=== PATIENT | female | born 1955 ===

== ENCOUNTER → 2020-04-13 14:16 | Outpatient (BNVA) | payer MEDICARE, SELFPAY | PROVIDERS: PCP Emergency Medicine; Visit Provider Student in an Organized Health Care Education/Training Program | DX: Z13.89 Encounter for screening for other disorder (principal) | CPT/HCPCS: Q3014 ==

== ENCOUNTER 2020-06-28 15:51 | Outpatient (REF) | payer MEDICARE, SELFPAY ==
--- NOTE | ~2020-06-28 | US_ITS ---
EXAMINATION: US RETROPERITONEAL LIMITED (RENAL ONLY) CLINICAL INFORMATION: Flank pain. Renal failure. COMPARISON: Ultrasound renals only 06/22/2019 and 12/11/2018. CT abdomen pelvis 09/06/2016. TECHNIQUE: Real-time imaging of the kidneys. FINDINGS: RIGHT KIDNEY: 9.0 x 3.9 x 4.7 cm (SAG x AP x TRV). The kidney is normal in size, contour, and echogenicity. Renal cortical thickness is normal. No renal calculi or hydronephrosis. There is an echogenic lesion in midpole measuring 1.2 x 1.3 x 1.0 cm. Previously it measured 1.2 x 0.9 x 1.2 cm. LEFT KIDNEY: 10.9 x 4.6 x 5.1 cm (SAG x AP x TRV). The kidney is normal in size, contour, and echogenicity. Renal cortical thickness is normal. No renal calculi or hydronephrosis. There is an irregular shaped anechoic cyst with septation in the lower pole measuring 4.0 x 3.8 x 3.8 cm. Previously it measured 3.9 x 3.8 x 3.0 cm. US/US renal BI IMPRESSION: Complex cyst left kidney and echogenic lesion midpole right kidney are stable. 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 It is stable to previous study from 06/22/2019 and ultrasound abdomen 09/06/2016.
[2020-06-28 16:39] LABS: MANUAL DIFF FLAG NO
[2020-06-28 16:42] LABS: Basophils Percent Auto 0.4 % (0-2); Eosinophils Absolute Auto 0.1 X10*3/uL (0.0-0.4); Eosinophils Percent Auto 2.7 % (0-4); Hematocrit 39.2 % (37-47); Imm Gran Abs Auto 0.02 X10*3/uL (0.00-0.03); Imm Gran Pct Auto 0.4 % (0.0-0.4); Lymphocytes Absolute Auto 1.9 X10*3/uL (1.2-4.9); Lymphocytes Percent Auto 36.5 % (20-40); Mean Corpuscular HGB Conc 33.2 g/dl (31.0-35.0); Mean Corpuscular Hemoglobin 33.3 pg (27.0-33.0); Mean Corpuscular Volume 100.5 fL (80-98); Mean Platelet Volume 11.8 fL (9.4-12.3); Monocytes Absolute Auto 0.5 X10*3/uL (0.1-1.2); Monocytes Percent Auto 9.3 % (2-11); Neutrophils Absolute Auto 2.6 X10*3/uL (2.0-8.3); Neutrophils Percent Auto 50.7 % (45-73); Platelet Count 208 X10*3/uL (160-400); Red Cell Distribution Width 12.9 % (11.0-16.0); White Blood Count 5.2 X10*3/uL (4.8-10.8)
[2020-06-28 17:09] LABS: Alanine Aminotransferase 12 U/L (0-31); Albumin Level 4.5 g/dL (3.5-5.0); Alkaline Phosphatase 81 U/L (39-117); Anion Gap 12 (12-20); Aspartate Amino Transferase 24 U/L (5-31); Bilirubin Total 0.9 mg/dL (0.0-1.0); Blood Urea Nitrogen 16 mg/dL (9-16); C Reactive Protein 0.57 mg/dL (< or = 0.50); Calcium 9.7 mg/dL (8.4-10.2); Carbon Dioxide 28 mmol/L (22-29); Chloride 105 mmol/L (96-108); Estimated Glomerular Filt Rate > 60; Glucose Random 83 mg/dL (60-115); Potassium 3.6 mmol/L (3.3-5.1); Sodium 141 mmol/L (135-145); Total Protein 8.1 g/dL (6.5-8.0)
[2020-06-28 19:39] LABS: Erythrocyte Sedimentation Rate 30 MM/HR (0-20)
== END 2020-06-28 15:52 | disposition home or self-care (01) ==
LOC: HO.US 15:51
PROVIDERS: Student in an Organized Health Care Education/Training Program; PCP Internal Medicine; Visit Provider Internal Medicine Nephrology
DX: R10.9 Unspecified abdominal pain (principal); N18.30 Chronic kidney disease, stage 3 unspecified; R76.8 Other specified abnormal immunological findings in serum
CPT/HCPCS: 36415; 76775; 80053; 85025; 85652; 86140

== ENCOUNTER → 2020-09-08 13:16 | Outpatient (BNVA) | payer MEDICARE, SELFPAY | PROVIDERS: PCP Internal Medicine; Visit Provider Urology | DX: N28.1 Cyst of kidney, acquired (principal) | CPT/HCPCS: 99202 ==

== ENCOUNTER 2021-06-03 01:34 | Emergency (ER) | payer MEDICARE, SELFPAY ==
[2021-06-03 01:48] VITALS: BP 147/81; PULSE 83; RESP 16; TEMP 36.8; O2SAT 97; BMI 44.8
--- NOTE | 2021-06-03 03:54 | ED_ITS ---
HPI - General Adult General Chief complaint: Headache Stated complaint: Crisis Time Seen by Provider: 06/03/21 03:50 Source: patient and dental patient coordinator Mode of arrival: ambulatory History of Present Illness HPI narrative: 66-year-old female who presents with onset left-sided neck pain that is sharp and constant in nature and radiates up in to the posterior aspect of her ear and down into her left shoulder. Patient did attempt to take Tylenol at home but states that the pain persisted. She states that she has increasing pain on attempting to look over her left shoulder but denies any ear discomfort, changes in vision, numbness/tingling / weakness to left upper extremity and denies any fever, chills, shortness of breath or chest pain / palpitations. Related Data Home Medications Medication Instructions Recorded Confirmed albuterol sulfate 90 mcg/actuation 2 puff INHALATION Q6H PRN 04/13/20 aerosol inhaler allopurinol 300 mg tablet 300 mg PO DAILY 04/13/20 aspirin 81 mg tablet,delayed 81 mg PO DAILY 04/13/20 release bupropion HCl 150 mg 24 hr tablet, 150 mg PO QAM 04/13/20 04/13/20 extended release cholecalciferol (vitamin D3) 125 mcg PO 04/13/20 mcg (5,000 unit) disintegrating tablet cyanocobalamin (vitamin B-12) 1,000 mcg PO DAILY 04/13/20 1,000 mcg capsule fluticasone propionate 44 2 puff INHALATION BID 04/13/20 mcg/actuation HFA aerosol inhaler (Flovent HFA) hydrochlorothiazide 25 mg tablet 25 mg PO DAILY 04/13/20 hydroxyzine HCl 10 mg tablet 10 mg PO BEDTIME 04/13/20 04/13/20 levothyroxine 137 mcg capsule 137 mcg PO DAILY 04/13/20 lisinopril 40 mg tablet 40 mg PO DAILY 04/13/20 metoprolol succinate 50 mg 50 mg PO DAILY 04/13/20 tablet,extended release 24 hr mirtazapine 30 mg tablet 30 mg PO DAILY 04/13/20 04/13/20 pantoprazole 40 mg tablet,delayed 40 mg PO DAILY 04/13/20 release Previous Rx's Medication Instructions Recorded tramadol 50 mg tablet 50 mg PO DAILY #30 tab 01/22/20 cyclobenzaprine 10 mg tablet 5 mg PO BEDTIME PRN #3 tab 06/03/21 Allergies Allergy/AdvReac Type Severity Reaction Status Date / Time No Known Allergies Allergy Verified 09/08/20 13:39 [No Known Allergies*] Review of Systems Review of Systems: Pertinent positives and negatives as stated in HPI 10 point review of systems is otherwise negative. [facility] Past Medical History Source: nursing notes reviewed Medical History Rheumatoid factor positive Social History Social History Alcohol intake: never Advance Directives: No Physical Exam ED Vital Signs: Vital Signs - 24 hr 06/03/21 01:48 Temperature 98.2 F Pulse Rate 83 Respiratory Rate 16 Blood Pressure 147/81 H Pulse Oximetry 97 BMI result Body Mass Index 44.8 VITAL SIGNS: Reviewed. GENERAL: Well developed, well nourished, in no acute distress. HEAD: Normocephalic/atraumatic EYES: PERRLA, EOMI EARS: Ext canals without abnormality, TMs non-bulging and non-erythematous NOSE: Nares patent bilateral OROPHARYNX: no oral lesions noted, posterior pharynx clear NECK: Supple, no adenopathy , noted spasm to left trapezius extending into left shoulder, no midline cervical spine tenderness noted LUNGS: Normal breath sounds. No adventitious sounds or accessory muscle use. SpO2<97> CARDIOVASCULAR: Regular rate and rhythm without noted murmurs ABDOMEN: Soft, non-tender, non-distended with bowel sounds. MUSCULOSKELETAL: No tenderness, deformities, or effusions noted on gross inspection. EXTREMITIES: No cyanosis, clubbing or edema. SKIN: Inspection of the skin reveals no rashes NEUROLOGIC: Alert and oriented x 4. Strength and sensation to light touch were grossly intact x 4, no facial asymmetry, no pronator drift, otherwise nonfocal.. Course Course Course Narrative: 66-year-old female with history and clinical presentation consistent with muscle spasm and will be provided with combination analgesics as well as Flexeril and lidocaine patch. on re-evaluation patient states that she is feeling much better and has demonstrated increased range of motion. She is otherwise discharged home in stable condition. Discharge Plan Discharge Clinical Impression: Muscle spasm Patient Disposition: Home, Self-Care Instructions: Muscle Spasm (ED) Additional Instructions: 1. Reanudar todos los medicamentos caseros seg?n lo prescrito. 2. Tylenol 1000 mg, por v?a oral, cada 6 horas seg?n sea necesario para controlar el dolor. No exceda los 4000 mg dentro de las 24 horas. 3. Ibuprofeno 400 mg, por v?a oral con leche o comida, cada 6 horas seg?n sea necesario para controlar el dolor. Puede tomarlo con Tylenol para aumentar el alivio de los s?ntomas. 4. Recomiende el parche de lidoca?na de venta sruthi, apl?quelo en el ?marleen de m?xima sensibilidad susu se indica en el empaque exterior. 5. Kaylen un seguimiento con jensen proveedor de atenci?n primaria el lunes por la ma?lizbeth para nancy reevaluaci?n adicional del manejo ambulatorio. Regrese a la gigi de emergencias por empeoramiento cooper de los s?ntomas. Prescriptions: New cyclobenzaprine 10 mg tablet 5 mg PO BEDTIME PRN (Reason: muscle spasm) Qty: 3 0RF No Action tramadol 50 mg tablet 50 mg PO DAILY Qty: 30 3RF Rx Instructions: 1 tab PO daily as needed mirtazapine 30 mg tablet 30 mg PO DAILY 0RF hydroxyzine HCl 10 mg tablet 10 mg PO BEDTIME 0RF bupropion HCl 150 mg tablet extended release 24 hr 150 mg PO QAM 0RF albuterol sulfate 90 mcg/actuation HFA aerosol inhaler 2 puff inhalation Q6H PRN0RF pantoprazole 40 mg tablet,delayed release (DR/EC) 40 mg PO DAILY 0RF Flovent HFA 44 mcg/actuation HFA aerosol inhaler 2 puff inhalation BID 0RF Rx Instructions: administer with spacer allopurinol 300 mg tablet 300 mg PO DAILY 0RF cyanocobalamin (vitamin B-12) 1,000 mcg capsule 1,000 mcg PO DAILY 0RF hydrochlorothiazide 25 mg tablet 25 mg PO DAILY 0RF aspirin 81 mg tablet,delayed release (DR/EC) 81 mg PO DAILY 0RF metoprolol succinate 50 mg tablet extended release 24 hr 50 mg PO DAILY 0RF lisinopril 40 mg tablet 40 mg PO DAILY 0RF cholecalciferol (vitamin D3) 125 mcg (5,000 unit) tablet,disintegrating PO 0RF levothyroxine 137 mcg capsule 137 mcg PO DAILY 0RF Referrals: Jen Ochoa MD [Primary Care Provider] - 2 days Print Language: Indian
[2021-06-03] MEDS: Acetaminophen 325 MG TABLET 975 MG PO (04:22)
[2021-06-03] MEDS: Cyclobenzaprine HCl 5 MG TABLET PO (04:22)
[2021-06-03] MEDS: Ketorolac Tromethamine 15 MG/ML VIAL IM (04:23)
[2021-06-03] MEDS: Lidocaine 4 % Patch ADH..PATCH 1 PATCH TRANSDERMA (04:23)
--- NOTE | 2021-06-03 05:27 | PC.NURSE ---
Hoda presented to ED for evaluation of L sided headache and depression and anxiety related to the recent sudden of her brother. She is alert and oriented x 3, makes eye contact with RN and is calm and cooperative. She speaks in full sentences, respirations non-labored. She denies chest pain. She denies SI/HI. NO nausaea. No vomiting. Hoda was medicated per MD orders and, at this time, she denies significant change in her SCHMIDT. She is aware that she is discharged and is currently attempting to arrange for transportation home from her daughter. She verbalized an understanding of all DC orders.
== END 2021-06-03 06:26 | disposition home or self-care (01) ==
PROVIDERS: Emergency Provider Student in an Organized Health Care Education/Training Program; PCP Internal Medicine
DX: M62.838 Other muscle spasm (principal); M54.2 Cervicalgia
CPT/HCPCS: 96372; 99283; 99284; J1885

== ENCOUNTER 2021-09-18 14:55 | Outpatient (REF) | payer MEDICARE, SELFPAY ==
[2021-09-18 15:28] LABS: MANUAL DIFF FLAG NO
[2021-09-18 16:11] LABS: Basophils Percent Auto 0.4 % (0-2); Eosinophils Absolute Auto 0.1 X10*3/uL (0.0-0.4); Eosinophils Percent Auto 2.1 % (0-4); Hematocrit 38.5 % (37.0-47.0); Hemoglobin 12.7 g/dl (12.0-16.0); Imm Gran Abs Auto 0.01 X10*3/uL (0.00-0.03); Imm Gran Pct Auto 0.2 % (0.0-0.4); Lymphocytes Absolute Auto 1.4 X10*3/uL (1.2-4.9); Lymphocytes Percent Auto 30.3 % (20-40); Mean Corpuscular Hemoglobin 32.6 pg (27.0-33.0); Mean Platelet Volume 11.8 fL (9.4-12.3); Monocytes Absolute Auto 0.5 X10*3/uL (0.1-1.2); Monocytes Percent Auto 10.7 % (2-11); Neutrophils Absolute Auto 2.7 x10*3/uL (2.0-8.3); Neutrophils Percent Auto 56.3 % (45-73); Platelet Count 207 X10*3/uL (160-400); Red Blood Count 3.89 X10*6/uL (4.20-5.50); Red Cell Distribution Width 13.3 % (11.0-16.0); White Blood Count 4.8 X10*3/uL (4.8-10.8)
== END 2021-09-18 14:56 | disposition home or self-care (01) ==
LOC: HO.LAB 14:55
PROVIDERS: PCP Internal Medicine; Visit Provider Internal Medicine Pulmonary Disease
DX: J45.909 Unspecified asthma, uncomplicated (principal); G47.33 Obstructive sleep apnea (adult) (pediatric); Z91.09 Other allergy status, other than to drugs and biological substances
CPT/HCPCS: 36415; 82785; 85025; 86003; 99202

== ENCOUNTER 2021-10-27 13:41 | Outpatient (REF) | payer MEDICARE, SELFPAY ==
--- NOTE | 2021-10-27 15:03 | PFT_ITS ---
Forced vital capacity 69%, FEV1 78%. FEV1/FVC ratio is 85. PRA36-35 96% and MVV is 77%. Post bronchodilator therapy, there is no change. Total lung capacity 70%, residual volume 68%. Diffusion capacity 78%. CONCLUSION: No obstructive airway disorder. Moderately severe restrictive pulmonary disorder. Clinical correlation recommended. MD AMY Ayala/DONNIE / [id number]
== END 2021-10-27 13:42 | disposition home or self-care (01) ==
LOC: HO.RESP 13:41
PROVIDERS: PCP Internal Medicine; Visit Provider Internal Medicine Pulmonary Disease
DX: J45.909 Unspecified asthma, uncomplicated (principal)
CPT/HCPCS: 94060; 94727; 94729; 99212

== ENCOUNTER → 2021-11-06 10:10 | Outpatient (REF) | payer MEDICARE, SELFPAY | LOC: HO.SL 10:10 | PROVIDERS: PCP Internal Medicine; Visit Provider Internal Medicine Pulmonary Disease | DX: G47.33 Obstructive sleep apnea (adult) (pediatric) (principal) | CPT/HCPCS: 95806 ==

== ENCOUNTER 2021-11-27 15:47 | Outpatient (REF) | payer MEDICARE, SELFPAY ==
--- NOTE | ~2021-11-27 | US_ITS ---
EXAMINATION: US RETROPERITONEAL LIMITED (RENAL ONLY) CLINICAL INFORMATION: Cyst of kidney, acquired. COMPARISON: Renal ultrasound 06/28/2020 and 06/22/2019. CT abdomen and pelvis 09/07/2016. TECHNIQUE: Real-time imaging of the kidneys. FINDINGS: RIGHT KIDNEY: 10.8 x 3.7 x 5.3 cm (SAG x AP x TRV). The kidney is normal in size, contour, and echogenicity. Renal cortical thickness is normal. There is a 1.5 x 1.2 x 1.1 cm echogenic lesion in the midpole. This is similar to previous exam and likely represents a benign hemangioma. No renal calculi or hydronephrosis. LEFT KIDNEY: 10.6 x 4.5 x 4.6 cm (SAG x AP x TRV). The kidney is normal in size, contour, and echogenicity. Renal cortical thickness is normal. There is a 4.2 x 4.4 x 3.8 cm complex cyst in the lower pole of the left kidney with several thin septations. This measured 4 x 3.8 x 3.8 cm on June 2020 exam and is minimally increased in size. No renal calculi or hydronephrosis. US/US renal BI IMPRESSION: Stable 1.5 x 1.2 x 1 cm echogenic lesion in the midpole likely representing a benign angiomyolipoma. Complex 4.2 x 4.4 x 3.8 cm cyst in the lower pole with several thin septations minimally increased from previous exam.
[2021-11-27 17:14] LABS: Eosinophils Absolute Auto 0.1 X10*3/uL (0.0-0.4); Imm Gran Abs Auto 0.03 X10*3/uL (0.00-0.03); Imm Gran Pct Auto 0.5 % (0.0-0.4); MANUAL DIFF FLAG SCAN; Mean Corpuscular Hemoglobin 32.2 pg (27.0-33.0); Red Cell Distribution Width 13.4 % (11.0-16.0); SCAN SMEAR FLAG 1
[2021-11-27 17:16] LABS: Basophils Percent Auto 0.4 % (0-2); Eosinophils Percent Auto 1.4 % (0-4); Hematocrit 38.2 % (37.0-47.0); Hemoglobin 12.6 g/dl (12.0-16.0); Lymphocytes Absolute Auto 1.6 X10*3/uL (1.2-4.9); Lymphocytes Percent Auto 28.2 % (20-40); Mean Corpuscular Volume 97.7 fL (80.0-98.0); Mean Platelet Volume 12.8 fL (9.4-12.3); Monocytes Absolute Auto 0.6 X10*3/uL (0.1-1.2); Monocytes Percent Auto 10.2 % (2-11); Neutrophils Absolute Auto 3.3 x10*3/uL (2.0-8.3); Neutrophils Percent Auto 59.3 % (45-73); PLT CLUMP 1; Red Blood Count 3.91 X10*6/uL (4.20-5.50)
[2021-11-27 17:17] LABS: Prothrombin Time 11.2 SEC (10.0-13.1)
[2021-11-27 17:27] LABS: PLT ABN DIST 1
[2021-11-27 17:29] LABS: White Blood Count 5.6 X10*3/uL (4.8-10.8)
[2021-11-27 17:55] LABS: Alanine Aminotransferase 11 U/L (0-31); Albumin Level 4.2 g/dL (3.5-5.0); Alkaline Phosphatase 77 U/L (39-117); Aspartate Amino Transferase 24 U/L (5-31); Bilirubin Direct 0.2 mg/dL (0.0-0.5); Bilirubin Total 0.5 mg/dL (0.0-1.0)
[2021-11-27 18:16] LABS: Platelet Count 151 X10*3/uL (160-400)
[2021-11-27 18:17] LABS: SLIDE REVIEW VERIFIED
[2021-11-29 07:41] LABS: Immunoglobulin E 49 kU/L (<OR=114)
[2021-11-29 13:51] LABS: Alpha Fetoprotein 6.3 ng/mL
[2021-11-30 08:42] LABS: HCV Log PCR <1.18 NOT DETECTED Log IU/mL (NOT DETECTED); HepC Viral Load <15 NOT DETECTED IU/mL (NOT DETECTED)
== END 2021-11-27 15:48 | disposition home or self-care (01) ==
LOC: HO.US 15:47
PROVIDERS: Internal Medicine Pulmonary Disease; Absent Provider Internal Medicine; PCP Internal Medicine; Visit Provider Urology
DX: N28.1 Cyst of kidney, acquired (principal); K74.69 Other cirrhosis of liver; Z91.09 Other allergy status, other than to drugs and biological substances; Z86.19 Personal history of other infectious and parasitic diseases
CPT/HCPCS: 36415; 76775; 80076; 82105; 82785; 85025; 85610; 87522

== ENCOUNTER → 2021-12-06 13:37 | Outpatient (BNVA) | payer MEDICARE, SELFPAY | PROVIDERS: PCP Internal Medicine; Visit Provider Urology | DX: N28.1 Cyst of kidney, acquired (principal) | CPT/HCPCS: Q3014 ==

== ENCOUNTER 2022-05-20 01:13 | Emergency (ER) | payer OTHER, SELFPAY ==
[2022-05-20 01:23] VITALS: BP 122/103; BP 78/50; PULSE 73; PULSE 77; RESP 18; TEMP 36.6; O2SAT 100; O2SAT 96; BMI 47.6
[2022-05-20 01:59] LABS: IDNOW Serial# 6674DD1D; Strep A Nucleic Acid Negative (Negative)
[2022-05-20 02:00] LABS: COVID-19 Test Negative (Negative); IDNOW Serial# 16C4AD1C; IDNOW Serial# BCCEAD1C; Influenza A Negative (Negative); Influenza B2 Negative (Negative)
[2022-05-20 02:12] VITALS: BP 140/69; PULSE 68; O2SAT 98
--- NOTE | 2022-05-20 02:12 | PC.NURSE ---
Pt aox4, resting at the bedside. Pt reports dry cough x 1 day and sore throat, 10/10, and SOB. Bilateral clear lung sounds on auscultation. Pt aware of plan of care.
--- NOTE | 2022-05-20 02:14 | ED_ITS ---
HPI - General Adult General Chief complaint: General Medical Stated complaint: Sorethroat Time Seen by Provider: 05/20/22 01:37 Source: patient Mode of arrival: EMS History of Present Illness HPI narrative: 67-year-old female who arrives via EMS with 1 week of sore throat and subjective fevers. Otherwise she denies any shortness of breath, chest pain, GI or symptoms. Related Data Home Medications Medication Instructions Recorded Confirmed albuterol sulfate 90 mcg/actuation 2 puff inhalation Q6H PRN 04/13/20 12/06/21 aerosol inhaler allopurinol 300 mg tablet 300 mg PO DAILY 04/13/20 12/06/21 bupropion HCl 150 mg 24 hr tablet, 150 mg PO QAM 04/13/20 12/06/21 extended release cholecalciferol (vitamin D3) 125 mcg PO 04/13/20 12/06/21 mcg (5,000 unit) disintegrating tablet cyanocobalamin (vitamin B-12) 1,000 mcg PO DAILY 04/13/20 12/06/21 1,000 mcg capsule hydrochlorothiazide 25 mg tablet 25 mg PO DAILY 04/13/20 12/06/21 lisinopril 40 mg tablet 40 mg PO DAILY 04/13/20 12/06/21 metoprolol succinate 50 mg 50 mg PO DAILY 04/13/20 12/06/21 tablet,extended release 24 hr pantoprazole 40 mg tablet,delayed 40 mg PO DAILY 04/13/20 12/06/21 release betamethasone dipropionate 0.05 % 1 appl topical DAILY PRN 09/18/21 12/06/21 topical cream cephalexin 500 mg capsule 500 mg PO BID 09/18/21 12/06/21 clotrimazole 1 % topical cream 1 appl topical BID 09/18/21 12/06/21 cromolyn 4 % eye drops 1 drp ophthalmic (eye) QID 09/18/21 12/06/21 doxycycline hyclate 100 mg capsule 100 mg PO DAILY 09/18/21 12/06/21 famotidine 20 mg tablet 20 mg PO DAILY 09/18/21 12/06/21 hydrocortisone 2.5 % topical cream 1 appl topical BID PRN 09/18/21 12/06/21 ibuprofen 800 mg tablet 800 mg PO TID 09/18/21 12/06/21 levothyroxine 137 mcg capsule 137 mcg PO DAILY 09/18/21 12/06/21 (Tirosint) lidocaine 5 % topical patch 1 patch topical DAILY 09/18/21 12/06/21 loratadine 10 mg tablet 10 mg PO DAILY 09/18/21 12/06/21 nystatin 100,000 unit/gram topical 1 appl topical DAILY 09/18/21 12/06/21 cream prednisone 20 mg tablet 20 mg PO DAILY 09/18/21 12/06/21 tizanidine 2 mg tablet 2 mg PO Q6-8H PRN 09/18/21 12/06/21 hydroxyzine HCl 10 mg tablet 10 mg PO BID 12/06/21 12/06/21 mirtazapine 30 mg tablet 30 mg PO BEDTIME 12/06/21 12/06/21 Previous Rx's Medication Instructions Recorded cyclobenzaprine 10 mg tablet 5 mg PO BEDTIME PRN muscle spasm 06/03/21 #3 tabs fluticasone furoate 200 1 inh inhalation DAILY 30 days #1 09/18/21 mcg-vilanterol 25 mcg/dose ea inhalation powder (Breo Ellipta) Allergies Allergy/AdvReac Type Severity Reaction Status Date / Time No Known Allergies Allergy Verified 12/06/21 08:54 [No Known Allergies*] Review of Systems Review of Systems: Pertinent positives and negatives as stated in [facility] Past Medical History Source: nursing notes reviewed Medical History Cholelithiasis Chronic kidney disease, stage 3 Gallstone Hepatitis C HTN (hypertension) Hyperuricemia Hypothyroidism Morbid (severe) obesity due to excess calories OA (osteoarthritis) of knee Rheumatoid factor positive Sleep apnea Vitamin D deficiency Surgical History History of surgery Social History Social History Alcohol intake: never Advance Directives: No Physical Exam ED Vital Signs: Vital Signs - 24 hr 05/20/22 01:23 05/20/22 02:12 Temperature 97.9 F Pulse Rate 77 68 Respiratory Rate 18 Blood Pressure 122/103 H 140/69 H Pulse Oximetry 96 98 Oxygen Delivery Method Room Air Room Air BMI result Body Mass Index 47.6 VITAL SIGNS: Reviewed. GENERAL: Well developed, well nourished, in no acute distress. HEAD: Normocephalic/atraumatic EYES: PERRLA, EOMI EARS: Ext canals without abnormality, TMs non-bulging and non-erythematous NOSE: Nares patent bilateral OROPHARYNX: no oral lesions noted, posterior pharynx clear and non-erythematous without noted tonsillar enlargement/erythema/exudates NECK: Supple, no adenopathy LUNGS: Normal breath sounds. No adventitious sounds or accessory muscle use. SpO2<98> CARDIOVASCULAR: Regular rate and rhythm without noted murmurs ABDOMEN: Soft, non-tender, non-distended with bowel sounds. NEUROLOGIC: Alert and oriented x 4. Medical Decision Making Medical Decision Making [facility] Narrative: 67-year-old female with history and clinical presentation after review of all investigations most consistent with viral pharyngitis, patient was given instructions for saline gargles as well as [id number] Cepacol for additional symptom relief. She was also strongly encouraged to follow-up with her primary care provider. Differential Diagnosis Differential Diagnoses: The differential diagnosis associated with the presentation includes Please see discussion above Lab Data [facility] Lab Attestation statement: I reviewed the patient's lab results. Please see the discussion above Labs: Lab Results 05/20/22 05/20/22 05/20/22 Range/Units 01:35 01:35 01:35 COVID-19 (TA) Negative (Negative) COVID-19 Clin Com See Note Influenza Type A ([facility]) Negative (Negative) Influenza Type B ([facility]) Negative (Negative) Influenza A & B Note See Note S. pyogenes GrpA [facility] Negative (Negative) External Record Review External record reviewed: Outpatient record and Prior outpatient labs Discharge Plan Discharge Clinical Impression: Pharyngitis Patient Disposition: Home, Self-Care Instructions: Pharyngitis (ED) Additional Instructions: 1. Reanudar todos los medicamentos caseros seg?n lo prescrito. 2. Recomiendo Cepacol de venta sruthi para el alivio de los s?ntomas del dolor de garganta. 3. Adem?s, recomiendo combinar la harriet de dodge con agua tibia y hacer g?rgaras de 5 a 10 minutos, de 3 a 4 veces al d?a. Puede continuar esto pushpa 4 d?as. 4. Kaylen un seguimiento con jensen proveedor de atenci?n primaria el lunes por la ma?lizbeth. Regrese a la gigi de emergencias si los s?ntomas empeoran. 1. Resume all home medications as prescribed. 2. I recommend [id number] Cepacol for symptom relief of your sore throat. 3. In addition, I recommend combining table salt with warm water and gargling for 5-10 minutes, 3 to 4 times a day. You can continue this for 4 days. 4. Please follow-up with your primary care provider on Saturday morning. Return to the ER for any worsening symptoms. Prescriptions: No Action cyclobenzaprine 10 mg tablet 5 mg PO BEDTIME PRN (Reason: muscle spasm) Qty: 3 0RF bupropion HCl 150 mg tablet extended release 24 hr 150 mg PO QAM albuterol sulfate 90 mcg/actuation HFA aerosol inhaler 2 puff inhalation Q6H PRN pantoprazole 40 mg tablet,delayed release (DR/EC) 40 mg PO DAILY allopurinol 300 mg tablet 300 mg PO DAILY cyanocobalamin (vitamin B-12) 1,000 mcg capsule 1,000 mcg PO DAILY hydrochlorothiazide 25 mg tablet 25 mg PO DAILY metoprolol succinate 50 mg tablet extended release 24 hr 50 mg PO DAILY lisinopril 40 mg tablet 40 mg PO DAILY cholecalciferol (vitamin D3) 125 mcg (5,000 unit) tablet,disintegrating PO lidocaine 5 % adhesive patch,medicated 1 patch topical DAILY Rx Instructions: leave on most painful area for up to 12 hrs nystatin 100,000 unit/gram cream 1 appl topical DAILY cromolyn 4 % drops 1 drp ophthalmic (eye) QID fluticasone furoate-vilanterol [Breo Ellipta] 200-25 mcg/dose blister with device 1 inh inhalation DAILY 30 Days Qty: 1 6RF prednisone 20 mg tablet 20 mg PO DAILY tizanidine 2 mg tablet 2 mg PO Q6-8H PRN doxycycline hyclate 100 mg capsule 100 mg PO DAILY cephalexin 500 mg capsule 500 mg PO BID famotidine 20 mg tablet 20 mg PO DAILY loratadine 10 mg tablet 10 mg PO DAILY hydrocortisone 2.5 % cream 1 appl topical BID PRN clotrimazole 1 % cream 1 appl topical BID betamethasone dipropionate 0.05 % cream 1 appl topical DAILY PRN ibuprofen 800 mg tablet 800 mg PO TID levothyroxine [Tirosint] 137 mcg capsule 137 mcg PO DAILY hydroxyzine HCl 10 mg tablet 10 mg PO BID mirtazapine 30 mg tablet 30 mg PO BEDTIME Referrals: Jen Ochoa MD [Primary Care Provider] - Print Language: Faroese
[2022-05-20] MEDS: Throat Lozenge, Medicated LOZENGE 1 LOZENGE MUCOUS MEM (02:29)
[2022-05-20] MEDS: Ibuprofen 400 MG TABLET PO (02:29)
[2022-05-20] MEDS: Acetaminophen 325 MG TABLET 975 MG PO (02:29)
--- NOTE | 2022-05-20 02:31 | PC.NURSE ---
Pt aox3 in no apparent distress. Discharge instructions provided to pt. Pt verbalizes understanding. Able to ambulate independently with a steady gait.
== END 2022-05-20 02:33 | disposition home or self-care (01) ==
PROVIDERS: Emergency Provider Student in an Organized Health Care Education/Training Program; PCP Internal Medicine
DX: J02.9 Acute pharyngitis, unspecified (principal); R50.9 Fever, unspecified; Z20.822 Contact with and (suspected) exposure to COVID-19; Z20.828 Contact with and (suspected) exposure to other viral communicable diseases
CPT/HCPCS: 87502; 87635; 87651; 99284

== ENCOUNTER 2022-10-08 09:45 | Outpatient (REF) | payer OTHER, SELFPAY ==
--- NOTE | ~2022-10-08 | US_ITS ---
EXAMINATION: US COMPLETE ABDOMEN WITH LIVER ELASTOGRAPHY CLINICAL INFORMATION: Cirrhosis. COMPARISON: None available. TECHNIQUE: Real-time imaging of the abdominal viscera. Noninvasive ultrasound liver fibrosis assessment is performed using Aimee ElastPQ point quantification shear wave elastography (2D-SWE) with a C5-2 MHz transducer. Multiple elastography samples are obtained. FINDINGS: PANCREAS: The pancreas appears unremarkable, without masses or ductal dilatation, with the exception of the tail which is obscured by bowel gas. ABDOMINAL AORTA: The proximal, middle, and distal aortic segments are normal in caliber. INFERIOR VENA CAVA: Visualized portions are normal. LIVER: The liver is heterogeneous with a lobular contour suggesting cirrhosis. Echogenicity is borderline increased. No focal lesion or intrahepatic biliary duct dilatation. The right lobe measures 15.3 cm in length. The left lobe measures 13.5 cm in length. Portal flow is hepatopetal. Shear wave liver elastography median stiffness is 2.0 m/s (reference: normal median stiffness is 1.3 m/s or less). IQR/median stiffness to assess sampling precision is 0.10 (reference: good quality data set is IQR/median stiffness of 0.15 or less). GALLBLADDER: Normal. The gallbladder is physiologically distended without evidence of stones, sludge, polyps, wall thickening or pericholecystic fluid. COMMON BILE DUCT: Normal in caliber measuring 0.6 cm in diameter. RIGHT KIDNEY: No hydronephrosis. No renal calculi or focal parenchymal lesions. The kidney measures 9.6 cm in maximum dimension. LEFT KIDNEY: No hydronephrosis. A benign lower pole 3.7 cm Bosniak class II renal cyst is noted with a septation. This requires no additional imaging or follow-up. No solid renal masses are seen. No renal calculi or focal parenchymal lesions. The kidney measures 10.2 cm in maximum dimension. SPLEEN: Normal. The spleen measures 9.0 cm in maximum dimension. FREE FLUID: None. US/US abdomen comp w elastography IMPRESSION: 1. Cirrhotic appearing liver. 2. Liver elastography: Measurements are suggestive of compensated advanced chronic liver disease but need further test for confirmation. REFERENCE: Society of Radiologists in Ultrasound Liver Stiffness Thresholds (2020): LIVER STIFFNESS THRESHOLDS: *Liver Stiffness equal or less than 1.3 m/s: High probability of being normal. *Liver Stiffness less than 1.7 m/s: In the absence of other known clinical signs, rules out compensated advanced chronic liver disease. *Liver Stiffness 1.7-2.1 m/s: Suggestive of compensated advanced chronic liver disease but need further test for confirmation. *Liver Stiffness over 2.1 m/s: Rules in compensated advanced chronic liver disease. *Liver Stiffness over 2.4 m/s: Suggestive of clinically significant portal hypertension. QUALITY OF DATA SET: *IQR/Median value equal or less than 0.15 implies a quality data set. *IQR/Median value over 0.15 implies a poor quality data set. SIGNIFICANT CHANGE FROM PRIOR EXAM: Significant change if liver stiffness measurement is 10% or greater from prior exam. OTHER CONSIDERATIONS: The stage of liver fibrosis may be overestimated in the setting of acute hepatitis, liver inflammation, elevated liver function tests, hepatic vascular congestion, obstructive cholestasis, non-fasting state, and infiltrative diseases such as amyloidosis and lymphoma. In some patients with NAFLD, the liver stiffness thresholds for compensated advanced chronic liver disease may be lower. In causes other than viral hepatitis and NAFLD, liver stiffness thresholds are not well established.
== END 2022-10-08 09:46 | disposition home or self-care (01) ==
LOC: HO.US 09:45
PROVIDERS: Visit Provider Internal Medicine
DX: K74.69 Other cirrhosis of liver (principal)
CPT/HCPCS: 76705; 76981

== ENCOUNTER 2022-12-06 09:36 | Outpatient (REF) | payer OTHER, SELFPAY ==
--- NOTE | ~2022-12-06 | US_ITS ---
EXAMINATION: US RETROPERITONEAL LIMITED (RENAL ONLY) CLINICAL INFORMATION: Cyst of kidney, acquired. COMPARISON: Ultrasound abdomen complete with elastography 10/08/2022. Renal ultrasound 11/27/2021. TECHNIQUE: Real-time imaging of the kidneys. FINDINGS: RIGHT KIDNEY: 10.2 x 3.7 x 5.3 cm (SAG x AP x TRV). The kidney is normal in size, contour, and echogenicity. Renal cortical thickness is normal. No renal calculi or hydronephrosis. At the interpolar aspect laterally, a 0.9 x 1.0 x 0.9 cm hyperechoic, circumscribed mass is seen. This could represent a benign angiomyolipoma or alternatively a prominent peripelvic fat collection. LEFT KIDNEY: 10.3 x 5.6 x 6.0 cm (SAG x AP x TRV). The kidney is normal in size, contour, and echogenicity. Renal cortical thickness is normal. No renal calculi or hydronephrosis. At the lower pole, a 3.8 x 3.7 x 3.7 cm mildly complex cyst is seen with fine septation. On the ultrasound examination dated 10/08/2022, this measured 3.7 x 3.0 x 3.2 cm. US/US renal BI IMPRESSION: 1. There is a stable 3.8 cm maximal diameter mildly complex cyst with fine septation. 2. Centrally within the right kidney, a fat density benign angiomyolipoma versus renal sinus focal fat collection is newly noted.
== END 2022-12-06 09:37 | disposition home or self-care (01) ==
LOC: HO.US 09:36
PROVIDERS: PCP Internal Medicine; Visit Provider Urology
DX: N28.1 Cyst of kidney, acquired (principal)
CPT/HCPCS: 76775

== ENCOUNTER 2023-03-22 14:44 | Outpatient (AMB) | payer OTHER, SELFPAY ==
--- NOTE | 2023-03-22 14:41 | A.OFFVIS_ITS ---
Intake Intake Visit Reasons: REASON FOR VISIT 1 yr /US(set) Intake Note: Patient is present for ultrasound follow up renal cyst/ultrasound (imaging 12/06/22) Urology Medications: none Blood Thinner: none Mowing Machine Operator Required: Yes Mowing Machine Operator Name: CURT LIRADANILO Accompanied by: Self / Same As Patient Allergies No Known Allergies [No Known Allergies*] Allergy (Verified 03/22/23 15:27) Medication List - Last Reconciled 03/22/23 by HIRA Reaves- albuterol sulfate 90 mcg/actuation 2 puffs inhalation Q6H PRN allopurinol 300 mg PO DAILY betamethasone dipropionate 0.05% 1 appl topical DAILY PRN bupropion HCl 150 mg PO QAM cholecalciferol (vitamin D3) mcg PO cholecalciferol (vitamin D3) 50 mcg PO DAILY clotrimazole 1% 1 appl topical BID cromolyn 4% 1 drp ophthalmic (eye) QID cyanocobalamin (vitamin B-12) 1,000 mcg PO DAILY cyclobenzaprine 5 mg (1/2 x 10 mg) PO BEDTIME PRN famotidine 20 mg PO DAILY fluticasone furoate-vilanterol 200-25 mcg/dose (Breo Ellipta) 1 ea PO DAILY hydrochlorothiazide 25 mg PO DAILY hydrocortisone 2.5% 1 appl topical BID PRN hydroxyzine HCl 10 mg PO BID ibuprofen 800 mg PO TID levothyroxine (Tirosint) 137 mcg PO DAILY lidocaine 5% 1 patch topical DAILY lisinopril 40 mg PO DAILY loratadine 10 mg PO DAILY metoprolol succinate ER 50 mg PO DAILY mirtazapine 30 mg PO BEDTIME nystatin 1 appl topical DAILY pantoprazole 40 mg PO DAILY prednisone 20 mg PO DAILY tizanidine 2 mg PO Q6-8H PRN zolpidem 5 mg PO BEDTIME PRN HPI HPI Comments History of Present Illness Details Hoda is a very pleasant 67-year-old Danish-speaking female patient of Dr. Kidd. She has a past medical history of chronic kidney disease stage 3, vitamin-D deficiency, sleep apnea, hyperthyroidism, hypertension, hyperuricemia, hep C, obesity, osteoarthritis of the knee, and rheumatoid factor positive. She presents to the office today for follow-up of her complex renal cyst. In discussion with the patient today she reports having followed up with Nephrology earlier last week and has been doing and feeling well. Recent renal imaging results reviewed with the patient today. Right kidney with no calculi and or hydronephrosis. At the interpolar aspect laterally, a 0.9 x 1.0 x 0.9 cm hyperechoic, circumscribed mass is seen. This could represent benign angiomyolipoma or alternatively a prominent peripelvic fat collection. Left kidney with no calculi and or hydronephrosis. At the lower pole, a 3.8 x 3.7 x 3.7 cm mildly complex cyst is seen with fine septation. On the ultrasound examination dated 10/08/2022, this measured 3.7 x 3.0 x 3.2 cm. She denies any bothersome urinary issues or concerns at this time. In office urinalysis results reviewed with the patient today. Discussed at length renal cysts and further imaging with CT urogram. Patient is agreeable. When asked she denies urinary urgency, urinary frequency, incontinence, nocturia, hematuria, dysuria, foul smelling urine, changes to urinary stream, flank pain, fever, and or chills. She is happy with her current voiding parameters. She otherwise denies any other issues or concerns at this time. [facility] Medical History Chronic kidney disease, stage 3 Vitamin D deficiency Sleep apnea Hypothyroidism HTN (hypertension) Hyperuricemia Hepatitis C Gallstone Morbid (severe) obesity due to excess calories Cholelithiasis OA (osteoarthritis) of knee Rheumatoid factor positive Surgical History History of surgery Social History Alcohol intake: never Review of Systems Const Reports as per HPI Eyes Reports no additional complaints ENT Reports no additional complaints Card Reports as per HPI Resp Reports as per HPI GI Reports as per HPI Reports as per HPI Musc Reports as per HPI Neuro Reports no additional complaints Psych Reports no additional complaints Endo Reports as per HPI Physical Exam Const General: cooperative, comfortable, no acute distress, well developed, alert and awake Nutritional Appearance: overweight Orientation/consciousness: patient oriented x3 Limitations: no limitations HEENT Head: Yes normal to inspection, Yes normocephalic and Yes atraumatic Ears: hearing grossly normal bilaterally Eyes General: appearance normal, both eyes and all related structures Neck Neck: Yes normal visual inspection and Yes trachea midline Chest Chest palpation & inspection: normal inspection of the chest Resp Effort & Inspection: normal respiratory effort and able to speak in complete sentences Cardio Rate: regular rate GI Inspection: Yes normal to inspection General: Yes no CVA tenderness Back/Spine/Pelvis Back: no CVA tenderness Skin General skin exam: no rashes or lesions noted Neuro General: patient oriented x3 Extrem General: Yes normal to inspection Psych Appearance: grossly normal and well kempt Mental Status: mental status grossly normal Speech and movement: Normal speech and movement present and Clear speech present Affect: normal affect Attitude: cooperative Thought process: Normal thought process present Thought content: Normal thought content present Insight: Fair insight present (Psych) Judgement: Fair judgement present (Psych) Results AMB Urinalysis, Automated UA Leukoctes 0 Mel/uL Last Edit by [employer] on 03/22/23 15:03 UA Nitrite Negative Last Edit by [employer] on 03/22/23 15:03 UA Urobilinogen 0.2 mg/dL Last Edit by [employer] on 03/22/23 15:03 UA Protein 0 mg/dL Last Edit by [employer] on 03/22/23 15:03 UA pH 5.5 Last Edit by [employer] on 03/22/23 15:03 UA Blood 0 Nathaniel/uL Last Edit by [employer] on 03/22/23 15:03 UA Specific [place] 1.015 Last Edit by [employer] on 03/22/23 15:03 UA Ketone Negative Last Edit by [employer] on 03/22/23 15:03 UA Bilirubin 0 mg/dL Last Edit by [employer] on 03/22/23 15:03 UA Glucose 0 mg/dL Last Edit by [employer] on 03/22/23 15:03 Results Reviewed Results Reviewed: Laboratory Last Values Urine pH (Auto) 5.5 03/22/23 14:47 Specific [place] (Auto) 1.015 03/22/23 14:47 Urine Protein (Auto) 0 mg/dL 03/22/23 14:47 Glucose (UA)(Auto) 0 mg/dL 03/22/23 14:47 Urine Ketones (Auto) Negative 03/22/23 14:47 Urine Blood (Auto) 0 Nathaniel/uL 03/22/23 14:47 Urine Nitrite (Auto) Negative 03/22/23 14:47 Urine Bilirubin (Auto) 0 mg/dL 03/22/23 14:47 Urine Urobilinogen (Auto) 0.2 mg/dL 03/22/23 14:47 Leukocyte Esterase (Auto) 0 Mel/uL 03/22/23 14:47 Date of Service: 12/06/22 EXAMINATION: US RETROPERITONEAL LIMITED (RENAL ONLY) CLINICAL INFORMATION: Cyst of kidney, acquired. COMPARISON: Ultrasound abdomen complete with elastography 10/08/2022. Renal ultrasound 11/27/2021. TECHNIQUE: Real-time imaging of the kidneys. FINDINGS: RIGHT KIDNEY: 10.2 x 3.7 x 5.3 cm (SAG x AP x TRV). The kidney is normal in size, contour, and echogenicity. Renal cortical thickness is normal. No renal calculi or hydronephrosis. At the interpolar aspect laterally, a 0.9 x 1.0 x 0.9 cm hyperechoic, circumscribed mass is seen. This could represent a benign angiomyolipoma or alternatively a prominent peripelvic fat collection. LEFT KIDNEY: 10.3 x 5.6 x 6.0 cm (SAG x AP x TRV). The kidney is normal in size, contour, and echogenicity. Renal cortical thickness is normal. No renal calculi or hydronephrosis. At the lower pole, a 3.8 x 3.7 x 3.7 cm mildly complex cyst is seen with fine septation. On the ultrasound examination dated 10/08/2022, this measured 3.7 x 3.0 x 3.2 cm. IMPRESSION: 1. There is a stable 3.8 cm maximal diameter mildly complex cyst with fine septation. 2. Centrally within the right kidney, a fat density benign angiomyolipoma versus renal sinus focal fat collection is newly noted. Assessment & Plan Assessment & Plan (1) Complex renal cyst: Code(s): N28.1 - Cyst of kidney, acquired Plan In office urinalysis results reviewed with the patient today; as noted above. Recent renal imaging results reviewed with the patient today; as noted above. Discussed further assessment evaluation with CT urogram. BUN and creatinine ordered for imaging. Patient denies any bothersome urinary issues or concerns at this time. She reports be happy with current voiding parameters. Discussed, educated, encouraged on the importance of drinking plenty of water daily. Follow-up in 1-2 months with imaging to be completed prior; or sooner with any issues, concerns, and or questions. Orders: Orders AMB Urinalysis Automated Today Z13.9 - Encounter for screening, unspecified Blood Urea Nitrogen Today R39.15 - Urgency of urination CT urogram Today N28.1 - Cyst of kidney, acquired Creatinine Today R39.15 - Urgency of urination Patient Instructions: The patient had an opportunity to ask questions regarding the treatment plan. All questions were answered. Physical exam, labs, and imaging were discussed and reviewed in detail. As well as risks, benefits, and discussion of treatment choices. No major barriers to understanding were identified. The patient expressed understanding and agreement with the above treatment plan. The patient was made aware they should contact our office by phone for worsening of their current condition, the appearance of new symptoms, or with any questions or concerns. Compliance is encouraged with any medications and follow up testing that is ordered. It is a privilege to be allowed the opportunity to participate in? your urological care.? Again, if you have any questions or concerns If you have any questions or concerns please do not hesitate to contact me. The office is [phone]. This note is constructed using voice recognition software. While every effort has been made to ensure accuracy consumer relations complaint clerk errors may have been included. Yours sincerely, BARBIE Reaves Coding Level of Care Code Est Pt Level 3 (58586) Diagnoses Complex renal cyst N28.1
== END 2023-03-22 15:21 | disposition home or self-care (01) ==
PROVIDERS: PCP Internal Medicine; Visit Provider Nurse Practitioner Family
DX: N28.1 Cyst of kidney, acquired (principal)
CPT/HCPCS: 99213

== ENCOUNTER → 2023-03-22 14:44 | Outpatient (BNVA) | payer OTHER, SELFPAY | PROVIDERS: PCP Internal Medicine; Visit Provider Nurse Practitioner Family | DX: N28.1 Cyst of kidney, acquired (principal) | CPT/HCPCS: 81003; 99212 ==

== ENCOUNTER 2023-09-12 16:41 | Emergency (ER) | payer OTHER, SELFPAY ==
--- NOTE | ~2023-09-12 | CT_ITS ---
EXAMINATION: CT ANGIOGRAM CHEST, ABDOMEN AND PELVIS WITH CONTRAST CLINICAL INFORMATION: Chest pain, elevated blood pressure COMPARISON: CT abdomen/pelvis 09/07/2016 TECHNIQUE: Multidetector volumetric imaging was performed through the chest, abdomen and pelvis following the administration of 70 mL of Omnipaque 350 intravenous contrast per CTA protocol. Sagittal and coronal reformatted images were obtained on the technologist's workstation. Multiplanar MIP volume rendering provided. This CT examination was performed using dose optimization techniques as appropriate, variously including the following: *Automated exposure control *Adjustment of mA and/or kV according to patient size (this includes techniques or standardized protocols for targeted exams where dose is matched to indication/reason for exam; i.e. extremities or head) *Use of iterative reconstruction technique DLP: 858 mGy-cm FINDINGS: CHEST: Vasculature: Ascending aorta measures approximately 3.6 cm in diameter. There is suboptimal assessment of the ascending aorta due to motion artifact, though without findings suspicious for dissection. There is common origin of the brachiocephalic and left common carotid arteries off the aortic arch. No central pulmonary embolus is seen. Lungs: No regions of consolidation bilaterally. There is a posterior right upper lobe nodule measuring approximately 6 x 3 mm on image 190/[id number]. Mediastinum: The visualized thyroid gland is unremarkable. There are subcentimeter mediastinal lymph nodes within the range of normal variation. Cardiac size is within normal limits; no pericardial effusion. Pleura: No pneumothorax or pleural effusion. Chest Wall/Axilla: Unremarkable. ABDOMEN/PELVIS: Liver, Gallbladder, Biliary Tree: The liver is normal in size, shape, and attenuation. No focal hepatic lesion or biliary ductal dilatation is present. Status post cholecystectomy. There is also a coarse calcification in the gallbladder fossa. Pancreas: Unremarkable. Spleen: Unremarkable. Adrenal Glands: Unremarkable. Kidneys and Ureters: Bilateral nephrograms are symmetric. No hydronephrosis or obstructing calculus identified. Left lower pole renal cyst measures up to approximately 4.6 cm; no follow-up recommended. Bladder: Unremarkable. Gastrointestinal Tract: No evidence of bowel obstruction. Assessment for wall thickening in some segments of the colon is limited due to luminal collapse, though no significant pericolonic stranding is seen to strongly suggest a colitis. No free fluid or free air is seen. Abdominal Wall: No hernia is demonstrated. Lymphovascular Structures: Lymph nodes: Normal. Vascular: No evidence of aortic aneurysm or dissection. The celiac artery is patent. Superior mesenteric artery is patent, with a replaced hepatic artery noted. Bilateral renal arteries are patent. Inferior mesenteric artery is patent. The bilateral iliac and visualized femoral arteries are patent. Pelvic Viscera: Status post hysterectomy. OSSEOUS STRUCTURES: Degenerative changes are noted in the spine. CT/CT angio abdomen pelvis IMPRESSION: 1. No evidence of aortic dissection. 2. No acute findings identified in the chest, abdomen, or pelvis. 3. Posterior right upper lobe lung nodule, nonspecific. According to the UPDATED 2017 Fleischner Society recommendations, the advised follow-up imaging for solid nodules < 6 mm is: LOW RISK PATIENT: No routine follow-up. HIGH RISK PATIENT: Optional CT at 12 months.
--- NOTE | 2023-09-12 16:43 | ECG_ITS ---
Test Reason : cp Blood Pressure : / mmHG Vent. Rate : 067 BPM Atrial Rate : 067 BPM P-R Int : 188 ms QRS Dur : 106 ms QT Int : 344 ms P-R-T Axes : 035 -41 017 degrees QTc Int : 363 ms Normal sinus rhythm Left axis deviation Moderate voltage criteria for LVH, may be normal variant ( R in aVL , [place] product ) Nonspecific T wave abnormality Abnormal ECG When compared with ECG of 01-JAN-2019 20:31, QT has shortened Referred By: Radha Gutierrez Electronically Signed By:ROMAINE LOUISE
[2023-09-12 17:02] LABS: MANUAL DIFF FLAG NO
[2023-09-12 17:04] VITALS: BP 190/87; PULSE 67; RESP 16; TEMP 36.4; O2SAT 97; BMI 50.3
[2023-09-12 17:04] LABS: Basophils Percent Auto 0.4 % (0-2); Eosinophils Absolute Auto 0.1 X10*3/uL (0.0-0.4); Eosinophils Percent Auto 2.3 % (0-4); Hemoglobin 12.7 g/dl (12.0-16.0); Imm Gran Abs Auto 0.01 X10*3/uL (0.00-0.03); Imm Gran Pct Auto 0.2 % (0.0-0.4); Lymphocytes Absolute Auto 1.8 X10*3/uL (1.2-4.9); Lymphocytes Percent Auto 33.9 % (20-40); Mean Corpuscular HGB Conc 34.3 g/dl (31.0-35.0); Mean Corpuscular Hemoglobin 33.2 pg (27.0-33.0); Mean Corpuscular Volume 96.9 fL (80.0-98.0); Mean Platelet Volume 11.2 fL (9.4-12.3); Monocytes Absolute Auto 0.5 X10*3/uL (0.1-1.2); Monocytes Percent Auto 9.3 % (2-11); Neutrophils Absolute Auto 2.8 x10*3/uL (2.0-8.3); Neutrophils Percent Auto 53.9 % (45-73); Platelet Count 205 X10*3/uL (160-400); Red Blood Count 3.82 X10*6/uL (4.20-5.50); Red Cell Distribution Width 13.1 % (11.0-16.0); White Blood Count 5.2 X10*3/uL (4.8-10.8)
--- NOTE | 2023-09-12 17:07 | ED.GENADULT ---
HPI - General Adult General Chief complaint: Chest Pain Stated complaint: chest pain, abnormal ekg Time Seen by Provider: 09/13/23 00:12 Related Data Home Medications ?Medication ?Instructions ?Recorded ?Confirmed albuterol sulfate 90 mcg/actuation 2 puff inhalation Q6H PRN 04/13/20 12/06/21 aerosol inhaler allopurinol 300 mg tablet 300 mg PO DAILY 04/13/20 12/06/21 bupropion HCl 150 mg 24 hr tablet, 150 mg PO QAM 04/13/20 12/06/21 extended release cholecalciferol (vitamin D3) 125 mcg PO 04/13/20 12/06/21 mcg (5,000 unit) disintegrating tablet cyanocobalamin (vitamin B-12) 1,000 mcg PO DAILY 04/13/20 12/06/21 1,000 mcg capsule hydrochlorothiazide 25 mg tablet 25 mg PO DAILY 04/13/20 12/06/21 lisinopril 40 mg tablet 40 mg PO DAILY 04/13/20 12/06/21 metoprolol succinate 50 mg 50 mg PO DAILY 04/13/20 12/06/21 tablet,extended release 24 hr pantoprazole 40 mg tablet,delayed 40 mg PO DAILY 04/13/20 12/06/21 release betamethasone dipropionate 0.05 % 1 appl topical DAILY PRN 09/18/21 12/06/21 topical cream clotrimazole 1 % topical cream 1 appl topical BID 09/18/21 12/06/21 cromolyn 4 % eye drops 1 drp ophthalmic (eye) QID 09/18/21 12/06/21 famotidine 20 mg tablet 20 mg PO DAILY 09/18/21 12/06/21 hydrocortisone 2.5 % topical cream 1 appl topical BID PRN 09/18/21 12/06/21 ibuprofen 800 mg tablet 800 mg PO TID 09/18/21 12/06/21 levothyroxine 137 mcg capsule 137 mcg PO DAILY 09/18/21 12/06/21 (Tirosint) lidocaine 5 % topical patch 1 patch topical DAILY 09/18/21 12/06/21 loratadine 10 mg tablet 10 mg PO DAILY 09/18/21 12/06/21 nystatin 100,000 unit/gram topical 1 appl topical DAILY 09/18/21 12/06/21 cream prednisone 20 mg tablet 20 mg PO DAILY 09/18/21 12/06/21 tizanidine 2 mg tablet 2 mg PO Q6-8H PRN 09/18/21 12/06/21 hydroxyzine HCl 10 mg tablet 10 mg PO BID 12/06/21 12/06/21 mirtazapine 30 mg tablet 30 mg PO BEDTIME 12/06/21 12/06/21 cholecalciferol (vitamin D3) 50 50 mcg PO DAILY 03/22/23 mcg (2,000 unit) tablet zolpidem 5 mg tablet 5 mg PO BEDTIME PRN 03/22/23 Previous Rx's ?Medication ?Instructions ?Recorded cyclobenzaprine 10 mg tablet 5 mg (1/2 x 10 mg) PO BEDTIME PRN 06/03/21 muscle spasm #3 tabs fluticasone furoate 200 1 ea PO DAILY #60 ea 10/10/22 mcg-vilanterol 25 mcg/dose inhalation powder (Breo Ellipta) Allergies Allergy/AdvReac Type Severity Reaction Status Date / Time No Known Allergies Allergy Verified 09/12/23 17:07 [No Known Allergies*] [facility] Past Medical History Medical History Chronic kidney disease, stage 3 Vitamin D deficiency Sleep apnea Hypothyroidism HTN (hypertension) Hyperuricemia Hepatitis C Gallstone Morbid (severe) obesity due to excess calories Cholelithiasis OA (osteoarthritis) of knee Rheumatoid factor positive Surgical History History of surgery Social History Social History Alcohol intake: never Smoked in Last 30 Days: No Advance Directives: No Advance Directives Information Provided: Yes Do you have a plan to hurt others: No Plan Physical Exam ED Vital Signs: Vital Signs - 24 hr 09/12/23 17:04 09/13/23 00:45 09/13/23 04:18 Temperature 97.6 F 97.5 F 97.9 F Pulse Rate 67 58 57 Respiratory Rate 16 16 13 Blood Pressure 190/87 H 183/79 H 133/66 Pulse Oximetry 97 96 96 Oxygen Delivery Method Room Air Room Air Room Air BMI result Body Mass Index 50.3 Course Course Course Narrative: This is an RME done by VERONIKA Gutierrez: Additional HPI, ROS, PE not included below will be deferred to primary provider. 68 year old female presents with chest pain which began last night while she was relaxing as well as shortness of breath which worsens when she is walking around. The chest pain radiates to her left shoulder and jaw. Appearance: Alert.? Oriented X3.? No acute cardiopulmonary distress distress.? Head: Normocephalic, atraumatic, no step-offs or deformities CVS: Pulses normal.? Respiratory: No respiratory distress.? Abdomen: Soft and nontender.? Skin: ? Normal skin color. Extremities: 5/5 strength to bilateral upper and lower extremities Neuro: Oriented X 3.? No motor deficit.? No sensory deficit. Medications Administered Discontinued Medications Generic Name Dose Route Start Last Admin Trade Name Freq PRN Reason Stop Dose Admin Iohexol 70 ml 09/13/23 02:03 09/13/23 02:04 Iohexol 350 Mg/Ml 100 Ml Infus..Btl IV 09/13/23 02:04 70 ml ONCE ONE Administration Medical Decision Making Lab Data 09/12/23 16:52 09/12/23 16:52 Labs: Lab Results 09/12/23 09/13/23 Range/Units 16:52 01:29 WBC 5.2 (4.8-10.8) X10*3/uL RBC 3.82 L (4.20-5.50) X10*6/uL Hgb 12.7 (12.0-16.0) g/dl Hct 37.0 (37.0-47.0) % MCV 96.9 (80.0-98.0) fL MCH 33.2 H (27.0-33.0) pg MCHC 34.3 (31.0-35.0) g/dl RDW 13.1 (11.0-16.0) % Plt Count 205 D (160-400) X10*3/uL MPV 11.2 (9.4-12.3) fL Immature Gran % (Auto) 0.2 (0.0-0.4) % Neut % (Auto) 53.9 (45-73) % Lymph % (Auto) 33.9 (20-40) % [place] % (Auto) 9.3 (2-11) % Eos % (Auto) 2.3 (0-4) % Baso % (Auto) 0.4 (0-2) % Lymph # (Auto) 1.8 (1.2-4.9) X10*3/uL [place] # (Auto) 0.5 (0.1-1.2) X10*3/uL Eos # (Auto) 0.1 (0.0-0.4) X10*3/uL Baso # (Auto) 0.0 (0.0-0.2) X10*3/uL Abs Immat Gran (auto) 0.01 (0.00-0.03) X10*3/uL Absolute Neuts (auto) 2.8 (2.0-8.3) x10*3/uL Absolute Nucleated RBC 0.000 (0.0-0.012) X10*3/uL Nucleated RBC % (auto) 0.0 (0.0-0.2) /100WBC Sodium 140 (135-145) mmol/L Potassium 3.6 (3.3-5.1) mmol/L Chloride 103 (96-108) mmol/L Carbon Dioxide 25 (22-29) mmol/L Anion Gap 16 (12-20) BUN 11 (9-16) mg/dL Creatinine 1.03 (0.5-1.4) mg/dL Estim Creat Clear Calc 53.1 Estimated GFR 53 Random Glucose 97 (60-115) mg/dL Calcium 10.6 H D (8.4-10.2) mg/dL Magnesium 1.5 L (1.6-2.6) mg/dL Total Bilirubin 0.6 (0.0-1.0) mg/dL AST 26 (5-31) U/L ALT 15 (0-31) U/L Alkaline Phosphatase 65 (39-117) U/L Troponin I High Sens < 2.7 < 2.7 (<3.5-17.0) ng/L Total Protein 8.3 H (6.5-8.0) g/dL Albumin 4.2 (3.5-5.0) g/dL Discharge Plan Discharge Clinical Impression: Chest pain Patient Disposition: Still a Patient Instructions: Chest Pain (DC) Additional Instructions: A lung nodule was found on your CT scan. Please closely follow-up. CT follow-up in 6 months to 1 year recommended. Prescriptions: No Action fluticasone furoate-vilanterol [Breo Ellipta] 200-25 mcg/dose blister with device 1 ea PO DAILY Qty: 60 6RF cyclobenzaprine 10 mg tablet 5 mg PO BEDTIME PRN (Reason: muscle spasm) Qty: 3 0RF bupropion HCl 150 mg tablet extended release 24 hr 150 mg PO QAM albuterol sulfate 90 mcg/actuation HFA aerosol inhaler 2 puff inhalation Q6H PRN pantoprazole 40 mg tablet,delayed release (DR/EC) 40 mg PO DAILY allopurinol 300 mg tablet 300 mg PO DAILY cyanocobalamin (vitamin B-12) 1,000 mcg capsule 1,000 mcg PO DAILY hydrochlorothiazide 25 mg tablet 25 mg PO DAILY metoprolol succinate 50 mg tablet extended release 24 hr 50 mg PO DAILY lisinopril 40 mg tablet 40 mg PO DAILY cholecalciferol (vitamin D3) 125 mcg (5,000 unit) tablet,disintegrating PO lidocaine 5 % adhesive patch,medicated 1 patch topical DAILY Rx Instructions: leave on most painful area for up to 12 hrs nystatin 100,000 unit/gram cream 1 appl topical DAILY cromolyn 4 % drops 1 drp ophthalmic (eye) QID prednisone 20 mg tablet 20 mg PO DAILY tizanidine 2 mg tablet 2 mg PO Q6-8H PRN famotidine 20 mg tablet 20 mg PO DAILY loratadine 10 mg tablet 10 mg PO DAILY hydrocortisone 2.5 % cream 1 appl topical BID PRN clotrimazole 1 % cream 1 appl topical BID betamethasone dipropionate 0.05 % cream 1 appl topical DAILY PRN ibuprofen 800 mg tablet 800 mg PO TID levothyroxine [Tirosint] 137 mcg capsule 137 mcg PO DAILY hydroxyzine HCl 10 mg tablet 10 mg PO BID mirtazapine 30 mg tablet 30 mg PO BEDTIME zolpidem 5 mg tablet 5 mg PO BEDTIME PRN cholecalciferol (vitamin D3) 50 mcg (2,000 unit) tablet 50 mcg PO DAILY Referrals: Ba Castaneda MD [Physician] - 09/16/23 Print Language: Croatian
[2023-09-12 17:25] LABS: Alanine Aminotransferase 15 U/L (0-31); Albumin Level 4.2 g/dL (3.5-5.0); Alkaline Phosphatase 65 U/L (39-117); Anion Gap 16 (12-20); Aspartate Amino Transferase 26 U/L (5-31); Bilirubin Total 0.6 mg/dL (0.0-1.0); Blood Urea Nitrogen 11 mg/dL (9-16); Calcium 10.6 mg/dL (8.4-10.2); Carbon Dioxide 25 mmol/L (22-29); Chloride 103 mmol/L (96-108); Creatinine Clr Calc Pharmacy 53.1; Estimated Glomerular Filt Rate 53; Glucose Random 97 mg/dL (60-115); Magnesium 1.5 mg/dL (1.6-2.6); Potassium 3.6 mmol/L (3.3-5.1); Sodium 140 mmol/L (135-145); Total Protein 8.3 g/dL (6.5-8.0)
[2023-09-12 17:39] LABS: Troponin-I High Sensitivity < 2.7 ng/L (<3.5-17.0)
--- OUTSIDE RECORDS SUMMARY | 2023-09-13 00:43 | XMS_ITS | Patient Health Record ---
Author Organization [facility] Address [address] [place] [address] Care Team Providers Care Splitting Machine Tender Name Role Phone Jen Acosta M.D. Primary Care Provider Aric Morrison Unavailable [phone] ALLERGIES No Known Allergies RESULTS Component Value Reference Range Notes US abdomen comp w elastograp hy (Not yet reviewed by provider) Interpretation: Performing Lab: Notes/Report: [facility] [address] [place] [address] Ultrasound Report Signed Patient: Hoda Lorenzo MR#: [id number] : 1955 Acct:[id number] Age/Sex: 67 / F ADM Date: 10/08/22 Loc: HO.US Attending Dr: Aric Florian Ordering Physician: Aric Florian Date of Service: 10/08/22 Procedure(s): US abdomen comp w elastography Accession Number(s): [id number] cc: Aric Florian EXAMINATION: US COMPLETE ABDOMEN WITH LIVER ELASTOGRAPHY CLINICAL INFORMATION: Cirrhosis. COMPARISON: None available. TECHNIQUE: Real-time imaging of the abdominal viscera. Noninvasive ultrasound liver fibrosis assessment is performed using Aimee ElastPQ point quantification shear wave elastography (2D-SWE) with a C5-2 MHz transducer. Multiple elastography samples are obtained. FINDINGS: PANCREAS: The pancreas appears unremarkable, without masses or ductal dilatation, with the exception of the tail which is obscured by bowel gas. ABDOMINAL AORTA: The proximal, middle, and distal aortic segments are normal in caliber. INFERIOR VENA CAVA: Visualized portions are normal. LIVER: The liver is heterogeneous with a lobular contour suggesting cirrhosis. Echogenicity is borderline increased. No focal lesion or intrahepatic biliary duct dilatation. The right lobe measures 15.3 cm in length. The left lobe measures 13.5 cm in length. Portal flow is hepatopetal. Shear wave liver elastography median stiffness is 2.0 m/s (reference: normal median stiffness is 1.3 m/s or less). IQR/median stiffness to assess sampling precision is 0.10 (reference: good quality data set is IQR/median stiffness of 0.15 or less). GALLBLADDER: Normal. The gallbladder is physiologically distended without evidence of stones, sludge, polyps, wall thickening or pericholecystic fluid. COMMON BILE DUCT: Normal in caliber measuring 0.6 cm in diameter. RIGHT KIDNEY: No hydronephrosis. No renal calculi or focal parenchymal lesions. The kidney measures 9.6 cm in maximum dimension. LEFT KIDNEY: No hydronephrosis. A benign lower pole 3.7 cm Bosniak class II renal cyst is noted with a septation. This requires no additional imaging or follow-up. No solid renal masses are seen. No renal calculi or focal parenchymal lesions. The kidney measures 10.2 cm in maximum dimension. SPLEEN: Normal. The spleen measures 9.0 cm in maximum dimension. FREE FLUID: None. US/US abdomen comp w elastography IMPRESSION: 1. Cirrhotic appearing liver. 2. Liver elastography: Measurements are suggestive of compensated advanced chronic liver disease but need further test for confirmation. REFERENCE: Society of Radiologists in Ultrasound Liver Stiffness Thresholds (2019): LIVER STIFFNESS THRESHOLDS: *Liver Stiffness equal or less than 1.3 m/s: High probability of being normal. *Liver Stiffness less than 1.7 m/s: In the absence of other known clinical signs, rules out compensated advanced chronic liver disease. *Liver Stiffness 1.7-2.1 m/s: Suggestive of compensated advanced chronic liver disease but need further test for confirmation. *Liver Stiffness over 2.1 m/s: Rules in compensated advanced chronic liver disease. *Liver Stiffness over 2.4 m/s: Suggestive of clinically significant portal hypertension. QUALITY OF DATA SET: *IQR/Median value equal or less than 0.15 implies a quality data set. *IQR/Median value over 0.15 implies a poor quality data set. SIGNIFICANT CHANGE FROM PRIOR EXAM: Significant change if liver stiffness measurement is 10% or greater from prior exam. OTHER CONSIDERATIONS: The stage of liver fibrosis may be overestimated in the setting of acute hepatitis, liver inflammation, elevated liver function tests, hepatic vascular congestion, obstructive cholestasis, non-fasting state, and infiltrative diseases such as amyloidosis and lymphoma. In some patients with NAFLD, the liver stiffness thresholds for compensated advanced chronic liver disease may be lower. In causes other than viral hepatitis and NAFLD, liver stiffness thresholds are not well established. Dictated By: Lucio Rahman MD Signed By: <Electronically signed by Lucio Rahman MD in OV> 10/10/22 194 DD/ 1008 TD/TT: Shirt Finisher: SS REASON FOR REFERRAL No Information MEDICATIONS Medication SIG (Take, Route, Frequency, Duration) Notes Start Date End Date Status Albuterol Sulfate (2.5 MG/3M L) 0.083% Inhalation for 7 Active Pantoprazole Sodium 40 MG TAKE 1 TABLET BY MOUTH EVERY DAY Oral for 30 Active Mirtazapine 30 MG Oral for 30 Active Breo Ellipta 200-25 MCG/INH Inhalation for 30 Active Levothyroxine Sodium 137 MCG Oral for 30 Active Vitamin D3 50 MCG (2000 UT) TAKE 1 TABLE T BY MOUTH ONCE DAILY Oral for 30 Active Flovent HFA 110 MCG/ACT 1 puff Inhalatio n Twice a day Active Allopurinol 300 MG 1 tablet Orally Once a day Active buPROPion HCl ER (XL) 150 MG Oral for 30 Active hydrOXYzine HCl 10 MG Oral for 30 Active Cyclobenzaprine HCl 5 MG Oral for 6 Active tiZANidine HCl 2 MG Oral for 5 Active Aspirin Low Dose 81 MG TAKE 1 TABLET BY MOUTH EVERY DAY Oral for 30 Active Acetaminophen ER 650 MG Oral for 10 Active Triamcinolone Acetonide 0.1 % External for 30 Active Arthritis Pain Relief 650 MG TAKE 2 TABL ETS BY MOUTH EVERY 8 HOURS NEEDED. SWALLOW WHOLE WITH WATER. DO NOT BREAK, CRUSH, DISSOLVE OR CHEW Oral for 10 Active Aspir-81 81 MG 1 tablet Orally Once a day Active Ambien 10 MG 1 tablet at bedtime Orally Once a day Active Metoprolol Succinate ER 50 MG 1 tablet O rally Once a day Active Ventolin HFA 108 (90 Base) MCG/ACT INHALE 2 PUFFS BY MOUTH EVERY 4 TO 6 HOURS NEEDED Inhalation for 17 Active Vitamin B-12 1000 MCG TAKE 1 TABLET BY MOUTH EVERY DAY Oral for 30 Active Famotidine 20 MG 1 tablet at bedtime as needed Orally Twice a day Active Lisinopril 40 MG 1 tablet Orally Once a day Active hydroCHLOROthiazide 25mg 1 tablet Orally Once a day Active Loratadine 10 MG 1 tablet Orally Once a day for 30 day(s) Active IMMUNIZATIONS Vaccine Route Administration Date Status Comme nts Influenza Unknown 03/07/2021 Administered SOCIAL HISTORY Sex Assigned At : Social History Observation Description Sex Assigned At Unknown PROBLEMS Problem Type ICD Code Onset Dates Problem Status W/U Status Risk SNOMED Code Notes Problem Colon cancer screening (Z12.11) Active confirmed Colon cancer screening (015428532) Problem History of adenomatous polyp of colon (Z86.010) Active confirmed History of adenomatous polyp of colon (407108056) Problem Other cirrhosis of liver (K74.69) Active confirmed 72081927 Problem History of hepatitis C (Z86.19) Active confirmed [id number] Encounters Encounter Location Date Provider Diagnosis [facility] [address] [place] [phone] 03/05/2023 Aric Florian [facility] [address] [place] [phone] 07/11/2023 Aric Florian [facility] [address] [place] [phone] 07/09/2023 Aric Florian PLAN OF TREATMENT Pending Test Test Name Order Date LIVER PROFILE 11/15/2021 LIVER PROFILE 02/01/2012 LIVER PROFILE 05/24/2017 LIVER PROFILE 02/02/2016 LIVER PROFILE 08/28/2022 CBC w DIFF 08/28/2022 CBC w DIFF 11/15/2021 CBC w DIFF 02/02/2016 PROTHROMBIN TIME (PT, INR) 03/25/2014 PROTHROMBIN TIME (PT, INR) 08/28/2022 PROTHROMBIN TIME (PT, INR) 11/15/2021 PROTHROMBIN TIME (PT, INR) 05/24/2017 PROTHROMBIN TIME (PT, INR) 02/02/2016 ALPHA-FETOPROTEIN,TUMOR MARKER 6 ALPHA-FETOPROTEIN,TUMOR MARKER 4 ALPHA-FETOPROTEIN,TUMOR MARKER 2 ALPHA-FETOPROTEIN,TUMOR MARKER 3 ALPHA-FETOPROTEIN,TUMOR MARKER 3 ALPHA-FETOPROTEIN,TUMOR MARKER 2 ALPHA-FETOPROTEIN,TUMOR MARKER 8 HEPATITIS C VIRAL LOAD 02/02/2016 HEPATITIS C VIRAL LOAD 11/15/2021 US abdomen comp w elastography 3 US abdomen comp w elastography 3 Future Test Test Name Order Date UPPER GI ENDOSCOPY 03/31/2013 COLONOSCOPY 03/31/2013 Next Appt Details Provider Name:Aric Florian , 11/07/2023 10:00:00 AM, [address], [address], [place], [address], Insurance Providers Payer Name Payer Address Payer Phone Subscriber Number Group Number Insured Name Patient Relationship to Insured Coverage Start Date Coverage End Date [facility] [address] Attn Claims VERONIKA Perez [id number] HODA SAMUEL Self - patient is the insured MEDICAL (GENERAL) HISTORY Medical History History ICD Code Colonoscopy 05-25-2013--remov al of 1 tubular adenoma--BE was done in June 2013 due to inability to get past the ascending colon with the colonoscopy -the BE was normal Cirrhosis-liver biopsy 2002- -ultrasound in April of 2013 was negative for any mass and alpha-fetoprotein level was normal--her liver profile was completely normal as well Previous hepatits C-Rx'd suc cessfully in [id number] Hep C RNA in 2007 Hypertension Denies ND,DM,CVA,renal disease Asthma Hypothyroid Depression In ER 02/2013 with rectal bleeding and H elana + stool---Labs OK Gallstones--she has seen Dr. Hardy due to occasional pain--holding off on surgery due to the liver disease negative MRI of the liver in 2010, and negative liver ultrasound in 2011--her alpha-fetoprotein level in 2011 was 6.2 and her liver profile was normal EGD in 05/2013 was neg. for varices, mild portal gastropathy, small HH Colonoscopy in 2006 with only a hyperpla stic polyp Surgical History Surgery Date(Month/Year) with transfusions Cholecystectomy-2016 Dr. Kramer
[2023-09-13 00:45] VITALS: BP 183/79; PULSE 58; RESP 16; TEMP 36.4; O2SAT 96
--- NOTE | 2023-09-13 01:02 | PC.NURSE ---
pt states she has no chest pain at this time. Pain is when pt is coughing or taking a deep breath. pt is on the monitor, skin pink warm and dry, and no coughing at this time.
--- NOTE | 2023-09-13 01:16 | ED.CHESTPAIN ---
HPI - Chest Pain General Chief Complaint: Chest Pain Stated Complaint: chest pain, abnormal ekg Time Seen by Provider: 09/13/23 00:12 History of Present Illness HPI narrative: Patient is a 68-year-old female presents today with having chest pain that is mid chest. It goes to the shoulder. There is no specific trigger. It is constant. There is no new shortness of breath. There has no diaphoresis. There has no fever there has no chills. There is no leg swelling. No history of blood clots. Patient from home. Positive history of hypertension. No history of diabetes, hypercholesterolemia, smoking, mi. no family history of PR. patient is from home. Related Data Home Medications ?Medication ?Instructions ?Recorded ?Confirmed albuterol sulfate 90 mcg/actuation 2 puff inhalation Q6H PRN 04/13/20 12/06/21 aerosol inhaler allopurinol 300 mg tablet 300 mg PO DAILY 04/13/20 12/06/21 bupropion HCl 150 mg 24 hr tablet, 150 mg PO QAM 04/13/20 12/06/21 extended release cholecalciferol (vitamin D3) 125 mcg PO 04/13/20 12/06/21 mcg (5,000 unit) disintegrating tablet cyanocobalamin (vitamin B-12) 1,000 mcg PO DAILY 04/13/20 12/06/21 1,000 mcg capsule hydrochlorothiazide 25 mg tablet 25 mg PO DAILY 04/13/20 12/06/21 lisinopril 40 mg tablet 40 mg PO DAILY 04/13/20 12/06/21 metoprolol succinate 50 mg 50 mg PO DAILY 04/13/20 12/06/21 tablet,extended release 24 hr pantoprazole 40 mg tablet,delayed 40 mg PO DAILY 04/13/20 12/06/21 release betamethasone dipropionate 0.05 % 1 appl topical DAILY PRN 09/18/21 12/06/21 topical cream clotrimazole 1 % topical cream 1 appl topical BID 09/18/21 12/06/21 cromolyn 4 % eye drops 1 drp ophthalmic (eye) QID 09/18/21 12/06/21 famotidine 20 mg tablet 20 mg PO DAILY 09/18/21 12/06/21 hydrocortisone 2.5 % topical cream 1 appl topical BID PRN 09/18/21 12/06/21 ibuprofen 800 mg tablet 800 mg PO TID 09/18/21 12/06/21 levothyroxine 137 mcg capsule 137 mcg PO DAILY 09/18/21 12/06/21 (Tirosint) lidocaine 5 % topical patch 1 patch topical DAILY 09/18/21 12/06/21 loratadine 10 mg tablet 10 mg PO DAILY 09/18/21 12/06/21 nystatin 100,000 unit/gram topical 1 appl topical DAILY 09/18/21 12/06/21 cream prednisone 20 mg tablet 20 mg PO DAILY 09/18/21 12/06/21 tizanidine 2 mg tablet 2 mg PO Q6-8H PRN 09/18/21 12/06/21 hydroxyzine HCl 10 mg tablet 10 mg PO BID 12/06/21 12/06/21 mirtazapine 30 mg tablet 30 mg PO BEDTIME 12/06/21 12/06/21 cholecalciferol (vitamin D3) 50 50 mcg PO DAILY 03/22/23 mcg (2,000 unit) tablet zolpidem 5 mg tablet 5 mg PO BEDTIME PRN 03/22/23 Previous Rx's ?Medication ?Instructions ?Recorded cyclobenzaprine 10 mg tablet 5 mg (1/2 x 10 mg) PO BEDTIME PRN 06/03/21 muscle spasm #3 tabs fluticasone furoate 200 1 ea PO DAILY #60 ea 10/10/22 mcg-vilanterol 25 mcg/dose inhalation powder (Breo Ellipta) Allergies Allergy/AdvReac Type Severity Reaction Status Date / Time No Known Allergies Allergy Verified 09/12/23 17:07 [No Known Allergies*] Review of Systems Review of Systems: Positive history of hypertension Positive chest pain No new shortness of breath no diaphoresis Chest pain radiate to the shoulder Yes all other systems are reviewed and are negative PMFSH Past Medical History Attestation statement: The following information was validated with the patient. Medical History Chronic kidney disease, stage 3 Vitamin D deficiency Sleep apnea Hypothyroidism HTN (hypertension) Hyperuricemia Hepatitis C Gallstone Morbid (severe) obesity due to excess calories Cholelithiasis OA (osteoarthritis) of knee Rheumatoid factor positive Surgical History History of surgery Social History Social History Alcohol intake: never Smoked in Last 30 Days: No Advance Directives: No Advance Directives Information Provided: Yes Do you have a plan to hurt others: No Plan Physical Exam Vital Signs: Vital Signs: Last Vital Signs Temp 97.9 F 09/13/23 04:18 Pulse 57 09/13/23 04:18 Resp 13 09/13/23 04:18 BP 133/66 09/13/23 04:18 Pulse Ox 96 09/13/23 04:18 O2 Del Method Room Air 09/13/23 04:18 BMI result Body Mass Index 50.3 Appearance: Alert. Oriented X3. No acute distress. Eyes: Pupils equal, round and reactive to light. ENT: Pharynx normal. Neck: Normal inspection. Neck supple. No lymph nodes noted. No crepitus CVS: Normal heart rate and rhythm. Pulses normal. Normal S1 and S2 Respiratory: No respiratory distress. Breath sounds normal. No Wheezing. No rales Abdomen: Soft and nontender. No rigidity. No distention. good BS x4 Skin: Skin warm and dry. Normal skin color. Normal skin turgor. Extremities: No lower extremity edema. Neurovascular intact to all extremities. No Lacerations. No Rash Neuro: Oriented X 3. No motor deficit. No sensory deficit. Moving all extermities. No slurred speech Medications Administered Discontinued Medications Generic Name Dose Route Start Last Admin Trade Name Freq PRN Reason Stop Dose Admin Iohexol 70 ml 09/13/23 02:03 09/13/23 02:04 Iohexol 350 Mg/Ml 100 Ml Infus..Btl IV 09/13/23 02:04 70 ml ONCE ONE Administration Medical Decision Making Medical Decision Making [facility] Narrative: My interpretation of patient's EKG showed a sinus rhythm heart rate is 60 OR QRS QTC within normal limits there is nonspecific T-wave flattening diffusely noted. T-wave flattening more pronounced on this EKG than previous EKG from 2019. First set of troponin is negative. Patient's chest pain is atypical for ACS. She does have elevated blood pressure. A CT was ordered. Additional 2nd set of troponin is ordered. Her pain is atypical. She is 68. Her heart score is a 3 if her 2nd set of enzymes negative. Two sets of cardiac enzymes are negative. CT angio of the chest abdomen pelvis was done. There has no evidence of dissection there is no description of any large PE. Patient has a small lung nodule. Which will require follow-up on an outpatient basis. Radiology recommend high-risk patient gets CT follow-up in 1 year. Low risk patient no CT require. Patient is to follow-up with cardiology on an outpatient basis. Currently in stable condition. Blood pressure is down well-appearing. Differential Diagnosis Differential Diagnoses: The differential diagnosis associated with the presentation includes ACS, dissection, pneumonia Admission/Observation Consideration of admission/observation: Escalation of care including admission/observation considered Lab Data MDM Lab Attestation statement: I reviewed the patient's lab results. 09/12/23 16:52 09/12/23 16:52 Labs: Lab Results 09/12/23 09/13/23 Range/Units 16:52 01:29 WBC 5.2 (4.8-10.8) X10*3/uL RBC 3.82 L (4.20-5.50) X10*6/uL Hgb 12.7 (12.0-16.0) g/dl Hct 37.0 (37.0-47.0) % MCV 96.9 (80.0-98.0) fL MCH 33.2 H (27.0-33.0) pg MCHC 34.3 (31.0-35.0) g/dl RDW 13.1 (11.0-16.0) % Plt Count 205 D (160-400) X10*3/uL MPV 11.2 (9.4-12.3) fL Immature Gran % (Auto) 0.2 (0.0-0.4) % Neut % (Auto) 53.9 (45-73) % Lymph % (Auto) 33.9 (20-40) % [place] % (Auto) 9.3 (2-11) % Eos % (Auto) 2.3 (0-4) % Baso % (Auto) 0.4 (0-2) % Lymph # (Auto) 1.8 (1.2-4.9) X10*3/uL [place] # (Auto) 0.5 (0.1-1.2) X10*3/uL Eos # (Auto) 0.1 (0.0-0.4) X10*3/uL Baso # (Auto) 0.0 (0.0-0.2) X10*3/uL Abs Immat Gran (auto) 0.01 (0.00-0.03) X10*3/uL Absolute Neuts (auto) 2.8 (2.0-8.3) x10*3/uL Absolute Nucleated RBC 0.000 (0.0-0.012) X10*3/uL Nucleated RBC % (auto) 0.0 (0.0-0.2) /100WBC Sodium 140 (135-145) mmol/L Potassium 3.6 (3.3-5.1) mmol/L Chloride 103 (96-108) mmol/L Carbon Dioxide 25 (22-29) mmol/L Anion Gap 16 (12-20) BUN 11 (9-16) mg/dL Creatinine 1.03 (0.5-1.4) mg/dL Estim Creat Clear Calc 53.1 Estimated GFR 53 Random Glucose 97 (60-115) mg/dL Calcium 10.6 H D (8.4-10.2) mg/dL Magnesium 1.5 L (1.6-2.6) mg/dL Total Bilirubin 0.6 (0.0-1.0) mg/dL AST 26 (5-31) U/L ALT 15 (0-31) U/L Alkaline Phosphatase 65 (39-117) U/L Troponin I High Sens < 2.7 < 2.7 (<3.5-17.0) ng/L Total Protein 8.3 H (6.5-8.0) g/dL Albumin 4.2 (3.5-5.0) g/dL Independent Interpretation I performed an independent interpretation of an: EKG (Sinus heart rate is 70 OR QRS QTC within normal limits is no acute ST segment elevation noted. There is diffuse T-wave flattening noted.) Radiology Impression Discussion of test interpretation with radiology: I have reviewed the radiologist's reading. External Record Review External record reviewed: Inpatient record Chronic Conditions Patient?s care impacted by: Hypertension Discharge Plan Discharge Clinical Impression: Chest pain Patient Disposition: Still a Patient Instructions: Chest Pain (DC) Additional Instructions: A lung nodule was found on your CT scan. Please closely follow-up. CT follow-up in 6 months to 1 year recommended. Prescriptions: No Action fluticasone furoate-vilanterol [Breo Ellipta] 200-25 mcg/dose blister with device 1 ea PO DAILY Qty: 60 6RF cyclobenzaprine 10 mg tablet 5 mg PO BEDTIME PRN (Reason: muscle spasm) Qty: 3 0RF bupropion HCl 150 mg tablet extended release 24 hr 150 mg PO QAM albuterol sulfate 90 mcg/actuation HFA aerosol inhaler 2 puff inhalation Q6H PRN pantoprazole 40 mg tablet,delayed release (DR/EC) 40 mg PO DAILY allopurinol 300 mg tablet 300 mg PO DAILY cyanocobalamin (vitamin B-12) 1,000 mcg capsule 1,000 mcg PO DAILY hydrochlorothiazide 25 mg tablet 25 mg PO DAILY metoprolol succinate 50 mg tablet extended release 24 hr 50 mg PO DAILY lisinopril 40 mg tablet 40 mg PO DAILY cholecalciferol (vitamin D3) 125 mcg (5,000 unit) tablet,disintegrating PO lidocaine 5 % adhesive patch,medicated 1 patch topical DAILY Rx Instructions: leave on most painful area for up to 12 hrs nystatin 100,000 unit/gram cream 1 appl topical DAILY cromolyn 4 % drops 1 drp ophthalmic (eye) QID prednisone 20 mg tablet 20 mg PO DAILY tizanidine 2 mg tablet 2 mg PO Q6-8H PRN famotidine 20 mg tablet 20 mg PO DAILY loratadine 10 mg tablet 10 mg PO DAILY hydrocortisone 2.5 % cream 1 appl topical BID PRN clotrimazole 1 % cream 1 appl topical BID betamethasone dipropionate 0.05 % cream 1 appl topical DAILY PRN ibuprofen 800 mg tablet 800 mg PO TID levothyroxine [Tirosint] 137 mcg capsule 137 mcg PO DAILY hydroxyzine HCl 10 mg tablet 10 mg PO BID mirtazapine 30 mg tablet 30 mg PO BEDTIME zolpidem 5 mg tablet 5 mg PO BEDTIME PRN cholecalciferol (vitamin D3) 50 mcg (2,000 unit) tablet 50 mcg PO DAILY Referrals: Ba Castaneda MD [Physician] - 09/16/23 Print Language: Cypriot
[2023-09-13 01:58] LABS: Troponin-I High Sensitivity < 2.7 ng/L (<3.5-17.0)
[2023-09-13] MEDS: iohexoL 350 MG/ML 100 ML INFUS..BTL 70 ML IV (02:04)
[2023-09-13 04:18] VITALS: BP 133/66; PULSE 57; RESP 13; TEMP 36.6; O2SAT 96
[2023-09-13 05:33] VITALS: BP 133/66; PULSE 57; RESP 13; TEMP 36.6; O2SAT 96
== END 2023-09-13 05:34 | disposition home or self-care (01) ==
PROVIDERS: Physician Assistant; Emergency Provider Emergency Medicine Emergency Medical Services; PCP Internal Medicine
DX: R07.9 Chest pain, unspecified (principal); I12.9 Hypertensive chronic kidney disease with stage 1 through stage 4 chronic kidney disease, or unspecified chronic kidney disease; N18.30 Chronic kidney disease, stage 3 unspecified
CPT/HCPCS: 36415; 71275; 74174; 80053; 83735; 84484; 85025; 93005; 99284; 99285; Q9967

== ENCOUNTER → 2023-09-12 16:43 | Outpatient (BNV) | payer OTHER, SELFPAY | PROVIDERS: Emergency Provider Emergency Medicine Emergency Medical Services; PCP Internal Medicine; Visit Provider Internal Medicine | DX: R07.9 Chest pain, unspecified (principal); R94.31 Abnormal electrocardiogram [ECG] [EKG] | CPT/HCPCS: 93010 ==

== ENCOUNTER 2023-10-21 15:45 | Outpatient (REF) | payer OTHER, SELFPAY ==
--- NOTE | ~2023-10-21 | MM_ITS ---
EXAMINATION: MM SCREENING DIGITAL BREAST TOMOSYNTHESIS, BILATERAL CLINICAL INFORMATION: Screening. Asymptomatic. COMPARISON: Mammography: This study is compared with prior exams dating back to 2015. TECHNIQUE: Digital breast tomosynthesis is performed in both the craniocaudal and mediolateral oblique views along with computer-aided detection (CAD). Synthesized 2D images are generated from the tomosynthesis. FINDINGS: There are scattered areas of fibroglandular density (ACR BI-RADS breast composition Category b). There are no significant masses, abnormal calcifications, or other abnormalities. MM/MM tomosynthesis screening BI IMPRESSION: No mammographic evidence of malignancy. ASSESSMENT: BI-RADS BI-RADS 1 - Negative RECOMMENDATION: Routine annual mammography screening. 1 year F/U This examination should not preclude the clinical evaluation of a suspicious palpable abnormality. This patient's information was entered into a reminder system with a target due date for their next mammogram.
== END 2023-10-21 15:46 | disposition home or self-care (01) ==
LOC: HO.MAMMO 15:45
PROVIDERS: PCP Internal Medicine; Visit Provider Internal Medicine
DX: Z12.31 Encounter for screening mammogram for malignant neoplasm of breast (principal)
CPT/HCPCS: 77063; 77067

== ENCOUNTER → 2023-10-21 15:45 | Outpatient (BNV) | payer OTHER, SELFPAY | PROVIDERS: PCP Internal Medicine; Visit Provider Radiology Diagnostic Radiology | DX: Z12.31 Encounter for screening mammogram for malignant neoplasm of breast (principal) | CPT/HCPCS: 77063; 77067 ==

== ENCOUNTER 2023-11-06 10:53 | Outpatient (AMB) | payer OTHER, SELFPAY ==
[2023-11-06 10:57] VITALS: BP 128/78; PULSE 66; O2SAT 97; BMI 49.1
--- NOTE | 2023-11-06 10:57 | MHC.OFFVIS ---
Vital Signs 11/06/23 10:57 Height 4 ft 9 in Weight 227 lb BMI 49.1 BP 128/78 Blood Pressure Location Rt brachial Position Sitting Pulse 66 Pulse Source Doppler Pulse Oximetry (%) 97 Oxygen Delivery Method Room Air Intake Visit Reasons: Asthma Microbiological Laboratory Technician Required: Yes Microbiological Laboratory Technician Name: Erin Castellon Sasha Allergies No Known Allergies [No Known Allergies*] Allergy (Verified 11/06/23 11:02) HPI HPI Asthma: Details: 68-year-old lady, nonsmoker, followed for underlying moderate persistent asthma and environmental allergies. Patient's symptoms for previously controlled on Breo and albuterol MDI, but now she has ran out of albuterol MDI she feels more symptomatic. She also had a recent CT angio chest in emergency room that demonstrated 6 mm right-sided nodule. [facility] Medical History Chronic kidney disease, stage 3 Vitamin D deficiency Sleep apnea Hypothyroidism HTN (hypertension) Hyperuricemia Hepatitis C Gallstone Morbid (severe) obesity due to excess calories Cholelithiasis OA (osteoarthritis) of knee Rheumatoid factor positive Surgical History History of surgery Social History Alcohol intake: never Review of Systems Const Denies daytime sleepiness, Denies excessive sweating, Denies fatigue, Denies fever(s), Denies lethargy, Denies malaise, Denies night sweats, Denies snoring and Denies weight loss Eyes Denies blurry vision and Denies itchy eyes ENT Denies nasal congestion, Denies post nasal drip, Denies sinus pain, Denies sinus pressure and Denies other ( Thrush) Card Denies chest pain, Denies pedal edema, Denies dyspnea, Reports dyspnea on exertion, Denies orthopnea and Denies paroxysmal nocturnal dyspnea Resp Denies cough, Denies hemoptysis, Denies excessive phlegm production, Denies dyspnea, Reports dyspnea on exertion, Denies snoring and Denies wheezing GI Denies abdominal pain and Denies heartburn Musc Denies myalgias, Denies arthralgias and Denies joint swelling Skin/Breast Denies rash Neuro Denies memory loss and Denies seizure-like activity Psych Denies abnormal sleep pattern, Denies anxiety and Denies memory loss Endo Denies excessive sweating, Denies fatigue and Denies heat intolerance Bora/Lymph Denies easy bruising Aller/Immun Denies itchy eyes, Denies seasonal rhinorrhea and Denies wheezing Physical Exam Vital Signs: Last Vital Signs Pulse 66 11/06/23 10:57 BP 128/78 11/06/23 10:57 Pulse Ox 97 11/06/23 10:57 Oxygen Delivery Method Room Air 11/06/23 10:57 BMI result Body Mass Index 49.1 Const General: no acute distress and alert Nutritional Appearance: obese Orientation/consciousness: Other orientation findings ( oriented) HEENT Head: Yes atraumatic Eyes General: appearance normal, both eyes and all related structures Sclerae: sclerae normal EOM: EOMs intact bilaterally Neck Neck: Yes supple Lymphatic: no lymphadenopathy noted Resp Effort & Inspection: normal respiratory effort and no use of accessory muscles Auscultation: clear to auscultation bilaterally Cardio Rate: regular rate Rhythm: regular rhythm Heart sounds: no gallops, no murmurs and no rubs Skin General skin exam: other ( warm) Extrem General: No clubbing, No cyanosis and No edema Assessment & Plan Assessment & Plan (1) Environmental allergies: Code(s): Z91.09 - Other allergy status, other than to drugs and biological substances Category: Medical Plan: Patient is not interested in immunologic therapy at this time. (2) Asthma: Code(s): J45.909 - Unspecified asthma, uncomplicated Category: Medical Plan: Suboptimal control as patient has ran out of her inhalers. Restart Breo and albuterol MDI. (3) Pulmonary nodule: Code(s): R91.1 - Solitary pulmonary nodule Category: Medical Plan: Newly noted 6 mm right-sided nodule, will repeat CT chest in 3 months from prior. Orders: Orders CT chest wo IV con 12/15/23 R91.1 - Solitary pulmonary nodule Medications: New albuterol sulfate 90 mcg/actuation 2 puffs inhalation Q6H PRN 1 ea 6RF shortness of breath or wheezing Coding Level of Care Code Est Pt Level 4 (96457) Diagnoses Environmental allergies Z91.09 Asthma J45.909 Pulmonary nodule R91.1
== END 2023-11-06 11:13 | disposition home or self-care (01) ==
PROVIDERS: PCP Internal Medicine; Visit Provider Internal Medicine Pulmonary Disease
DX: Z91.09 Other allergy status, other than to drugs and biological substances (principal); J45.909 Unspecified asthma, uncomplicated; R91.1 Solitary pulmonary nodule
CPT/HCPCS: 99214

== ENCOUNTER → 2023-11-06 10:53 | Outpatient (BNVA) | payer OTHER, SELFPAY | PROVIDERS: PCP Internal Medicine; Visit Provider Internal Medicine Pulmonary Disease | DX: J45.909 Unspecified asthma, uncomplicated (principal); R91.1 Solitary pulmonary nodule; Z91.09 Other allergy status, other than to drugs and biological substances | CPT/HCPCS: 99212 ==

== ENCOUNTER 2023-11-13 14:11 | Outpatient (REF) | payer OTHER, SELFPAY ==
[2023-11-13 14:53] LABS: INTERNATIONAL NORM RATIO 0.9 (0.9-1.1); Prothrombin Time 11.5 SEC (11.1-13.3)
[2023-11-13 15:32] LABS: Alanine Aminotransferase 12 U/L (0-31); Albumin Level 4.2 g/dL (3.5-5.0); Alkaline Phosphatase 62 U/L (39-117); Aspartate Amino Transferase 22 U/L (5-31); Bilirubin Direct 0.1 mg/dL (0.0-0.5); Bilirubin Total 0.6 mg/dL (0.0-1.0); Total Protein 8.1 g/dL (6.5-8.0)
[2023-11-14 11:53] LABS: Alpha Fetoprotein 5.8 ng/mL
[2023-11-15 09:09] LABS: HCV Log PCR <1.18 NOT DETECTED Log IU/mL (NOT DETECTED); HepC Viral Load <15 NOT DETECTED IU/mL (NOT DETECTED)
[2023-11-21 16:34] LABS: FIB-ALT 9 U/L (6-29); FIB-Alpha-2-Macroglobulin 342 mg/dL (106-279); FIB-Apolipoprotein A1 180 mg/dL (101-198); FIB-GGT 36 U/L (3-65); FIB-Haptoglobin 187 mg/dL (43-212); FIB-Total Bilirubin 0.5 mg/dL (0.2-1.2); Liver Fibrosis Score 0.38; Liver Fibrosis Stage F1-F2; Nec Inflam Act Grade A0; Nec Inflam Act Score 0.02
== END 2023-11-13 14:12 | disposition home or self-care (01) ==
LOC: HO.LAB 14:11
PROVIDERS: PCP Internal Medicine; Visit Provider Internal Medicine
DX: K74.69 Other cirrhosis of liver (principal); Z86.19 Personal history of other infectious and parasitic diseases
CPT/HCPCS: 36415; 80076; 81596; 82105; 85610; 87522

== ENCOUNTER 2023-11-15 10:09 | Outpatient (REF) | payer OTHER, SELFPAY ==
[2023-11-15 11:49] LABS: C Reactive Protein 1.14 mg/dL (< or = 0.50); Magnesium 1.7 mg/dL (1.6-2.6)
[2023-11-15 12:11] LABS: TSH reflex Free T4 10.28 uIU/mL (0.32-4.0)
[2023-11-15 12:16] LABS: Erythrocyte Sedimentation Rate 58 MM/HR (0-20)
[2023-11-15 13:10] LABS: Free T4 (Free Thyroxine) 0.79 ng/dL (0.71-1.85)
== END 2023-11-15 10:10 | disposition home or self-care (01) ==
LOC: HO.HHCL 10:09
PROVIDERS: Internal Medicine; Visit Provider Nurse Practitioner Primary Care
DX: E03.9 Hypothyroidism, unspecified (principal); M25.50 Pain in unspecified joint; E83.42 Hypomagnesemia
CPT/HCPCS: 36415; 83735; 84439; 84443; 85652; 86140

== ENCOUNTER 2024-02-04 10:30 | Outpatient (REF) | payer OTHER, SELFPAY ==
--- NOTE | ~2024-02-04 | CT_ITS ---
EXAMINATION: CT CHEST WITHOUT CONTRAST CLINICAL INFORMATION: Solitary pulmonary nodule COMPARISON: CT 09/13/2023 TECHNIQUE: Multidetector volumetric CT imaging of the chest was done. Axial MIP volume rendering provided. Sagittal and coronal reformatted images were obtained. This CT examination was performed using dose optimization techniques as appropriate, variously including the following: *Automated exposure control *Adjustment of mA and/or kV according to patient size (this includes techniques or standardized protocols for targeted exams where dose is matched to indication/reason for exam; i.e. extremities or head) *Use of iterative reconstruction technique DLP: 357 mGy-cm FINDINGS: REGISTRY NP: Unremarkable LUNGS: The previously seen 6 mm x 3 mm nodule within the posterior right upper lobe has completely resolved. Within the lateral left lower lobe there is a punctate calcified nodule, most likely an old calcified granuloma (image 316, series 5) which is unchanged from the prior study. There is a linear opacity within the inferior margin of the lingula which may represent a focus of chronic atelectasis or scarring. There is a small amount reticulation within the subpleural aspect of the lateral segment of the right middle lobe which may relate to prior inflammation. There is no discrete suspicious pulmonary nodule identified. There is no pulmonary parenchymal mass or consolidation. The central and peripheral airways are clear. MEDIASTINUM: The mediastinum is normal. CORONARY ARTERY CALCIFICATION: None visualized on this study. PLEURA: There is no pleural effusion. No pleural mass or thickening. AXILLA: No lymphadenopathy. UPPER ABDOMEN: The patient has undergone a cholecystectomy and there is a coarsely calcified structure in the region of the gallbladder fossa subjacent to the surgical clips that measures on the order of 2 x 1.1 cm and is unchanged from the prior study. This could represent a stone within a cystic duct remnant. The incompletely visualized upper abdomen is otherwise unremarkable. OSSEOUS STRUCTURES: Unremarkable. CT/CT chest wo IV con IMPRESSION: Interval resolution of the previously seen right upper lobe pulmonary nodule. No new lung nodules are identified. Fleischner guidelines were followed. Electronically signed by: Chandler Foster MD 02/27/2024 10:34 AM [facility]
== END 2024-02-04 10:31 | disposition home or self-care (01) ==
LOC: HO.CT 10:30
PROVIDERS: PCP Internal Medicine; Visit Provider Internal Medicine Pulmonary Disease
DX: R91.1 Solitary pulmonary nodule (principal)
CPT/HCPCS: 71250

== ENCOUNTER 2024-03-05 11:49 | Outpatient (AMB) | payer OTHER, SELFPAY ==
[2024-03-05 11:51] VITALS: BP 138/67; PULSE 79; O2SAT 96; BMI 48.3
--- NOTE | 2024-03-05 11:51 | MHC.OFFVIS ---
Vital Signs 03/05/24 11:51 Height 4 ft 9 in Weight 223 lb BMI 48.3 BP 138/67 Blood Pressure Location Rt radial Position Sitting Pulse 79 Pulse Source Doppler Pulse Oximetry (%) 96 Oxygen Delivery Method Room Air Intake Visit Reasons: Asthma/Pulm Nodule Contact Printer Dry Film Required: Yes Contact Printer Dry Film Name: Erin Castellon Sasha Allergies No Known Allergies [No Known Allergies*] Allergy (Verified 03/05/24 11:57) HPI HPI Asthma/Pulm Nodule: Details: 68-year-old lady, nonsmoker, followed for underlying moderate persistent asthma and environmental allergies. She had follow-up CT chest that showed resolution of previously noted pulmonary nodules. Patient has not been using Breo and instead has been relying on nebulizer twice a day. She did have recent exacerbation treated by her primary care with an ongoing prednisone course. [facility] Medical History Chronic kidney disease, stage 3 Vitamin D deficiency Sleep apnea Hypothyroidism HTN (hypertension) Hyperuricemia Hepatitis C Gallstone Morbid (severe) obesity due to excess calories Cholelithiasis OA (osteoarthritis) of knee Rheumatoid factor positive Surgical History History of surgery Social History Alcohol intake: never Review of Systems Const Denies daytime sleepiness, Denies excessive sweating, Denies fatigue, Denies fever(s), Denies lethargy, Denies malaise, Denies night sweats, Denies snoring and Denies weight loss Eyes Denies blurry vision and Denies itchy eyes ENT Denies nasal congestion, Denies post nasal drip, Denies sinus pain, Denies sinus pressure and Denies other ( Thrush) Card Denies chest pain, Denies pedal edema, Denies dyspnea, Denies orthopnea and Denies paroxysmal nocturnal dyspnea Resp Reports cough, Denies hemoptysis, Denies excessive phlegm production, Denies dyspnea, Denies snoring and Denies wheezing GI Denies abdominal pain and Denies heartburn Musc Denies myalgias, Denies arthralgias and Denies joint swelling Skin/Breast Denies rash Neuro Denies memory loss and Denies seizure-like activity Psych Denies abnormal sleep pattern, Denies anxiety and Denies memory loss Endo Denies excessive sweating, Denies fatigue and Denies heat intolerance Bora/Lymph Denies easy bruising Aller/Immun Denies itchy eyes, Denies seasonal rhinorrhea and Denies wheezing Physical Exam Vital Signs: Last Vital Signs Pulse 79 03/05/24 11:51 BP 138/67 03/05/24 11:51 Pulse Ox 96 03/05/24 11:51 Oxygen Delivery Method Room Air 03/05/24 11:51 BMI result Body Mass Index 48.3 Const General: no acute distress and alert Nutritional Appearance: obese Orientation/consciousness: Other orientation findings ( oriented) HEENT Head: Yes atraumatic Eyes General: appearance normal, both eyes and all related structures Sclerae: sclerae normal EOM: EOMs intact bilaterally Neck Neck: Yes supple Lymphatic: no lymphadenopathy noted Resp Effort & Inspection: normal respiratory effort and no use of accessory muscles Auscultation: clear to auscultation bilaterally Cardio Rate: regular rate Rhythm: regular rhythm Heart sounds: no gallops, no murmurs and no rubs Skin General skin exam: other ( warm) Extrem General: No clubbing, No cyanosis and No edema Assessment & Plan Assessment & Plan (1) Asthma: Code(s): J45.909 - Unspecified asthma, uncomplicated Category: Medical Plan: Suboptimally controlled as patient does not want to utilize inhaled steroids or bronchodilators except albuterol MDI. She continues to rely on nebulizer treatments twice a day. Now with ongoing exacerbation currently on prednisone course. (2) Pulmonary nodule: Code(s): R91.1 - Solitary pulmonary nodule Category: Medical Plan: Results of CT chest reviewed, previously noted pulmonary nodules resolved. Medications: New ipratropium-albuterol 0.5 mg-3 mg(2.5 mg base)/3 mL 3 mL inhalation Q4-6H PRN 180 mL 6RF wheezing Discontinued fluticasone furoate-vilanterol 200-25 mcg/dose (Breo Ellipta) Discontinued Reason: Doctor's Order 1 ea PO DAILY 60 ea 6RF J45.909 - Unspecified asthma, uncomplicated Coding Level of Care Code Est Pt Level 4 (92275) Diagnoses Asthma J45.909 Pulmonary nodule R91.1
== END 2024-03-05 12:04 | disposition home or self-care (01) ==
PROVIDERS: PCP Internal Medicine; Visit Provider Internal Medicine Pulmonary Disease
DX: J45.909 Unspecified asthma, uncomplicated (principal); R91.1 Solitary pulmonary nodule
CPT/HCPCS: 99214

== ENCOUNTER → 2024-03-05 11:49 | Outpatient (BNVA) | payer OTHER, SELFPAY | PROVIDERS: PCP Internal Medicine; Visit Provider Internal Medicine Pulmonary Disease | DX: R91.1 Solitary pulmonary nodule (principal); J45.909 Unspecified asthma, uncomplicated | CPT/HCPCS: 99212 ==

== ENCOUNTER 2024-03-11 15:12 | Outpatient (REF) | payer OTHER, SELFPAY ==
[2024-03-11] MEDS: iohexoL 350 MG/ML 100 ML INFUS..BTL 85 ML IV (16:09)
[2024-03-12 11:08] LABS: Creatinine POC 0.8 mg/dL (0.5-1.4); GFR POC > 60
== END 2024-03-11 15:13 | disposition home or self-care (01) ==
LOC: HO.CT 15:12
PROVIDERS: PCP Internal Medicine; Visit Provider Nurse Practitioner Family
DX: N28.1 Cyst of kidney, acquired (principal)
CPT/HCPCS: 74178; 82565; Q9967

== ENCOUNTER → 2024-03-11 15:14 | Outpatient (BNV) | payer OTHER, SELFPAY | PROVIDERS: PCP Internal Medicine; Visit Provider Radiology Diagnostic Radiology | DX: N28.1 Cyst of kidney, acquired (principal) | CPT/HCPCS: 74178 ==

== ENCOUNTER 2024-07-22 13:55 | Outpatient (AMB) | payer OTHER, SELFPAY ==
--- NOTE | 2024-07-22 14:07 | A.OFFVIS_ITS ---
Intake Visit Reasons: follow up/CT/labs(set) Intake Note: Patient is present for follow up CT/Labs Imaging 03-11-24 Urology Medications: none Blood Thinner: none Employment Supervisor Required: Yes Employment Supervisor Name: Aubrey [id number] Accompanied by: Self / Same As Patient Allergies No Known Allergies [No Known Allergies*] Allergy (Verified 07/22/24 14:36) Medication List - Last Reconciled 07/22/24 by HIRA Reaves- albuterol sulfate 90 mcg/actuation 2 puffs inhalation Q6H PRN allopurinol 300 mg PO DAILY betamethasone dipropionate 0.05% 1 appl topical DAILY PRN bupropion HCl XL 150 mg PO QAM cholecalciferol (vitamin D3) mcg PO cholecalciferol (vitamin D3) 50 mcg PO DAILY clotrimazole 1% 1 appl topical BID cromolyn 4% 1 drp ophthalmic (eye) QID cyanocobalamin (vitamin B-12) 1,000 mcg PO DAILY cyclobenzaprine 5 mg (1/2 x 10 mg) PO BEDTIME PRN famotidine 20 mg PO DAILY hydrochlorothiazide 25 mg PO DAILY hydrocortisone 2.5% 1 appl topical BID PRN hydroxyzine HCl 10 mg PO BID ibuprofen 800 mg PO TID ipratropium-albuterol 0.5 mg-3 mg(2.5 mg base)/3 mL 3 mL inhalation Q4-6H PRN levothyroxine (Tirosint) 137 mcg PO DAILY lidocaine 5% 1 patch topical DAILY lisinopril 40 mg PO DAILY loratadine 10 mg PO DAILY metoprolol succinate ER 50 mg PO DAILY mirtazapine 30 mg PO BEDTIME nystatin 1 appl topical DAILY pantoprazole 40 mg PO DAILY prednisone 20 mg PO DAILY tizanidine 2 mg PO Q6-8H PRN zolpidem 5 mg PO BEDTIME PRN HPI Comments Details: Hoda is a very pleasant 69-year-old Polish-speaking female patient of Dr. Kidd who was accompanied by her granddaughter at today's office visit. She has a past medical history of chronic kidney disease stage 3, vitamin-D deficiency, sleep apnea, hyperthyroidism, hypertension, hyperuricemia, hep C, obesity, osteoarthritis of the knee, and rheumatoid factor positive. She presents to the office today for follow-up of her complex renal cyst. In discussion with the patient today she reports urologically she has had no bothersome urinary issues or concerns. However she does discuss her ongoing issues with her left foot and gout she continues to experience. Recent CT results reviewed with the patient today 03/08 the kidneys are normal in size, shape, and attenuation. No hydronephrosis, hydroureter, or calculi seen bilaterally. No perinephric stranding. There is a 6 mm hypodensity lower pole right kidney probable cyst. She denies any bothersome urinary issues or concerns at this time. Unable to obtain urine for urinalysis as patient unable to void. We discussed renal cysts and further surveillance imaging. Patient is agreeable. When asked she denies urinary urgency, urinary frequency, incontinence, nocturia, hematuria, dysuria, foul smelling urine, changes to urinary stream, flank pain, fever, and or chills. She is happy with her current voiding parameters. She otherwise denies any other issues or concerns at this time. Plan The plan includes educating the patient on renal cysts. The stable renal cyst will be monitored with an ultrasound in six months to ensure no changes. Any new symptoms should prompt an office call for further assessment. The history of gout was noted but not further discussed in terms of management. Patient was informed and verbally consented to the use of an ambient scribe for clinic note documentation during this visit. Discussion Notes During the discussion, I thoroughly explained the plan which includes following up in six months with an ultrasound as part of ongoing monitoring. For any new urinary symptoms, the patient is advised to contact the office promptly. The c ondition of gout was acknowledged but not elaborated upon during this visit. [facility] Medical History Chronic kidney disease, stage 3 Vitamin D deficiency Sleep apnea Hypothyroidism HTN (hypertension) Hyperuricemia Hepatitis C Gallstone Morbid (severe) obesity due to excess calories Cholelithiasis OA (osteoarthritis) of knee Rheumatoid factor positive Surgical History History of surgery Social History Alcohol intake: never Review of Systems Const Reports as per HPI Eyes Reports no additional complaints ENT Reports no additional complaints Card Reports as per HPI Resp Reports as per HPI GI Reports as per HPI Reports as per [facility] Musc Reports as per [facility] Neuro Reports no additional complaints Psych Reports no additional complaints Endo Reports as per [facility] Physical Exam Const General: cooperative, comfortable, no acute distress, well developed, alert and awake Nutritional Appearance: overweight Orientation/consciousness: patient oriented x3 Limitations: language barrier HEENT Head: Yes normal to inspection, Yes normocephalic and Yes atraumatic Ears: hearing grossly normal bilaterally Eyes General: appearance normal, both eyes and all related structures Neck Neck: Yes normal visual inspection and Yes trachea midline Chest Chest palpation & inspection: normal inspection of the chest Resp Effort & Inspection: normal respiratory effort and able to speak in complete sentences Cardio Rate: regular rate GI Inspection: Yes normal to inspection General: Yes no CVA tenderness Back/Spine/Pelvis Back: no CVA tenderness Skin General skin exam: no rashes or lesions noted Neuro General: patient oriented x3 Extrem General: Yes normal to inspection Psych Appearance: grossly normal and well kempt Mental Status: mental status grossly normal Speech and movement: Normal speech and movement present and Clear speech present Affect: normal affect Attitude: cooperative Thought process: Normal thought process present Thought content: Normal thought content present Insight: Fair insight present (Psych) Judgement: Fair judgement present (Psych) Results Reviewed Results Reviewed: Date of Service: 03/11/24 Procedure(s): CT urogram FINDINGS: LUNG BASES: Lung bases are clear. The heart size is normal. LIVER, GALLBLADDER, AND BILIARY TREE: The liver is normal in size, shape, and attenuation. No focal hepatic lesion or biliary ductal dilatation is present. The gallbladder has been surgically removed. PANCREAS: Unremarkable. SPLEEN: Unremarkable. ADRENAL GLANDS: Unremarkable. KIDNEYS AND URETERS: The kidneys are normal in size, shape, and attenuation. No hydronephrosis, hydroureter, or calculi seen. No perinephric stranding. There is a 6 mm hypodensity lower pole right kidney probable cyst. There is left peripelvic lower pole renal cyst. There is good opacification of bilateral kidney pelvis and proximal ureters without dilation or intraluminal filling defect. The right ureter is visualized in segments but is nondilated. BLADDER: Unremarkable. GASTROINTESTINAL TRACT: Scattered stool and gas is seen in colon without distention. The small bowel loops are normal caliber. Appendix is not visualized. No free air or free fluid seen. ABDOMINAL WALL: Small umbilical hernia containing fat. LYMPH NODES: Normal. VASCULAR: Unremarkable. PELVIC VISCERA: No adnexal mass or free fluid. The uterus is atrophied or surgically removed. OSSEUS STRUCTURES: There is mild bilateral L4-5 and L5-S1 facet joint arthropathy IMPRESSION: No radiopaque urolith, enhancing renal mass or hydronephrosis. There is nonenhancing peripelvic cyst lower pole left kidney. Assessment & Plan Assessment & Plan (1) Complex renal cyst: Code(s): N28.1 - Cyst of kidney, acquired Category: Medical Plan Unable to obtain urine for urinalysis as patient unable to void. Recent CT urogram results reviewed with the patient and her granddaughter today; as noted above. Patient currently denies any bothersome urinary issues. She reports be happy with current voiding parameters. We discussed potential causes of renal cysts as well as surveillance monitoring. Will obtain renal ultrasound in 6 months. Follow-up in 6 months with imaging; or sooner with any issues, concerns, and or questions. Orders: Orders US renal BI Today N28.1 - Cyst of kidney, acquired Patient Instructions: The patient had an opportunity to ask questions regarding the treatment plan. All questions were answered. Physical exam, labs, and imaging were discussed and reviewed in detail. As well as risks, benefits, and discussion of treatment choices. No major barriers to understanding were identified. The patient expressed understanding and agreement with the above treatment plan. The patient was made aware they should contact our office by phone for worsening of their current condition, the appearance of new symptoms, or with any questions or concerns. Compliance is encouraged with any medications and follow up testing that is ordered. It is a privilege to be allowed the opportunity to participate in? your urological care.? Again, if you have any questions or concerns If you have any questions or concerns please do not hesitate to contact me. The office is [phone]. This note is constructed using voice recognition software. While every effort has been made to ensure accuracy tar kettle runner errors may have been included. Yours sincerely, BARBIE Reaves Coding Level of Care Code Est Pt Level 3 (42166) Complex EM visit Add On G2211 Diagnoses Complex renal cyst N28.1
--- OUTSIDE RECORDS SUMMARY | 2024-07-22 16:09 | XMS_ITS | Encounter Summary ---
Author Organization [employer] Address [address] [place] [address] Care Team Providers Care Index Clerk Name Role Phone Jen Ochoa MD Primary Care Provide r Reason for Referral * Medications - Closed Specialty Diagnoses / Procedures Referred By Contac t Referred To Contact Diagnoses Rheumatoid arthritis, involving unspecified site, unspecified whether rheumatoid factor present (CMS/HCC) Jen Ochoa MD [address] [place] [id number] Phone: tel: fax: Referral ID Status Reason Start Date Expiration Date Visits Re quested Visits Authorized Closed 1 1 Encounter Details Date Type Department Care Team ([facility] st Contact Info) Description 07/05/2022 Orders Only [facility] [address] [place] [id number] Jen Ochoa MD [address] [place] [address] [phone] Rheumatoid arthritis, involving unspecified site, unspecified whether rheumatoid factor present (CMS/HCC) (Primary Dx) Social History Tobacco Use Types Packs/Day Years Used Date Smoking Tobacco: Never Smokeless Tobacco: Never Comments Unknown Sex and Gender Information Value Date Recorded Sex Assigned at Female 02/12/2022 10:14 AM EDT Legal Sex Female 10:14 AM EDT Gender Identity Female 02/12/2022 10:14 AM EDT Sexual Orientation Straight 02/12/2022 10 :14 AM EDT documented as of this encounter Plan of Treatment Upcoming Encounters Date Type Department Care Team (Late st Contact Info) Description 08/06/2024 2:30 PM EDT Office Visit [facility] [address] [place] [address] Jen Ochoa MD [address] [place] [address] documented as of this encounter Visit Diagnoses Diagnosis Rheumatoid arthritis, involving unspecified site, unspecified whether rheumatoid factor present ([facility])- Primary documented in this encounter Care Teams Index Clerk Relationship Specialty Start Date End Date Jen Ochoa MD [address] [place] [phone] PCP - General Family Medicine 12/25/17 documented as of this encounter
--- OUTSIDE RECORDS SUMMARY | 2024-07-22 16:09 | XMS_ITS | Encounter Summary ---
Demographics Address [address] [place] [address] Home Phone Preferred Language es Marital Status Unknown Buddhist Affiliation Unknown Race White Ethnic Group Unknown Author Organization [facility] Address [address] [place] [address] Phone Care Team Providers Care Flight Crew Ordnanceman Name Role Phone Jen Ochoa MD Primary Care Provide r Encounter Details Date Type Department Care Team (Late st Contact Info) Description 01/01/2023 Office Communication [facility] [address] [place] [address] Kiko Robertson MD [address] [place] [address] [place] [address] Social History Tobacco Use Types Packs/Day Years Used Date Smoking Tobacco: Never Alcohol Use Standard Drinks/Week Comments No 0 (1 standard drink = 0.6 oz pur e alcohol) Comments Unknown Sex and Gender Information Value Date Recorded Sex Assigned at Not on file Legal Sex Female 4:30 PM EST Gender Identity Not on file Sexual Orientation Not on file documented as of this encounter Plan of Treatment Upcoming Encounters Date Type Department Care Team (Late st Contact Info) Description 10/27/2024 2:00 PM EDT Office Visit [facility] [address] [place] [address] Kiko Robertson MD [address] [place] [address] [place] [address] documented as of this encounter Visit Diagnoses Not on filedocumented in this encounter Care Teams Flight Crew Ordnanceman Relationship Specialty Start Date End Date Jen Ochoa MD [address] [place] [address] [address] [place] [place] [id number] PCP - General 02/17/19 documented as of this encounter
--- OUTSIDE RECORDS SUMMARY | 2024-07-22 16:09 | XMS_ITS | Clinical Summary ---
Author Organization [facility], Address [address] [place] [address] [place] [address] Phone Care Team Providers Care Script Manager Name Role Phone Jen Ochoa MD Primary Care Provide r Allergies No known active allergies Medications lisinopril (PRINIVIL,ZESTR IL) 40 MG tablet Take 1 tablet by mouth 1 (one) time each day Active metoprolol tartrate (LOPRESSOR) 50 MG tablet Take 1 tablet by mouth 1 (one) time each day Active zolpidem (AMBIEN) 5 MG tablet Take 1 tablet by mouth 1 (one) time each day Active allopurinol (ZYLOPRIM) 300 MG tablet Take 300 mg by mouth 1 (one) time each day 04/13/2020 Active Aspirin Low Dose 81 MG EC tablet Take 81 mg by mouth 1 (one) time each day 04/13/2020 Active buPROPion XL (WELLBUTRIN XL) 150 MG 24 hr tablet 05/12/2020 Active Cholecalciferol (Vitamin D3) 50 MCG (1999 UT) tablet Take 1 tablet by mouth 1 (one) time each day 04/13/2020 Active Cyanocobalamin (B-12) 1000 MCG tablet Take 1 tablet by mouth 1 (one) time each day 04/13/2020 Active benzonatate (TESSALON) 100 MG capsule Take 100 mg by mouth 3 (three) times a day if needed for cough Do not crush or chew. Active montelukast (SINGULAIR) 10 MG tablet Take 10 mg by mouth every night Active levothyroxine sodium (TIROSINT) 137 MCG capsule Take 137 mcg by mouth 1 (one) time each day Active tiZANidine (ZANAFLEX) 2 MG capsule Take 2 mg by mouth in the morning and 2 mg in the evening and 2 mg before bedtime. Active Active Problems Problem Noted Date Diagnosed Date Complex renal cyst 01/01/2023 Renal mass 01/01/2023 Stage 3a chronic kidney disease 12/19/2021 Gout 05/29/2021 Chronic kidney disease, stage 2 (mild) Essential (primary) hypertension 06/05/2019 Resolved Problems Problem Noted Date Diagnosed Date Resolved Date Flank pain 06/11/2019 05/29/2021 Prerenal azotemia 06/05/2019 05/29/2021 Hypothyroidism 06/05/2019 05/29/2021 Hypertensive disorder 06/05/20192021 Deep venous thrombosis 06/05/201905/29 Family History Medical History Relation Comments Cancer Father prostate Heart disease Father Hypertension Father Cancer Mother pancreatic Diabetes Mother Cancer Sibling brother- Bone Ca ncer Relation Status Comments Father Mother Sibling Social History Tobacco Use Types Packs/Day Years Used Date Smoking Tobacco: Never Alcohol Use Standard Drinks/Week Comments No 0 (1 standard drink = 0.6 oz pur e alcohol) Comments Unknown Sex and Gender Information Value Date Recorded Sex Assigned at Not on file Legal Sex Female 4:30 PM EST Gender Identity Not on file Sexual Orientation Not on file Last Filed Vital Signs Vital Sign Reading Time Taken Comments Blood Pressure 126/78 06/11/2019 2:31 PM EST Pulse 74 06/11/2019 2:31 PM EST Temperature - - Respiratory Rate 16 06/11/2019 2:31 PM EST Oxygen Saturation - - Inhaled Oxygen Concentration - - Weight 99.3 kg (219 lb) 06/11/2019 2:31 PM EST Height 144.8 cm (4' 9 ) 06/11/2019 2:31 PM EST Body Mass Index 47.39 06/11/2019 2:31 PM EST Plan of Treatment Upcoming Encounters Date Type Department Care Team (Late st Contact Info) Description 10/27/2024 2:00 PM EDT Office Visit [facility], [address] [address] Kiko Robertson MD [address] [address] Health Maintenance Due Date Last Done Comments Breast Cancer Screening 1955 Hepatitis B Vaccine (1 of 3 - Risk 3-dose series) 2014 Influenza Vaccine (Season Ended) 2024 01/22/2018, 01/26/2015, 01/02/2013, Additional history exists Pneumococcal Vaccine: 65+ Years Discontinued 4, 05/20/2007 Colorectal Cancer Screening: Annual FOBT Discontinued Colorectal Cancer Screening: Colonoscopy Discontinued Colorectal Cancer Screening: Sigmoidoscopy Discontinued Insurance [facility] DUAL SNP ([id number]) VERONIKA BERMEO [id number] [place] [address] [address] [place] [id number] Care Teams Script Manager Relationship Specialty Start Date End Date Jen Ochoa MD [address] [place] [address] [place] [phone] PCP - General 02/17/19
--- OUTSIDE RECORDS SUMMARY | 2024-07-22 16:09 | XMS_ITS | Encounter Summary ---
Author Organization [facility] Address [address] [place] [address] Care Team Providers Care Pedicab Driver Name Role Phone Jen Ochoa MD Primary Care Provide r Encounter Details Date Type Department Care Team (Late st Contact Info) Description 03/12/2023 Abstract [facility] [address] [place] [address] Meagan Gardner Social History Tobacco Use Types Packs/Day Years [...] Description 08/06/2024 2:30 PM EDT Office Visit [facility] [address] [place] [address] Jen Ochoa MD [address] [place] [address] documented as of this encounter Visit Diagnoses Not on filedocumented in this encounter Care Teams Pedicab Driver Relationship Specialty Start Date End Date Jen Ochoa MD [address] [place] [address] PCP - General Family Medicine 12/25/17 documented as of this encounter
--- OUTSIDE RECORDS SUMMARY | 2024-07-22 16:09 | XMS_ITS | Encounter Summary ---
Demographics Address [address] [place] [address] Home Phone Preferred Language es Marital Status Unknown Yarsani Affiliation Unknown Race White Ethnic Group Unknown Author Organization [facility] Address [address] [place] [address] Phone Care Team Providers Care Cooking Chef Name Role Phone Jen Ochoa MD Primary Care Provide r Encounter Details Date Type Department Care Team (Late Contact Info) Description 12/13/2021 Documentation Only [facility] [address] [place] [address] Kiko Robertson MD [address] [place] [address] [place] [address] Social History Tobacco Use Types [...] Visit [facility] [address] [place] [address] Kiko Robertson MD [address] [place] [address] [place] [address] documented as of this encounter Visit Diagnoses Not on filedocumented in this encounter Care Teams Cooking Chef Relationship Specialty Start Date End Date Jen cOhoa MD [address] [place] [address] [address] [place] [phone] PCP - General 02/17/19 documented as of this encounter
--- OUTSIDE RECORDS SUMMARY | 2024-07-22 16:09 | XMS_ITS | Encounter Summary ---
Demographics Address [address] [place] [address] Home Phone Preferred Language es Marital Status Unknown Restorationism Affiliation Unknown Race White Ethnic Group Unknown Author Organization [facility] Address [address] [place] [address] Phone Care Team Providers Care Target Protection Specialist Name Role Phone Jen Ochoa MD Primary Care Provide r Encounter Details Date Type Department Care Team (Late st Contact Info) Description 12/19/2021 Office Communication [facility] [address] [place] [address] Kiko Robertson MD [address] [place] [address] [place] [address] Social History Tobacco Use Types [...] Visit [facility] [address] [place] [address] Kiko Robertson MD [address] [place] [address] [place] [address] documented as of this encounter Visit Diagnoses Not on filedocumented in this encounter Care Teams Target Protection Specialist Relationship Specialty Start Date End Date Jen Ochoa MD [address] [place] [address] [address] [place] [phone] PCP - General 02/17/19 documented as of this encounter
--- OUTSIDE RECORDS SUMMARY | 2024-07-22 16:09 | XMS_ITS | Encounter Summary ---
Author Organization [facility] Address [address] [facility] 7[address] [place] [address] Care Team Providers Care Editing Internship Name Role Phone Jen Ochoa MD Primary Care Provide r Reason for Visit * Reason Comments Med Refill Encounter Details Date Type Department Care Team (Late Contact Info) Description 04/25/2023 Refill [facility] [address] [place] [address] [phone] Faustino Carson MD [address] [place] [address] [phone] Seborrheic dermatitis Social History Tobacco Use Types Packs/Day Years [...] Description 08/06/2024 2:30 PM EDT Office Visit [facility] [address] [place] [phone] Jen Ochoa MD [address] [place], [place] [phone] documented as of this encounter Visit Diagnoses Diagnosis Seborrheic dermatitis Unspecified seborrheic dermatitis documented in this encounter Care Teams Editing Internship Relationship Specialty Start Date End Date Jen Ochoa MD [address] [place] [address] PCP - General Family Medicine 12/25/17 documented as of this encounter
--- OUTSIDE RECORDS SUMMARY | 2024-07-22 16:10 | XMS_ITS | Data Portability ---
Author Organization [facility], [address] in - [employer] Address [address] [place] [address] Care Team Providers Care Jig Borer Name Role Phone CHELROXANA GENA HOOPER Primary Care Provider [phone] [facility] OTHER [facility] OTHER Assessment Encounter Date Assessment Date Assessment LastModified by Organization Details LastModified Time 07/29/2023 07/29/2023 Ms. Hoda Huff is a 68yoF who is seen today for further evaluation of a cough and chills. Ms. Huff reports that approximately 10 days ago she developed fatigue, a dry cough, and sneezing. This lasted about two days and then resolved spontaneously and she has been feeling well over the past week. Two days ago, she developed fatigue, sinus congestion, and a cough. She states that she has new sinus tenderness, chills, and painful congestion associated with a cough. She denies n/v. VSS. Profile Saw Operator on site reports b/l sinus tenderness present. Lungs CTAB. POC COVID/flu negative. Symptoms likely post-viral sinusitis vs. secondary viral syndrome. PmHx of COPD and higher risk for post-viral bacterial process. Will treat with 7 days of augmentin. Red flags discussed with crm administrator. Primary team, Ms. Huff would benefit from follow up in the next week or so to make sure she's starting to feel better. [email or web address] Not available 07/29/2023 13:11:26 03/10/2024 03/10/2024 service called for cough found 68 sharon with hx asthma bronchitis cirrohosis hep C CKD RA c/o 7d non productive cough wakes from sleep denies fever, chills able continue regular Po intake and regular activities reports recent course PO pred and azithro with partial improvement VSS neg covid, flu #Asthma exacerbation c/b bronchitis resume course PO pred, azithro notify service if worsening otherwise return to primary team [email or web address] Not available 03/10/2024 22:29:30 04/22/2024 04/22/2024 69 yo F with CKD, HTN, Cirrhosis, gout, asthma, RA and other co-morbidities. Here with 2 days of sinus congestion. +COVID. flu -. clear lungs. Has nebulizer. Has been improving sx. Vitals stable. Counsled about paxlovid use and potential side effects. Patient considering not taking. CKD 3a per 12/19/21 renal notes. May not be a candidate if she desires, but contingent on updated renal function. As noted, we were called to see this patient regarding concerns of +COVID. Evaluation in the field was performed by my crm administrator colleague, as noted above, I provided real-time direction and supervision for this visit. The evaluation revealed +covid, but stable vitals. Impression: COVID + Plan: Remain at home, defer paxlovid by patient volition. Risk benefits of paxlovid discussed w patient. Patient declined. No further meds needed per patient. Disposition: We discussed the diagnostic uncertainty of home visits and the risk associated with this. In this case, the patient and I felt this to be an acceptable and reasonable amount of risk given the benefit of avoiding an ED visit. We discussed the need to seek care urgently/emergen tly in the setting of any new or worsening serious symptoms, particularly worsening fevers, shortness of breath, or increased WOB. [email or web address] Not available 04/22/2024 12:48:05 Plan of Treatment Reminders Order Date Submit Date Provider Last Modified By Organization Details Last Modified Time Details Appointments None recorded. Lab rapid SARS CoV 2 Ag, QL IA, respiratory specimen [facility] [address], [id number] 5 12:49:01 rapid flu (A+B) 2024 025 [facility] [address], [phone] 5 12:49:01 rapid SARS CoV 2 Ag, QL IA, respiratory specimen 2023 [facility], [address] [place] [address], [id number] 4 07:48:38 rapid flu (A+B) 2023 024 [facility], [address] [place] [address], [id number] 4 07:49:11 rapid SARS CoV 2 Ag, QL IA, respiratory specimen 2023 024 [facility], [address] [place] [address], [id number] 4 20:10:06 rapid flu (A+B) 2023 024 [facility], [address] [place] [address], [id number] 4 20:10:07 urinalysis, dipstick 2022 023 [facility], [address] [place] [address], [id number] 3 17:27:22 Referral None recorded. Procedures None recorded. Surgeries None recorded. Imaging None recorded. Medication Orders loratadine 10 mg tablet 2023 [facility]acy #[id number], [address] [facility] [place], [id number], 4 20:31:22 prednisone 20 mg tablet 2023 [facility], [address] [place] [address], [id number], 4 16:45:16 azithromyci n 250 mg tablet 2023 [facility], [address] [place] [address], [id number], 4 16:45:17 azithromyci n 500 mg tablet 2023 [facility], [address] [place] [address], [id number], 4 16:59:07 prednisone 20 mg tablet 2023 [facility], [address] [place] [address], [id number], 4 16:59:08 amoxicillin 875 mg-mera m clavulanate 125 mg tablet 2023 024 [facility], [address] [place] [address], [id number], 4 10:41:35 Patient TargetsNo targets recorded. Patient InstructionsNo instructions recorded. Reason for Referral None Reported. Results Created Date Observation Date Name Description Value Unit Range Abnormal Flag Note LastModifiedBy Organization Detail LastModifiedTime 09/16/1909/15/2022 urina lysis , dipst ick Leukocytes negati ve Not Available Main - [facility] ed [address] [place] [address], [id number] 09/15/2022 17:26:52 09/16/1909/15/2022 urina lysis , dipst ick Nitrite negati ve Not Available Main - Inst [facility] [address] [place] [address], [id number] 09/15/2022 17:26:52 09/16/1909/15/2022 urina lysis , dipst ick Ketone trace Not Available Main - [facility] lizeth [address] [place] [address], [id number] 09/15/2022 17:26:52 09/16/19 23 09/15/2022 urina lysis , dipst ick Bilirubin negati ve Not Available Main - Inst [facility] [address] [place] [address], [id number] 09/15/2022 17:26:52 09/16/19 23 09/15/2022 urina lysis , dipst ick Glucose negati ve Not Available Main - [facility] ed [address] [place] [address], [id number] 09/15/2022 17:26:52 04/22/19 25 04/22/2024 rapid flu (A+B) Flu negati ve Not Available Main - Inst [facility] [address] [place] [address], [id number] 04/22/2024 12:48:49 04/22/19 25 04/22/2024 rapid SARS CoV 2 Ag, QL IA, respi rator y speci men rapid SARS CoV 2 Ag, QL IA, respiratory specimen positi ve Not Available [facility] ed [address] [place] [address], [id number] 04/22/2024 12:48:22 Result Notes None recorded. Medical Equipment None Reported. Allergies No known drug allergies Medications Name Sig Start Date Stop Date Status Note LastModified by Organization Details LastModified Time betamethaso ne valerate 0.1 % topical ointment APPLY TOPICALLY TO AFFECTED AREA(S) OF RASH TWICE DAILY FOR 2 WEEKS active Not Available Not Available No t Available levothyroxi ne 137 mcg tablet TAKE 1 TABLET BY MOUTH EVERY DAY active Not Available Not Available No t Available ipratropium 0.5 mg-albutero l 3 mg (2.5 mg base)/3 mL nebulizatio n soln INHALE 1 AMPULE USING A NEBULIZER EVERY 4 TO 6 HOURS NEEDED FOR WHEEZING active Not Available Not Available No t Available albuterol sulfate 2.5 mg/3 mL (0.083 %) solution for nebulizatio n INHALE 1 AMPULE USING A NEBULIZER EVERY 6 HOURS NEEDED FOR WHEEZING active Not Available Not Available No t Available azithromyci n 250 mg tablet Take 1000 mg by oral route. 2023 active Not Available Not Available Not Avai lable metoprolol succinate ER 50 mg tablet,exte nded release 24 hr TAKE 1 TABLET BY MOUTH EVERY DAY IN THE MORNING active Not Available Not Available No t Available prednisone 20 mg tablet TAKE 1 TABLET BY MOUTH EVERY EVENING FOR 4 DAYS active Not Available Not Available No t Available cyanocobala min (vit B-12) 1,000 mcg tablet TAKE 1 TABLET BY MOUTH EVERY DAY IN THE MORNING active Not Available Not Available No t Available aspirin 81 mg tablet,keila yed release TAKE 1 TABLET BY MOUTH EVERY DAY IN THE MORNING active Not Available Not Available No t Available acetaminoph en 500 mg tablet TAKE 2 TABLETS BY MOUTH EVERY 8 HOURS NEEDED FOR MILD PAIN active Not Available Not Available No t Available acetaminoph en ER 650 mg tablet,exte nded release TAKE 2 TABLETS BY MOUTH EVERY 8 HOURS NEEDED, DO NOT BREAK, CRUSH, DISSOLVE OR CHEW active Not Available Not Available No t Available benzonatate 100 mg capsule TAKE 1 CAPSULE BY MOUTH THREE TIMES DAILY NEEDED FOR COUGH FOR UP TO 7 DAYS. DO NOT BREAK, CRUSH, DISSOLVE OR CHEW 03/10 completed Not Available Not Available Not Available pantoprazol e 40 mg tablet,keila yed release TAKE 1 TABLET BY MOUTH EVERY DAY IN THE MORNING active Not Available Not Available No t Available mirtazapine 30 mg tablet active Not Available Not Available Not Available ibuprofen 400 mg tablet TAKE 1 TABLET BY MOUTH EVERY 8 HOURS NEEDED FOR MODERATE PAIN active Not Available Not Available No t Available montelukast 10 mg tablet TAKE 1 TABLET BY MOUTH EVERY EVENING active Not Available Not Available No t Available allopurinol 300 mg tablet TAKE 1 TABLET BY MOUTH EVERY DAY IN THE MORNING active Not Available Not Available No t Available hydrochloro thiazide 25 mg tablet TAKE 1 TABLET BY MOUTH EVERY DAY IN THE MORNING active Not Available Not Available No t Available zolpidem 5 mg tablet active Not Available Not Available No t Available celecoxib 100 mg capsule TAKE 1 CAPSULE BY MOUTH TWICE DAILY WITH FOOD FOR 7 DAYS active Not Available Not Available No t Available hydroxyzine HCl 10 mg tablet active Not Available Not Available Not Available lisinopril 40 mg tablet TAKE 1 TABLET BY MOUTH EVERY DAY IN THE MORNING active Not Available Not Available No t Available loratadine 10 mg tablet TAKE 1 TABLET BY MOUTH EVERY DAY active Not Available Not Available No t Available amoxicillin 875 mg-potassiu m clavulanate 125 mg tablet TAKE 1 TABLET BY MOUTH EVERY TWELVE HOURS FOR 7 DAYS 03/10 completed Not Available Not Available Not Available Ventolin HFA 90 mcg/actuati on aerosol inhaler INHALE 2 PUFFS BY MOUTH EVERY 6 HOURS NEEDED FOR WHEEZING OR SHORTNESS OF BREATH active Not Available Not Available No t Available azithromyci n 500 mg tablet TAKE 1 TABLET BY MOUTH EVERY DAY FOR 4 DAYS active Not Available Not Available No t Available bupropion HCl XL 150 mg 24 hr tablet, extended release active Not Available Not Available Not Available fluocinolon e 0.01 % scalp oil and shower cap APPLY A THIN LAYER TO DAMP SCALP, MASSAGE and COVER FOR 4 HOURS TO OVERNIGHT and THEN RINSE OFF active Not Available Not Available No t Available cholecalcif chio (vitamin D3) 50 mcg (2,000 unit) tablet TAKE 1 TABLET BY MOUTH EVERY DAY IN THE MORNING active Not Available Not Available No t Available Mucus Relief ER 600 mg tablet, extended release TAKE 1 TABLET BY MOUTH EVERY TWELVE HOURS FOR 5 DAYS NEEDED FOR NASAL CONGESTIO N 03/10 completed Not Available Not Available Not Available Breo Ellipta 200 mcg-25 mcg/dose powder for inhalation INHALE 1 PUFF EVERY DAY AT THE SAME TIME active Not Available Not Available No t Available Paxlovid 300 mg (150 mg x 2)-100 mg tablets in a dose pack TAKE 1 TABLET (150 MG) OF NIRMATREL VIR & 1 TABLET (100 MG) OF RITONAVIR BY MOUTH TWICE DAILY FOR 5 DAYS 03/10 completed Not Available Not Available Not Available Vitals Date Recorded Oxygen saturation Oxygen saturation in Arterial blood by Pulse oximetry Body height Respiratory rate Heart rate Body weight Body temperature Systolic blood pressure Diastolic blood pressure Provider Name and Address Organization Details Last Updated DateTime 3 98 % 98 % 152.4 cm 14 /min 66 /min 29901.4 g 98 [degF] 127 mm[Hg] 72 mm[Hg] Not Available [facility] 3 17:23:55 Date Recorded Body temperature Body weight Oxygen saturation Oxygen saturation in Arterial blood by Pulse oximetry Body height Heart rate Respiratory rate Systolic blood pressure Diastolic blood pressure Provider Name and Address Organization Details Last Updated DateTime 4 98.1 [degF] 28334.2 4 g 97 % 97 % 144.78 cm 70 /min 18 /min 174 mm[Hg] 86 mm[Hg] Not Available [facility] 4 12:19:50 Date Recorded Body temperature Body weight Respiratory rate Oxygen saturation Oxygen saturation in Arterial blood by Pulse oximetry Body height Heart rate Systolic blood pressure Diastolic blood pressure Provider Name and Address Organization Details Last Updated DateTime 4 97.6 [degF] 20328.4 g 14 /min 96 % 96 % 167.64 cm 65 /min 168 mm[Hg] 90 mm[Hg] Not Available [facility] 4 17:17:52 Date Recorded Body weight Body temperature Heart rate Body height Respiratory rate Oxygen saturation Oxygen saturation in Arterial blood by Pulse oximetry Systolic blood pressure Diastolic blood pressure Provider Name and Address Organization Details Last Updated DateTime 4 01757.2 4 g 101.5 [degF] 75 /min 162.56 cm 19 /min 100 % 100 % 140 mm[Hg] 71 mm[Hg] Not Available [facility] 4 20:21:23 Date Recorded Body temperature Body weight Respiratory rate Oxygen saturation Oxygen saturation in Arterial blood by Pulse oximetry Body height Heart rate Systolic blood pressure Diastolic blood pressure Provider Name and Address Organization Details Last Updated DateTime 5 98 [degF] 48676.4 g 14 /min 96 % 96 % 152.4 cm 75 /min 153 mm[Hg] 92 mm[Hg] Not Available [facility] 5 12:07:08 Social History None recorded. Functional Status None recorded. Mental Status None recorded. Family History Nothing Reported. Medical History No medical history recorded. Gynecological HistoryNo gynecological history recorded. Obstetrics History GPAL:G 0 P 0 0 0 0 Past Encounters Encounter ID Performer Location Encounter Start Date Encounter Closed Date Diagnosis/Indication Diagnosis SNOMED-CT Code Diagnosis ICD10 Code Diagnosis Note [id number] Luis Daniel Shah MD [facility] - [facility] [address] [place] [phone] 09/15/2022 17:23:50 09/18/2022 15:13:21 Acute COVID-19 8727257162 U07.1 Patient reports feeling diagnosed with COVID-19, started Paxlovid yesterday. Feeling generally unwell. Some bilateral low back pain, no associated abdominal pain or dysuria. No other concerns. Urine obtained with trace ketones. Advised to continue oral hydration as she has been doing. [id number] Shannon Holguin MD Main - [facility] [address] [place] [id number] 07/29/2023 12:02:32 07/29/2023 19:07:22 Acute sinusitis [id number] J01.90 [id number] Eric Horta MD Main - [facility] [address] [place] [phone] 03/10/2024 16:36:41 03/10/2024 22:40:49 Exacerbation of intermittent asthma [id number] J45.21 [id number] Luis Daniel Shah MD Main - [facility] [address] [place] [id number] 03/27/2024 20:21:13 03/27/2024 22:04:10 Congestion of nasal sinus 31780934 R09.81 She has had persistent nasal congestion after being treated with a steroid burst for an upper respirator y infection. Per the crm administrator, there is no purulent nasal discharge and she appears well. This seems unlikely to represent a bacterial sinusitis. Her antigen testing is negative. She is requesting loratadine . [id number] MESERET BAKER MD Main - [address] [phone] 04/22/2024 12:07:06 04/22/2024 14:41:54 COVID-19 [id number] U07.1 Health Concerns Section Related Observation LastModified by Organization Detai ls LastModified Time None Recorded Concern Status LastModified by Organization Details LastModified Time None Recorded Advance Directives Directive None Recorded Payers Encounter Date Sequence Insurance Name Policy Number Policy Sheppard Covered Member ID Sheppard Member ID Guarantor Name 09/15/2022 1 [facility] [employer] - DOS ON OR AFTER 2022 - DUAL ELIGIBLE - RESIDENTIAL OPTIONS AND ONE CARE (MEDICARE REPLACEMENT/ADV ANTAGE - HMO) Hoda Becca [id number] Hoda Becca 07/29/2023 1 [facility] [employer] - DOS ON OR AFTER 2022 - DUAL ELIGIBLE - RESIDENTIAL OPTIONS AND ONE CARE (MEDICARE REPLACEMENT/ADV ANTAGE - HMO) Hdoa Becca [id number] Hoda Becca 03/10/2024 1 [facility] [facility] [employer] - DOS ON OR AFTER 2022 - DUAL ELIGIBLE - RESIDENTIAL OPTIONS AND ONE CARE (MEDICARE REPLACEMENT/ADV ANTAGE - HMO) Hoda Becca [id number] Hoda Becca 03/27/2024 1 [employer] - DOS ON OR AFTER 2022 - DUAL ELIGIBLE - RESIDENTIAL OPTIONS AND ONE CARE (MEDICARE REPLACEMENT/ADV ANTAGE - HMO) Hoda Becca [id number] Hoad Becca 04/22/2024 1 [facility] [employer] - DOS ON OR AFTER 2022 - DUAL ELIGIBLE - RESIDENTIAL OPTIONS AND ONE CARE (MEDICARE REPLACEMENT/ADV ANTAGE - HMO) Hoda Becca [id number] Hoda Becca Notes Date Note Type Note Provider Name and Address Organization Details Recorded Time 09/15/2022 text/html HPI: HX of CKD, GERD, chronic hepatitis, PRIMITIVO. Member tested COVID positive on Saturday. Calls in today with severe weakness, not eating or drinking much, sounds like member could be dehydrated. INSTED request to check members hydration status. .................... .................... .................... .................... .................... .................... .................... . CRC Nursing Assessment: Comments: Review request no further information needed to process visit .................... .................... .................... .................... .................... .................... .................... . Profile Saw Operator Note From Buzz Persaud: PT caox3 complains of general tiredness. Pt was dx covid x 5 days ago. Pt started taking paxlovid yesterday. Pt also complains of bilateral lower flank pain. Pt denies chest pain, nausea, dizziness, trouble urinating or any other pain or complaints. Pt pink warm and dry, secondary exam unremarkable. Flank pain reproducible by palpation. Good skin turgor. Negative cough noted. Lung sounds clear, no increased work of breathing. [facility] orders supportive care. Pt advised to continue to drink lots of water and rest. Red flags and pt education discussed. .................... .................... .................... .................... .................... .................... .................... . Disposition: Janie Shah MD [address] [facility],[address], [place], [phone], [facility] [email or web address] 09/15/2022 17:38:06 07/29/2023 text/html HPI: Member called into MS stating she woke up not feeling well with the chills and the line was transferred to the CRU. Principal Technologist obtained stroboscope operator ID# [id number] as Hoda speaks and understands little Chinese. Hoda states she had cold symptoms about a week ago and this morning she woke up with the chills, shaking, body aches, runny nose and sore nose and congestion. Hoda is uncertain of fever. She denies cough, H/A or GI symptoms. .................... .................... .................... .................... .................... .................... .................... . CRC Nurse Triage Notes (Rose Marie Keys): Comments: HPI reviewed. .................... .................... .................... .................... .................... .................... .................... . Profile Saw Operator Note From Lori Mcdowell: Sent to a call for a pt complaining of URI symptoms. SC8 arrives on scene, pt is alert and oriented, airway is patent. Pt's primary language is Gabonese. Field Property Loss Specialist line used during visit. Pt states she has history of Asthma, Hepatitis (from blood transfusion), CKD 3, and Hypertension. Pt complains of fatigue and sneezing x 2 days, resolving for approx 1 week, then starting again two days ago. Pt complains of bilateral sinus pain, sore throat, intermittent sob (controlled using inhaler), chills, and fatigue. Pt denies poole, cough, cp, n/v/d, abd pain, fever, or loc. BP:174/86, P:70, RR:18, SpO2:97% RA, T:98.1; Head: bilateral sinus tenderness, Throat: erythema present, no edema or exudate noted; Lung sounds: clear bilaterally; Abdomen: soft, non-tender, no distention; Back: unremarkable; Extremities: unremarkable; Skin: pink, warm, dry; Rapid covid test: neg; Rapid flu test: neg; Rapid strep test: neg; Pt states last sinus infection was approx 9 months-1 yr ago. [facility] [place] and pt states she has had blood tinged nasal discharge. [facility] [place] script to pt's pharmacy for antibiotics to treat possible post-viral infection. Red flags discussed. Pt has no further questions. .................... .................... .................... .................... .................... .................... .................... . Disposition: Janie Shannon Holguin MD [address] [facility],[address], [place], [phone], [employer] 07/29/2023 16:01:59 03/10/2024 text/html HPI: Triage nurse calling for Pt, with cough for about a week. She is using neb which helps but comes back. She feels warm but does not have a fever, but poole and body aches. She does not have exp wheeze or sob but hoarse voice. Cough is dry.She is not taking anything OTC PMH pulmonary Nodule .................... .................... .................... .................... .................... .................... .................... . CRC Nurse Triage Notes (Raquel Franks): Reason For Request: cough Chief Complaints: Cough, Headache, Common cold symptoms PMH: Asthma, Cirrhosis, Hepatitis C, Chronic Kidney Disease, Hypothyroidism, Rheumatoid Arthritis Profile Saw Operator Organization Information for Keanu Persaud [employer] Business Legal Name: [facility] Address: [address] [place] [address], [place] [address], Accounts Receivable Bookkeeper: Kory Dickinson MD CLIA No.: [id number] Profile Saw Operator POC Test Results from [facility] Rapid COVID antigen (16:28:32) COVID: - Rapid influenza antigen (16:28:34) Flu: - .................... .................... .................... .................... .................... .................... .................... . Profile Saw Operator Note From Keanu Persaud: Patient alert and oriented standing in apartment. Patient complains of frequent nonproductive, cough and wheezing. patient reports she use her nebulizer, duo, this morning with good relief and hasn? t had wheezing since. Patient complains of symptoms times seven days. Patient states she was put on prednisone times five days by her PCP last week. Patient reports she finished that course of medicine with slight improvement, but she still is coughing keeping her up at night. patient states between six and 12 months ago she had bronchitis and was treated with a Z-Jules. Patient denies nausea, vomiting, diarrhea, chills, sweats change in appetite or intake or elimination or any other pain or complaints.Patient, pink warm, dry, frequent nonproductive cough noted. Lung clear negative increase work of breathing positive full sentences. Abdomen soft, nontender extremities unremarkable.Patient negative for Covid and flu via rapid POC. [facility] [place] prednisone 40 mg, azithromycin 1 g. Administered as noted using five rights. Patient reports NKDA. Red flags and patient education discussed. Next steps, what to expect, discussed. Patient demonstrates understanding of care and plan. Patient reports she has the ability to pick up operator the prescribed medicine at the pharmacy tomorrow morning. .................... .................... .................... .................... .................... .................... .................... . [facility] Consulted: Eric Horta .................... .................... .................... .................... .................... .................... .................... . Disposition: Fulfilled Eric Horta MD [address] [facility],[address], [place], [address], [employer] 03/10/2024 22:29:47 03/27/2024 text/html HPI: 68 y.o. Gabonese-speaking F c/o asthma flare x 2 wks. She was on prednisone and an antibiotic x 5 days last wk, which improved her cough, but she is still very fatigued and c/o intermittent sob w/ activity and at rest. Her granddaughter, Kenyatta who was visiting and on the line interpreting states mbr's resps do not appear labored at this time. No audible wheezing or stridor. Mbr c/o new pressure in bilat ears that is uncomfortable and knees feeling more sore. She denies fevers. Mbr would like [facility] eval. She was encouraged to rest, elevate head on 2 pillows when laying, use MDI prn and to call back if s/sx worsen. PMHx includes chronic hepatitis (type not specified). .................... .................... .................... .................... .................... .................... .................... . CRC Nurse Triage Notes (Rose Marie Keys - RN): Chief Complaints: Earache, Fatigue, Asthma PMH: COPD/Asthma, Hypertension, Chronic Kidney Disease, Cirrhosis, Anxiety Disorder, Gout, Rheumatoid Arthritis Comments: HPI reviewed- NE Profile Saw Operator Organization Information for Natanael Pineda Business Legal Name: [facility] Address: [address] [place] [address], [place] [address], Accounts Receivable Bookkeeper: Kory Dickinson MD CLIA No.: [id number] Profile Saw Operator POC Test Results from Natanael Pineda Rapid COVID antigen (20:14:52) COVID: - Attachments uploaded as part of this test result can be found under Documents section. Rapid influenza antigen (20:14:53) Flu: - Attachments uploaded as part of this test result can be found under Documents section. .................... .................... .................... .................... .................... .................... .................... . Profile Saw Operator Note From Natanael Pineda: Pt chief complaint today of flu/ cold symptoms. Pt state that 1 week prior to today she was visited by an [facility] medic who gave her prednisone and an antibiotic regiment for 5 days. Pt states that with this she has been feeling significantly better in almost every way. However the pt state that today and for the past 3 days she has been having right inner ear pain and pressure in her face. Pt has taken 1 Claritin pill 24 hours prior to her visit today with minimal positive effect. Pt denies any cough, sob, co or NVD. Allergies noted and listed in PCR tab. Non neural focal exam, febrile , vitals WNL. Lungs are clear bilaterally on auscultation and to has a benign abdominal exam, no lower extremity edema noted. Positive csm, 15 GCS and CAOX4. Negative covid exam, ears do not appear enflamed, red or produce any moisture or puss.[facility] [place] Luis Daniel Shah consultedPt given a prescription for Claritin to her local pharmacy. Pt informed to make an appointment with her pcp as early as possible. Pt educated on red flag S&S and informed to call emergency services if any present. .................... .................... .................... .................... .................... .................... .................... . [facility] Consulted: Luis Daniel Shah .................... .................... .................... .................... .................... .................... .................... . Disposition: Fulfilled Luis Daniel Shah MD [address] [facility],[address], [place], [address], [employer] 03/27/2024 21:08:20 04/22/2024 text/html HPI: Patient reporting nasal congestion since early on the weekend. Clear nasal discharge. PRN use of inhaler with cough. Previously on Montelukast 10 mg but RX . Taking Claritin with no effect. Tested Neg. COVID previously. .................... .................... .................... .................... .................... .................... .................... . CRC Nurse Triage Notes (Raquel Franks - RN): Chief Complaints: Common cold symptoms, Cough PMH: COPD/Asthma, Hypertension, Chronic Kidney Disease, Cirrhosis, Anxiety Disorder, Gout, Rheumatoid Arthritis, Asthma PMH Reviewed at 04/21/2024 - :08 Allergies Reviewed at 04/21/2024:08 Comments: HPI reviewed Profile Saw Operator Organization Information for Keanu Persaud Legal Name: [facility] Address: [address] [place] [address], [place] [address], Accounts Receivable Bookkeeper: Kory Dickinson MD IA No.: [id number] Profile Saw Operator POC Test Results from Keanu Persaud Rapid COVID antigen (11:59:29) COVID: + Rapid influenza antigen (11:59:29) Flu: - .................... .................... .................... .................... .................... .................... .................... . Profile Saw Operator Note From Keanu Persaud: Patient alert and oriented complains of sore throat nasal congestion times three days. Patient states she? s been using albuterol nebulizer two times per day and MDI two times per day. Patient denies difficulty breathing, chest pain, nudge of vomiting, diarrhea, abdominal pain or any other pain. Patient reports normal intake and elimination. Patient denies cough. Patient states she? l l be starting singular again this afternoon when she receives it. Patient pink warm dry secondary exam unremarkable, lung sounds clear negative increase work of breathing positive full sentences abdomen soft, tender negative edema noted. Skin TURGOR good. Patient positive for Covid, negative for flu via rapid POC. Discussion of paxlovid, benefits, and side effects. Pt declines. [facility] advises supportive care. Red flags, patient education discussed. Patient demonstrates understanding of care and plan including nebulizer dosing. .................... .................... .................... .................... .................... .................... .................... . [facility] Consulted: Meseret Baker .................... .................... .................... .................... .................... .................... .................... . Disposition: Fulfilled MESERET BAKER MD [address] [facility],[address], [place], [address], [facility] CitizenLEEANNE SUMMERS 04/22/2024 12:49:23 OBGyn Episode No OBEpisode recorded.
--- OUTSIDE RECORDS SUMMARY | 2024-07-22 16:10 | XMS_ITS | Encounter Summary ---
Author Organization [employer] Address [address] [place] [address] Care Team Providers Care Marble Installer Name Role Phone Jen Ochoa MD Primary Care Provide r Encounter Details Date Type Department Care Team (Late st Contact Info) Description 04/21/2024 Orders Only [facility] [address] [place], [place] [phone] Jen Ochoa MD [address] [place], [place] [phone] Social History Tobacco Use Types Packs/Day Years Used Date Smoking Tobacco: Never Passive Smoke Exposure: Never Smokeless Tobacco: Never Alcohol Use Standard Drinks/Week Comments Never 0 (1 standard drink = 0.6 oz pur e alcohol) Depression Answer Date Recorded Patient Health Questionnaire-9 Score 0 02/12/2024 Patient Health Questionnaire-9 Score 0 02/12/2024 Last PHQ-9: Questionnaire Data Not on file 1 Housing Stability Answer Date Recorded What is your housing situation today? I have kyrie sethi 02/05/[address] you li ve. Do you have problems with any of the following? None of the above 02/05/2024 Food Insecurity Answer Date Recorded Within the past 12 months, y ou worried that your food would run out before you got money to buy more: Never True 02/05/2024 Within the past 12 months,th e food you bought just didn't last and you didn't have enough money to get more: Never True Transportation Answer Date Recorded In the past 12 months, has l ack of transportation kept you from medical appts, meetings, work or from getting things needed for daily living? No 02/05/2024 Utilities Answer Date Recorded In the past 12 months, has t he electric, gas, oil or water company threatened to shut off services in your home? No 02/05/2024 Depression Answer Date Recorded Patient Health Questionnaire-2 Score 0 02/12/2024 Internet Access Answer Date Recorded Internet Access Q1 Yes 02/05/2024 Internet Access Q2 Not on file 02/05/2024 Comments Unknown Sex and Gender Information Value [...] Description 08/06/2024 2:30 PM EDT Office Visit [facility] MED[facility]INE [address] [place] [phone] Jen Ochoa MD [address] [place] [address] documented as of this encounter Visit Diagnoses Not on filedocumented in this encounter Additional Health Concerns Assessment Noted Time PHQ-9 Depression Total Score: 0 02/12/20 24 3:06 PM EDT documented as of this encounter Care Teams Marble Installer Relationship Specialty Start Date End Date Jen Ochoa MD [address] [place] [phone] PCP - General Family Medicine 12/25/17 documented as of this encounter
--- OUTSIDE RECORDS SUMMARY | 2024-07-22 16:10 | XMS_ITS ---
Author Organization [facility] Address [address] [place] [address] Care Team Providers Care Leasing Property Manager Name Role Phone Jen Acosta M.D. Primary Care Provider Aric [facility] [phone] REASON FOR VISIT Patient presents today for cirrhosis Encounters Encounter Location Date Provider Diagnosis [facility] [address] [place] [address] 07/11/2023 Aric Florian Plan Of Treatment Next Appt Details Provider Name:Aric Florian , 11/04/2024 01:00:00 PM, [address], [address], [place], [address], Progress Notes * PRINCESS ABREUMELINAOB:1954 (69 yo F)Acc No.[id number]:07/11/2023 Progress Notes Patient:?JACINDA ABREU Provider:?Aric Florian MD :1955???Age:68 Y???Sex:Female D ate:07/11/2023 Address:[address] [place], [place] [phone] Pcp:Jen Acosta M.D. Subjective: * Chief Complaints: * ???1. Patient presents today for cirrhosis. * Medical History:? Objective: * Vitals:? Assessment: Plan: * Treatment: * * The named appointment provid er may or may not be the originator of this progress note, and it is not deemed complete until electronically signed by the appointment provider. Sign off status: Pending * Provider:?Aric Florian MD Date:? 024 Generated for Nato alvarado/Rachana/Julienitting on:?07/22/2024 04:10 PM EDT
--- OUTSIDE RECORDS SUMMARY | 2024-07-22 16:10 | XMS_ITS | Encounter Summary ---
Author Organization [employer] Address [address] [place] [address] Care Team Providers Care Business Liaison Officer Name Role Phone Jen Ochoa MD Primary Care Provide r Encounter Details Date Type Department Care Team (Late st Contact Info) Description 05/02/2022 Orders Only [facility] [address] [place], [place] [phone] Erin Grace LPN Social History Tobacco Use Types Packs/Day Years Used Date Smoking Tobacco: Never Assessed Comments Unknown Sex and Gender Information Value Date Recorded Sex Assigned at Female 02/12/2022 10:14 AM EDT Legal Sex Female 10:14 AM EDT Gender Identity Female 02/12/2022 10:14 AM EDT Sexual Orientation Straight 02/12/2022 10 :14 AM EDT documented as of this encounter Plan of Treatment Upcoming Encounters Date Type Department Care Team (Late Contact Info) Description 08/06/2024 2:30 PM EDT Office Visit [facility] MEDICINE [address] [place] [address] Jen Ochoa MD [address] [place] [address] documented as of this encounter Procedures Procedure Name Priority Date/Time Associated Diagnosis Comments INFLUENZA A B2 ID NOW ([facility]) Routine 05/20/2022 1:35 AM EST STREP A NUCLEIC ACID Routine 05/20/2022 1:35 AM EST COVID-19 ID NOW ([facility]) Routine 05/20/2022 1:35 AM EST documented in this encounter Results * COVID-19 ID NOW ([facility]) (05/20/2022 1:35 AM EST) IDNOW SERIAL# [id number] [facility] COVID-19 TEST Negative Negative [facility] COVID-19 NOTE See Note [facility] Comment: Results are for the identification of SARS-CoV2 RNA. TheSARS-CoV2 RNA is generally detectable in respiratory samplesduring the acute phase of infection. Positive results areindicative of the presence of SARS-CoV-2 RNA; clinicalcorrelation with patient history and other diagnosticinformation is necessary to determine patient infectionstatus. Positive results do not rule out bacterial infectionor co- infection with other viruses.Testing facilities within the [facility] and itsterritories are required to report all positive results tothe appropriate public health authorities.Negative results should be treated as presumptive and, ifinconsistent with clinical signs and symptoms or necessaryfor patient management, should be tested with differentauthorized or cleared molecular tests. Negative results donot preclude SARS-CoV2 RNA infection and should not be usedas the sole basis for patient management decisions. Negativeresults should be considered in the context of a patient'srecent exposures, history and the presence of clinical signsand symptoms consistent with COVID-19.This test has been authorized by the FDA under an EmergencyUse Authorization (EUA) for use by authorized laboratories.Testing performed on the Finch ID NOW utilizing NAAT. 05/20/2022 1:35 AM EST 05/20/2022 1:40 AM EST us [facility] Exter nal Provider LAB MOLECULAR DIAGNOSTICS ORDERABLES Final Result [facility] [address] [place] [phone] * Influenza A B2 ID NOW ([facility]) (05/20/2022 1:35 AM EST) IDNOW SERIAL# [id number] [facility] Influenza A Negative Negative [facility] Influenza B2 Negative Negative [facility] Influenza A B2 Note See Note [facility] Comment:The [facility]ch ID NOW In fluenza A B2 test is used for thequalitative detection of influenza A and B from patientswith signs and symptoms of respiratory infection.Negative results do not preclude influenza virus infectionand should not be used as the sole basis for diagnosis,treatment or other patient management decisions.There is a risk of false negative results due to thepresence of variants in the viral targets of the assay, lowlevels of virus in the specimen and co- infection withRespiratory Syncytial Virus. 05/20/2022 1:35 AM EST 05/20/2022 1:40 AM EST [facility] Exter nal Provider LAB MICROBIOLOGY - GENERAL ORDERABLES Final Result Performing Organization Address [facility] Co de Phone Number [facility] [address] [place] [phone] * Strep A Nucleic Acid (05/20/2022 1:35 AM EST) IDNOW SERIAL# [id number] [facility] Strep A Nucleic Acid Negative Negative [facility] Comment:All test results mus t be correlated with clinical findings.This test has not been evaluated for monitoring treatment ofinfection.Additional follow-up testing using the culture method isrequired if the result is negative and clinical symptomspersist, or in the event of an acute rheumatic feveroutbreak. 05/20/2022 1:35 AM EST 05/20/2022 1:40 AM EST [facility] Exter nal Provider LAB MICROBIOLOGY - GENERAL ORDERABLES Final Result Performing Organization Address [facility] Co de Phone Number [facility] [address] [place] [address] [phone] documented in this encounter Visit Diagnoses Not on filedocumented in this encounter Care Teams Business Liaison Officer Relationship Specialty Start Date End Date Jen Ochoa MD [address] [place] [address] PCP - General Family Medicine 12/25/17 documented as of this encounter
--- OUTSIDE RECORDS SUMMARY | 2024-07-22 16:10 | XMS_ITS | Encounter Summary ---
Author Organization [employer] Address [address] [place] [address] Care Team Providers Care Dog Breeder Name Role Phone Jen Ochoa MD Primary Care Provide r Reason for Visit * Reason Comments left foot pain Encounter Details Date Type Department Care Team ([facility] st Contact Info) Description 07/22/2024 3:20 PM EDT Office Visit [facility] [address] [place] [phone] Amrita Olvera MD [address] [place] [address] Acute gout of left ankle, unspecified cause (Primary Dx) Social History Tobacco Use Types [...] is your housing situation today? I have kyriestephanie sethi 02/05/[address] you [...] AM EDT documented as of this encounter Last Filed Vital Signs Vital Sign Reading Time Taken Comments Blood Pressure 158/84 07/22/2024 3:23 PM EDT Pulse 75 07/22/2024 3:23 PM EDT Temperature 37.2 ??C (98.9 ??F) 07/22/2024 3:23 PM ED T Respiratory Rate 20 07/22/2024 3:23 PM EDT Oxygen Saturation 98% 07/22/2024 3:23 PM EDT Inhaled Oxygen Concentration - - Weight 102 kg (224 lb 9.6 oz) 07/22/2024 3:23 PM EDT Height - - Body Mass Index 54.15 05/08/2024 2:29 PM EST documented in this encounter Progress Notes * Rebekah Shaver - 07/22/2024 3:20 PM EDT Subjective Patient ID: Hoda Lorenzo is a 69 y.o. female with past medical history of Gout, Hep C, CKD stage III, OA of her knees, RA, and lichen planus who presents to walk in clinic for left foot pain. Referred to Orthopedics 05/08/24. Pt reports she suspects she is having a gout flare on her left foot. She denies having gotten in tosee Marriage Counselor Minister. No redness, swelling or warmth, but reports pain. Pt reports she is taking Allopurinol. Had uric acid ordered at Nephrology visit in 04/2024, but unable to see results. Review of Systems Constitutional: Negative for fever and unexpected weight change. Respiratory: Negative for shortness of breath. Cardiovascular: Negative for chest pain. Gastrointestinal: Negative for abdominal pain. Genitourinary: Negative for difficulty urinating. Musculoskeletal: Ankle pain Objective Visit Vitals BP (!) 167/87 (BP Location: Left arm, Patient Position: Sitting, BP Cuff Size: Adult) Pulse 75 Temp 98.9 ??F (37.2 ??C) (Oral) Resp 20 Body mass index is 54.15 kg/m??. Physical Exam Constitutional: Appearance: Normal appearance. Cardiovascular: Rate and Rhythm: Normal rate and regular rhythm. Heart sounds: Normal heart sounds. Pulmonary: Effort: Pulmonary effort is normal. Breath sounds: Normal breath sounds. Feet: Left foot: Skin integrity: No erythema or warmth. Comments: Tenderness over dorsum pedis Neurological: General: No focal deficit present. Mental Status: She is alert. Psychiatric: Behavior: Behavior normal. Problem List Items Addressed This Visit Acute gout of left ankle - Primary Likely early gout attack. Exam benign, with only mild tenderness over dorsum of left foot. Has referral to Marriage Counselor Minister, encouraged to call. Taking allopurinol. -Prescribed short course of steroids. -ordered uric acid. Relevant Medications predniSONE (Deltasone) 20 MG tablet Other Relevant Orders Uric acid -No evidence of acute disease process. Suspect possible early acute gout. Symptoms mild. -Will treat with steroids. -ER precautions discussed. -Seek medical attention for worsening symptoms. I, Rebekah Shaver, am serving as a scribe to document services personally performed by Dr. Easton, based on the patient's response to questions by provider and providers statements to me. documented in this encounter Miscellaneous Notes * Assessment & Plan Note - Rebekah Shaver - 07/22/2024 3:43 PM EDTAssociated Problem(s): Acute gout of left ankle Likely early gout attack. Exam benign, with only mild tenderness over dorsum of left foot. Has referral to Marriage Counselor Minister, encouraged to call. Taking allopurinol. -Prescribed short course of steroids. -ordered uric acid. documented in this encounter Plan of Treatment Upcoming Encounters Date Type Department Care Team (Late st Contact Info) Description 08/06/2024 2:30 PM EDT Office Visit [facility] MEDICINE [address] [place] [phone] Jen Ochoa MD [address] [place] [phone] Scheduled Orders Name Type Priority Associated Diagnoses Orde r Schedule Uric acid Lab Routine Acute gout of left ankle, unspecified cause Expected: 07/22/2024 (Approximate), Expires: 07/22/2025 documented as of this encounter Visit Diagnoses Diagnosis Acute gout of left ankle, unspecified cause- Primary documented in this encounter Additional Health Concerns Assessment Noted Time PHQ-9 Depression Total Score: 0 02/12/20 24 3:06 PM EDT documented as of this encounter Care Teams Dog Breeder Relationship Specialty Start Date End Date Jen Ochoa MD [address] [place] [phone] PCP - General Family Medicine 12/25/17 documented as of this encounter
--- OUTSIDE RECORDS SUMMARY | 2024-07-22 16:10 | XMS_ITS | Encounter Summary ---
Author Organization [employer] Address [address] [place] [address] Care Team Providers Care Card Grinder Name Role Phone Jen Ochoa MD Primary Care Provide r Reason for Visit * Reason Onset Date Comments Derm appointment 07/15/2024 Encounter Details Date Type Department Care Team ([facility] st Contact Info) Description 07/15/2024 Telephone [facility] MEDICINE [address] [place], [place] [phone] Jen Ochoa MD [address] [place] [address] Derm appointment Social History Tobacco Use Types Packs/Day Years [...] AM EDT documented as of this encounter Miscellaneous Notes * Telephone Encounter - Nino Robertson [place] - 07/17/2024 3:03 PM EDT T/engraved roller inspector pt cancel fu derm appt pt is the r/c 09/2024 * Telephone Encounter - Asia Haro - 07/15/2024 1:13 PM EDT Tc from pt requesting to r/s derm appointment. Contact pt at [phone] (palestinian) documented in this encounter Plan of Treatment Upcoming Encounters Date Type Department Care Team (Late st Contact Info) Description 08/06/2024 2:30 PM EDT Office Visit [facility] MEDICINE [address] [place] [address] Jen Ochoa MD [address] [place] [address] documented as of this encounter Visit Diagnoses Not on filedocumented in this encounter Additional Health Concerns Assessment Noted Time PHQ-9 Depression Total Score: 0 02/12/20 3:06 PM EDT documented as of this encounter Care Teams Card Grinder Relationship Specialty Start Date End Date Jen Ochoa MD [address] [place] [address] PCP - General Family Medicine 12/25/17 documented as of this encounter
--- OUTSIDE RECORDS SUMMARY | 2024-07-22 16:10 | XMS_ITS | Encounter Summary ---
Author Organization [employer] Address [address] [place] [address] Care Team Providers Care Roll Icer Machine Name Role Phone Jen Ochoa MD Primary Care Provide r Reason for Visit * Reason Onset Date Comments status on script 05/15/2022 Encounter Details Date Type Department Care Team (Late Contact Info) Description 05/15/2022 Telephone [facility] [address] [place] [address] Jen Ochoa MD [address] [place] [address] status on script Social History Tobacco Use Types Packs/Day Years Used Date Smoking Tobacco: Never Assessed Comments Unknown Sex and Gender Information Value Date Recorded Sex Assigned at Female 02/12/2022 10:14 AM EDT Legal Sex Female 10:14 AM EDT Gender Identity Female 02/12/2022 10:14 AM EDT Sexual Orientation Straight 02/12/2022 10 :14 AM EDT documented as of this encounter Miscellaneous Notes * Telephone Encounter - Cyndee Morales - 05/15/2022 1:14 PM EST TC from pt calling stating yesterday she had a sick visit someone home and check her and told her we will be sending a spray for troath and pills pt didn't know with medication. PCP Dr. Acosta documented in this encounter Plan of Treatment Upcoming Encounters Date Type Department Care Team (Late Contact Info) Description 08/06/2024 2:30 PM EDT Office Visit [facility] [address] [place] [address] Jen Ochoa MD [address] [place] [address] documented as of this encounter Visit Diagnoses Not on filedocumented in this encounter Care Teams Roll Icer Machine Relationship Specialty Start Date End Date Jen Ochoa MD [address] [place] [phone] PCP - General Family Medicine 12/25/17 documented as of this encounter
--- OUTSIDE RECORDS SUMMARY | 2024-07-22 16:10 | XMS_ITS | Clinical Summary ---
Author Organization [employer] Address [address] [place] [address] Care Team Providers Care Business Process Associate Name Role Phone Jen Ochoa MD Primary Care Provide r Allergies No known active allergies Medications lidocaine (Lidoderm) 5 % patchIndications :Rheumatoid arthritis, involving unspecified site, unspecified whether rheumatoid factor present ([facility]) Apply 1 patch topically in the morning. Remove & discard patch within 12 hours or as directed by MD. 90 patch 1 3 Active Fluocinolone Acetonide Scalp 0.01 % oilIndications:S eborrheic dermatitis APPLY A THIN LAYER TOPICALLY TO SCALP DAMP, MASSAGE AND COVER POR 4 HOURS TO OVERNIGHT THEN WASH OFF 118.28 mL 1 4 Active betamethasone valerate (Valisone) 0.1 % ointmentIndicati ons:Psoriasis Apply topically 2 times daily. To affected areas of rash for 2 weeks 45 g 1 4 Active albuterol (2.5 MG/3ML) 0.083% nebulizer solutionIndicati ons:Moderate persistent asthma without complication Take 3 mL (2.5 mg) by nebulization every 6 (six) hours if needed for wheezing. 90 mL 3 4 Active allopurinol (Zyloprim) 300 MG tabletIndication s:Chronic gout without tophus, unspecified cause, unspecified site Take 1 tablet (300 mg) by mouth in the morning. 90 tablet 3 4 Active aspirin (Aspirin Low Dose) 81 MG EC tabletIndication s:Essential hypertension Take 1 tablet (81 mg) by mouth in the morning. 90 tablet 3 4 Active hydroCHLOROthiaz kofi (HYDRODiuril) 25 MG tabletIndication s:Essential hypertension Take 1 tablet (25 mg) by mouth in the morning. 90 tablet 3 4 Active cyanocobalamin (Vitamin B-12) 1000 MCG tabletIndication s:Vitamin B12 deficiency Take 1 tablet (1,000 mcg) by mouth in the morning. 90 tablet 3 4 Active cholecalciferol VITAMIN D (Vitamin D-3) 50 MCG (2000 UT) tabletIndication s:Vitamin D deficiency Take 1 tablet (50 mcg) by mouth in the morning. 90 tablet 3 4 Active lisinopril 40 MG tabletIndication s:Essential hypertension Take 1 tablet (40 mg) by mouth in the morning. 90 tablet 3 4 Active metoprolol succinate XL (Toprol-XL) 50 MG 24 hr tabletIndication s:Essential hypertension Take 1 tablet (50 mg) by mouth in the morning. 90 tablet 3 4 Active albuterol 108 (90 Base) MCG/ACT inhalerIndicatio ns:Moderate persistent asthma without complication Inhale 2 puffs every 6 (six) hours if needed for wheezing. 18 g 11 4 025 Active pantoprazole (ProtoNix) 40 MG EC tabletIndication s:Gastroesophage al reflux disease without esophagitis Take 1 tablet (40 mg) by mouth in the morning. 90 tablet 3 4 Active levothyroxine (Synthroid, Levoxyl) 137 MCG tablet TAKE 1 TABLET BY MOUTH EVERY DAY 90 tablet 4 Active montelukast (Singulair) 10 MG tabletIndication s:Moderate persistent asthma without complication Take 1 tablet (10 mg) by mouth Once per day. 30 tablet 11 5 026 Active predniSONE (Deltasone) 20 MG tabletIndication s:Acute gout of left ankle, unspecified cause 2 tabs po daily for 5 days 10 tablet 5 Active Active Problems Problem Noted Date Diagnosed Date Acute gout of left ankle 07/22/2024 Assessment & Plan (07/22/2024 3:43 PM EDT): Likely early gout attack. Exam benign, with only mild tenderness over dorsum of left foot. Has referral to Sanitation Supervisor, encouraged to call. Taking allopurinol. -Prescribed short course of steroids. -ordered uric acid. Bilateral chronic knee pain 05/08/2024 Chronic rhinitis 05/08/2024 Other chest pain 09/24/2023 Encounter for screening mamm ogram for malignant neoplasm of breast 09/24/2023 Colon cancer screening 09/24/2023 Hypothyroidism (acquired) 09/24/2023 Pulmonary nodule 09/24/2023 Low vision 09/24/2023 Candidiasis 04/19/2023 04/19/2023 Hip pain 04/19/2023 04/19/2023 Lichen planus 04/19/2023 04/19/2023 Moderate persistent asthma without complication 04/19/2023 04/19/2023 Assessment & Plan (02/12/2024 4:02 PM EDT): Control c/w same interventions Rheumatoid arthritis involvi ng multiple sites with positive rheumatoid factor 04/19/2023 04/19/2023 Seronegative rheumatoid arthritis 04/19/2023 04/19/2023 Suprapubic abscess 04/19/2023 04/19/2023 Complex renal cyst 01/01/2023 04/19/2023 Renal mass 01/01/2023 04/19/2023 Chronic kidney disease, stage 2 (mild) 04/19/2023 Headache 12/08/2014 04/19/2023 Vitamin D deficiency 12/08/2014 04/19/2023 Hyperuricemia 06/28/2014 04/19/2023 Stage 3b chronic kidney disease 12/30/2013 04/19/2023 Tubular adenoma of colon 05/25/2013 024 Acquired hypothyroidism 01/02/2013 04/19/19 Assessment & Plan (02/12/2024 4:02 PM EDT): TSH will be re-check with labs Cobalamin deficiency 01/02/2013 04/19/2023 Hypertension 01/02/2013 04/19/2023 Assessment & Plan (05/21/2024 8:37 PM EST): Patient forgot to take her blood pressure medication today, I advised to take her medication every day and low sodium diet, also I advise weight reduction I advised patient to log her blood pressure at home, she will return in 2 weeks for blood pressure check with nurse If blood pressure is not at goal plan is to add amlodipine 5 mg daily Cirrhosis of liver 01/09/2012 04/19/2023 Depressive disorder 01/09/2012 04/19/2023 Hepatitis C 01/09/2012 04/19/2023 Hyperlipidemia 01/09/2012 04/19/2023 Encounters Date Type Department Care Team Description 07/22/2024 3:20 PM EDT Office Visit [facility] [address] [place] [phone] Amrita Olvera MD Acute gout of left ankle, unspecified cause (Primary Dx) 07/22/2024 Refill [facility] [address] [address] Amrita Olvera MD Acute gout of left ankle, unspecified cause 07/15/2024 Telephone [facility] [address] [place] [phone] Jen Ochoa MD Derm appointment 05/19/[address] [address] Faustino Carson MD Appointment Request 05/08/2024 2:30 PM EST Office Visit [address] [address] Jen Ochoa MD Primary hypertension (Primary Dx); Bilateral chronic knee pain; Chronic rhinitis 05/08/2024 Travel 04/28/2024 Patient Outreach [facility] [address] [place] [phone] Jen Ochoa MD Pre-visit Planning ((Unable to reach for PVP screening, LVM)) from Last 3 Months Immunizations Name Administration Dates Next Due Influenza High-dose Quadrivalent Preservative Fr ee 03/14/2020 Influenza injectable quadriv alent IIV4 with preservative 01/22/2018,01/26/2015 Influenza, IIV3, injectable 12/23/2013 Influenza, Split (incl. purified surface antigen ) 01/02/2013,01/09/2012 Pneumococcal Conjugate PCV 20 02/12/2024 Pneumococcal Polysaccharide PPSV23 05/20/2007 Tdap 12/26/2010 Zoster, live 07/29/2014 Social History Tobacco Use Types Packs/Day Years Used Date Smoking Tobacco: Never Passive Smoke Exposure: Never Smokeless Tobacco: Never Tobacco Cessation:Counseling Given: Not Answered Alcohol Use Standard Drinks/Week Comments Never 0 [...] Orientation Straight 02/12/2022 10 :14 AM EDT Last Filed Vital Signs Vital Sign Reading [...] 9.6 oz) 07/22/2024 3:23 PM EDT Height 137.2 cm (4' 6 ) 05/08/2024 2:29 PM EST Body Mass Index 54.15 05/08/2024 2:29 PM EST Plan of Treatment Upcoming Encounters Date Type Department Care Team (Late st Contact Info) Description 08/06/2024 2:30 PM EDT Office Visit [facility] [address] [place], [place] [phone] Jen Ochoa MD [address] [place], [place] [phone] Health Maintenance Due Date Last Done Comments CT Colonography 1955 Colonoscopy 1955 FIT 1955 FOBT 1955 Sigmoidoscopy 1955 Hepatitis A Vaccines (1 of 2 - Risk 2-dose series) 1973 Hepatitis B Vaccines (1 of 3 - Risk 3-dose series) 2014 RSV Patients and Patients Aged 60 years or older (1 - Risk 60-74 years 1-dose series) 2014 Zoster Vaccines (2 of 3) 09/23/2014 07/29/2014 DTaP/Tdap/Td Vaccines (2 - Td or Tdap) 12/26/2020 12/26/2010 COVID-19 Vaccine ( season) 2023 02/14/2021, 01/24/2021 Influenza Vaccine (#1) 2023 , 01/22/2018, 01/26/2015, Additional history exists Mammogram 10/20/2024 10/21/2023, 01/15, 12/09/2017 SDOH Screening 02/04/2025 02/05/2024 Alcohol/Substance Use Screening 02/11/2025 02/12/2024 Depression Screening 02/11/2025 02/12/2024, 02/12/20 Tobacco Screening 05/08/2025 05/08/2024 Lipid Panel 01/24/2026 01/24/2021 Colorectal Cancer Screening 11/02/2026 FIT DNA/Cologuard 11/02/2026 11/03/2023 Pneumococcal Vaccine: 50+ Years Completed 02/12/2024, 05/20/2007 HIB Vaccines Aged Out No longer eligi ble based on patient's age to complete this topic HPV Vaccines Aged Out No longer eligi ble based on patient's age to complete this topic IPV Vaccines Aged Out No longer eligi ble based on patient's age to complete this topic Meningococcal Vaccine Aged Out No immanuel surya eligible based on patient's age to complete this topic RSV under 20 months Aged Out No longe r eligible based on patient's age to complete this topic Rotavirus Vaccines Aged Out No longer eligible based on patient's age to complete this topic Procedures Procedure Name Priority Date/Time Associated Diagnosis Comments LAB COLOGUARD?? COLON CANCER SCREEN Routine 11/03/2023 6:40 PM EDT Colon cancer screening BI MAMMOGRAM SCREENING TOMOSYNTHESIS BILATERAL Routine 10/21/2023 4:10 PM EDT LIPID PANEL, STANDARD Routine 01/24/2021 10:16 AM EDT from Last 3 Months or Most Recently Relevant to Health Maintenance Results * Cologuard?? colon cancer screening (11/03/2023 6:40 PM EDT) Cologuard Result Negative Negative 11/08/19 12:54 PM EDT [facility] (CLIA #:[id number]) Comment: NEGATIVE TEST RESULT. A negative Cologuard result indicates a low likelihood that a colorectal cancer (CRC) or advanced adenoma (adenomatous polyps with more advanced pre-malignant features) ??is present. The chance that a person with a negative Cologuard test has a colorectal cancer is less than 1 in 1500 (negative predictive value >99.9%) or has an ??advanced adenoma is less than ??5.3% (negative predictive value 94.7%). These data are based on a prospective cross-sectional study of 10,000 individuals at average risk for colorectal cancer who were screened with both Cologuard and colonoscopy. (Lucy Mcnally al, N Engl J Med 2014;370(14):1286- 1297) The normal value (reference range) for this assay is negative. COLOGUARD RE-SCREENING RECOMMENDATION: Periodic colorectal cancer screening is an important part of preventive healthcare for asymptomatic individuals at average risk for colorectal cancer. ??Following a negative Cologuard result, the [place] [employer] and U.S. Multi-Society Task Force screening guidelines recommend a Cologuard re-screening interval of 3 years. References: [place] [employer] Guideline for Colorectal Cancer Screening: https://www.cancer.org/cancer/assod-apylqk-ruojjs/relbwyrxv-apjeodneq-nwqubel/ac s-rec ommendations.html.; Yaron DK, Nayeli UPTON, Emir WuK, Colorectal Cancer Screening: Recommendations for Physicians and Patients from the U.S. Multi-Society Task Force on Colorectal Cancer Screening , Am J Gastroenterology 2017; 112:2127-3555. TEST DESCRIPTION: Composite algorithmic analysis of stool DNA-biomarkers with hemoglobin immunoassay. ?? Quantitative values of individual biomarkers are not reportable and are not associated with individual biomarker result reference ranges. Cologuard is intended for colorectal cancer screening of adults of either sex, 45 years or older, who are at average-risk for colorectal cancer (CRC). Cologuard has been approved for use by the U.S. FDA. The performance of Cologuard was established in a cross sectional study of average-risk adults aged 50-84. Cologuard performance in patients ages 45 to 49 years was estimated by sub-group analysis of near-age groups. Colonoscopies performed for a positive result may find as the most clinically significant lesion: colorectal cancer [4.0%], advanced adenoma (including sessile serrated polyps greater than or equal to 1cm diameter) [20%] or non- advanced adenoma [31%]; or no colorectal neoplasia [45%]. These estimates are derived from a prospective cross-sectional screening study of 10,000 individuals at average risk for colorectal cancer who were screened with both Cologuard and colonoscopy. (Lucy Mcnally al, N Engl J Med 2014;370(14):6386-9273.) Cologuard may produce a false negative or false positive result (no colorectal cancer or precancerous polyp present at colonoscopy follow up). A negative Cologuard test result does not guarantee the absence of CRC or advanced adenoma (pre-cancer). The current Cologuard screening interval is every 3 years. ([place] [employer] and U.S. Multi-Society Task Force). Cologuard performance data in a 10,000 patient pivotal study using colonoscopy as the reference method can be accessed at the following location: www.Legal Shine.com/results. Additional description of the Cologuard test process, warnings and precautions can be found at www.cologuard.com. Stool specimen (specimen) 11/03/2023 6:40 PM EDT 11/05/2023 11:00 AM EDT Jen Kidd MD LAB MOLECULAR DIAGNOS TICS ORDERABLES Final Result [facility] (CLIA #:[id number]) [place] [address], * BI Mammogram Screening Tomosynthesis Bilateral (10/21/2023 4:10 PM EDT) Anatomical Region Laterality Modality Breast Bilateral Mammography 10/21/2023 4:10 PM EDT Narrative 11/17/2023 3:43 PM EDT ? [facility] [place] ? [address] ?[place] [address] ? Mammography Report ? Signed ? Patient: Bj,Hoda ?MR#: [id number] ?? [id number] ? : 1955 ?Acct:[id number] ? Age/Sex: 68 / F ?ADM Date: 07/08/24 ? Loc: HO.MAMMO ? Attending Dr: Jen Kidd MD ? Ordering Physician: Jen Ochoa MD ?Results: ?? 1Negative ? Date of Service: 10/21/23 ?Follow Up: 1 Year From Orig ?? inal Mammogram ? Procedure(s): MM tomosynthesis screening BI ?? Accession Number(s): [id number] ? cc: Jen Ochoa MD ? EXAMINATION: ?? MM SCREENING DIGITAL BREAST TOMOSYNTHESIS, BILATERAL ? CLINICAL INFORMATION: ? Screening. Asymptomatic. ? COMPARISON: ?? Mammography: This study is compared with prior exams dating back to ?? 2014. ? TECHNIQUE: ?? Digital breast tomosynthesis is performed in both the craniocaudal and ?? mediolateral oblique views along with computer-aided detection (CAD). ?? Synthesized 2D images are generated from the tomosynthesis. ? FINDINGS: ?? There are scattered areas of fibroglandular density (ACR BI-RADS breast ?? composition Category b). ? There are no significant masses, abnormal calcifications, or other ?? abnormalities. ? MM/MM tomosynthesis screening BI ?? IMPRESSION: ?? No mammographic evidence of malignancy. ? ASSESSMENT: ? BI-RADS BI-RADS 1 - Negative ? RECOMMENDATION: ?? Routine annual mammography screening. ? 1 year F/U ? This examination should not preclude the clinical evaluation of a ?? suspicious palpable abnormality. ? This patient's information was entered into a reminder system with a ?? target due date for their next mammogram. ? Dictated By: ?Taylor Magaña MD ? Signed By: ?<Electronically signed by Taylor Magaña MD in OV> ? 11/17/23 1539 ? DD/ 1610 ? TD/TT: ? Upper Tier: ? Procedure Note Donnathenter, Image - 11/17/2023 Rk [facility] [address] [place] [address] Mammography Report Signed Patient: Rashmi Lorenzo#: [id number] : 4Acct:[id number] Age/Sex: 68 / FADM Date: 10/21/23 Loc: [facility] Attending Dr: Jen Kidd MD Ordering Physician: Jen Ochoa MDResults: 1Negative Date of Service: 10/21/23Follow Up: 1 Year From Orig inal Mammogram Procedure(s): MM tomosynthesis screening BI Accession Number(s): [id number] cc: Jen Ochoa MD EXAMINATION: MM SCREENING DIGITAL BREAST TOMOSYNTHESIS, BILATERAL CLINICAL INFORMATION: Screening. Asymptomatic. COMPARISON: Mammography: This study is compared with prior exams dating back to 2015. TECHNIQUE: Digital breast tomosynthesis is performed in both the craniocaudal and mediolateral oblique views along with computer-aided detection (CAD). Synthesized 2D images are generated from the tomosynthesis. FINDINGS: There are scattered areas of fibroglandular density (ACR BI-RADS breast composition Category b). There are no significant masses, abnormal calcifications, or other abnormalities. MM/MM tomosynthesis screening BI IMPRESSION: No mammographic evidence of malignancy. ASSESSMENT: BI-RADS BI-RADS 1 - Negative RECOMMENDATION: Routine annual mammography screening. 1 year F/U This examination should not preclude the clinical evaluation of a suspicious palpable abnormality. This patient's information was entered into a reminder system with a target due date for their next mammogram. Dictated By: Taylor Magaña MD Signed By: <Electronically signed by Taylor Magaña MD in OV> 11/17/23 1539 DD/ 1610 TD/TT: Upper Tier: us Jen Kidd MD [facility] Result * (ABNORMAL) LIPID PANEL, STANDARD (01/24/2021 10:16 AM EDT) Chol/HDLC Ratio 3.9 <5.0 (calc) [facility] Cholesterol, Total 235(H) <200 mg/dL [facility] HDL Cholesterol 60 > OR = 50 mg/dL [facility] LDL Cholesterol 148(H) mg/dL (calc) [facility] Comment: Reference range: <100 ?? Desirable range <100 mg/dL for primary prevention; ?? <70 mg/dL for patients with CHD or diabetic patients ?? with > or = 2 CHD risk factors. ?? LDL-C is now calculated using the Gianfranco ?? calculation, which is a validated novel method providing ?? better accuracy than the Friedewald equation in the ?? estimation of LDL-C. ?? Mor RIBEIRO et al. GURWINDER. 2013;310(19): 4330-8804 ?? (http://education.GrabCAD.Contorion/faq/ZPZ223) Non-HDL Cholesterol 175(H) <130 mg/dL (calc) [facility] Comment: For patients with diabetes plus 1 major ASCVD risk ?? factor, treating to a non-HDL-C goal of <100 mg/dL ?? (LDL-C of <70 mg/dL) is considered a therapeutic ?? option. Triglycerides 145 <150 mg/dL [facility] 01/24/2021 10:1 6 AM EDT us Jen Kidd MD LAB BLOOD ORDERABLES Final Result [facility] [address] from Last 3 Months or Most Recently Relevant to Health Maintenance Insurance [facility] Care Teams Business Process Associate Relationship Specialty Start Date End Date Jen Ochoa MD [address] [place] [phone] PCP - General Family Medicine 12/25/17
--- OUTSIDE RECORDS SUMMARY | 2024-07-22 16:10 | XMS_ITS ---
Demographics Address [address] [place] [address] Preferred Language Unknown Marital Status unmarried Restorationism Affiliation Unknown Race Ethnic Group or Author Organization [facility] Address [address] [place] [address] Care Team Providers Care Formstone Fitter Name Role Phone Jen Acosta M.D. Primary Care Provider Aric Morrison Unavailable [phone] Allergies No Known Allergies Results Component Value Reference Range Notes Prothrombin Time INR Reviewed date:11/13/2023 11:09:04 PM Interpretation: Performing Lab:[facility], [address] [place] [phone] Notes/Report: Prothrombin Time 11.5 11.1-13.3 SEC INTERNATIONAL NORM RATIO 0.9 0.9-1.1 INTERNATIONAL NORMALIZED RATIO (INR) REFERENCE RANGES Reference Range For patients not on anticoagulant therapy: 0.9 - 1.1 INR ranges for oral anticoagulant therapy: For prevention and treatment of venous thrombosis and pulmonary embolism: 2.0 - 3.0 For acute myocardial infarction with aspirin therapy: 2.0 - 3.0 For acute myocardial infarction without aspirin therapy: 3.0 - 4.0 For patients with mechanical prosthetic heart valves: 2.5 - 3.5 Liver Fibrosis Pnl Reviewed date:11/22/2023 06:42:50 PM Interpretation: Performing Lab:[facility], [address] [place] [phone] Notes/Report: Liver Fibrosis Score 0.38 Liver Fibrosis Stage F1-F2 Liver Fibrosis Interpretation SEE NOTE minimal fibrosis Fibro Test Score (f) Metavir Score f>=0 and f<=0.21 : F0 (no fibrosis) f>0.21 and f<=0.27 : F0-F1 (no fibrosis) f>0.27 and f<=0.31 : F1 (minimal fibrosis) f>0.31 and f<=0.48 : F1-F2 (minimal fibrosis) f>0.48 and f<=0.58 : F2 (moderate fibrosis) f>0.58 and f<=0.72 : F3 (advanced fibrosis) f>0.72 and f<=0.74 : F3-F4 (advanced fibrosis) f>0.74 and f<=1.00 : F4 (severe fibrosis) Nec Inflam Act Score 0.02 Nec Inflam Act Grade A0 Nec Inflam Act Interpretation SEE NOTE no activity ActiTest Score (a) Metavir Score a>=0 and a<=0.17 : A0 (no activity) a>0.17 and a<=0.29 : A0-A1 (no activity) a>0.29 and a<=0.36 : A1 (minimal activity) a>0.36 and a<=0.52 : A1-A2 (minimal activity) a>0.52 and a<=0.60 : A2 (significant activity) a>0.60 and a<=0.62 : A2-A3 (significant activity) a>0.62 and a<=1.00 : A3 (severe activity) OHK-Mfukk-5-Macroglobulin 342 106-279 mg/dL FIB-Haptoglobin 187 43-212 mg/dL FIB-Apolipoprotein A1 180 101-198 mg/dL FIB-Total Bilirubin 0.5 0.2-1.2 mg/dL FIB-GGT 36 3-65 U/L FIB-ALT 9 6-29 U/L Reference ID [id number] Footnote SEE NOTE The reliability of results is dependent on compliance with the preanalytical and analytical conditions recommended by [employer] - is now [employer]. The tests have to be deferred for: acute hemolysis, acute hepatitis, acute inflammation, extra hepatic cholestasis. The advice of a specialist should be sought for interpretation in chronic hemolysis and Gilbert's syndrome. The test interpretation is not validated in liver transplant patients. Isolated extreme values of one of the components should lead to caution in interpreting the results. In case of discordance between a biopsy result and a test, it is recommended to seek the advice of a specialist. The causes of these discordances could be due to a flaw of the test or to a flaw in the biopsy: i.e. a liver biopsy has a 33% variability rate for one fibrosis stage. FibroTest is interpretable for chronic hepatitis B and C, alcoholic and non alcoholic steatosis. ActiTest is interpretable for chronic hepatitis B and C. The performance characteristics have been determined by [employer] [facility]. It has not been cleared or approved by the U.S. Food and Drug Administration. Performance characteristics refer to the analytical performance of the test. [employer], the associated logo, [employer] and all associated [employer] do are the registered trademarks of [employer]. All third alliance party do - (R) and (TM) - are the property of their respective owners. (C) 0491-3223 [employer]. All rights reserved. THIS TEST WAS PERFORMED AT: [employer] [facility] [address] [place] [address] DEENA PLEITEZ MD,PHD,MITCHELL REASON FOR VISIT Patient presents today for cirrhosis Medications Medication SIG (Take, Route, Frequency, Duration) Notes Start Date End Date Status hydrOXYzine HCl 10 MG Oral for 30 Active buPROPion HCl ER (XL) 150 MG Oral for 30 Active Metoprolol Succinate ER 50 MG 1 tablet O rally Once a day Active Allopurinol 300 MG 1 tablet Orally Once a day Active Flovent HFA 110 MCG/ACT 1 puff Inhalatio n Twice a day Active Lisinopril 40 MG 1 tablet Orally Once a day Active Famotidine 20 MG 1 tablet at bedtime as needed Orally Twice a day Active Aspir-81 81 MG 1 tablet Orally Once a day Active hydroCHLOROthiazide 25mg 1 tablet Orally Once a day Active Ambien 10 MG 1 tablet at bedtime Orally Once a day Active tiZANidine HCl 2 MG Oral for 5 Active Cyclobenzaprine HCl 5 MG Oral for 6 Active Loratadine 10 MG 1 tablet Orally Once a day for 30 day(s) Active Arthritis Pain Relief 650 MG TAKE 2 TABL ETS BY MOUTH EVERY 8 HOURS NEEDED. SWALLOW WHOLE WITH WATER. DO NOT BREAK, CRUSH, DISSOLVE OR CHEW Oral for 10 Active Triamcinolone Acetonide 0.1 % External for 30 Active Acetaminophen ER 650 MG Oral for 10 Active Ventolin HFA 108 (90 Base) MCG/ACT INHALE 2 PUFFS BY MOUTH EVERY 4 TO 6 HOURS NEEDED Inhalation for 17 Active Pantoprazole Sodium 40 MG TAKE 1 TABLET BY MOUTH EVERY DAY Oral for 30 Active Aspirin Low Dose 81 MG TAKE 1 TABLET BY MOUTH EVERY DAY Oral for 30 Active Vitamin B-12 1000 MCG TAKE 1 TABLET BY MOUTH EVERY DAY Oral for 30 Active Levothyroxine Sodium 137 MCG Oral for 30 Active Breo Ellipta 200-25 MCG/INH Inhalation for 30 Active Albuterol Sulfate (2.5 MG/3M L) 0.083% Inhalation for 7 Active Vitamin D3 50 MCG (2000 UT) TAKE 1 TABLE T BY MOUTH ONCE DAILY Oral for 30 Active Mirtazapine 30 MG Oral for 30 Active Vital Signs Blood pressure systolic 00 mm Hg 11/07/19 24 Blood pressure diastolic 00 mm Hg 024 Height 57.5 in 11/07/2023 Weight 227 lbs 11/07/2023 BMI 48.27 kg/m2 11/07/2023 Encounters Encounter Location Date Provider Diagnosis [facility] [address] [place] [address] 11/07/2023 Aric Florian Other cirrhosis of liver K74.69 ; History of hepatitis C Z86.19 and Colon cancer screening Z12.11 Assessments Encounter Date Diagnosis (ICD Code) Assessment Notes Treatment Notes Treatment Clinical Notes Section Notes 11/07/2023 Other cirrhosis of liver (ICD-10 - K74.69) Need the result of her Cologuard test from her PCP---it was sent by patient on approx. 11/03/2023 Overall, Hoda does not show any signs of decompensating liver disease on her exam nor from her history. Her recent studies from 2 months ago in the ER are reassuring in this regard as well. We did review her underlying liver disease and discussed the importance of trying to eat healthy and lose some weight if possible so as to prevent any potential liver damage from fatty liver. I shall check laboratories today including an alpha-fetoprotein level, liver fibrosis score, and PT with INR. Given her CT scan from just 2 months ago I don't think she needs any imaging studies. I will try to obtain a copy of the results of her recent Cologuard test and if it is negative then we would not need to have her undergo a colonoscopy. Obviously, if it is positive I would then want to be in touch with her to set up a colonoscopy instead. If things remain well I will plan to see her in one year for a followup visit. I did advise her to contact me prior to that if she has any problems or questions I can be of assistance with. Hoda was comfortable with this plan. Thank you again for allowing me to participate in Hoda's care. I shall continue to keep advised of her progress. 11/07/2023 History of hepatitis C (ICD-10 - Z86.19) Overall, Hoda does not show any signs of decompensating liver disease on her exam nor from her history. Her recent studies from 2 months ago in the ER are reassuring in this regard as well. We did review her underlying liver disease and discussed the importance of trying to eat healthy and lose some weight if possible so as to prevent any potential liver damage from fatty liver. I shall check laboratories today including an alpha-fetoprotein level, liver fibrosis score, and PT with INR. Given her CT scan from just 2 months ago I don't think she needs any imaging studies. I will try to obtain a copy of the results of her recent Cologuard test and if it is negative then we would not need to have her undergo a colonoscopy. Obviously, if it is positive I would then want to be in touch with her to set up a colonoscopy instead. If things remain well I will plan to see her in one year for a followup visit. I did advise her to contact me prior to that if she has any problems or questions I can be of assistance with. Hoda was comfortable with this plan. Thank you again for allowing me to participate in Hoda's care. I shall continue to keep advised of her progress. 11/07/2023 Colon cancer screening (ICD-10 - Z12.11) Overall, Hoda does not show any signs of decompensating liver disease on her exam nor from her history. Her recent studies from 2 months ago in the ER are reassuring in this regard as well. We did review her underlying liver disease and discussed the importance of trying to eat healthy and lose some weight if possible so as to prevent any potential liver damage from fatty liver. I shall check laboratories today including an alpha-fetoprotein level, liver fibrosis score, and PT with INR. Given her CT scan from just 2 months ago I don't think she needs any imaging studies. I will try to obtain a copy of the results of her recent Cologuard test and if it is negative then we would not need to have her undergo a colonoscopy. Obviously, if it is positive I would then want to be in touch with her to set up a colonoscopy instead. If things remain well I will plan to see her in one year for a followup visit. I did advise her to contact me prior to that if she has any problems or questions I can be of assistance with. Hoda was comfortable with this plan. Thank you again for allowing me to participate in Hoda's care. I shall continue to keep advised of her progress. Plan Of Treatment Treatment Notes Assessment Notes Other cirrhosis of liver Need the result of her Cologuard test from her PCP---it was sent by patient on approx. 11/03/2023 Pending Test Test Name Order Date LIVER PROFILE 11/07/2023 ALPHA-FETOPROTEIN,TUMOR MARKER HEPATITIS C VIRAL LOAD 11/07/2023 Next Appt Details Follow Up: 1 Year, Reason: Provider Name:Aric Florian , 11/04/2024 01:00:00 PM, [address], [address] [facility], [place], [address], Progress Notes * PRINCESS ABREUEDOB:1954 (68 yo F)Acc No.[id number]:11/07/2023 Progress Notes Patient:?HODA ABREU Provider:?Aric Florian MD :1955???Age:68 Y???Sex:Female D ate:11/07/2023 Address:[address] [place] [address] Pcp:Jen Acosta M.D. Subjective: * Chief Complaints: * ???Patient presents today fo r cirrhosis * HPI: ???incontinence:? I saw Hoda in followup today in regard to her underlying history of chronic liver disease in relation to previous hepatitis C and discussion of colorectal cancer screening. ?I last saw Hoda in August of 2022. Subsequent to that she did have abdominal ultrasound in September of 2022 was negative for any sign of liver mass, splenomegaly, nor ascites. The liver appeared consistent with changes of cirrhosis. She did have recent studies this past August when she was in the ER for evaluation of some apparent chest pain. At that time she had normal chemistries, normal LFTs, a normal CBC with platelet count, and a CT scan that was negative for any sign of liver mass, splenomegaly, nor intra-abdominal fluid. ?She describes that she is not having any significant heartburn, dysphagia, nausea, nor vomiting. She is trying to eat healthy and small amounts but unfortunately has not been able to lose any weight. She describes her bowel movements have been regular and without any signs of bleeding. She denies any jaundice, abdominal pain, increasing abdominal girth, edema, pruritus, nor fatigue. ?She does describe that she sent out a stool specimen for a Cologuard test earlier this week. * ROS:?General/Constitutional:?Change in appetite?denies.?Chills?denies.?Fatigue?denies.?Ophthalmologic:?Comments?all negative.?ENT:?Comments?all negative.?Respiratory:?hemoptysis?denies.?Cough?denies.?Cardiovascular:?Chest pain?denies.?Orthopnea?denies.?Gastrointestinal:?Comments?See HPI for details.?Genitourinary:?Hematuria?denies.?Dysuria?denies.?Musculoskeletal:?Painful joints?denies.?Weakness?denies.?Skin:?Itching?denies.?Rash?denies.?Neurologic:?Headache?denies.?Seizures?denies.?Psychiatric:?Comments?all negative.? * Medical History:? * Surgical History:? with transfusions Cholecystectomy-2017 Dr. Kramer * Hospitalization/Major Diagno stic Procedure:?No Hospitalization History. * Family History:?Father: dece ased, of prostate cancer, diagnosed with Colon cancer.?Mother: , of pancreatic cancer.? No GI malignancy. * Social History:?Tobacco Use:?Tobacco Use/Smoking?Are you a: nonsmoker.?Drugs/Alcohol:?Alcohol Screen?Points: 0, Interpretation: Negative.?Miscellaneous:?Marital status: single. Occupation: unemployed. ???Nonsmoker; no alcohol. * Medications:?TakingLoratadin e 10 MG Tablet 1 tablet Orally Once a dayFamotidine 20 MG Tablet 1 tablet at bedtime as needed Orally Twice a dayLisinopril 40 MG Tablet 1 tablet Orally Once a dayhydroCHLOROthiazide 25mg Tablet 1 tablet Orally Once a dayAspir-81 81 MG Tablet Delayed Release 1 tablet Orally Once a dayAmbien 10 MG Tablet 1 tablet at bedtime Orally Once a dayMetoprolol Succinate ER 50 MG Tablet Extended Release 24 Hour 1 tablet Orally Once a dayFlovent HFA 110 MCG/ACT Aerosol 1 puff Inhalation Twice a dayAllopurinol 300 MG Tablet 1 tablet Orally Once a daybuPROPion HCl ER (XL) 150 MG Tablet Extended Release 24 Hour Oral hydrOXYzine HCl 10 MG Tablet Oral Mirtazapine 30 MG Tablet Oral Breo Ellipta 200-25 MCG/INH Aerosol Powder Breath Activated Inhalation Levothyroxine Sodium 137 MCG Tablet Oral Vitamin D3 50 MCG (2000 UT) Tablet TAKE 1 TABLET BY MOUTH ONCE DAILY Oral Albuterol Sulfate (2.5 MG/3ML) 0.083% Nebulization Solution Inhalation Pantoprazole Sodium 40 MG Tablet Delayed Release TAKE 1 TABLET BY MOUTH EVERY DAY Oral Ventolin HFA 108 (90 Base) MCG/ACT Aerosol Solution INHALE 2 PUFFS BY MOUTH EVERY 4 TO 6 HOURS NEEDED Inhalation Vitamin B-12 1000 MCG Tablet TAKE 1 TABLET BY MOUTH EVERY DAY Oral Aspirin Low Dose 81 MG Tablet Delayed Release TAKE 1 TABLET BY MOUTH EVERY DAY Oral Acetaminophen ER 650 MG Tablet Extended Release Oral Triamcinolone Acetonide 0.1 % Ointment External Arthritis Pain Relief 650 MG Tablet Extended Release TAKE 2 TABLETS BY MOUTH EVERY 8 HOURS NEEDED. SWALLOW WHOLE WITH WATER. DO NOT BREAK, CRUSH, DISSOLVE OR CHEW Oral Cyclobenzaprine HCl 5 MG Tablet Oral tiZANidine HCl 2 MG Tablet Oral Medication List reviewed and reconciled with the patientTaking Loratadine 10 MG Tablet 1 tablet Orally Once a dayTaking Famotidine 20 MG Tablet 1 tablet at bedtime as needed Orally Twice a dayTaking Lisinopril 40 MG Tablet 1 tablet Orally Once a dayTaking hydroCHLOROthiazide 25mg Tablet 1 tablet Orally Once a dayTaking Aspir-81 81 MG Tablet Delayed Release 1 tablet Orally Once a dayTaking Ambien 10 MG Tablet 1 tablet at bedtime Orally Once a dayTaking Metoprolol Succinate ER 50 MG Tablet Extended Release 24 Hour 1 tablet Orally Once a dayTaking Flovent HFA 110 MCG/ACT Aerosol 1 puff Inhalation Twice a dayTaking Allopurinol 300 MG Tablet 1 tablet Orally Once a dayTaking buPROPion HCl ER (XL) 150 MG Tablet Extended Release 24 Hour Oral Taking hydrOXYzine HCl 10 MG Tablet Oral Taking Mirtazapine 30 MG Tablet Oral Taking Breo Ellipta 200-25 MCG/INH Aerosol Powder Breath Activated Inhalation Taking Levothyroxine Sodium 137 MCG Tablet Oral Taking Vitamin D3 50 MCG (2000 UT) Tablet TAKE 1 TABLET BY MOUTH ONCE DAILY Oral Taking Albuterol Sulfate (2.5 MG/3ML) 0.083% Nebulization Solution Inhalation Taking Pantoprazole Sodium 40 MG Tablet Delayed Release TAKE 1 TABLET BY MOUTH EVERY DAY Oral Taking Ventolin HFA 108 (90 Base) MCG/ACT Aerosol Solution INHALE 2 PUFFS BY MOUTH EVERY 4 TO 6 HOURS NEEDED Inhalation Taking Vitamin B-12 1000 MCG Tablet TAKE 1 TABLET BY MOUTH EVERY DAY Oral Taking Aspirin Low Dose 81 MG Tablet Delayed Release TAKE 1 TABLET BY MOUTH EVERY DAY Oral Taking Acetaminophen ER 650 MG Tablet Extended Release Oral Taking Triamcinolone Acetonide 0.1 % Ointment External Taking Arthritis Pain Relief 650 MG Tablet Extended Release TAKE 2 TABLETS BY MOUTH EVERY 8 HOURS NEEDED. SWALLOW WHOLE WITH WATER. DO NOT BREAK, CRUSH, DISSOLVE OR CHEW Oral Taking Cyclobenzaprine HCl 5 MG Tablet Oral Taking tiZANidine HCl 2 MG Tablet Oral Medication List reviewed and reconciled with the patient * Allergies:?N.K.D.A.yes[Aller gies Verified] Objective: * Vitals:?Wt: 227 lbs, Ht: 57. 5 in, BMI:48.27 Index, BP: 00/00 mm Hg. * Examination: ???General Examination: ?GENERAL APPEARANCE:?pleasant, well nourished, well developed, in no acute distress.?EYES:?sclera non-icteric.?ORAL CAVITY:?mucosa moist.?NECK/THYROID:?no cervical lymphadenopathy, neck supple.?SKIN:?nonjaundiced, no spider angiomata.?HEART:?S1, S2 normal.?LUNGS:?clear to auscultation bilaterally.?ABDOMEN:?normal bowel sounds, no guarding or rigidity, no guarding or rigidity, no masses palpable, soft, nontender, nondistended.?EXTREMITIES:?no edema.?NEUROLOGIC:?alert and oriented.? Assessment: * Assessment: 1.?Other cirrhosis of liver - K74.69 (Primary)?2.?History of hepatitis C - Z86.19?3.?Colon cancer screening - Z12.11? Overall, Hoda does not gloria w any signs of decompensating liver disease on her exam nor from her history. Her recent studies from 2 months ago in the ER are reassuring in this regard as well. We did review her underlying liver disease and discussed the importance of trying to eat healthy and lose some weight if possible so as to prevent any potential liver damage from fatty liver. I shall check laboratories today including an alpha-fetoprotein level, liver fibrosis score, and PT with INR. Given her CT scan from just 2 months ago I don't think she needs any imaging studies. I will try to obtain a copy of the results of her recent Cologuard test and if it is negative then we would not need to have her undergo a colonoscopy. Obviously, if it is positive I would then want to be in touch with her to set up a colonoscopy instead. If things remain well I will plan to see her in one year for a followup visit. I did advise her to contact me prior to that if she has any problems or questions I can be of assistance with. Hoda was comfortable with this plan. Thank you again for allowing me to participate in Hoda's care. I shall continue to keep advised of her progress. Plan: * Treatment: ? Value Reference Range ?Prothrombin Time 11.5 11.1-1 3.3 - SEC * ?INTERNATIONAL NORM RATIO 0.9 0.9-1.1 - Notes: Need the result of her Cologuard test from her PCP---it was sent by patient on approx. 11/03/2023??2.?History of hepatitis C?LAB: LIVER PROFILE ?LAB: ALPHA-FETOPROTEIN,TUMOR MARKER ?LAB: HEPATITIS C VIRAL LOAD ?LAB: Liver Fibrosis Pnl ?LAB: Prothrombin Time INR* ? Value Reference Range ?Prothrombin Time 11.5 11.1-1 3.3 - SEC * ?INTERNATIONAL NORM RATIO 0.9 0.9-1.1 - * Procedure Codes:?3017F COLOR ECTAL CA SCREEN DOC [id number] TOBACCO [id number] BP SCR NOT PRFRM REC REASON NOS * Preventive Medicine:? ??Counseling:?Care goal follow-up plan:?Above Normal BMI Follow-up?Giving encouragement to exercise,?BMI management provided?Yes.? ??Urinary Incontinence:?Urinary Incontinence?Assessment:?Absent,?Plan of care documented:?No, reason not specified.? ??Screenings:?Fall Risk Screening?Fall Risk Assessment:?No falls in the past year.? * Follow Up:?1 Year * * Sign off status: Completed true * Provider:?Aric Florian MD Date:? 024 Generated for Nato alvarado/Rachana/Julienitting on:?07/22/2024 04:10 PM EDT History and Physical Notes * HPI (History of Present Illness) Category Sub-Category Detail Notes Category Not es incontinence I saw Hoda in followup today in regard to her underlying history of chronic liver disease in relation to previous hepatitis C and discussion of colorectal cancer screening. I last saw Hoda in August of 2022. Subsequent to that she did have abdominal ultrasound in September of 2022 was negative for any sign of liver mass, splenomegaly, nor ascites. The liver appeared consistent with changes of cirrhosis. She did have recent studies this past August when she was in the ER for evaluation of some apparent chest pain. At that time she had normal chemistries, normal LFTs, a normal CBC with platelet count, and a CT scan that was negative for any sign of liver mass, splenomegaly, nor intra-abdominal fluid. She describes that she is not having any significant heartburn, dysphagia, nausea, nor vomiting. She is trying to eat healthy and small amounts but unfortunately has not been able to lose any weight. She describes her bowel movements have been regular and without any signs of bleeding. She denies any jaundice, abdominal pain, increasing abdominal girth, edema, pruritus, nor fatigue. She does describe that she sent out a stool specimen for a Cologuard test earlier this week. Examination Category Sub-Category Detail Notes Category Not es General Examination GENERAL APPEARANCE: pleasant , well nourished, well developed, in no acute distress HEAD: EYES: sclera non-icteric EARS: NOSE: THROAT: NECK/THYROID: no cervical lymphade nopathy, neck supple HEART: S1, S2 normal CHEST: LUNGS: clear to auscultatio n bilaterally ABDOMEN: normal bowel sounds, no guarding or rigidity, no guarding or rigidity, no masses palpable, soft, nontender, nondistended NEUROLOGIC: alert and oriented SKIN: nonjaundiced, no spi danilo angiomata EXTREMITIES: no edema PERIPHERAL PULSES: BACK: BREASTS: MUSCULOSKELETAL: MALE GENITOURINARY: LYMPH NODES: RECTAL EXAM: FEMALE GENITOURINARY: ORAL CAVITY: mucosa moist
--- OUTSIDE RECORDS SUMMARY | 2024-07-22 16:10 | XMS_ITS | Encounter Summary ---
Author Organization [employer] Address [address] [place] [address] Care Team Providers Care Guest Relations Manager Name Role Phone Jen Ochoa MD Primary Care Provide r Reason for Visit * Reason Comments Med Refill Encounter Details Date Type Department Care Team ([facility] st Contact Info) Description 07/22/2024 Refill [facility] [address] [place], [place] [phone] Amrita Olvera MD [address] [place] [address] Acute gout of left ankle, unspecified cause Social History Tobacco Use Types Packs/Day Years [...] Description 08/06/2024 2:30 PM EDT Office Visit [facility] MEDICINE [address] [place] [address] Jen Ochoa MD [address] [place] [address] documented as of this encounter Visit Diagnoses Diagnosis Acute gout of left ankle, unspecified cause documented in this encounter Additional Health Concerns Assessment Noted Time PHQ-9 Depression Total Score: 0 02/12/20 24 3:06 PM EDT documented as of this encounter Care Teams Guest Relations Manager Relationship Specialty Start Date End Date Jen Ochoa MD [address] [place] [id number] PCP - General Family Medicine 12/25/17 documented as of this encounter
--- OUTSIDE RECORDS SUMMARY | 2024-07-22 16:11 | XMS_ITS | Data Portability ---
Author Organization [facility] Address [address] [place] [address] Care Team Providers Care Road Driver Name Role Phone HIM [facility] OTHER [facility] OTHER Assessment Encounter Date Assessment Date Assessment LastModified by Organization Details LastModified Time 08/02/2021 08/02/2021 Professional medical case worker was used over the phone for the entirety of this encounter. I have reviewed and agree with the assessment and plan as documented by the supervisor pit and auxiliaries. I provided real-time medical direction for this encounter and was immediately available to provide additional phone-based assistance as needed. Patient with hx of asthma p/w e/o acute asthma exacerbation w/ wheezing, nonproductive cough. Negative covid rapid Ag test. AVSS and well appearing with nonproductive cough and no resp distress able to speak full sentences on exam per medic. Has had previous relief from prednisone with similar sxs in the past. Currently taking albuterol nebulizers without lastin relief. No hx of diabetes. Will rx 5 day burst of prednisone 40mg qd. Medic administered first dose at home. Red flags for callback or hospital presentation discussed utilizing diplomatic interpreter/translator including worsening SOB, fevers, chill or myalgias. pallfather Not available 08/02/2021 13:54:21 05/14/2022 05/14/2022 I have reviewed and agree with the Assessment and Plan as documented by the [employer]. I provided real-time medical direction via phone for this encounter, and was available for additional phone based assistance as needed. Patient seen for bothersome sore throat and non productive cough. AVSS and well appearing per report. No signficant tonsilar swelling / erythema per medic. Speaking in full sentences. R/x'd cepacol lozenges and chloraseptic spray. Covid/Flu/strep swabs negative. pallfather Not available 05/15/2022 10:32:44 09/12/2022 09/12/2022 Ms. Hoda Lorenzo is a 67yoF w/ a PmHx of CKD (GFR stable 50-60) and HTN who is seen today for a cough in the setting of COVID-19. Ms. Lorenzo reports that beginning yesterday she developed a dry cough and malaise. She took a home COVID-19 test which was positive and endorses subjective fevers this morning. She is hoping for paxlovid today and a discussion on safe nasal decongestants. Vital signs with a temp of 100.4F. [employer] on site reports no acute distress. She does meet criteria for paxlovid. Medication list reviewed and with no significant contraindications. Advised that neuropsychiatric meds (zolpidem, hydroxyz, mirtazapine) may be more sedating than usual and to be cautious when using these meds with paxlovid. Creatinine stable at 1.1 which previously corresponded to a GFR of 52. Renally dosed paxlovid sent to pharmacy and she is going to trial mucinex for her nasal congestion (declines nasal sprays). [email or web address] Not available 09/12/2022 15:15:06 09/12/2023 09/12/2023 I provided real -time medical direction via phone for this encounter, and was available for additional phone based assistance as needed. I have reviewed and agree with the Assessment and Plan as documented by the [employer]. We discussed the diagnostic uncertainty of home visits and the risk associated with this. The patient given the opportunity to ask questions. [email or web address] Not available 09/13/2023 23:39:26 Plan of Treatment Reminders Order Date Submit Date Provider Last Modified By Organization Details Last Modified Time Details Appointments None recorded. Lab rapid SARS CoV 2 Ag, QL [place], respirato ry specimen [email or web address], [phone] 13:50:12 Referral None recorded. Procedures None recorded. Surgeries None recorded. Imaging electroca rdiogram 2023 [email or web address], [phone] 05/31/202 4 23:42:27 Medication Orders aspirin 81 mg chewable tablet 2023 024 [email or web address] [facility], [address] [place] [address], [id number], 4 23:42:27 Paxlovid 150 mg-100 mg tablets in a dose pack (Renal Dose) 2022 023 [facility], [address] [place] [address], [id number], 3 14:21:28 [email or web address] in ER 600 mg tablet, extended release 12 hr 2022 023 [facility], [address] [place] [address], [id number], 3 15:21:14 Cepacol Sore Throat (benzocai ne-mentho l) 15 mg-3.6 mg lozenges 2022 023 [id number], [address], [id number], 3 13:50:15 Chlorasep tic Throat [place] 1.4 % aerosol 2022 023 [facility] #[id number], [address], [id number], 3 13:50:14 prednison e 20 mg tablet 2021 022 [facility], [address] [place] [address], [id number], 2 14:01:13 Patient TargetsNo targets recorded. Patient InstructionsNo instructions recorded. Reason for Referral None Reported. Results Created Date Observation Date Name Description Value Unit Range Abnormal Flag Note LastModifiedBy Organization Detail LastModifiedTime 08/03/19 22 08/02/2021 rapid SARS CoV 2 Ag, QL IA, respi rator y speci men rapid SARS CoV 2 Ag, QL IA, respiratory specimen negati ve Not Available Main - [facility] ed [address] [place] [address], [phone] 08/02/2021 13:49:43 09/12/19 24 09/13/2023 deanne rodneygr am No observ ation record ed. [email or web address] [address], [phone] 09/13/2023 23:42:26 Result Notes None recorded. Procedures Surgical History None recorded. Imaging Results Imaging Date Name Status LastModified by Organization Details LastModified Time 09/13/2023 electrocardiogram completed [email or web address] [address], [phone] 09/13/2023 23:42:26 Procedure Notes None recorded. Medical Equipment None Reported. Allergies No known drug allergies Medications Name Sig Start Date Stop Date Status Note LastModified by Organization Details LastModified Time mm-neb/kit [id number] active Not Available Not Available Not Available levothyroxi ne 137 mcg tablet TAKE 1 TABLET BY MOUTH EVERY DAY active Not Available Not Available No t Available tizanidine 2 mg tablet TAKE 1 TABLET BY MOUTH EVERY 6 TO 8 HOURS NEEDED. NO MORE THAN 3 DOSES PER 24 HOURS active Not Available Not Available No t Available albuterol sulfate 2.5 mg/3 mL (0.083 %) solution for nebulizatio n INHALE 1 AMPULE USING A NEBULIZER EVERY 6 HOURS NEEDED FOR WHEEZING active Not Available Not Available No t Available metoprolol succinate ER 50 mg tablet,exte nded release 24 hr TAKE 1 TABLET BY MOUTH EVERY MORNING active Not Available Not Available No t Available prednisone 20 mg tablet TAKE 2 TABLETS BY MOUTH ONCE DAILY FOR FOUR DAYS active Not Available Not Available No t Available cyanocobala min (vit B-12) 1,000 mcg tablet TAKE 1 TABLET BY MOUTH EVERY MORNING active Not Available Not Available No t Available aspirin 81 mg tablet,keila yed release TAKE 1 TABLET BY MOUTH EVERY MORNING active Not Available Not Available No t Available acetaminoph en ER 650 mg tablet,exte nded release TAKE 2 TABLETS BY MOUTH EVERY 8 HOURS NEEDED DO NOT BREAK, CRUSH, DISSOLVE OR CHEW active Not Available Not Available No t Available benzonatate 100 mg capsule TAKE 1 CAPSULE BY MOUTH THREE TIMES DAILY NEEDED FOR COUGH FOR UP TO 7 DAYS. DO NOT BREAK, CRUSH, DISSOLVE OR CHEW active Not Available Not Available No t Available pantoprazol e 40 mg tablet,keila yed release TAKE 1 TABLET BY MOUTH EVERY MORNING active Not Available Not Available No t Available mirtazapine 30 mg tablet active Not Available Not Available Not Available triamcinolo ne acetonide 0.1 % topical ointment APPLY A THIN LAYER TO AFFECTED AREA(S) TWICE DAILY active Not Available Not Available No t Available ibuprofen 400 mg tablet TAKE 1 TABLET BY MOUTH EVERY 8 HOURS NEEDED FOR MODERATE PAIN active Not Available Not Available No t Available aspirin 81 mg chewable tablet Chew 3 tablets by oral route. 2023 active had already had 81 mg today Not Available Not Available Not Available montelukast 10 mg tablet TAKE 1 TABLET BY MOUTH EVERY EVENING active Not Available Not Available No t Available allopurinol 300 mg tablet TAKE 1 TABLET BY MOUTH EVERY MORNING active Not Available Not Available No t Available hydrochloro thiazide 25 mg tablet TAKE 1 TABLET BY MOUTH EVERY MORNING active Not Available Not Available No t Available zolpidem 5 mg tablet active Not Available Not Available No t Available hydroxyzine HCl 10 mg tablet active Not Available Not Available Not Available lisinopril 40 mg tablet TAKE 1 TABLET BY MOUTH EVERY MORNING active Not Available Not Available No t Available amoxicillin 875 mg-potassiu m clavulanate 125 mg tablet TAKE 1 TABLET BY MOUTH TWICE DAILY FOR 7 DAYS active Not Available Not Available No t Available Ventolin HFA 90 mcg/actuati on aerosol inhaler INHALE 2 PUFFS BY MOUTH EVERY 4 TO 6 HOURS NEEDED active Not Available Not Available No t Available cyclobenzap rine 5 mg tablet TAKE 1 TABLET BY MOUTH AT BEDTIME NEEDED FOR MUSCLE SPASMS active Not Available Not Available No t Available bupropion HCl XL 150 mg 24 hr tablet, extended release active Not Available Not Available Not Available Flovent HFA 44 mcg/actuati on aerosol inhaler INHALE 2 PUFFS BY MOUTH TWICE DAILY RINSE MOUTH AFTER USING. active Not Available Not Available No t Available Flovent HFA 110 mcg/actuati on aerosol inhaler INHALE 2 PUFFS BY MOUTH TWICE DAILY. RINSE MOUTH AFTER USING. active Not Available Not Available No t Available fluocinolon e 0.01 % scalp oil and shower cap APPLY BY TOPICAL ROUTE A THIN LAYER TO DAMP SCALP, MASSAGE WELL AND COVER. LEAVE ON FOR 4 HOURS OR OVERNIGHT , THEN WASH OFF. active Not Available Not Available No t Available Dry Eye Relief 1 %-0.2 %-0.2 % drops PLACE 1 DROP INTO THE AFFECTED EYE(S) THREE TIMES DAILY POR 7-10 DAYS active Not Available Not Available No t Available Chlorasepti c Throat [place] 1.4 % aerosol Take 2 sprays every 3-4 hours by mucous route. 2022 active Not Available Not Available Not Avai lable Cepacol Sore Throat (benzocaine -menthol) 15 mg-3.6 mg lozenges Take 1 lozenge every 3-4 hours by mucous route. 2022 active Not Available Not Available Not Avai lable cholecalcif chio (vitamin D3) 50 mcg (2,000 unit) tablet TAKE 1 TABLET BY MOUTH EVERY MORNING active Not Available Not Available No t Available Mucus Relief ER 600 mg tablet, extended release TAKE 1 TABLET BY MOUTH EVERY TWELVE HOURS FOR 5 DAYS NEEDED FOR NASAL CONGESTIO N active Not Available Not Available No t Available Breo Ellipta 200 mcg-25 mcg/dose powder for inhalation INHALE 1 PUFF BY MOUTH EVERY DAY active Not Available Not Available No t Available Paxlovid 300 mg (150 mg x 2)-100 mg tablets in a dose pack TAKE 1 TABLET (150 MG) OF NIRMATREL VIR & 1 TABLET (100 MG) OF RITONAVIR BY MOUTH TWICE DAILY FOR 5 DAYS active Not Available Not Available No t Available Paxlovid 150 mg-100 mg tablets in a dose pack (Renal Dose) Take 1 dose pk by oral route. 2022 active Not Available Not Available Not Avai lable Vitals Date Recorded Oxygen saturation Oxygen saturation in Arterial blood by Pulse oximetry Respiratory rate Body temperature Heart rate Body weight Oxygen saturation Oxygen saturation in Arterial blood by Pulse oximetry Heart rate Systolic blood pressure Diastolic blood pressure Systolic blood pressure Diastolic blood pressure Provider Name and Address Organization Details Last Updated DateTime 4 95 % 95 % 18 /min 97.2 [degF] 60 /min 95843.2 4 g 94 % 94 % 62 /min 174 mm[Hg] 90 mm[Hg] 166 mm[Hg] 96 mm[Hg] Not Available [employer] 4 16:04:48 Date Recorded Heart rate Respiratory rate Oxygen saturation Oxygen saturation in Arterial blood by Pulse oximetry Body temperature Systolic blood pressure Diastolic blood pressure Provider Name and Address Organization Details Last Updated DateTime 2 68 /min 18 /min 97 % 97 % 98.6 [degF] 145 mm[Hg] 90 mm[Hg] Malcolm Capellan MD [address] [place] [address],[address], [place], [phone] [place] [address] [employer] [facility] 2 15:10:05 Date Recorded Respiratory rate Oxygen saturation Oxygen saturation in Arterial blood by Pulse oximetry Body temperature Heart rate Heart rate Respiratory rate Oxygen saturation Oxygen saturation in Arterial blood by Pulse oximetry Body temperature Systolic blood pressure Diastolic blood pressure Systolic blood pressure Diastolic blood pressure Provider Name and Address Organization Details Last Updated DateTime 3 18 /min 96 % 96 % 98.5 [degF] 83 /min 83 /min 18 /min 96 % 96 % 98.5 [degF] 151 mm[Hg] 83 mm[Hg] 151 mm[Hg] 83 mm[Hg] Not Available [employer] 3 14:23:36 Date Recorded Body weight Oxygen saturation Oxygen saturation in Arterial blood by Pulse oximetry Body temperature Heart rate Respiratory rate Respiratory rate Body weight Heart rate Body temperature Oxygen saturation Oxygen saturation in Arterial blood by Pulse oximetry Systolic blood pressure Diastolic blood pressure Systolic blood pressure Diastolic blood pressure Provider Name and Address Organization Details Last Updated DateTime 3 22457.2 4 g 98 % 98 % 100.4 [degF] 72 /min 18 /min 18 /min 95331.2 4 g 72 /min 100.4 [degF] 98 % 98 % 152 mm[Hg] 74 mm[Hg] 152 mm[Hg] 74 mm[Hg] Not Available [employer] 3 14:29:17 Social History None recorded. Functional Status None recorded. Mental Status None recorded. Family History Nothing Reported. Medical History No medical history recorded. Gynecological HistoryNo gynecological history recorded. Obstetrics History GPAL:G 0 P 0 0 0 0 Past Encounters Encounter ID Performer Location Encounter Start Date Encounter Closed Date Diagnosis/Indication Diagnosis SNOMED-CT Code Diagnosis ICD10 Code Diagnosis Note [id number] [facility] [address] [place] [phone] 08/02/2021 13:42:38 12/15/2021 14:57:45 Exacerbation of intermittent asthma 654981994 J45.21 [id number] Malcolm Capellan MD Main - [facility] [address] [place] [phone] 05/14/2022 13:44:05 05/16/2022 09:50:08 Pain in throat 207863419 R07.0 [id number] Shannon Holguin MD Main - [facility] [address] [place] [id number] 09/12/2022 14:01:16 09/13/2022 12:16:54 SARS-CoV-2 812881520 U07.1 [id number] Suyapa Pichardo MD Main - [facility] [address] [place] [phone] 09/12/2023 16:04:19 09/14/2023 10:29:44 Chest pain 58965209 R07.9 Patient had 1 baby aspirin today given 3 more. Advised cannot do a cardiac workup at home and do not want to just assume this is muscular especially given an abnormal EKG and I have no old for comparison . Patient verbalized understand ing but insisted on going with family via car. Advised of risks and she verbalized understand ing to the Health Concerns Section Related Observation LastModified by Organization Detai ls LastModified Time None Recorded Concern Status LastModified by Organization Details LastModified Time None Recorded Advance Directives Directive None Recorded Payers Encounter Date Sequence Insurance Name Policy Number Policy Sheppard Covered Member ID Sheppard Member ID Guarantor Name 08/02/2021 1 [facility] - DOS PRIOR TO 2022 - DUAL ELIGIBLE (MEDICARE REPLACEMENT/ADV ANTAGE - HMO) Hoda Lorenzo [id number] Hoda Pereauente 05/14/2022 1 [facility] - DOS PRIOR TO 2022 - DUAL ELIGIBLE (MEDICARE REPLACEMENT/ADV ANTAGE - HMO) Hoda Lorenzo [id number] Hoda Pereauente 09/12/2022 1 [facility] - DOS ON OR AFTER 2022 - DUAL ELIGIBLE - LONG TERM OPTIONS AND ONE CARE (MEDICARE REPLACEMENT/ADV ANTAGE - HMO) Hoda Lorenzo [id number] Hoda Mcdanielafuente 09/12/2023 1 [facility] - DOS ON OR AFTER 2022 - DUAL ELIGIBLE - LONG TERM OPTIONS AND ONE CARE (MEDICARE REPLACEMENT/ADV ANTAGE - HMO) Hoda Lorenzo [id number] Hoda Lorenzo Notes Date Note Type Note Provider Name and Address Organization Details Recorded Time 08/02/2021 text/html Per expect:Eddi nt reporting 2 days of dry constant cough , intermittent wheezing and increased use of nebulizer. Denies any fever, ST, body aches chills, N/V/D. No home COVID-19 test done. Unable to get to our walk in center. Per medic Sera Avelar:Sent to evaluate pt with hx of asthma c/o cough. Found pt ambulating without difficulty to door. Pt is awake and alert, airway open and patent, breathing regular. Pt states that x2 days she has had non productive cough, sinus congestion, and watery eyes. Pt states that her MDI and albuterol nebs have not been very effective and she has been wheezing. Pt also reports SCHMIDT this AM but it was resolved with APAP earlier. Pt denies cp, sob, n/v/d, fever/chills, or other symptoms at this time. Skin is pink, warm, and dry. Breath sounds show expiratory wheezes on left, clear on right. Pt speaking in full sentences at this time and is in no acute distress. Pt states last time she had cough like this, she went to ER and was diagnosed with covid and asthma exacerbation and sent home on prednisone which was effective. Rapid covid test negative at this time. Consulted [facility] who ordered 40mg of PO prednisone to be administered now and will sent script of prednisone to pt's pharmacy. Went over red flags and no further questions or concerns at this time. Malcolm Capellan MD [address] [facility],[address], [place], [address], [employer] 08/02/2021 15:10:58 05/14/2022 text/html CRC Nursing Assessment: Reason For Request: Persistent severe cough, body aches, sore throat. Tested negative for covid this past Saturday04/11/23 when symptoms began. Headache. Chief Complaints: URI PMH: Hypertension, COPD/Asthma Allergies: Unknown Comments: CRC RN did not require any additional information to process this visit. ................... ................... ................... ................... ................... ................... ................... ........ [employer] Note: Community [employer] Roderick Chávez [email or web address] dispatched to a [facility] for a 67 yof C/O sore throat and cough. Upon arrival, the pt was ambulatory, NINA X4, awake and alert, in no apparent distress. She stated that she had a sore throat for over a week, and that for the past 2 days she also had fever/chills and a nonproductive cough. She stated that she could drink cold liquids but had difficulty swallowing food. She stated a hx of asthma but denied increased use of her inhaler/nebulizer, and stated her phlegm/secretions were clear. She denied headache, dizziness, CP, SOB, abd pain, vomiting, diarrhea, or urinary S/S. Lung sounds clear throughout, no pedal edema. She stated she took ibuprofen once daily (prescribed) for osteo/arthritis pain, but was advised by her Nursing Assistants Teacher/Hepato logist to avoid NSAIDs. Flu, covid, and strep negative. Pt's throat was not unusually red or swollen-no white spots, bleeding, or other abnormalities. [facility] consulted; pt was instructed to contact her specialists and inquire about increased NSAID use, and to seek an appt w/ her PCP. She was also instructed to continue w/ cough supressant/expector ant use, as well as cough drops, tea w/ honey, and warm salt water gargles. She was prescribed medicated throat spray and cough drops. Red flags were discussed. ................... ................... ................... ................... ................... ................... ................... ........ Disposition: Fulfilled Malcolm Capellan MD [address] [facility],[address], [place], [phone], [employer] 05/15/2022 10:32:56 09/12/2022 text/html HPI: Patient with history of CKD. Patient with home positive Covid test yesterday. Feels unwell. Using albuterol inhaler. Cough and congestion Sinus pain and pressure. No acute shortness of breath. Taking fluids fair. Is concerned about HTN and what to take for coughs syrup. ................... ................... ................... ................... ................... ................... ................... ........ CRC Nursing Assessment: Comments: CRC RN did not require any additional information to process this visit. ................... ................... ................... ................... ................... ................... ................... ........ [employer] Note From Kahlil Sebastian: Pt reports sinus congestion and fever since yesterday morning. Pt sts her family recently traveled out of state and tested positive for covid over the weekend and pt tests positive yesterday 09/12. Pt denies CP SOB GUO and f/n/v/d. Pt currently taking APAP only. Pt is alert, no distress. VSS. Febrile at 100. 4 . Neuro exam and gait normal. Lungs CTA. ABD is soft, non tender. POC BMP unremarkable. Pt prescribed paxlovid and musinex. Pt provided with [place] paxlovid fact sheet Pt instructed to seek emergent medical care for new or worsening sx, which are reviewed with her. ................... ................... ................... ................... ................... ................... ................... ........ Disposition: Fulfilled Shannon Holguin MD [address] [place] [address],[address], [place], [address], [employer] 09/12/2022 15:15:20 09/12/2023 text/html HPI: Call returned to Hoda Lorenzo to triage below. Reports having chest pain that is intermittent x 1 day. Per pt right sided chest pain. No redness, rash or swelling. No SOB. Per pt having left shoulder pain as well. Mild SCHMIDT yesterday. Per pt chest pain last about 1 min. Has not checked BP. Per pt no cough, congestion, or fever. Pt not currently having pain. Per pt no injury or fall. Pt alert , oriented x 3. Speaking in clear full sentences. Pt declined [facility] now. Agrees to [facility] today for exam. Reviewed home care advise, ER precautions and reasons to call back. ................... ................... ................... ................... ................... ................... ................... ........ CRC Nurse Triage Notes (Kathy Zavala): Comments: CRC RN did not require any additional information to process this visit. ................... ................... ................... ................... ................... ................... ................... ........ [employer] Note From Gunnar Stokes: Pt co cp around 3rd intercostal space that does not radiate and left shoulder pain that does not radiate. Pt sts feel pain when she cough or moves her right arm. Pt denies headache or dizziness, NVD , abdominal pain , sob, blurry vision and denies falls or trauma. Baseline vitals assessed, orthos assessed, lungs clear, EKG no specific abnormalities. [facility] contacted and advised pt to go to ER for further work up. Pt declined to go by ambulance. Pt sts granddaughter will take her to [facility]. Pt given 81mg asprin x3 . ................... ................... ................... ................... ................... ................... ................... ........ Disposition: FulfilledSEGMD: onset of pain at rest yesterday -saw cardiology aches ago for a different chest pain and was told she is okay. She also denies sweats, or palpitation PMH includes HTN, COPD, CKD 3 AA and a renal mass as noted on her nephrology note of 01/01/2023 Suyapa Pichardo MD [address] [facility],[address], [place], [address], LEEANNE SANTOYO 09/13/2023 23:42:58 OBGyn Episode No OBEpisode recorded.
--- OUTSIDE RECORDS SUMMARY | 2024-07-22 16:11 | XMS_ITS | Encounter Summary ---
Demographics Address [address] [facility] [address] [place] [address] Home Phone Preferred Language es Marital Status Unknown Christianity Affiliation Unknown Race White Ethnic Group Unknown Author Organization [facility] Address [address] [place] [address] Phone Care Team Providers Care Air Value Tester Name Role Phone Jen Ochoa MD Primary Care Provide r Encounter Details Date Type Department Care Team (Late st Contact Info) Description 04/20/2021 Documentation Only [facility] [address] [place] [address] Kiko Robertson MD [address] [place] [address] [place] [address] Social History Tobacco Use Types [...] Visit [facility] [address] [place] [address] Kiko Robertson MD [address] [place] [address] [place] [address] documented as of this encounter Visit Diagnoses Not on filedocumented in this encounter Care Teams Air Value Tester Relationship Specialty Start Date End Date Jen Ochoa MD [address] [place] [address] 1 [place] [phone] PCP - General 02/17/19 documented as of this encounter
== END 2024-07-22 14:32 | disposition home or self-care (01) ==
PROVIDERS: PCP Internal Medicine; Visit Provider Nurse Practitioner Family
DX: N28.1 Cyst of kidney, acquired (principal)
CPT/HCPCS: 99213; G2211

== ENCOUNTER 2024-07-22 16:03 | Outpatient (REF) | payer OTHER, SELFPAY ==
--- OUTSIDE RECORDS SUMMARY | 2024-07-22 17:43 | XMS_ITS | Clinical Summary ---
Author Organization [facility] [place], Address [address] [place] [address] [place] [address] Phone Care Team Providers Care Parts Salvager Name Role Phone Jen Ochoa MD Primary [...] Visit [facility] [place], [address] [place] [address] Kiko Robertson MD [address] [facility] [place] [address] Health Maintenance Due Date Last Done Comments Breast Cancer Screening 1955 Hepatitis B Vaccine (1 of 3 - Risk 3-dose series) 2014 Influenza Vaccine (Season Ended) 2024 01/22/2018, 01/26/2015, 01/02/2013, Additional history exists Pneumococcal Vaccine: 65+ Years Discontinued 4, 05/20/2007 Colorectal Cancer Screening: Annual FOBT Discontinued Colorectal Cancer Screening: Colonoscopy Discontinued Colorectal Cancer Screening: Sigmoidoscopy Discontinued Insurance [facility] DUAL SNP ([id number]) VERONIKA [place]O [id number] [place] [address] [address] [place] [id number] Care Teams Parts Salvager Relationship Specialty Start Date End Date Jen Ochoa MD [address] [place] [address] [place] [phone] PCP - General 02/17/19
--- OUTSIDE RECORDS SUMMARY | 2024-07-22 17:43 | XMS_ITS | Encounter Summary ---
Demographics Address [address] [facility] [address] [place] [address] Home Phone Preferred Language es Marital Status Unknown Spiritism Affiliation Unknown Race White Ethnic Group Unknown Author Organization [facility] Address [address] [place] [address] Phone Care Team Providers Care Rippler Name Role Phone Jen Ochoa MD Primary Care Provide r Encounter Details Date Type Department Care Team (Late Contact Info) Description 12/13/2021 Documentation Only [facility] [address] [place] [address] Kiko Robertson MD [address] [place] [address] [place] [address] Social History Tobacco Use Types [...] Visit [facility] [address] [place] [address] Kiko Robertson MD [address] [place] [address] [place] [address] documented as of this encounter Visit Diagnoses Not on filedocumented in this encounter Care Teams Rippler Relationship Specialty Start Date End Date Jen Ochoa MD [address] [place] [address] 1 [place] [phone] PCP - General 02/17/19 documented as of this encounter
--- OUTSIDE RECORDS SUMMARY | 2024-07-22 17:43 | XMS_ITS | Encounter Summary ---
Demographics Address [address] [facility] [address] [place] [address] Home Phone Preferred Language es Marital Status Unknown Bahai Affiliation Unknown Race White Ethnic Group Unknown Author Organization [facility] Address [address] [place] [address] Phone Care Team Providers Care Wind Turbine Installer Name Role Phone Jen Ochoa MD Primary Care Provide r Encounter Details Date Type Department Care Team (Late st Contact Info) Description 04/20/2021 Documentation Only [facility] [address] [place] [address] Kiko Robertson MD [address] [place] [address] [place] [address] Social History Tobacco Use Types [...] Visit [facility] [address] [place] [address] Kiko Robertson MD [address] [place] [address] [place] [address] documented as of this encounter Visit Diagnoses Not on filedocumented in this encounter Care Teams Wind Turbine Installer Relationship Specialty Start Date End Date Jen Ochoa MD [address] [place] [address] 1 [place] [phone] PCP - General 02/17/19 documented as of this encounter
--- OUTSIDE RECORDS SUMMARY | 2024-07-22 17:43 | XMS_ITS | Encounter Summary ---
Demographics Address [address] [facility] [address] [place] [address] Home Phone Preferred Language es Marital Status Unknown Denominational Affiliation Unknown Race White Ethnic Group Unknown Author Organization [facility] Address [address] [place] [address] Phone Care Team Providers Care Franchise Business Consultant Name Role Phone Jen Ochoa MD Primary Care Provide r Encounter Details Date Type Department Care Team (Late st Contact Info) Description 12/19/2021 Office Communication [facility] [address] [place] [address] Kiko Robertson MD [address] [place] [address] [place] [address] Social History Tobacco Use Types [...] Visit [facility] [address] [place] [address] Kiko Robertson MD [address] [place] [address] [place] [address] documented as of this encounter Visit Diagnoses Not on filedocumented in this encounter Care Teams Franchise Business Consultant Relationship Specialty Start Date End Date Jen Ochoa MD [address] [place] [address] 1 [place] [phone] PCP - General 02/17/19 documented as of this encounter
--- OUTSIDE RECORDS SUMMARY | 2024-07-22 17:43 | XMS_ITS | Encounter Summary ---
Demographics Address [address] [facility] [address] [place] [address] Home Phone Preferred Language es Marital Status Unknown Congregation Affiliation Unknown Race White Ethnic Group Unknown Author Organization [facility] Address [address] [place] [address] Phone Care Team Providers Care Spray Operator Name Role Phone Jen Ochoa MD Primary Care Provide r Encounter Details Date Type Department Care Team (Late st Contact Info) Description 01/01/2023 Office Communication [facility] [address] [place] [address] Kiko Robertson MD [address] [place] [address] [place] [address] Social History Tobacco Use Types [...] Visit [facility] [address] [place] [address] Kiko Robertson MD [address] [place] [address] [place] [address] documented as of this encounter Visit Diagnoses Not on filedocumented in this encounter Care Teams Spray Operator Relationship Specialty Start Date End Date Jen Ochoa MD [address] [place] [address] 1 [place] [phone] PCP - General 02/17/19 documented as of this encounter
[2024-07-22 18:21] LABS: MANUAL DIFF FLAG NO
[2024-07-22 18:28] LABS: Basophils Percent Auto 0.3 % (0-2); Eosinophils Absolute Auto 0.1 X10*3/uL (0.0-0.4); Eosinophils Percent Auto 1.9 % (0-4); Hematocrit 37.1 % (37.0-47.0); Hemoglobin 12.4 g/dl (12.0-16.0); Imm Gran Abs Auto 0.02 X10*3/uL (0.00-0.03); Imm Gran Pct Auto 0.3 % (0.0-0.4); Lymphocytes Percent Auto 29.9 % (20-40); Mean Corpuscular HGB Conc 33.4 g/dl (31.0-35.0); Mean Corpuscular Volume 98.7 fL (80.0-98.0); Mean Platelet Volume 11.7 fL (9.4-12.3); Monocytes Absolute Auto 0.5 X10*3/uL (0.1-1.2); Monocytes Percent Auto 7.7 % (2-11); Neutrophils Absolute Auto 4.1 x10*3/uL (2.0-8.3); Neutrophils Percent Auto 59.9 % (45-73); Platelet Count 222 X10*3/uL (160-400); Red Blood Count 3.76 X10*6/uL (4.20-5.50); Red Cell Distribution Width 13.3 % (11.0-16.0); White Blood Count 6.8 X10*3/uL (4.8-10.8)
[2024-07-22 18:47] LABS: Alanine Aminotransferase 11 U/L (0-31); Albumin Level 4.3 g/dL (3.5-5.0); Alkaline Phosphatase 76 U/L (39-117); Aspartate Amino Transferase 31 U/L (5-31); Bilirubin Direct 0.2 mg/dL (0.0-0.5); Bilirubin Total 0.7 mg/dL (0.0-1.0); Iron 75 mcg/dL (30-160); Percent Iron Saturation 28 % (15-50); Total Iron Binding Capacity 272 mcg/dL (228-428); Total Protein 8.3 g/dL (6.5-8.0); Unsaturated Iron Binding 197 ug/dL; Uric Acid 7.2 mg/dL (2.4-5.7)
[2024-07-22 18:54] LABS: Anion Gap 13 (12-20); Creatinine Urine 76.75 mg/dL; Total Protein Urine Random < 7 mg/dL (<12)
[2024-07-22 18:55] LABS: Alanine Aminotransferase 14 U/L (0-31); Albumin Level 4.3 g/dL (3.5-5.0); Alkaline Phosphatase 75 U/L (39-117); Aspartate Amino Transferase 32 U/L (5-31); Bilirubin Total 0.7 mg/dL (0.0-1.0); Blood Urea Nitrogen 18 mg/dL (9-16); Calcium 10.1 mg/dL (8.4-10.2); Carbon Dioxide 26 mmol/L (22-29); Chloride 102 mmol/L (96-108); Cholesterol 216 mg/dL (<200); Estimated Glomerular Filt Rate 60; Glucose Random 98 mg/dL (60-115); HDL Cholesterol 56 mg/dL (>40); LDL Cholesterol Calculated 126 mg/dL (<100); Potassium 3.7 mmol/L (3.3-5.1); Sodium 137 mmol/L (135-145); Total Protein 8.3 g/dL (6.5-8.0); Triglycerides 171 mg/dL (<150)
[2024-07-22 19:05] LABS: TSH reflex Free T4 3.56 uIU/mL (0.32-4.0)
[2024-07-22 19:21] LABS: Folate 12.1 ng/mL (> or = 4.0); Vitamin B12 1426 pg/mL (200-900)
[2024-07-22 19:42] LABS: Parathyroid Hormone Intact 122.7 pg/mL (8.7-77.1)
[2024-07-27 15:49] LABS: VITAMIN D (1,25 OH) D3 30 pg/mL; Vit D (1,25-Dihydroxy) Total 30 pg/mL (18-72); Vitamin D (1,25 OH) D2 <8 pg/mL
== END 2024-07-22 16:04 | disposition home or self-care (01) ==
LOC: HO.HHCL 16:03
PROVIDERS: Family Medicine; Internal Medicine; Visit Provider Internal Medicine Nephrology
DX: N18.31 Chronic kidney disease, stage 3a (principal); I10 Essential (primary) hypertension; E03.9 Hypothyroidism, unspecified; E53.8 Deficiency of other specified B group vitamins; E55.9 Vitamin D deficiency, unspecified; M25.572 Pain in left ankle and joints of left foot
CPT/HCPCS: 36415; 80053; 80061; 80076; 82248; 82306; 82570; 82607; 82652; 82746; 83540; 83970; 84156; 84443; 84550; 85025; 99212

== ENCOUNTER 2024-11-20 12:42 | Outpatient (AMB) | payer OTHER, SELFPAY ==
--- OUTSIDE RECORDS SUMMARY | 2023-07-11 06:20 | XMS_ITS ---
Demographics Address [address] [place] [address] [address] [address] Preferred Language Unknown Marital Status unmarried Holiness Affiliation Unknown Race Ethnic Group or Author Organization [facility] Address [address] [place] [address] Care Team Providers Care Interior Decorator Painting Name Role Phone Jen Acosta M.D. Primary Care Provider Aric Morrison Unavailable [phone] REASON FOR VISIT Patient presents today for cirrhosis Encounters Encounter Location Date Provider Diagnosis [facility] [address] [place] [address] 07/11/2023 Aric Florian Plan Of Treatment Next Appt Details Provider Name:Aric Florian , 11/05/2025 01:00:00 PM, [address], [address], [place], [address], Progress Notes * PRINCESS CRUMPEDOB:[birth year] (69 yo F)Acc No.[id number]:07/11/2023 Progress Notes Patient: JACINDA WRIGHT Provider: Haresh Florian MD :[id number] A ge:68 Y S ex:Female Date:07/11/2023 Address:[address] [place] [address], [place], [place] Pcp:Jen Acosta M.D. Subjective: * Chief Complaints: * 1 . Patient presents today for cirrhosis. * Medical History: Objective: * Vitals: Assessment: Plan: * Treatment: * * The named appointment provid er may or may not be the originator of this progress note, and it is not deemed complete until electronically signed by the appointment provider. Sign off status: Pending * Provider: Haresh Florian MD Date: 0 07/11/2023 Generated for Nato alvarado/Rachana/Julienitting on: 0 11/20/2024 12:44 PM EDT
--- OUTSIDE RECORDS SUMMARY | 2024-11-20 12:44 | XMS_ITS | Clinical Summary ---
Author Organization [facility] [place], Address [address] [place] [address] [place] [address] Phone Care Team Providers Care Fleet Salesperson Name Role Phone Jen Ochoa MD Primary [...] Hypertensive disorder 06/05/20192021 Deep venous thrombosis 06/05/201905/29 Immunizations Immunization Administration Dates Next Due Influenza Split 01/02/2013,01/09/2012 Influenza, Quadrivalent, With Preservative 01/22,01/26/2015 Pneumococcal Conjugate Pcv 20 02/12/2024 Pneumococcal Polysaccharide 05/20/2007 Shingrix 10/20/2024 Tdap 12/26/2010 Zoster 07/29/2014 Family History Medical History Relation Comments Cancer [...] Care Team (Late st Contact Info) Description 03/02/2025 3:15 PM EST Office Visit [facility] [place], [address] [facility] [place] [address] Kiko Robertson MD [address] [facility] [place] [address] Health Maintenance Due Date Last Done Comments Breast Cancer Screening 1955 Hepatitis B Vaccine (1 of 3 - Risk 3-dose series) 2014 Influenza Vaccine (#1) 2024 8, 01/26/2015, 01/02/2013, Additional history exists Pneumococcal Vaccine: 50+ Years Discontinued 4, 05/20/2007 Pneumococcal Vaccine: Peds ( 0 to 5 Years) and At-Risk Patients (6 to 49 Years) Discontinued 02/12/2024, 05/20/2007 Colorectal Cancer Screening: Annual FOBT Discontinued Colorectal Cancer Screening: Colonoscopy Discontinued Colorectal Cancer Screening: Sigmoidoscopy Discontinued Insurance [facility] Care Dual SNP ([id number]) VERONIKA BERMEO [id number] [address] [place] [id number] Care Teams Fleet Salesperson Relationship Specialty Start Date End Date Jen Ochoa MD [address] [facility] 1 [place] [phone] PCP - General 02/17/19
--- OUTSIDE RECORDS SUMMARY | 2024-11-20 12:44 | XMS_ITS | Encounter Summary ---
Author Organization [employer] Address [address] [facility] 7t [place] [address] Care Team Providers Care Vine Fruit Farming Supervisor Name Role Phone Jen Ochoa MD Primary Care Provide r Reason for Referral * Medications - Closed Specialty Diagnoses / Procedures Referred By Contac t Referred To Contact Diagnoses Rheumatoid arthritis, involving unspecified site, unspecified whether rheumatoid factor present (CMS/HCC) Jen Ochoa MD [address] [place] [address] Phone: tel: fax: Referral ID Status Reason Start Date Expiration Date Visits Re quested Visits Authorized Closed 1 1 Encounter Details Date Type Department Care Team ([facility] Contact Info) Description 07/05/2022 Orders Only [facility] [address] [place] [address] [phone] Jen Ochoa MD [address] [place] [address] [phone] Rheumatoid arthritis, involving unspecified site, unspecified whether [...] Care Team (Late st Contact Info) Description 12/18/2024 11:15 AM EDT Office Visit [facility] [address] [place] [phone] Faustino Carson MD [address] [place] [address] 12/22/2024 1:00 PM EDT Nurse Only [facility] [address] [place] [phone] documented as of this encounter Visit Diagnoses Diagnosis Rheumatoid arthritis, involving unspecified site, unspecified whether rheumatoid factor present ([facility])- Primary documented in this encounter Care Teams Vine Fruit Farming Supervisor Relationship Specialty Start Date End Date Jen Ochoa MD [address] [place] [phone] PCP - General Family Medicine 12/25/17 documented as of this encounter
--- NOTE | 2024-11-20 12:48 | A.OFFVIS_ITS ---
Vital Signs 11/20/24 12:49 Height 4 ft 9 in Weight 227 lb BMI 49.1 BP 142/87 H Blood Pressure Location Rt brachial Position Sitting Pulse 72 Pulse Source Pulse Oximeter Pulse Oximetry (%) 97 Oxygen Delivery Method Room Air Intake Visit Reasons: asthma Filling Station Laborer Required: Yes Filling Station Laborer Name: Erin Castellon Sasha Allergies No Known Allergies (No Known Allergies*) Allergy (Verified 07/22/24 14:36) HPI HPI asthma: Details: 69-year-old lady, nonsmoker, followed for underlying moderate persistent asthma and environmental allergies. Previously patient did not want to using inhaled corticosteroid and has been relying on albuterol MDI and duo nebs with suboptimal control of his symptoms. Now she is amenable to trying inhaled corticosteroids. [facility] Medical History Chronic kidney disease, stage 3 Vitamin D deficiency Sleep apnea Hypothyroidism HTN (hypertension) Hyperuricemia Hepatitis C Gallstone Morbid (severe) obesity due to excess calories Cholelithiasis OA (osteoarthritis) of knee Rheumatoid factor positive Surgical History History of surgery Social History Alcohol intake: never Review of Systems Const Denies daytime sleepiness, Denies excessive sweating, Denies fatigue, Denies fever(s), Denies lethargy, Denies malaise, Denies night sweats, Denies snoring and Denies weight loss Eyes Denies blurry vision and Denies itchy eyes ENT Denies nasal congestion, Denies post nasal drip, Denies sinus pain, Denies sinus pressure and Denies other ( Thrush) Card Denies chest pain, Denies pedal edema, Denies dyspnea, Denies orthopnea and Denies paroxysmal nocturnal dyspnea Resp Reports cough, Denies hemoptysis, Denies excessive phlegm production, Denies dyspnea, Denies snoring and Denies wheezing GI Denies abdominal pain and Denies heartburn Musc Denies myalgias, Denies arthralgias and Denies joint swelling Skin/Breast Denies rash Neuro Denies memory loss and Denies seizure-like activity Psych Denies abnormal sleep pattern, Denies anxiety and Denies memory loss Endo Denies excessive sweating, Denies fatigue and Denies heat intolerance Bora/Lymph Denies easy bruising Aller/Immun Denies itchy eyes, Denies seasonal rhinorrhea and Denies wheezing Physical Exam Vital Signs: Last Vital Signs Pulse 72 11/20/24 12:49 BP 142/87 H 11/20/24 12:49 Pulse Ox 97 11/20/24 12:49 Oxygen Delivery Method Room Air 11/20/24 12:49 BMI result Body Mass Index 49.1 Const General: no acute distress and alert Nutritional Appearance: obese Orientation/consciousness: Other orientation findings ( oriented) HEENT Head: Yes atraumatic Eyes General: appearance normal, both eyes and all related structures Sclerae: sclerae normal EOM: EOMs intact bilaterally Neck Neck: Yes supple Lymphatic: no lymphadenopathy noted Resp Effort & Inspection: normal respiratory effort and no use of accessory muscles Auscultation: clear to auscultation bilaterally Cardio Rate: regular rate Rhythm: regular rhythm Heart sounds: no gallops, no murmurs and no rubs Skin General skin exam: other ( warm) Extrem General: No clubbing, No cyanosis and No edema Assessment & Plan Assessment & Plan (1) Asthma: Code(s): J45.909 - Unspecified asthma, uncomplicated Category: Medical Plan: Suboptimal control on albuterol MDI and duo nebs. Patient is willing to try Breo. Breo ordered. (2) Environmental allergies: Code(s): Z91.09 - Other allergy status, other than to drugs and biological substances Category: Medical Plan: Reasonable control on as needed loratadine and cromolyn. Continue current regimen. Medications: New fluticasone furoate-vilanterol 200-25 mcg/dose (Breo Ellipta) 1 inh inhalation DAILY 1 ea 6RF Coding Level of Care Code Est Pt Level 4 (20854) Diagnoses Asthma J45.909 Environmental allergies Z91.09
[2024-11-20 12:49] VITALS: BP 142/87; PULSE 72; O2SAT 97; BMI 49.1
== END 2024-11-20 13:02 | disposition home or self-care (01) ==
LOC: HO.HPS 12:43
PROVIDERS: PCP Internal Medicine; Visit Provider Internal Medicine Pulmonary Disease
DX: J45.909 Unspecified asthma, uncomplicated (principal); Z91.09 Other allergy status, other than to drugs and biological substances
CPT/HCPCS: 99214

== ENCOUNTER → 2024-11-20 12:42 | Outpatient (BNVA) | payer OTHER, SELFPAY | PROVIDERS: PCP Internal Medicine; Visit Provider Internal Medicine Pulmonary Disease | DX: J45.40 Moderate persistent asthma, uncomplicated (principal); Z91.09 Other allergy status, other than to drugs and biological substances | CPT/HCPCS: 99212 ==

== ENCOUNTER 2025-01-15 15:08 | Emergency (ER) | payer OTHER, SELFPAY ==
--- NOTE | 2025-01-15 | ECG_ITS ---
Test Reason : CP Blood Pressure : */* mmHG Vent. Rate : 68 BPM Atrial Rate : 68 BPM P-R Int : 156 ms QRS Dur : 104 ms QT Int : 440 ms P-R-T Axes : 18 -39 49 degrees QTcB Int : 467 ms Normal sinus rhythm Left axis deviation Incomplete right bundle branch block Moderate voltage criteria for LVH, may be normal variant ( R in aVL , Kareem product ) Abnormal ECG When compared with ECG of 12-Sep-2023 16:45, QT has lengthened Referred By: Generic ED Physician Electronically Signed By: ROMAINE LOUISE
--- NOTE | ~2025-01-15 | XR_ITS ---
EXAMINATION: XR CHEST CLINICAL INFORMATION: shoulder pain/chest pain COMPARISON: 02/04/2024. TECHNIQUE: AP view of the chest was obtained. FINDINGS: The cardiac, hilar, and mediastinal contours are normal. The lungs are clear bilaterally. No pneumothorax or effusion. No focal osseous or soft tissue abnormality. There are cholecystectomy clips noted. XR/XR chest 1V IMPRESSION: No active pulmonary disease. Electronically signed by: Nilson Almazan MD 01/15/2025 04:40 PM EDT
--- NOTE | ~2025-01-15 | CT_ITS ---
CLINICAL HISTORY: sob CTA chest with 3-D postprocessing Comparison: CT/SR - CT CHEST WITHOUT IV CONTRAST - 02/04/24 10:[address]/SR - CT CHEST ANGIOGRAPHY WITH IV CONTRAST - 09/13/23 01:55 EDT Findings: Study quality is adequate for the diagnosis of pulmonary embolism. No pulmonary embolism. Heart size within normal limits. RV/LV ratio is normal. No calcified coronary artery disease. No aortic dissection or aneurysm. Mild calcified atherosclerotic disease. No lymphadenopathy. No acute pulmonary pathology. Trace subsegmental atelectasis versus linear scarring. No pneumothorax or pleural effusion. No acute osseous or soft tissue abnormality. No acute pathology in the imaged portion of the upper abdomen. Status post cholecystectomy. There is increased attenuation in the cystic duct with a filling defect measuring 1.3 cm, Unchanged ( series 7 images 17 through 19). No increased attenuation in the common bile duct. Impression: No pulmonary embolism or other acute findings. This document has been electronically signed by: Carmen Lyles MD on 01/15/2025 18:54:04
--- NOTE | ~2025-01-15 | XR_ITS ---
EXAMINATION: XR SHOULDER, LEFT CLINICAL INFORMATION: pain COMPARISON: None available. TECHNIQUE: AP external rotation, Grashey, scapular Y, and axillary views of the left shoulder. FINDINGS: Mild acromioclavicular arthritis. No visible acute fracture or dislocation. Glenohumeral joint space is maintained. No abnormal soft tissue calcification. No suspicious findings in the visualized lung. XR/XR shoulder LT min 2V IMPRESSION: Mild acromioclavicular arthritis. No radiographic evidence of acute fracture or dislocation. Electronically signed by: Benito Fowler MD 01/15/2025 04:43 PM EDT
--- NOTE | ~2025-01-15 | US_ITS ---
EXAMINATION: US TRIPLEX LOWER EXTREMITY, LEFT CLINICAL INFORMATION: Left lower extremity pain COMPARISON: None available. TECHNIQUE: Color-flow triplex imaging with spectral analysis and compression Doppler were performed on the left lower extremity. FINDINGS: Respiratory variation, normal compression and augmented flow are noted throughout the left lower extremity. The visualized common femoral vein, superficial femoral vein, profunda femoral vein, popliteal vein and midcalf peroneal and posterior tibial venous segments show no evidence of deep venous thrombosis. US/US venous duplex LE LT IMPRESSION: No evidence of deep venous thrombosis involving the left lower extremity. Electronically signed by: Malvin Wetzel MD 01/15/2025 04:57 PM EDT
[2025-01-15 15:18] VITALS: BP 148/63; PULSE 72; PULSE 80; RESP 16; TEMP 36.9; O2SAT 97; BMI 44.8
--- OUTSIDE RECORDS SUMMARY | 2025-01-15 15:49 | XMS_ITS | Encounter Summary ---
Demographics Address [address] [facility] [address] [place] [address] Home Phone Preferred Language es Marital Status Unknown Adventism Affiliation Unknown Race White Ethnic Group Unknown Author Organization [facility] Address [address] [place] [address] Phone Care Team Providers Care Parlor Chaperone Name Role Phone Jen Ochoa MD Primary Care Provide r Encounter Details Date Type Department Care Team (Late st Contact Info) Description 12/13/2021 Documentation Only [facility] [address] [place] [address] Kiko Robertson MD [address] [place] [address] [place] [address] Social History Tobacco Use Types [...] Visit [facility] [address] [place] [address] Kiko Robertson MD [address] [place] [address] [place] [address] documented as of this encounter Visit Diagnoses Not on filedocumented in this encounter Care Teams Parlor Chaperone Relationship Specialty Start Date End Date Jen Ochoa MD [address] [place] [address] 1 [place] [phone] PCP - General 02/17/19 documented as of this encounter
--- OUTSIDE RECORDS SUMMARY | 2025-01-15 15:49 | XMS_ITS | Encounter Summary ---
Author Organization [facility] Address [address] [place] [address] Phone Care Team Providers Care Administrative Program Specialist Name Role Phone Jen Ochoa MD Primary Care Provide r Encounter Details Date Type Department Care Team (Late st Contact Info) Description 07/28/2024 Documentation Only [facility] [address] [place] [address] Cyndee Stone [address] [place] [address] Social History Tobacco Use Types Packs/Day Years [...] Visit [facility] [address] [place] [address] Kiko Robertson MD [address] [place] [address] [place] [address] documented as of this encounter Visit Diagnoses Not on filedocumented in this encounter Care Teams Administrative Program Specialist Relationship Specialty Start Date End Date Jen Ochoa MD [address] [place] [phone] PCP - General 02/17/19 documented as of this encounter
--- OUTSIDE RECORDS SUMMARY | 2025-01-15 15:49 | XMS_ITS | Encounter Summary ---
Author Organization [employer] Address [address] [facility] 7t [place] [address] Care Team Providers Care Wind Project Manager Name Role Phone Jen Ochoa MD Primary Care Provide r Reason for Visit * Reason Onset Date Comments status on script 05/15/2022 Encounter Details Date Type Department Care Team ([facility] st Contact Info) Description 05/15/2022 Telephone [facility] [address] [place] [address] Jen Ochoa MD [address] [place] [address] status on script Social History Tobacco Use [...] documented in this encounter Plan of Treatment Not on file documented as of this encounter Visit Diagnoses Not on filedocumented in this encounter Care Teams Wind Project Manager Relationship Specialty Start Date End Date Jen Ochoa MD [address] [place] [address] PCP - General Family Medicine 12/25/17 documented as of this encounter
--- OUTSIDE RECORDS SUMMARY | 2025-01-15 15:49 | XMS_ITS | Patient Health Record ---
Demographics Address [address] [facility] [address] [place] [address] Preferred Language Unknown Marital Status unmarried Restoration Affiliation Unknown Race Ethnic Group or Author Organization [facility] Address [address] [place] [address] Care Team Providers Care Baseball Glove Shaper Name Role Phone Jen Acosta M.D. Primary Care Provider Aric Morrison Unavailable [phone] Allergies No Known Allergies Reason For Referral No Information Medications Medication SIG (Take, Route, Frequency, Duration) Notes Start Date End Date Status Levothyroxine Sodium 137 MCG Oral for 30 Active Vitamin D3 50 MCG (1999 UT) TAKE 1 TABLE T BY MOUTH ONCE DAILY Oral for 30 Active Albuterol Sulfate (2.5 MG/3M L) 0.083% Inhalation for 7 Active Pantoprazole Sodium 40 MG TAKE 1 TABLET BY MOUTH EVERY DAY Oral for 30 Active Ventolin HFA 108 (90 Base) MCG/ACT [...] Acetonide 0.1 % External for 30 Active Loratadine 10 MG 1 tablet Orally Once a day for 30 day(s) Active Arthritis Pain Relief 650 MG TAKE 2 TABL ETS BY MOUTH EVERY 8 HOURS NEEDED. SWALLOW WHOLE WITH WATER. DO NOT BREAK, CRUSH, DISSOLVE OR CHEW Oral for 10 Active Famotidine 20 MG 1 tablet at bedtime as needed Orally Twice a day Active Lisinopril 40 MG 1 tablet Orally Once a day Active Cyclobenzaprine HCl 5 MG Oral for 6 Active tiZANidine HCl 2 MG Oral for 5 Active hydroCHLOROthiazide 25mg 1 tablet Orally Once a day Active Aspir-81 81 MG 1 tablet Orally Once a day Active Ambien 10 MG 1 tablet at bedtime Orally Once a day Active Metoprolol Succinate ER 50 MG 1 tablet O rally Once a day Active Flovent HFA 110 MCG/ACT 1 puff Inhalatio n Twice a day Active Allopurinol 300 MG 1 tablet Orally Once a day Active buPROPion HCl ER (XL) 150 MG Oral for 30 Active hydrOXYzine HCl 10 MG Oral for 30 Active Mirtazapine 30 MG Oral for 30 Active Breo Ellipta 200-25 MCG/INH Inhalation for 30 Active Immunizations Vaccine Route Administration Date Status Comme nts Influenza Unknown 03/07/2021 Administered Influenza Unknown 11/04/2024 Refused Problems Problem Type SNOMED Code ICD Code Onset Dates Problem Status W/U Status Risk Notes Problem Colon cancer screening (921348821) Colon cancer screening (Z12.11) Active confirmed Problem History of adenomatous polyp of colon (885806376) History of adenomatous polyp of colon (Z86.010) Active confirmed Problem 69229135 Other cirrhosis of liver (K74.69) Active confirmed Problem [id number] History of hepatitis C (Z86.19) Active confirmed Vital Signs Temperature 97.6 degrees Fahrenheit 11/04/2024 Blood pressure diastolic 01 mm Hg 11/04/2024 Height 57.5 in 11/04/2024 Blood pressure systolic 001 mm Hg 11/04/2024 Weight 225.2 lbs 11/04/2024 BMI 47.88 kg/m2 11/04/2024 Encounters Encounter Location Date Provider Diagnosis [facility] [address] [place] [phone] 11/04/2024 Aric Florian Other cirrhosis of liver K74.69 ; History of hepatitis C Z86.19 ; Colon cancer screening Z12.11 and History of adenomatous polyp of colon Z86.010 Assessments Encounter Date Diagnosis (ICD Code) Assessment Notes Treatment Notes Treatment Clinical Notes Section Notes 11/04/2024 Other cirrhosis of liver (ICD-10 - K74.69) Overall, Hoda appears well and does not show any signs nor have any symptoms of decompensated liver disease. She is not having any worrisome or new GI complaints. Her lab work from several months ago all looks very good as well. I do not think she needs any particular intervention in regard to her underlying liver disease. I am going to check some follow-up laboratories including an alpha-fetoprotein level, PT with INR, liver fibrosis score, liver profile, and CBC with platelet count, as well as an ultrasound of the abdomen with liver elastography. We did discuss colorectal cancer screening again as her last colonoscopy was in 2013. I did recommend she consider having that done as a good way to prevent colorectal cancer. Nonetheless she continues not to want to have that done due to what she says is in relationship to her psoriasis. Her negative Cologuard test and clinical history are reassuring. I did advise her to do another Cologuard test next year. I will plan to see her in 1 year for follow-up in regard to the liver disease but did advise her to certainly contact me prior to that if she has any problems or questions I can be of assistance with. I will talk to her again about a colonoscopy when I see her next year as well as an upper endoscopy to assess for any sign of varices. She and her granddaughter were comfortable with this plan. Thank you again for allowing me to participate in Hoda's care. I shall continue to keep you advised of her progress as needed. 11/04/2024 History of hepatitis C (ICD-10 - Z86.19) Overall, Hoda appears well and does not show any signs nor have any symptoms of decompensated liver disease. She is not having any worrisome or new GI complaints. Her lab work from several months ago all looks very good as well. I do not think she needs any particular intervention in regard to her underlying liver disease. I am going to check some follow-up laboratories including an alpha-fetoprotein level, PT with INR, liver fibrosis score, liver profile, and CBC with platelet count, as well as an ultrasound of the abdomen with liver elastography. We did discuss colorectal cancer screening again as her last colonoscopy was in 2013. I did recommend she consider having that done as a good way to prevent colorectal cancer. Nonetheless she continues not to want to have that done due to what she says is in relationship to her psoriasis. Her negative Cologuard test and clinical history are reassuring. I did advise her to do another Cologuard test next year. I will plan to see her in 1 year for follow-up in regard to the liver disease but did advise her to certainly contact me prior to that if she has any problems or questions I can be of assistance with. I will talk to her again about a colonoscopy when I see her next year as well as an upper endoscopy to assess for any sign of varices. She and her granddaughter were comfortable with this plan. Thank you again for allowing me to participate in Hoda's care. I shall continue to keep you advised of her progress as needed. 11/04/2024 Colon cancer screening (ICD-10 - Z12.11) Overall, Hoda appears well and does not show any signs nor have any symptoms of decompensated liver disease. She is not having any worrisome or new GI complaints. Her lab work from several months ago all looks very good as well. I do not think she needs any particular intervention in regard to her underlying liver disease. I am going to check some follow-up laboratories including an alpha-fetoprotein level, PT with INR, liver fibrosis score, liver profile, and CBC with platelet count, as well as an ultrasound of the abdomen with liver elastography. We did discuss colorectal cancer screening again as her last colonoscopy was in 2013. I did recommend she consider having that done as a good way to prevent colorectal cancer. Nonetheless she continues not to want to have that done due to what she says is in relationship to her psoriasis. Her negative Cologuard test and clinical history are reassuring. I did advise her to do another Cologuard test next year. I will plan to see her in 1 year for follow-up in regard to the liver disease but did advise her to certainly contact me prior to that if she has any problems or questions I can be of assistance with. I will talk to her again about a colonoscopy when I see her next year as well as an upper endoscopy to assess for any sign of varices. She and her granddaughter were comfortable with this plan. Thank you again for allowing me to participate in Hoda's care. I shall continue to keep you advised of her progress as needed. 11/04/2024 History of adenomatous polyp of colon (ICD-10 - Z86.010) Overall, Hoda appears well and does not show any signs nor have any symptoms of decompensated liver disease. She is not having any worrisome or new GI complaints. Her lab work from several months ago all looks very good as well. I do not think she needs any particular intervention in regard to her underlying liver disease. I am going to check some follow-up laboratories including an alpha-fetoprotein level, PT with INR, liver fibrosis score, liver profile, and CBC with platelet count, as well as an ultrasound of the abdomen with liver elastography. We did discuss colorectal cancer screening again as her last colonoscopy was in 2013. I did recommend she consider having that done as a good way to prevent colorectal cancer. Nonetheless she continues not to want to have that done due to what she says is in relationship to her psoriasis. Her negative Cologuard test and clinical history are reassuring. I did advise her to do another Cologuard test next year. I will plan to see her in 1 year for follow-up in regard to the liver disease but did advise her to certainly contact me prior to that if she has any problems or questions I can be of assistance with. I will talk to her again about a colonoscopy when I see her next year as well as an upper endoscopy to assess for any sign of varices. She and her granddaughter were comfortable with this plan. Thank you again for allowing me to participate in Hoda's care. I shall continue to keep you advised of her progress as needed. Plan Of Treatment Pending Test Test Name Order Date LIVER PROFILE 11/15/2021 LIVER PROFILE 08/28/2022 LIVER PROFILE 02/01/2012 LIVER PROFILE 11/07/2023 LIVER PROFILE 02/02/2016 LIVER PROFILE 05/24/2017 LIVER PROFILE 11/04/2024 CBC w DIFF 11/04/2024 CBC w DIFF 11/15/2021 CBC w DIFF 08/28/2022 CBC w DIFF 02/02/2016 PROTHROMBIN TIME (PT, INR) 11/15/2021 PROTHROMBIN TIME (PT, INR) 08/28/2022 PROTHROMBIN TIME (PT, INR) 05/24/2017 PROTHROMBIN TIME (PT, INR) 02/02/2016 PROTHROMBIN TIME (PT, INR) 03/25/2014 ALPHA-FETOPROTEIN,TUMOR MARKER 6 ALPHA-FETOPROTEIN,TUMOR MARKER 4 ALPHA-FETOPROTEIN,TUMOR MARKER 5 ALPHA-FETOPROTEIN,TUMOR MARKER 2 ALPHA-FETOPROTEIN,TUMOR MARKER 4 ALPHA-FETOPROTEIN,TUMOR MARKER 3 ALPHA-FETOPROTEIN,TUMOR MARKER 2 ALPHA-FETOPROTEIN,TUMOR MARKER 3 ALPHA-FETOPROTEIN,TUMOR MARKER 8 HEPATITIS C VIRAL LOAD 02/02/2016 HEPATITIS C VIRAL LOAD 11/07/2023 HEPATITIS C VIRAL LOAD 11/15/2021 Prothrombin Time INR 11/04/2024 Liver Fibrosis Pnl 11/04/2024 US abdomen comp w elastography 5 US abdomen comp w elastography 3 Future Test Test Name Order Date UPPER GI ENDOSCOPY 03/31/2013 COLONOSCOPY 03/31/2013 Next Appt Details Provider Name:Aric Florian , 11/05/2025 01:00:00 PM, [address], [address], [place], [address], Insurance Providers Payer Name Payer Address Payer Phone Subscriber Number Group Number Insured Name Patient Relationship to Insured Coverage Start Date Coverage End Date [facility] [address] Attn Claims VERONIKA Perez [id number] ALISIAHODA CAN Self - patient is the insured Medical (General) History Medical History History ICD Code Colonoscopy 05-25-2013--remov [...] well Previous hepatits C-Rx'd suc cessfully in [id number] Hep C RNA in 2007 Hypertension Denies VT,DM,CVA,renal disease Asthma Hypothyroid Depression In ER 02/2013 [...] hyperpla stic polyp Surgical History Surgery Date(Month/Year) Cholecystectomy-2017 Dr. Kramer with transfusions
--- OUTSIDE RECORDS SUMMARY | 2025-01-15 15:49 | XMS_ITS | Encounter Summary ---
Demographics Address [address] [facility] [address] [place] [address] Home Phone Preferred Language es Marital Status Unknown Roman Catholic Affiliation Unknown Race White Ethnic Group Unknown Author Organization [facility] Address [address] [place] [address] Phone Care Team Providers Care Tombstone Carver Name Role Phone Jen Ochoa MD Primary Care Provide r Encounter Details Date Type Department Care Team (Late st Contact Info) Description 12/19/2021 Office Communication [facility] [address] [place] [address] Kiko Robertson MD [address] [place] [address] [place] [address] Social History Tobacco Use Types [...] Visit [facility] [address] [place] [address] Kiko Robertson MD [address] [place] [address] [place] [address] documented as of this encounter Visit Diagnoses Not on filedocumented in this encounter Care Teams Tombstone Carver Relationship Specialty Start Date End Date Jen Ochoa MD [address] [place] [address] 1 [place] [address] PCP - General 02/17/19 documented as of this encounter
--- OUTSIDE RECORDS SUMMARY | 2025-01-15 15:49 | XMS_ITS | Encounter Summary ---
Demographics Address [address] [facility] [address] [place] [address] Home Phone Preferred Language es Marital Status Unknown Muslim Affiliation Unknown Race White Ethnic Group Unknown Author Organization [facility] Address [address] [place] [address] Phone Care Team Providers Care Can Solderer Name Role Phone Jen Ochoa MD Primary Care Provide r Encounter Details Date Type Department Care Team (Late st Contact Info) Description 01/01/2023 Office Communication [facility] [address] [place] [address] Kiko Robertson MD [address] [place] [address] [place] [address] Social History Tobacco Use Types [...] Visit [facility] [address] [place] [address] Kiko Robertson MD [address] [place] [address] [place] [address] documented as of this encounter Visit Diagnoses Not on filedocumented in this encounter Care Teams Can Solderer Relationship Specialty Start Date End Date Jen Ochoa MD [address] [place] [address] 1 [place] [address] PCP - General 02/17/19 documented as of this encounter
--- OUTSIDE RECORDS SUMMARY | 2025-01-15 15:49 | XMS_ITS | Clinical Summary ---
Author Organization [facility] [place], Address [address] [place] [address] [place] [address] Phone Care Team Providers Care It Consultant Name Role Phone Jen Ochoa MD [...] Visit [facility] [place], [address] [facility] [place] [address] Kiko Robertson MD [address] [facility] [place] [address] Health Maintenance Due Date Last Done [...] Discontinued Colorectal Cancer Screening: Sigmoidoscopy Discontinued Insurance 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
--- OUTSIDE RECORDS SUMMARY | 2025-01-15 15:49 | XMS_ITS | Encounter Summary ---
Author Organization [facility] Address [address] [place] [address] Phone Care Team Providers Care Financial Consultant Name Role Phone Jen Ochoa MD Primary Care Provide r Encounter Details Date Type Department Care Team (Late st Contact Info) Description 07/27/2024 Documentation Only [facility] [address] [place] [address] Cyndee Stone [address] [place] [address] Social History Tobacco Use Types [...] Visit [facility] [address] [place] [address] Kiko Robertson MD [address] [place] [address] [place] [address] documented as of this encounter Visit Diagnoses Not on filedocumented in this encounter Care Teams Financial Consultant Relationship Specialty Start Date End Date Jen Ochoa MD [address] [place] [phone] PCP - General 02/17/19 documented as of this encounter
--- OUTSIDE RECORDS SUMMARY | 2025-01-15 15:49 | XMS_ITS | Encounter Summary ---
Author Organization [employer] Address [address] [facility] 7t [place] [address] Care Team Providers Care Correctional Captain Name Role Phone Jen Ochoa MD Primary Care Provide r Reason for Referral * Medications - Closed Specialty Diagnoses / Procedures Referred By Contac t Referred To Contact Diagnoses Rheumatoid arthritis, involving unspecified site, unspecified whether rheumatoid factor present (CMS/HCC) (HCC) Jen Ochoa MD [address] [place] [phone] Phone: tel: fax: Referral ID Status Reason Start Date Expiration Date Visits Re quested Visits Authorized Closed 1 1 Encounter Details Date Type Department Care Team ([facility] st Contact Info) Description 07/05/[address] [facility] [address] [place] [phone] Jen Ochoa MD [address] [place] [phone] Rheumatoid arthritis, involving unspecified site, unspecified whether [...] as of this encounter Plan of Treatment Not on file documented as of this encounter Visit Diagnoses Diagnosis Rheumatoid arthritis, involving unspecified site, unspecified whether rheumatoid factor present (CMS/HCC) ([facility])- Primary documented in this encounter Care Teams Correctional Captain Relationship Specialty Start Date End Date Jen Ochoa MD [address] [place] [phone] PCP - General Family Medicine 12/25/17 documented as of this encounter
--- OUTSIDE RECORDS SUMMARY | 2025-01-15 15:49 | XMS_ITS | Encounter Summary ---
Author Organization [employer] Address [address] [facility] 7t [place] [address] Care Team Providers Care Irrigation System Operator Name Role Phone Jen Ochoa MD Primary Care Provide r Reason for Visit * Reason Comments Med Refill Encounter Details Date Type Department Care Team ([facility] st Contact Info) Description 04/25/2023 Refill [facility] [address] [place], [place] [phone] Faustino Carson MD [address] [place] [address] Seborrheic dermatitis Social History Tobacco Use Types [...] dermatitis documented in this encounter Care Teams Irrigation System Operator Relationship Specialty Start Date End Date Jen Ochoa MD [address] [place] [address] PCP - General Family Medicine 12/25/17 documented as of this encounter
--- OUTSIDE RECORDS SUMMARY | 2025-01-15 15:49 | XMS_ITS | Encounter Summary ---
Author Organization [employer] Address [address] [facility] 7t [place] [address] Care Team Providers Care Farrowing Manager Name Role Phone Jen Ochoa MD Primary Care Provide r Encounter Details Date Type Department Care Team (Late st Contact Info) Description 05/02/2022 Orders Only [facility] [address] [place], [place] [phone] Erin Grace LPN Social History Tobacco Use [...] on file documented as of this encounter Procedures Procedure Name Priority Date/Time Associated Diagnosis Comments INFLUENZA A B2 ID NOW ([facility]) Routine 05/20/2022 1:35 AM EST STREP A NUCLEIC ACID Routine 05/20/2022 1:35 AM EST COVID-19 ID NOW ([facility]) Routine 05/20/2022 1:35 AM EST documented in this encounter Results * COVID-19 ID NOW ([facility]) (05/20/2022 1:35 AM EST) IDNOW SERIAL# [id number] [facility] COVID-19 TEST Negative Negative [facility] COVID-19 NOTE See Note [facility] Comment: Results are for the identification of SARS-CoV2 RNA. TheSARS-CoV2 RNA is generally detectable in respiratory samplesduring the acute phase of infection. Positive results areindicative of the presence of SARS-CoV-2 RNA; clinicalcorrelation with patient history and other diagnosticinformation is necessary to determine patient infectionstatus. Positive results do not rule out bacterial infectionor co- infection with other viruses.Testing facilities within the [facility] and [facility] are required to report all positive results [...] 1:35 AM EST 05/20/2022 1:40 AM EST [facility] Exter nal Provider LAB MOLECULAR DIAGNOSTICS ORDERABLES Final Result [facility] [address] [place] [phone] * Influenza A B2 ID NOW ([facility]) (05/20/2022 1:35 AM EST) IDNOW SERIAL# [id number] [facility] Influenza A Negative Negative [facility] Influenza B2 Negative Negative [facility] Influenza A B2 Note See Note [facility] Comment:The [facility] ID NOW In [...] 1:35 AM EST 05/20/2022 1:40 AM EST [facility] Exter nal Provider LAB MICROBIOLOGY - GENERAL ORDERABLES Final Result Performing Organization Address [facility] Co de Phone Number [facility] [address] [place] [address] [phone] * Strep A Nucleic Acid (05/20/2022 1:35 AM EST) IDNOW SERIAL# [id number] [facility] Strep A Nucleic Acid Negative Negative [facility] Comment:All test results mus t be correlated with clinical findings.This test has not been evaluated for monitoring treatment ofinfection.Additional follow-up testing using the culture method isrequired if the result is negative and clinical symptomspersist, or in the event of an acute rheumatic feveroutbreak. 05/20/2022 1:35 AM EST 05/20/2022 1:40 AM EST [facility] Exter nal Provider LAB MICROBIOLOGY - GENERAL ORDERABLES Final Result Performing Organization Address [facility] de Phone Number [facility] [address] [place] [address] [phone] documented in this encounter Visit Diagnoses Not on filedocumented in this encounter Care Teams Farrowing Manager Relationship Specialty Start Date End Date Jen Ochoa MD [address] [place] [phone] PCP - General Family Medicine 12/25/17 documented as of this encounter
--- OUTSIDE RECORDS SUMMARY | 2025-01-15 15:49 | XMS_ITS | Encounter Summary ---
Author Organization [employer] Address [address] [facility] 7t [place] [address] Care Team Providers Care Disease Management Nurse Name Role Phone Jen Ochoa MD Primary Care Provide r Encounter Details Date Type Department Care Team (Late st Contact Info) Description 03/12/2023 Abstract [facility] [address] [place] [address] Meagan Gardner Social History Tobacco Use Types [...] on filedocumented in this encounter Care Teams Disease Management Nurse Relationship Specialty Start Date End Date Jen Ochoa MD [address] [place] [address] PCP - General Family Medicine 12/25/17 documented as of this encounter
--- OUTSIDE RECORDS SUMMARY | 2025-01-15 15:50 | XMS_ITS | Clinical Summary ---
Author Organization [employer] Address [address] [place] [address] Care Team Providers Care Plastic Roller Name Role Phone Jen Ochoa MD Primary Care Provide r Allergies No known active allergies Medications lidocaine (Lidoderm) 5 % patchIndications :Rheumatoid arthritis, involving unspecified site, unspecified whether rheumatoid factor present ([facility]/HCC) ([facility]) Apply 1 patch topically in the morning. [...] the morning. 90 tablet 3 4 Active montelukast (Singulair) 10 MG tabletIndication s:Moderate persistent asthma without complication Take 1 tablet (10 mg) by mouth Once per day. 30 tablet 11 5 026 Active predniSONE (Deltasone) 20 MG tabletIndication s:Acute gout of left ankle, unspecified cause 2 tabs po daily for 5 days 10 tablet 5 Active atorvastatin (Lipitor) 40 MG tabletIndication s:Dyslipidemia Take 1 tablet (40 mg) by mouth Once per day. 30 tablet 11 5 026 Active levothyroxine (Synthroid, Levoxyl) 137 MCG tablet TAKE 1 TABLET BY MOUTH EVERY DAY 90 tablet 5 Active Active Problems Problem Noted Date Diagnosed Date Acute gout of left ankle 07/22/2024 Assessment & Plan (07/22/2024 3:43 PM EDT): Likely early gout attack. Exam benign, with only mild tenderness over dorsum of left foot. Has referral to [facility], encouraged to call. Taking allopurinol. -Prescribed short [...] without complication 04/19/2023 04/19/2023 Assessment & Plan (08/06/2024 4:27 PM EDT): Stable c/w same interventions, continue to follow up with pulmonology Assessment & Plan (02/12/2024 4:02 PM EDT): Control c/w same interventions Rheumatoid arthritis involvi ng multiple sites with positive rheumatoid factor ([facility]) 04/19/2023 04/19/2023 Assessment & Plan (08/06/2024 4:26 PM EDT): Continue to follow up with rheumatology Seronegative rheumatoid arthritis ([facility]) 08/202304/19/2023 Suprapubic abscess 04/19/2023 04/19/2023 Complex renal cyst 01/01/2023 04/19/2023 Renal mass 01/01/2023 04/19/2023 Chronic kidney disease, stage 2 (mild) 04/19/2023 Headache 12/08/2014 04/19/2023 Vitamin D deficiency 12/08/2014 04/19/2023 Hyperuricemia 06/28/2014 04/19/2023 Stage 3b chronic kidney disease ([facility]) 201304/19/2023 Tubular adenoma of colon 05/25/2013 024 Acquired hypothyroidism 01/02/2013 04/19/19 Assessment & Plan (02/12/2024 4:02 PM EDT): TSH will be re-check with labs Cobalamin deficiency 01/02/2013 04/19/2023 Hypertension 01/02/2013 04/19/2023 Assessment & Plan (08/06/2024 4:24 PM EDT): I advised: - Aerobic exercise to reduce BP. Initial goal of 30 min walk 3-5x/week. Increase as tolerated. - low-sodium diet (goal: <2g/day) and heart healthy diet such as DASH to reduce BP and prevent ASCVD. - Home BP monitoring 1-2 x day with goal of <140/90. - Seek immediate medical attention for chest pain, palpitations, SOB, syncope, or sudden changes in mental status. - Do not change or discontinue current prescriptions without first consulting health care provider Assessment & Plan (05/21/2024 8:37 PM EST): [...] amlodipine 5 mg daily Cirrhosis of liver (CMS/HCC) 01/09/201208/2023 Assessment & Plan (08/06/2024 4:25 PM EDT): Continue to follow with specialist, she will call for her f/u appointment information was provided Depressive disorder 01/09/2012 04/19/2023 Hepatitis C 01/09/2012 04/19/2023 Hyperlipidemia 01/09/2012 04/19/2023 Encounters Date Type Department Care Team Description 12/22/2024 Travel 11/05/[address] [facility] [address] [place] [address] Jen Ochoa MD No Show 11/04/[address] [facility] [address] [place] [address] Jen Ochoa MD Chart Prep 10/28/[address] [facility] [address] [place] [address] Jen Ochoa MD Pre-visit Planning (SDOH screening negative and tobacco screening negative) 10/19/[address] [facility] [address] [place] [address] Jen Ochoa MD from Last 3 Months Immunizations Immunization Administration Dates Next Due Influenza High-dose Quadrivalent Preservative Fr ee 03/14/2020 Influenza injectable quadriv alent IIV4 with preservative 01/22/2018,01/26/2015 Influenza, IIV3, injectable 12/23/2013 Influenza, Split (incl. purified surface antigen ) 01/02/2013,01/09/2012 Pneumococcal Conjugate PCV 20 02/12/2024 Pneumococcal Polysaccharide PPSV23 05/20/2007 Tdap 12/26/2010 Zoster, Recombinant 10/20/2024 Zoster, live 07/29/2014 Social History Tobacco Use [...] Sign Reading Time Taken Comments Blood Pressure 130/67 08/06/2024 2:44 PM EDT Pulse 73 08/06/2024 2:44 PM EDT Temperature 36 C (96.8 F) 08/06/2024 2:44 PM EDT Respiratory Rate 20 08/06/2024 2:44 PM EDT Oxygen Saturation 98% 07/22/2024 3:23 PM EDT Inhaled Oxygen Concentration - - Weight 102 kg (224 lb) 08/06/2024 2:44 PM EDT Height 137.2 cm (4' 6 ) 08/06/2024 2:44 PM EDT Body Mass Index 54.01 08/06/2024 2:44 PM EDT Plan of Treatment Health Maintenance Due Date Last Done Comments CT Colonography 1955 Colonoscopy 1955 FIT 1955 Sigmoidoscopy 1955 Hepatitis A Vaccines (1 of 2 - Risk 2-dose series) 1973 Hepatitis B Vaccines (1 of 3 - Risk 3-dose series) 2014 RSV Patients and Patients Aged 60 years or older (1 - Risk 60-74 years 1-dose series) 2014 DTaP/Tdap/Td Vaccines (2 - Td or Tdap) 12/26/2020 12/26/2010 Mammogram 10/20/2024 10/21/2023, 01/15, 12/09/2017 FOBT 11/02/2024 11/03/2023 COVID-19 Vaccine ( season) 2024 02/14/2021, 01/24/2021 Influenza Vaccine (#1) 2024 , 01/22/2018, 01/26/2015, Additional history exists Zoster Vaccines (3 of 3) 12/15/2024 10/20/2024, 07/14 Alcohol/Substance Use Screening 02/11/2025 02/12/2024 Depression Screening 02/11/2025 02/12/2024, 02/12/20 Tobacco Screening 08/06/2025 08/06/2024 SDOH Screening 10/28/2025 10/28/2024 Colorectal Cancer Screening 11/02/2026 FIT DNA/Cologuard 11/02/2026 11/03/2023 Lipid Panel 07/22/2029 07/22/2024, 01/24/2021 Pneumococcal Vaccine: 50+ Years Completed 02/12/2024, 05/20/2007 HIB Vaccines Aged Out No longer eligi ble based on patient's age to complete this topic HPV Vaccines Aged Out No longer eligi ble based on patient's age to complete this topic IPV Vaccines Aged Out No longer eligi ble based on patient's age to complete this topic Meningococcal B Vaccine Aged Out No l onger eligible based on patient's age to complete [...] Procedure Name Priority Date/Time Associated Diagnosis Comments LIPID PANEL, STANDARD Routine 07/22/2024 4:21 PM EDT Acquired hypothyroidism LAB COLOGUARD COLON CANCER SCREEN Routine 11/03/2023 6:40 PM EDT Colon cancer screening BI MAMMOGRAM SCREENING TOMOSYNTHESIS BILATERAL Routine 10/21/2023 4:10 PM EDT from Last 3 Months or Most Recently Relevant to Health Maintenance Results * (ABNORMAL) Lipid Panel, Standard (07/22/2024 4:21 PM EDT) Triglycerides 171(H) <150 mg/dL [facility] Comment:Desirable Triglyceri de: less than 150 mg/dLBorderline High Triglyceride 150-199 mg/dLHigh Triglyceride: 200-499 mg/dLVery High Triglyceride: greater than or equal to 5OO mg/dL Cholesterol 216(H) <200 mg/dL [facility] Comment:Desirable Cholestero l: less than 200 mg/dLBorderline High Cholesterol: 200-239 mg/dLHigh Cholesterol: greater than 239 mg/dL LDL Cholesterol Calculated 126(H) <100 mg/dL [facility] Comment:Desirable LDL: less than 100 mg/dLNear Optimal/Above Optimal LDL: 110- 129 mg/dLBorderline High LDL: 130-159 mg/dLHigh LDL: 160-189 mg/dLVery High LDL: greater than or equal to 190 mg/dL HDL Cholesterol 56 >40 mg/dL [facility] Comment:Desirable HDL: great er than 40 mg/dL Note: This HDL assay may give artificially low results in patients with liver disease. Blood Venous blood specimen / Unknown 07/22/2024 4:21 PM EDT 07/22/2024 6:19 PM EDT Jen Kidd MD LAB BLOOD ORDERABLES Final Result [facility] [address] [place] [phone] * Cologuard?? colon cancer screening (11/03/2023 6:40 PM EDT) Cologuard Result Negative Negative 11/08/19 24 12:54 PM EDT [facility] (CLIA #:[id number]) Comment: NEGATIVE TEST RESULT. A negative Cologuard result indicates a low likelihood that a colorectal cancer (CRC) or advanced adenoma (adenomatous polyps with more advanced pre-malignant features) is present. The chance that a person with a negative Cologuard test has a colorectal cancer is less than 1 in 1500 (negative predictive value >99.9%) or has an advanced adenoma is less than 5.3% (negative predictive value 94.7%). These data are based on a prospective cross-sectional study of 10,000 individuals at average risk for colorectal cancer who were screened with both Cologuard and colonoscopy. (Lucy Hernandez, N Engl J Med 2014;370(14):7478-3165) The normal value (reference range) for this assay is negative. COLOGUARD RE-SCREENING RECOMMENDATION: Periodic colorectal cancer screening is an important part of preventive healthcare for asymptomatic individuals at average risk for colorectal cancer. Following a negative Cologuard result, the [place] [employer] Society and U.S. Multi-Society Task Force screening guidelines recommend a Cologuard re-screening interval of 3 years. References: [place] [employer] Guideline for Colorectal Cancer Screening: https://www.cancer.org/cancer/imxht-vjkioj-vsymfc/szkcgnvut-nykkqzbyf-idygrqs/ac s-rec ommendations.html.; Yaron DK, Nayeli UPTON, Emir WuK, Colorectal Cancer Screening: Recommendations for Physicians and Patients from the U.S. Multi-Society Task Force on Colorectal Cancer Screening , Am J Gastroenterology 2017; 112:7013-9308. TEST DESCRIPTION: Composite algorithmic analysis of stool DNA-biomarkers with hemoglobin immunoassay. Quantitative values of individual biomarkers are not [...] screened with both Cologuard and colonoscopy. (Lucy Hernandez, N Engl J Med 2014;370(14):5635-1866.) Cologuard may produce a false negative or false positive result (no colorectal cancer or precancerous polyp present at colonoscopy follow up). A negative Cologuard test result does not guarantee the absence of CRC or advanced adenoma (pre-cancer). The current Cologuard screening interval is every 3 years. ([place] [employer] Society and U.S. Multi-Society Task Force). Cologuard performance data in a 10,000 patient pivotal study using colonoscopy as the reference method can be accessed at the following location: www.[employer].HealthEdge/results. Additional description of the Cologuard test process, warnings and precautions can be found at www.cologSunnyloftrd.com. Stool specimen (specimen) 11/03/2023 6:40 PM EDT 11/05/2023 11:00 AM EDT Jen Kidd MD LAB MOLECULAR DIAGNOS TICS ORDERABLES Final Result [facility] (CLIA #:[id number]) [place] [address], * BI Mammogram Screening Tomosynthesis Bilateral (10/21/2023 4:10 PM EDT) Anatomical Region Laterality Modality Breast Bilateral Mammography 10/21/2023 4:10 PM EDT Narrative 11/17/2023 3:43 PM EDT [facility] [address] [place] [address] Mammography Report Signed Patient: Hoda Lorenzo MR#: [id number] : 1955 Acct:[id number] Age/Sex: 68 / F ADM Date: 10/21/23 Loc: [facility] Attending Dr: Jen Kidd MD Ordering Physician: Jen Ochoa MD Results: 1Negative Date of Service: 10/21/23 Follow Up: 1 Year From Orig inal Mammogram Procedure(s): MM tomosynthesis screening BI Accession Number(s): [id number] cc: Jen Ochoa MD EXAMINATION: MM SCREENING DIGITAL BREAST TOMOSYNTHESIS, BILATERAL CLINICAL INFORMATION: Screening. Asymptomatic. COMPARISON: Mammography: This study is compared with prior exams dating back to 2014. TECHNIQUE: Digital breast tomosynthesis is performed in [...] date for their next mammogram. Dictated By: aTylor Magaña MD Signed By: <Electronically signed by Taylor Magaña MD in OV> 11/17/23 1539 DD/ 1610 TD/TT: Dental Financial Coordinator: Procedure Note Donotuseinterpreter, Image - 11/17/2023 [facility] [address] [place] [address] Mammography Report Signed Patient: Rashmi Lorenzo#: [id number] : 4Acct:[id number] Age/Sex: 68 / FADM Date: 10/21/23 Loc: [facility] Attending Dr: Jen Kidd MD Ordering Physician: Jen Ochoa MDResults: 1Negative Date of Service: 10/21/23Follow Up: 1 Year From Orig inal Mammogram Procedure(s): MM tomosynthesis screening BI Accession Number(s): [id number] cc: Jen Ochoa MD EXAMINATION: MM SCREENING DIGITAL BREAST TOMOSYNTHESIS, BILATERAL CLINICAL INFORMATION: Screening. Asymptomatic. COMPARISON: Mammography: This study is compared with prior exams dating back to 2014. TECHNIQUE: Digital breast tomosynthesis is performed in [...] in OV> 11/17/23 1539 DD/ 1610 TD/TT: Dental Financial Coordinator: Jen Kidd MD IMG BI PROCEDURES Fin al Result from Last 3 Months or Most Recently Relevant to Health Maintenance Insurance [facility] [employer] (O D-SNP) VEROINKA BERMEO [id number] Care Teams Plastic Roller Relationship Specialty Start Date End Date Jen Ochoa MD [address] [place] [phone] PCP - General Family Medicine 12/25/17
--- OUTSIDE RECORDS SUMMARY | 2025-01-15 15:50 | XMS_ITS | Encounter Summary ---
Author Organization [employer] Address [address] [place] [address] Care Team Providers Care Plant Propagator Name Role Phone Jen Ochoa MD Primary Care Provide r Encounter Details Date Type Department Care Team (Late st Contact Info) Description 04/21/2024 Orders Only [facility] [address] [place], [place] [phone] Jen Ochoa MD [address] [place], [place] [phone] Social History Tobacco Use Types Packs/Day Years [...] documented as of this encounter Care Teams Plant Propagator Relationship Specialty Start Date End Date Jen Ochoa MD [address] [place] [address] PCP - General Family Medicine 12/25/17 documented as of this encounter
--- OUTSIDE RECORDS SUMMARY | 2025-01-15 15:50 | XMS_ITS | Encounter Summary ---
Demographics Address [address] [place] [address] Home Phone Preferred Language es Marital Status Unknown Samaritan Affiliation Unknown Race White Ethnic Group Unknown Author Organization [facility] Address [address] [place] [address] Phone Care Team Providers Care Fashion Buyer Name Role Phone Jen Ochoa MD Primary Care Provide r Encounter Details Date Type Department Care Team (Late st Contact Info) Description 04/20/2021 Documentation Only [facility] [address] [place] [address] Kiko Robertson MD [address] [place] [address] [place] [address] Social History Tobacco Use Types [...] Visit [facility] [address] [place] [address] Kiko Robertson MD [address] [place] [address] [place] [address] documented as of this encounter Visit Diagnoses Not on filedocumented in this encounter Care Teams Fashion Buyer Relationship Specialty Start Date End Date Jen Ochoa MD [address] [place] [address] [address] [place] [phone] PCP - General 02/17/19 documented as of this encounter
--- OUTSIDE RECORDS SUMMARY | 2025-01-15 15:50 | XMS_ITS | Encounter Summary ---
Author Organization [employer] Address [address] [place] [address] Care Team Providers Care Nurse Obgyn Name Role Phone Jen Ochoa MD Primary Care Provide r Reason for Visit * Reason Comments Med Refill Encounter Details Date Type Department Care Team ([facility] st Contact Info) Description 07/22/2024 Refill [facility] [address] [place], [place] [phone] Amrita Olvera MD [address] [place] [address] Acute gout of left ankle, unspecified cause [...] documented as of this encounter Care Teams Nurse Obgyn Relationship Specialty Start Date End Date Jen Ochoa MD [address] [place] [phone] PCP - General Family Medicine 12/25/17 documented as of this encounter
[2025-01-15 16:03] LABS: MANUAL DIFF FLAG NO
[2025-01-15 16:18] LABS: Alanine Aminotransferase 15 U/L (0-31); Albumin Level 4.3 g/dL (3.5-5.0); Alkaline Phosphatase 72 U/L (39-117); Anion Gap 12 (12-20); Aspartate Amino Transferase 32 U/L (5-31); Blood Urea Nitrogen 18 mg/dL (9-16); Calcium 10.0 mg/dL (8.4-10.2); Carbon Dioxide 26 mmol/L (22-29); Chloride 105 mmol/L (96-108); Creatinine Clr Calc Pharmacy 56.4; Estimated Glomerular Filt Rate 54; Hematocrit 34.4 % (37.0-47.0); Hemoglobin 11.9 g/dl (12.0-16.0); Imm Gran Abs Auto 0.01 X10*3/uL (0.00-0.03); Imm Gran Pct Auto 0.2 % (0.0-0.4); Lymphocytes Absolute Auto 1.3 X10*3/uL (1.2-4.9); Magnesium 1.7 mg/dL (1.6-2.6); Mean Corpuscular HGB Conc 34.6 g/dl (31.0-35.0); Mean Corpuscular Hemoglobin 33.8 pg (27.0-33.0); Mean Corpuscular Volume 97.7 fL (80.0-98.0); NRBC Abs Auto 0.000 X10*3/uL (0.0-0.012); NRBC Pct Auto 0.0 /100WBC (0.0-0.2); Platelet Count 198 X10*3/uL (160-400); Potassium 4.3 mmol/L (3.3-5.1); Red Blood Count 3.52 X10*6/uL (4.20-5.50); Sodium 139 mmol/L (135-145); Total Protein 8.1 g/dL (6.5-8.0); White Blood Count 5.0 X10*3/uL (4.8-10.8)
--- NOTE | 2025-01-15 16:28 | ED.CHESTPAIN ---
HPI - Chest Pain General Chief Complaint: Chest Pain Stated Complaint: L shoulder/arm pain that radiates to jaw Time Seen by Provider: 01/15/25 15:59 History of Present Illness HPI narrative: Patient is a 69-year-old female with a history of rheumatoid arthritis. Presented today with having left shoulder pain radiating to the jaw radiating to the chest since yesterday fairly constant worse with movement of the shoulder. There is no new shortness of breath. There is no diaphoresis has a history of asthma patient is larger in size with a BMI of 44.8. Patient has history of hypertension hypercholesterolemia. Never had an UT in the past. Never had a blood clot. Also complaining of pain in her foot that is been constant it has been ongoing for months. Has a history of rheumatoid and thinks the pain is a sternotomy us with her rheumatoid pain. Denies any calf pain. Patient denies any fever chills. Denies any diaphoresis. Positive coughing Related Data Home Medications ?Medication ?Instructions ?Recorded ?Confirmed allopurinol 300 mg tablet 300 mg PO DAILY 04/13/20 12/06/21 bupropion HCl 150 mg 24 hr tablet, 150 mg PO QAM 04/13/20 12/06/21 extended release cholecalciferol (vitamin D3) 125 mcg PO 04/13/20 12/06/21 mcg (5,000 unit) disintegrating tablet cyanocobalamin (vitamin B-12) 1,000 mcg PO DAILY 04/13/20 12/06/21 1,000 mcg capsule hydrochlorothiazide 25 mg tablet 25 mg PO DAILY 04/13/20 12/06/21 lisinopril 40 mg tablet 40 mg PO DAILY 04/13/20 12/06/21 metoprolol succinate 50 mg 50 mg PO DAILY 04/13/20 12/06/21 tablet,extended release 24 hr pantoprazole 40 mg tablet,delayed 40 mg PO DAILY 04/13/20 12/06/21 release betamethasone dipropionate 0.05 % 1 appl topical DAILY PRN 09/18/21 12/06/21 topical cream clotrimazole 1 % topical cream 1 appl topical BID 09/18/21 12/06/21 cromolyn 4 % eye drops 1 drp ophthalmic (eye) QID 09/18/21 12/06/21 famotidine 20 mg tablet 20 mg PO DAILY 09/18/21 12/06/21 hydrocortisone 2.5 % topical cream 1 appl topical BID PRN 09/18/21 12/06/21 ibuprofen 800 mg tablet 800 mg PO TID 09/18/21 12/06/21 levothyroxine 137 mcg capsule 137 mcg PO DAILY 09/18/21 12/06/21 (Tirosint) lidocaine 5 % topical patch 1 patch topical DAILY 09/18/21 12/06/21 loratadine 10 mg tablet 10 mg PO DAILY 09/18/21 12/06/21 nystatin 100,000 unit/gram topical 1 appl topical DAILY 09/18/21 12/06/21 cream tizanidine 2 mg tablet 2 mg PO Q6-8H PRN 09/18/21 12/06/21 hydroxyzine HCl 10 mg tablet 10 mg PO BID 12/06/21 12/06/21 mirtazapine 30 mg tablet 30 mg PO BEDTIME 12/06/21 12/06/21 cholecalciferol (vitamin D3) 50 50 mcg PO DAILY 03/22/23 mcg (2,000 unit) tablet zolpidem 5 mg tablet 5 mg PO BEDTIME PRN 03/22/23 aspirin 81 mg tablet,delayed 81 mg PO DAILY 08/21/24 release (Adult Aspirin Regimen) Previous Rx's ?Medication ?Instructions ?Recorded cyclobenzaprine 10 mg tablet 5 mg (1/2 x 10 mg) PO BEDTIME PRN 06/03/21 muscle spasm #3 tabs albuterol sulfate 90 mcg/actuation 2 puff inhalation Q6H PRN 11/06/23 aerosol inhaler shortness of breath or wheezing #1 ea ipratropium 0.5 mg-albuterol 3 mg 3 ml inhalation Q4-6H PRN wheezing 03/05/24 (2.5 mg base)/3 mL nebulization #180 mL soln fluticasone furoate 200 1 inh inhalation DAILY #1 ea 11/20/24 mcg-vilanterol 25 mcg/dose inhalation powder (Breo Ellipta) Allergies Allergy/AdvReac Type Severity Reaction Status Date / Time No Known Allergies (No Known Allergy Verified 01/15/25 15:21 Allergies*) Review of Systems Review of Systems: Positive pain to the shoulder Yes all other systems are reviewed and are negative PMFSH Past Medical History Attestation statement: The following information was validated with the patient. Medical History Chronic kidney disease, stage 3 Vitamin D deficiency Sleep apnea Hypothyroidism HTN (hypertension) Hyperuricemia Hepatitis C Gallstone Morbid (severe) obesity due to excess calories Cholelithiasis OA (osteoarthritis) of knee Rheumatoid factor positive Surgical History History of surgery Social History Social History Alcohol intake: never Smoked in Last 30 Days: No Use of substances other than those prescribed or required for medical reasons: No Advance Directives: No Advance Directives Information Provided: Yes Do you have a plan to hurt others: No Plan Physical Exam Exam: Exam: Appearance: Alert. Oriented X3. No acute distress. Eyes: Pupils equal, round and reactive to light. ENT: Pharynx normal. Neck: Normal inspection. Neck supple. No lymph nodes noted. No crepitus CVS: Normal heart rate and rhythm. Pulses normal. Normal S1 and S2 Respiratory: No respiratory distress. Breath sounds normal. No Wheezing. No rales Abdomen: Soft and nontender. No rigidity. No distention. good BS x4 Skin: Skin warm and dry. Normal skin color. Normal skin turgor. Extremities: No lower extremity edema. Neurovascular intact to all extremities. No Lacerations. No Rash Neuro: Oriented X 3. No motor deficit. No sensory deficit. Moving all extermities. No slurred speech Vital Signs: Vital Signs: Last Vital Signs Temp 98.4 F 01/15/25 15:18 Pulse 76 01/15/25 16:42 Resp 16 01/15/25 16:42 BP 155/74 H 01/15/25 16:42 Pulse Ox 100 01/15/25 16:42 O2 Del Method Room Air 01/15/25 16:42 BMI result Body Mass Index 44.8 Medications Administered Discontinued Medications Generic Name Dose Route Start Last Admin Trade Name Freq PRN Reason Stop Dose Admin Iohexol 100 ml 01/15/25 18:04 01/15/25 18:05 Iohexol 350 Mg/Ml 100 Ml Infus..Btl IV 01/15/25 18:05 65 ml ONCE ONE Administration Medical Decision Making Medical Decision Making MDM Narrative: Patient is complaining of pain to the left shoulder. Left jaw. Already had aspirin. Has a history of hypertension hypercholesterolemia is overweight. Presented with having some pain in the shoulder that is worse with movement of the left shoulder. The range of motion is intact. Will get x-rays and labs. Patient also complaining of pain to the heel on the left side which has been chronic ongoing for months. Associated with her rheumatoid arthritis. Patient is currently not on blood thinners. Did not travel. Did not notice swelling of the left lower extremity anymore than baseline. Patient is larger in size both calves are rhabdo large but I did not appreciate any changes in the size. Nevertheless a Doppler ultrasound of the left lower extremity was ordered. Electrolytes ordered. Cardiac enzymes ordered. X-rays ordered. Patient's kidney function Doppler of the lower extremity was negative for DVT. Patient's D-dimer was elevated. Has pain in the shoulder area. A CT angio of the chest was done. No PE was found. Patient's troponin x2 sets was negative pain is musculoskeletal worse on the left side worse with movement of the shoulder atypical for ACS. Will discharge patient home close follow-up advised. In stable condition. Differential Diagnosis Differential Diagnoses: The differential diagnosis associated with the presentation includes Shoulder pain, ACS, pneumonia, PE/DVT Admission/Observation Consideration of admission/observation: Escalation of care including admission/observation considered Considered admission but given negative workup will discharge home Lab Data [facility] Lab Attestation statement: I reviewed the patient's lab results. 01/15/25 15:57 01/15/25 15:57 Labs: Lab Results 01/15/25 01/15/25 01/15/25 Range/Units 15:57 16:44 16:53 WBC 5.0 (4.8-10.8) X10*3/uL RBC 3.52 L (4.20-5.50) X10*6/uL Hgb 11.9 L (12.0-16.0) g/dl Hct 34.4 L (37.0-47.0) % MCV 97.7 (80.0-98.0) fL MCH 33.8 H (27.0-33.0) pg MCHC 34.6 (31.0-35.0) g/dl RDW 14.7 (11.0-16.0) % Plt Count 198 (160-400) X10*3/uL MPV 11.6 (9.4-12.3) fL Immature Gran % (Auto) 0.2 (0.0-0.4) % Neut % (Auto) 62.3 (45-73) % Lymph % (Auto) 26.1 (20-40) % Lea % (Auto) 8.4 (2-11) % Eos % (Auto) 2.6 (0-4) % Baso % (Auto) 0.4 (0-2) % Lymph # (Auto) 1.3 (1.2-4.9) X10*3/uL Lea # (Auto) 0.4 (0.1-1.2) X10*3/uL Eos # (Auto) 0.1 (0.0-0.4) X10*3/uL Baso # (Auto) 0.0 (0.0-0.2) X10*3/uL Abs Immat Gran (auto) 0.01 (0.00-0.03) X10*3/uL Absolute Neuts (auto) 3.1 (2.0-8.3) x10*3/uL Absolute Nucleated RBC 0.000 (0.0-0.012) X10*3/uL Nucleated RBC % (auto) 0.0 (0.0-0.2) /100WBC D-Dimer High Sensitivty 970 NG/ML Sodium 139 (135-145) mmol/L Potassium 4.3 (3.3-5.1) mmol/L Chloride 105 (96-108) mmol/L Carbon Dioxide 26 (22-29) mmol/L Anion Gap 12 (12-20) BUN 18 H (9-16) mg/dL Creatinine 1.01 (0.5-1.4) mg/dL Estim Creat Clear Calc 56.4 Estimated GFR 54 Random Glucose 98 (60-115) mg/dL Calcium 10.0 (8.4-10.2) mg/dL Magnesium 1.7 (1.6-2.6) mg/dL Total Bilirubin 0.4 (0.0-1.0) mg/dL AST 32 H (5-31) U/L ALT 15 (0-31) U/L Alkaline Phosphatase 72 (39-117) U/L Troponin I High Sens < 2.7 (<3.5-17.0) ng/L Total Protein 8.1 H (6.5-8.0) g/dL Albumin 4.3 (3.5-5.0) g/dL Influenza Type A (PCR) NEGATIVE (Negative) Influenza Type B (PCR) NEGATIVE (Negative) RSV RNA Qual (PCR) NEGATIVE (Negative) SARS-CoV-2 RNA (RT-PCR) NEGATIVE (Negative) 01/15/25 Range/Units 18:53 WBC (4.8-10.8) X10*3/uL RBC (4.20-5.50) X10*6/uL Hgb (12.0-16.0) g/dl Hct (37.0-47.0) % MCV (80.0-98.0) fL MCH (27.0-33.0) pg MCHC (31.0-35.0) g/dl RDW (11.0-16.0) % Plt Count (160-400) X10*3/uL MPV (9.4-12.3) fL Immature Gran % (Auto) (0.0-0.4) % Neut % (Auto) (45-73) % Lymph % (Auto) (20-40) % Lea % (Auto) (2-11) % Eos % (Auto) (0-4) % Baso % (Auto) (0-2) % Lymph # (Auto) (1.2-4.9) X10*3/uL Lea # (Auto) (0.1-1.2) X10*3/uL Eos # (Auto) (0.0-0.4) X10*3/uL Baso # (Auto) (0.0-0.2) X10*3/uL Abs Immat Gran (auto) (0.00-0.03) X10*3/uL Absolute Neuts (auto) (2.0-8.3) x10*3/uL Absolute Nucleated RBC (0.0-0.012) X10*3/uL Nucleated RBC % (auto) (0.0-0.2) /100WBC D-Dimer High Sensitivty NG/ML Sodium (135-145) mmol/L Potassium (3.3-5.1) mmol/L Chloride (96-108) mmol/L Carbon Dioxide (22-29) mmol/L Anion Gap (12-20) BUN (9-16) mg/dL Creatinine (0.5-1.4) mg/dL Estim Creat Clear Calc Estimated GFR Random Glucose (60-115) mg/dL Calcium (8.4-10.2) mg/dL Magnesium (1.6-2.6) mg/dL Total Bilirubin (0.0-1.0) mg/dL AST (5-31) U/L ALT (0-31) U/L Alkaline Phosphatase (39-117) U/L Troponin I High Sens < 2.7 (<3.5-17.0) ng/L Total Protein (6.5-8.0) g/dL Albumin (3.5-5.0) g/dL Influenza Type A (PCR) (Negative) Influenza Type B (PCR) (Negative) RSV RNA Qual (PCR) (Negative) SARS-CoV-2 RNA (RT-PCR) (Negative) Independent Interpretation I performed an independent interpretation of an: EKG (My interpretation patient's EKG showed a sinus rhythm heart rate is 70 OR QRS QTC normal there is diffuse T-wave flattening noted.) and CT Scan (CT angio of the chest was grossly negative) Radiology Impression Discussion of test interpretation with radiology: I have reviewed the radiologist's reading. External Record Review External record reviewed: Inpatient record Chronic Conditions Rheumatoid arthritis Social Determinants Patient?s care significantly limited by Social Determinants of Health including: Problems related to primary support group Discharge Plan Discharge Clinical Impression: Chest pain Patient Disposition: Home, Self-Care Instructions: Chest Pain (DC) Prescriptions: No Action cyclobenzaprine 10 mg tablet 5 mg PO BEDTIME PRN (Reason: muscle spasm) Qty: 3 0RF bupropion HCl 150 mg tablet extended release 24 hr 150 mg PO QAM pantoprazole 40 mg tablet,delayed release (DR/EC) 40 mg PO DAILY allopurinol 300 mg tablet 300 mg PO DAILY cyanocobalamin (vitamin B-12) 1,000 mcg capsule 1,000 mcg PO DAILY hydrochlorothiazide 25 mg tablet 25 mg PO DAILY metoprolol succinate 50 mg tablet extended release 24 hr 50 mg PO DAILY lisinopril 40 mg tablet 40 mg PO DAILY cholecalciferol (vitamin D3) 125 mcg (5,000 unit) tablet,disintegrating PO lidocaine 5 % adhesive patch,medicated 1 patch topical DAILY Rx Instructions: leave on most painful area for up to 12 hrs nystatin 100,000 unit/gram cream 1 appl topical DAILY cromolyn 4 % drops 1 drp ophthalmic (eye) QID tizanidine 2 mg tablet 2 mg PO Q6-8H PRN famotidine 20 mg tablet 20 mg PO DAILY loratadine 10 mg tablet 10 mg PO DAILY hydrocortisone 2.5 % cream 1 appl topical BID PRN clotrimazole 1 % cream 1 appl topical BID betamethasone dipropionate 0.05 % cream 1 appl topical DAILY PRN ibuprofen 800 mg tablet 800 mg PO TID levothyroxine [Tirosint] 137 mcg capsule 137 mcg PO DAILY hydroxyzine HCl 10 mg tablet 10 mg PO BID mirtazapine 30 mg tablet 30 mg PO BEDTIME zolpidem 5 mg tablet 5 mg PO BEDTIME PRN cholecalciferol (vitamin D3) 50 mcg (2,000 unit) tablet 50 mcg PO DAILY albuterol sulfate 90 mcg/actuation HFA aerosol inhaler 2 puff inhalation Q6H PRN (Reason: shortness of breath or wheezing) Qty: 1 6RF ipratropium-albuterol 0.5 mg-3 mg(2.5 mg base)/3 mL solution for nebulization 3 ml inhalation Q4-6H PRN (Reason: wheezing) Qty: 180 6RF fluticasone furoate-vilanterol [Breo Ellipta] 200-25 mcg/dose blister with device 1 inh inhalation DAILY Qty: 1 6RF aspirin [Adult Aspirin Regimen] 81 mg tablet,delayed release (DR/EC) 81 mg PO DAILY Referrals: Jen Ochoa MD [Primary Care Provider, Internal Medicine] - 2 days Ba Castaneda MD [Physician, Cardiology] - 01/18/25 Print Language: Chadian
[2025-01-15 16:42] VITALS: BP 155/74; PULSE 76; RESP 16; O2SAT 100
[2025-01-15 16:58] LABS: D Dimer High Sensitivity 970 NG/ML
[2025-01-15 17:14] LABS: Troponin-I High Sensitivity < 2.7 ng/L (<3.5-17.0)
[2025-01-15 17:38] LABS: Resp Syncy Virus RNA Qual PCR NEGATIVE (Negative); SARS COV2 PCR INHOUSE NEGATIVE (Negative)
[2025-01-15] MEDS: iohexoL 350 MG/ML 100 ML INFUS..BTL IV (18:05)
[2025-01-15 19:23] LABS: Troponin-I High Sensitivity < 2.7 ng/L (<3.5-17.0)
[2025-01-15 20:51] VITALS: BP 155/74; PULSE 76; RESP 16; TEMP -17.7; TEMP 0; O2SAT 100
== END 2025-01-15 20:53 | disposition home or self-care (01) ==
PROVIDERS: Emergency Provider Emergency Medicine Emergency Medical Services; PCP Internal Medicine
DX: R07.9 Chest pain, unspecified (principal); M79.602 Pain in left arm; R68.84 Jaw pain; J45.909 Unspecified asthma, uncomplicated; Z68.41 Body mass index [BMI] 40.0-44.9, adult; I10 Essential (primary) hypertension; E78.00 Pure hypercholesterolemia, unspecified; R05.9 Cough, unspecified; Z79.82 Long term (current) use of aspirin; N18.30 Chronic kidney disease, stage 3 unspecified; E55.9 Vitamin D deficiency, unspecified; G47.30 Sleep apnea, unspecified; E03.9 Hypothyroidism, unspecified; I12.9 Hypertensive chronic kidney disease with stage 1 through stage 4 chronic kidney disease, or unspecified chronic kidney disease; E79.0 Hyperuricemia without signs of inflammatory arthritis and tophaceous disease; B19.20 Unspecified viral hepatitis C without hepatic coma; E66.01 Morbid (severe) obesity due to excess calories; M05.9 Rheumatoid arthritis with rheumatoid factor, unspecified
CPT/HCPCS: 36415; 71045; 71275; 73030; 80053; 83735; 84484; 85025; 85379; 87637; 93005; 93971; 99285; Q9967

== ENCOUNTER → 2025-01-15 15:35 | Outpatient (BNV) | payer OTHER, SELFPAY | PROVIDERS: Emergency Provider Emergency Medicine Emergency Medical Services; PCP Internal Medicine; Visit Provider Internal Medicine | DX: I45.10 Unspecified right bundle-branch block (principal) | CPT/HCPCS: 93010 ==

== ENCOUNTER → 2025-01-15 16:25 | Outpatient (BNV) | payer OTHER, SELFPAY | PROVIDERS: Emergency Provider Emergency Medicine Emergency Medical Services; PCP Internal Medicine; Visit Provider Radiology Diagnostic Ultrasound | DX: R06.02 Shortness of breath (principal); M79.662 Pain in left lower leg; M25.512 Pain in left shoulder; R07.9 Chest pain, unspecified | CPT/HCPCS: 71045; 71275; 73030; 93971 ==

== ENCOUNTER 2025-02-02 12:18 | Outpatient (REF) | payer OTHER, SELFPAY ==
--- NOTE | ~2025-02-02 | US_ITS ---
CLINICAL HISTORY: N28.1 - Cyst of kidney, acquired US kidneys Comparison: 12/06/2022 Findings: Right kidney normal size and echotexture, 10.2 cm length. No hydronephrosis. Normal color flow. A nonshadowing interpolar echogenic lesion or focus measuring 9 x 8 x 7 mm appear stable, likely stable angiomyolipoma. Left kidney normal size and echotexture, 10.6 cm length. No hydronephrosis. Normal color flow. A lower pole cyst measuring 4.1 x 4.3 x 3.6 cm appears similar (previously 3.8 cm maximal dimension). A thin internal septation (Bosniak category 2) is noted. Impression: 1. 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 This document has been electronically signed by: Israel Kohler MD on 02/03/2025 19:29:06
--- OUTSIDE RECORDS SUMMARY | 2025-02-02 15:50 | XMS_ITS | Encounter Summary ---
Author Organization [employer] Address [address] [facility] 7t [place] [address] Care Team Providers Care Concrete Tile Machine Operator Name Role Phone Jen Ochoa MD Primary Care Provide r Reason for Visit * Reason Comments Med Refill Encounter Details Date Type Department Care Team ([facility] st Contact Info) Description 04/25/2023 Refill [facility] [address] [place], [place] [phone] Faustino Carson MD [address] [place] [address] Seborrheic dermatitis Social History Tobacco Use Types [...] dermatitis documented in this encounter Care Teams Concrete Tile Machine Operator Relationship Specialty Start Date End Date Jen Ochoa MD [address] [place] [address] PCP - General Family Medicine 12/25/17 documented as of this encounter
--- OUTSIDE RECORDS SUMMARY | 2025-02-02 15:50 | XMS_ITS | Encounter Summary ---
Author Organization [employer] Address [address] [facility] [address]t [place] [address] Care Team Providers Care Property Claim Rep Name Role Phone Jen Ochoa MD Primary Care Provide r Encounter Details Date Type Department Care Team (Late st Contact Info) Description 03/12/2023 Abstract [facility] [address] [place] [address] Meagan Gardner Social History Tobacco Use Types [...] on filedocumented in this encounter Care Teams Property Claim Rep Relationship Specialty Start Date End Date Jen Ochoa MD [address] [place] [address] PCP - General Family Medicine 12/25/17 documented as of this encounter
--- OUTSIDE RECORDS SUMMARY | 2025-02-02 15:50 | XMS_ITS | Clinical Summary ---
Author Organization [facility], Address [address] [place] [address] [place] [address] Phone Care Team Providers Care Electronic System Engineer Name Role Phone Jen Ochoa MD Primary [...] Visit [facility], [address] [address] Kiko Robertson MD [address] [place] [address] Health Maintenance Due Date Last Done [...] Discontinued Colorectal Cancer Screening: Sigmoidoscopy Discontinued Insurance [facility] Care Dual SNP ([id number]) VERONIKA [place]ERMEO [id number] [address] [place] [id number] Care Teams Electronic System Engineer Relationship Specialty Start Date End Date Jen Ochoa MD [address] [facility] [address] [place] [phone] PCP - General 02/17/19
--- OUTSIDE RECORDS SUMMARY | 2025-02-02 15:50 | XMS_ITS | Encounter Summary ---
Author Organization [employer] Address [address] [facility] 7t [place] [address] Care Team Providers Care Merchandiser Retail Representative Name Role Phone Jen Ochoa MD Primary Care Provide r Reason for Referral * Medications - Closed Specialty Diagnoses / Procedures Referred By Contac t Referred To Contact Diagnoses Rheumatoid arthritis, involving unspecified site, unspecified whether rheumatoid factor present (CMS/HCC) (HCC) Jen Ochoa MD [address] [place] [phone] Phone: tel: fax: Referral ID Status Reason Start Date Expiration Date Visits Re quested Visits Authorized Closed 1 1 Encounter Details Date Type Department Care Team ([facility] st Contact Info) Description 07/05/2022 Orders Only [facility] [address] [place] [address] [phone] Jen Ochoa MD [address] [place] [address] [phone] Rheumatoid arthritis, involving unspecified site, unspecified whether [...] site, unspecified whether rheumatoid factor present (CMS/HCC) ([facility])- Primary documented in this encounter Care Teams Merchandiser Retail Representative Relationship Specialty Start Date End Date Jen Ochoa MD [address] [place] [id number] PCP - General Family Medicine 12/25/17 documented as of this encounter
--- OUTSIDE RECORDS SUMMARY | 2025-02-02 15:50 | XMS_ITS | Encounter Summary ---
Demographics Address [address] [place] [address] Home Phone Preferred Language es Marital Status Unknown Adventism Affiliation Unknown Race White Ethnic Group Unknown Author Organization [facility] Address [address] [place] [address] Phone Care Team Providers Care Social Media Executive Name Role Phone Jen Ochoa MD Primary Care Provide r Encounter Details Date Type Department Care Team (Late st Contact Info) Description 01/01/2023 Office Communication [facility] [address] [place] [address] Kiko Robertson MD [address] [place] [address] [place] [address] Social History Tobacco Use Types [...] Visit [facility] [address] [place] [address] Kiko Robertson MD [address] [place] [address] [place] [address] documented as of this encounter Visit Diagnoses Not on filedocumented in this encounter Care Teams Social Media Executive Relationship Specialty Start Date End Date Jen Ochoa MD [address] [place] [address] [address] [place] [address] PCP - General 02/17/19 documented as of this encounter
--- OUTSIDE RECORDS SUMMARY | 2025-02-02 15:51 | XMS_ITS | Encounter Summary ---
Demographics Address [address] [facility] [address] [place] [address] Home Phone Preferred Language es Marital Status Unknown Yazidism Affiliation Unknown Race White Ethnic Group Unknown Author Organization [facility] Address [address] [place] [address] Phone Care Team Providers Care Lining Ironer Name Role Phone Jen Ochoa MD Primary Care Provide r Encounter Details Date Type Department Care Team (Late st Contact Info) Description 12/19/2021 Office Communication [facility] [address] [place] [address] Kiko Robertson MD [address] [place] [address] [place] [address] Social History Tobacco Use Types [...] Visit [facility] [address] [place] [address] Kiko Robertson MD [address] [place] [address] [place] [address] documented as of this encounter Visit Diagnoses Not on filedocumented in this encounter Care Teams Lining Ironer Relationship Specialty Start Date End Date Jen Ochoa MD [address] [place] [address] 1 [place] [phone] PCP - General 02/17/19 documented as of this encounter
--- OUTSIDE RECORDS SUMMARY | 2025-02-02 15:51 | XMS_ITS | Encounter Summary ---
Author Organization [employer] Address [address] [place] [address] Care Team Providers Care Extension Edger Name Role Phone Jen Ochoa MD Primary Care Provide r Reason for Visit * Reason Comments Med Refill Encounter Details Date Type Department Care Team ([facility] st Contact Info) Description 07/22/2024 Refill [facility] [address] [place], [place] [phone] Amrita Olvera MD [address] [place] [address] Acute gout of left ankle, unspecified cause [...] documented as of this encounter Care Teams Extension Edger Relationship Specialty Start Date End Date Jen Ochoa MD [address] [place] [id number] PCP - General Family Medicine 12/25/17 documented as of this encounter
--- OUTSIDE RECORDS SUMMARY | 2025-02-02 15:51 | XMS_ITS | Encounter Summary ---
Author Organization [facility] Address [address] [place] [address] Phone Care Team Providers Care Director Of Alumni Relations Name Role Phone Jen Ochoa MD Primary Care Provide r Encounter Details Date Type Department Care Team (Late st Contact Info) Description 07/28/2024 Documentation Only [facility] [address] [place] [address] Cyndee Stone [address] [place] [address] Social History Tobacco Use Types [...] Visit [facility] [address] [place] [address] Kiko Robertson MD [address] [place] [address] [place] [address] documented as of this encounter Visit Diagnoses Not on filedocumented in this encounter Care Teams Director Of Alumni Relations Relationship Specialty Start Date End Date Jen Ochoa MD [address] [place] [phone] PCP - General 02/17/19 documented as of this encounter
--- OUTSIDE RECORDS SUMMARY | 2025-02-02 15:51 | XMS_ITS | Encounter Summary ---
Author Organization [employer] Address [address] [facility] [address] [place] [address] Care Team Providers Care Customer Engineer Name Role Phone Jen Ochoa MD Primary Care Provide r Reason for Visit * Reason Onset Date Comments status on script 05/15/2022 Encounter Details Date Type Department Care Team ([facility] st Contact Info) Description 05/15/2022 Telephone [facility] [address] [place] [address] Jen Ochoa MD [address] [place] [address] status on script Social History Tobacco Use [...] on filedocumented in this encounter Care Teams Customer Engineer Relationship Specialty Start Date End Date Jen Ochoa MD [address] [place] [address] PCP - General Family Medicine 12/25/17 documented as of this encounter
--- OUTSIDE RECORDS SUMMARY | 2025-02-02 15:51 | XMS_ITS | Clinical Summary ---
Author Organization [employer] Address [address] [facility] [address] [place] [address] Care Team Providers Care Toy Assembler Name Role Phone Jen Ochoa MD Primary Care Provide r Allergies No known active allergies Medications lidocaine (Lidoderm) 5 % patchIndications :Rheumatoid arthritis, involving unspecified site, unspecified whether rheumatoid factor present ([facility]/HCC) ([facility]) Apply 1 patch topically in the morning. [...] dorsum of left foot. Has referral to [facility], encouraged to call. Taking allopurinol. -Prescribed short [...] ng multiple sites with positive rheumatoid factor ([facility]) 04/19/2023 04/19/2023 Assessment & Plan (08/06/2024 4:26 PM EDT): Continue to follow up with rheumatology Seronegative rheumatoid arthritis ([facility]) 08/202304/19/2023 Suprapubic abscess 04/19/2023 04/19/2023 Complex renal cyst 01/01/2023 04/19/2023 Renal mass 01/01/2023 04/19/2023 Chronic kidney disease, stage 2 (mild) 04/19/2023 Headache 12/08/2014 04/19/2023 Vitamin D deficiency 12/08/2014 04/19/2023 Hyperuricemia 06/28/2014 04/19/2023 Stage 3b chronic kidney disease ([facility]) 201304/19/2023 Tubular adenoma of colon 05/25/2013 024 [...] Encounters Date Type Department Care Team Description 01/15/2025 Orders Only [facility] External Provider, [facility] 12/22/2024 Travel 11/05/2024 Telephone [facility] [address] [place] [phone] Jen Ochoa MD No Show 11/04/2024 Telephone [facility] [address] [place] [address] Jen Ochoa MD Chart Prep from Last 3 Months Immunizations Immunization Administration [...] 01/24/2021 Influenza Vaccine (#1) 2024 , 01/22/2018, 01/14/2018, Additional history exists Zoster Vaccines (3 of [...] Procedure Name Priority Date/Time Associated Diagnosis Comments CTA CHEST PE PROTOCAL Routine 01/15/2025 6:54 PM EDT HIGH SENSITIVITY TROPONIN I Routine 01/15/2025 6:53 PM EDT SARS COV2/INFLUENZA A/B AND RSV RNA QL NAAT Routine 01/15/2025 4:53 PM EDT HIGH SENSITIVITY TROPONIN I Routine 01/15/2025 4:44 PM EDT D DIMER HIGH SENSITIVITY Routine 01/15/2025 4:44 PM EDT LOWER EXTREMITY VENOUS DUPLEX LEFT Routine 01/15/2025 4:39 PM EDT XR SHOULDER 2+ VIEWS LEFT Routine 01/15/2025 4:30 PM EDT XR CHEST 1 VIEW Routine 01/15/2025 4:30 PM EDT LIPID PANEL, STANDARD Routine 07/22/2024 4:21 PM EDT Acquired hypothyroidism LAB COLOGUARD COLON CANCER SCREEN Routine 11/03/2023 6:40 PM EDT Colon cancer screening BI MAMMOGRAM SCREENING TOMOSYNTHESIS BILATERAL Routine 10/21/2023 4:10 PM EDT from Last 3 Months or Most Recently Relevant to Health Maintenance Results * CTA Chest PE Protocal (01/15/2025 6:54 PM EDT) Anatomical Region Laterality Modality Body, Chest Computed Tomogra phy 01/15/2025 6:54 PM EDT Narrative 01/15/2025 6:55 PM EDT [place] [address] [address] Scan Report Signed Patient: Hoda Lorenzo MR#: [id number] : 1955 Acct:[id number] Age/Sex: 69 / F ADM Date: 01/15/25 Loc: .ED Attending Dr: Ordering Physician: Urvashi Rodgers MD Date of Service: 01/15/25 Procedure(s): CT angio chest PE protocol Accession Number(s): [id number] cc: Jen Ochoa MD; Urvashi Rodgers MD Report Number: [id number]: Total DLP = 438.00 mGy-cm Reason for Exam: sob CLINICAL HISTORY: sob CTA chest with 3-D postprocessing Comparison: CT/SR - CT CHEST WITHOUT IV CONTRAST - 02/04/24 10:[address]/SR - CT CHEST ANGIOGRAPHY WITH IV CONTRAST - 09/13/23 01:55 EDT Findings: Study quality is adequate for the diagnosis of pulmonary embolism. No pulmonary embolism. Heart size within normal limits. RV/LV ratio is normal. No calcified coronary artery disease. No aortic dissection or aneurysm. Mild calcified atherosclerotic disease. No lymphadenopathy. No acute pulmonary pathology. Trace subsegmental atelectasis versus linear scarring. No pneumothorax or pleural effusion. No acute osseous or soft tissue abnormality. No acute pathology in the imaged portion of the upper abdomen. Status post cholecystectomy. There is increased attenuation in the cystic duct with a filling defect measuring 1.3 cm, Unchanged ( series 7 images 17 through 19). No increased attenuation in the common bile duct. Impression: No pulmonary embolism or other acute findings. This document has been electronically signed by: Carmen Lyles MD on 01/15/2025 18:54:04 Dictated By: Carmen Robles MD Signed By: <Electronically signed by Carmen Robles MD in OV> 01/15/251854 DD/ 53 TD/TT: 01/15/251853 Manager Cosmetics: Procedure Note Donotuseinterpreter, Image - 01/15/[address] [place] [address] [address] Scan Report Signed Patient: Rashmi Lorenzo#: [id number] : 4Acct:[id number] Age/Sex: 69 / FADM Date: 01/15/25 Loc: HO.ED Attending Dr: Ordering Physician: Urvashi Rodgers MD Date of Service: 01/15/25 Procedure(s): CT angio chest PE protocol Accession Number(s): [id number] cc: Jen Ochoa MD; Urvashi Rodgers MD Report Number: [id number]: Total DLP = 438.00 mGy-cm Reason for Exam: sob CLINICAL HISTORY: sob CTA chest with 3-D postprocessing Comparison: CT/SR - CT CHEST WITHOUT IV CONTRAST - 02/04/24 10:[address]/SR - CT CHEST ANGIOGRAPHY WITH IV CONTRAST - 09/13/23 01:55 EDT Findings: Study quality is adequate for the diagnosis of pulmonary embolism. No pulmonary embolism. Heart size within normal limits. RV/LV ratio is normal. No calcified coronary artery disease. No aortic dissection or aneurysm. Mild calcified atherosclerotic disease. No lymphadenopathy. No acute pulmonary pathology. Trace subsegmental atelectasis versus linear scarring. No pneumothorax or pleural effusion. No acute osseous or soft tissue abnormality. No acute pathology in the imaged portion of the upper abdomen. Status post cholecystectomy. There is increased attenuation in the cystic duct with a filling defect measuring 1.3 cm, Unchanged ( series 7 images 17 through 19). No increased attenuation in the common bile duct. Impression: No pulmonary embolism or other acute findings. This document has been electronically signed by: Carmen Lyles MD on 01/15/2025 18:54:04 Dictated By: Carmen Robles MD Signed By: <Electronically signed by Carmen Robles MD in OV> 01/15/251854 DD/ 53 TD/TT: 01/15/251853 Manager Cosmetics: [facility] External Provider IMG CT PROCEDURES Final Result * High Sensitivity Troponin I (01/15/2025 6:53 PM EDT) Only the most recent of2 resultswithin the time period is included. [facility] TROPONIN I HIGH SENSITIVITY <2.7 <3.5 - 17.0 ng/L [facility] Comment:The Smith high sens itivity Troponin-I results should beused in conjunction with other diagnostic information suchas ECG, clinical observations and information, and patientsymptoms to aid in the diagnosis of CO. 01/15/2025 6:53 PM EDT 01/15/2025 6:55 PM EDT Generic External Data Provider LAB BLOOD ORDERAB LES Final Result [facility] [address] [place] [phone] * SARS-CoV-2 RNA, Influenza A/B, and RSV RNA, Ql NAAT (01/15/2025 4:53 PM EDT) [facility] Influenza A PCR NEGATIVE Negative [facility] Influenza B PCR NEGATIVE Negative [facility] Resp Syncy Virus RNA Qual PCR NEGATIVE Negative [facility] SARS COV2 PCR NEGATIVE Negative [facility] Comment:All test results mus t be correlated with clinical findings.Negative results do not preclude SARS-CoV2, influenza Avirus, influenza B virus and/or RSV infectionand should not be used as the sole basis for treatment orother patient management decisions. Negative results must becombined with clinical observations, patient history, andepidemiological information.This test has not been evaluated for monitoring treatment ofinfection.This test has been authorized by the FDA under an EmergencyUse Authorization (EUA) for use by authorized laboratories.Testing performed on the [employer] GeneXpert utilizingreal-time RT-PCR.All SARS CoV2 and positive influenza A/B results arereported to [facility]. 01/15/2025 4:53 PM EDT 01/15/2025 4:56 PM EDT Generic External Data Provider LAB MICROBIOLOGY - GENERAL ORDERABLES Final Result Performing Organization Address [facility] de Phone Number [facility] [address] [place] [phone] * D Dimer High Sensitivity (01/15/2025 4:44 PM EDT) D Dimer High Sensitivity 970 NG/ML [facility] Comment:D-DIMER HS REFERENCE RANGENote: Our assay reports D-Dimer Units (D- DU).The cut-off value for venous thromboembolic (VTE) disease is230 ng/mL. This value has a very high negative predictivevalue when the patient has a low to moderate clinicalprobability of VTE.The upper limit of normal is 243 ng/mL. 01/15/2025 4:44 PM EDT 01/15/2025 4:47 PM EDT Generic External Data Provider LAB BLOOD ORDERAB LES Final Result Performing Organization Address [facility] Co de Phone Number [facility] [address] [place] [phone] * Lower Extremity Venous Duplex (01/15/2025 4:39 PM EDT) 01/15/2025 4:39 PM EDT Narrative [facility] - 01/15/2025 5:00 PM EDT [address] [address] Ultrasound Report Signed Patient: Hoda Lorenzo MR#: [id number] : 1955 Acct:[id number] Age/Sex: 69 / F ADM Date: 01/15/25 Loc: .ED Attending Dr: Ordering Physician: Urvashi Rodgers MD Date of Service: 01/15/25 Procedure(s): US venous duplex LE LT Accession Number(s): [id number] cc: Jen Ochoa MD; Urvashi Rodgers MD Reason for Exam: leg pain EXAMINATION: US TRIPLEX LOWER EXTREMITY, LEFT CLINICAL INFORMATION: Left lower extremity pain COMPARISON: None available. TECHNIQUE: Color-flow triplex imaging with spectral analysis and compression Doppler were performed on the left lower extremity. FINDINGS: Respiratory variation, normal compression and augmented flow are noted throughout the left lower extremity. The visualized common femoral vein, superficial femoral vein, profunda femoral vein, popliteal vein and midcalf peroneal and posterior tibial venous segments show no evidence of deep venous thrombosis. US/US venous duplex LE LT IMPRESSION: No evidence of deep venous thrombosis involving the left lower extremity. Electronically signed by: Malvin Wetzel MD 01/15/2025 04:57 PM EDT Dictated By: Malvin Wetzel MD Signed By: <Electronically signed by Malvin Wetzel MD in OV> 01/15/25 1657 DD/ 1639 TD/TT: 01/15/25 1650 Manager Cosmetics: Procedure Note Donotuseinterpreter, Image - 01/15/[address] [address] Ultrasound Report Signed Patient: Edgard LorenzoR#: [id number] : 1955cct:[id number] Age/Sex: 69 / FADM Date: 01/15/25 Loc: .ED Attending Dr: Ordering Physician: Urvashi Rodgers MD Date of Service: 01/15/25 Procedure(s): US venous duplex LE LT Accession Number(s): [id number] cc: Jen Ochoa MD; Urvashi Rodgers MD Reason for Exam: leg pain EXAMINATION: US TRIPLEX LOWER EXTREMITY, LEFT CLINICAL INFORMATION: Left lower extremity pain COMPARISON: None available. TECHNIQUE: Color-flow triplex imaging with spectral analysis and compression Doppler were performed on the left lower extremity. FINDINGS: Respiratory variation, normal compression and augmented flow are noted throughout the left lower extremity. The visualized common femoral vein, superficial femoral vein, profunda femoral vein, popliteal vein and midcalf peroneal and posterior tibial venous segments show no evidence of deep venous thrombosis. US/US venous duplex LE LT IMPRESSION: No evidence of deep venous thrombosis involving the left lower extremity. Electronically signed by: Malvin Wetzel MD 01/15/2025 04:57 PM EDT Dictated By: Malvin Wetzel MD Signed By: <Electronically signed by Malvin Wetzel MD in OV> 01/15/25 1657 DD/ 1639 TD/TT: 01/15/25 1650 Manager Cosmetics: [facility] External Provider CV VASC ULAR PROCEDURES Final Result [facility] [address] [place] [phone] * XR Chest 1 View (01/15/2025 4:30 PM EDT) Anatomical Region Laterality Modality Chest Radiographic Mirian ging 01/15/2025 4:30 PM EDT Narrative 01/15/2025 4:43 PM EDT [address] [address] XRay Report Signed Patient: Hoda Lorenzo MR#: [id number] : 1955 Acct:[id number] Age/Sex: 69 / F ADM Date: 01/15/25 Loc: .ED Attending Dr: Ordering Physician: Urvashi Rodgers MD Date of Service: 01/15/25 Procedure(s): XR chest 1V Accession Number(s): [id number] cc: Jen Ochoa MD; Urvashi Rodgers MD Reason for Exam: shoulder pain/chest pain EXAMINATION: XR CHEST CLINICAL INFORMATION: shoulder pain/chest pain COMPARISON: 02/04/2024. TECHNIQUE: AP view of the chest was obtained. FINDINGS: The cardiac, hilar, and mediastinal contours are normal. The lungs are clear bilaterally. No pneumothorax or effusion. No focal osseous or soft tissue abnormality. There are cholecystectomy clips noted. XR/XR chest 1V IMPRESSION: No active pulmonary disease. Electronically signed by: Nilson Almazan MD 01/15/2025 04:40 PM EDT RP Dictated By: Nilson Almazan MD Signed By: <Electronically signed by Nilson Almazan MD in OV> 01/15/25 1640 DD/ 1630 TD/TT: 01/15/25 1636 Manager Cosmetics: Procedure Note Donotuseinterpreter, Image - 01/15/2025 [place] [address] XRay Report Signed Patient: Rashmi Lorenzo#: [id number] : 4Acct:[id number] Age/Sex: 69 / FADM Date: 01/15/25 Loc: .ED Attending Dr: Ordering Physician: Urvashi Rodgers MD Date of Service: 01/15/25 Procedure(s): XR chest 1V Accession Number(s): [id number] cc: Jen Ochoa MD; Urvashi Rodgers MD Reason for Exam: shoulder pain/chest pain EXAMINATION: XR CHEST CLINICAL INFORMATION: shoulder pain/chest pain COMPARISON: 02/04/2024. TECHNIQUE: AP view of the chest was obtained. FINDINGS: The cardiac, hilar, and mediastinal contours are normal. The lungs are clear bilaterally. No pneumothorax or effusion. No focal osseous or soft tissue abnormality. There are cholecystectomy clips noted. XR/XR chest 1V IMPRESSION: No active pulmonary disease. Electronically signed by: Nilson Almazan MD 01/15/2025 04:40 PM EDT RP Dictated By: Nilson Almazan MD Signed By: <Electronically signed by Nilson Almazan MD in OV> 01/15/25 1640 DD/ 1630 TD/TT: 01/15/25 1636 Manager Cosmetics: [facility] External Provider IMG XR PROCEDURES Final Result * XR Shoulder 2+ Views Left (01/15/2025 4:30 PM EDT) Anatomical Region Laterality Modality Upper Extremities, Shoulder Left Radi ographic Imaging 01/15/2025 4:30 PM EDT Narrative 01/15/2025 4:46 PM EDT [place] [address] XRay Report Signed Patient: Hoda Lorenzo MR#: [id number] : 1955 Acct:[id number] Age/Sex: 69 / F ADM Date: 01/15/25 Loc: .ED Attending Dr: Ordering Physician: Urvashi Rodgers MD Date of Service: 01/15/25 Procedure(s): XR shoulder LT min 2V Accession Number(s): [id number] cc: Jen Ochoa MD; Urvashi Rodgers MD Reason for Exam: pain EXAMINATION: XR SHOULDER, LEFT CLINICAL INFORMATION: pain COMPARISON: None available. TECHNIQUE: AP external rotation, Grashey, scapular Y, and axillary views of the left shoulder. FINDINGS: Mild acromioclavicular arthritis. No visible acute fracture or dislocation. Glenohumeral joint space is maintained. No abnormal soft tissue calcification. No suspicious findings in the visualized lung. XR/XR shoulder LT min 2V IMPRESSION: Mild acromioclavicular arthritis. No radiographic evidence of acute fracture or dislocation. Electronically signed by: Benito Fowler MD 01/15/2025 04:43 PM EDT RP Dictated By: Benito Fowler MD Signed By: <Electronically signed by Benito Fowler MD in OV> 01/15/251642 DD/ 163 TD/TT: 01/15/25 163 Manager Cosmetics: LISA Procedure Note Donotuseinterpreter, Image - 01/15/[address] [address] XRay Report Signed Patient: Rashmi Lorenzo#: [id number] : 1955cct:[id number] Age/Sex: 69 / FADM Date: 01/15/25 Loc: .ED Attending Dr: Ordering Physician: Urvashi Rodgers MD Date of Service: 01/15/25 Procedure(s): XR shoulder LT min 2V Accession Number(s): [id number] cc: Jen Ochoa MD; Urvashi Rodgers MD Reason for Exam: pain EXAMINATION: XR SHOULDER, LEFT CLINICAL INFORMATION: pain COMPARISON: None available. TECHNIQUE: AP external rotation, Grashey, scapular Y, and axillary views of the left shoulder. FINDINGS: Mild acromioclavicular arthritis. No visible acute fracture or dislocation. Glenohumeral joint space is maintained. No abnormal soft tissue calcification. No suspicious findings in the visualized lung. XR/XR shoulder LT min 2V IMPRESSION: Mild acromioclavicular arthritis. No radiographic evidence of acute fracture or dislocation. Electronically signed by: Benito Fowler MD 01/15/2025 04:43 PM EDT RP Dictated By: Benito Fowler MD Signed By: <Electronically signed by Benito Fowler MD in OV> 01/15/251642 DD/ 1630 TD/TT: 01/15/25 163 Manager Cosmetics: LISA [facility] External Provider IMG XR PROCEDURES Final Result * (ABNORMAL) Lipid Panel, Standard (07/22/2024 4:21 PM EDT) Triglycerides 171(H) <150 mg/dL [facility] Comment:Desirable Triglyceri de: less than 150 mg/dLBorderline High Triglyceride 150-199 mg/dLHigh Triglyceride: 200-499 mg/dLVery High Triglyceride: greater than or equal to 5OO mg/dL Cholesterol 216(H) <200 mg/dL [facility] Comment:Desirable Cholestero l: less than 200 mg/dLBorderline High Cholesterol: 200-239 mg/dLHigh Cholesterol: greater than 239 mg/dL LDL Cholesterol Calculated 126(H) <100 mg/dL [facility] Comment:Desirable LDL: less than 100 mg/dLNear Optimal/Above Optimal LDL: 110- 129 mg/dLBorderline High LDL: 130-159 mg/dLHigh LDL: 160-189 mg/dLVery High LDL: greater than or equal to 190 mg/dL HDL Cholesterol 56 >40 mg/dL [facility] Comment:Desirable HDL: great er than 40 mg/dL Note: This HDL assay may give artificially low results in patients with liver disease. Blood Venous blood specimen / Unknown 07/22/2024 4:21 PM EDT 07/22/2024 6:19 PM EDT Jen Kidd MD LAB BLOOD ORDERABLES Final Result [facility] [address] [place] [phone] * Cologuard?? colon cancer screening (11/03/2023 6:40 PM EDT) Cologuard Result Negative Negative 11/08/19 12:54 PM EDT [facility] (CLIA #:[id number]) Comment: NEGATIVE TEST RESULT. A negative Cologuard [...] (Lucy Mcnally al, N Engl J Med 2014;370(14):8873-6766) The normal value (reference range) for this assay is negative. COLOGUARD RE-SCREENING RECOMMENDATION: Periodic colorectal cancer screening is an important part of preventive healthcare for asymptomatic individuals at average risk for colorectal cancer. Following a negative Cologuard result, the [place] Cancer Society and U.S. Multi-Society Task Force screening guidelines recommend a Cologuard re-screening interval of 3 years. References: [place] [employer] Guideline for Colorectal Cancer Screening: https://www.cancer.org/cancer/htegu-nzxuyr-oojgum/hmyhoaqef-nyodibuqa-dvoluxu/ac s-rec ommendations.html.; Yaron DK, Nayeli UPTON, Emir WuK, Colorectal Cancer Screening: Recommendations for Physicians and Patients from the U.S. Multi-Society Task Force on Colorectal Cancer Screening , Am J Gastroenterology 2017; 112:5304-9405. TEST DESCRIPTION: Composite algorithmic analysis of stool [...] (Lucy Mcnally al, N Engl J Med 2014;370(14):2075-0819.) Cologuard may produce a false negative or false positive result (no colorectal cancer or precancerous polyp present at colonoscopy follow up). A negative Cologuard test result does not guarantee the absence of CRC or advanced adenoma (pre-cancer). The current Cologuard screening interval is every 3 years. ([place] [employer] and U.S. Multi-Society Task Force). Cologuard performance data in a 10,000 patient pivotal study using colonoscopy as the reference method can be accessed at the following location: www.[employer].com/results. Additional description of the Cologuard test process, warnings and precautions can be found at www.cologuard.com. Stool specimen (specimen) 11/03/2023 6:40 PM EDT 11/05/2023 11:00 AM EDT Jen Kidd MD LAB MOLECULAR DIAGNOS TICS ORDERABLES Final Result [facility] (CLIA #:[id number]) [place] [address], * BI Mammogram Screening Tomosynthesis Bilateral (10/21/2023 4:10 PM EDT) Anatomical Region Laterality Modality Breast Bilateral Mammography 10/21/2023 4:10 PM EDT Narrative 11/17/2023 3:43 PM EDT [facility] [address] [place] [address] Dr. Beckman, [place] [address] Mammography Report Signed Patient: Hoda Lorenzo MR#: [id number] : 1955 Acct:[id number] Age/Sex: 68 / F ADM Date: 10/21/23 Loc: HO.MAMMO Attending Dr: Jen Kidd MD Ordering Physician: Jen Ochoa MD Results: 1Negative Date of Service: 10/21/23 Follow Up: 1 Year From Orig inal Mammogram Procedure(s): MM tomosynthesis screening BI Accession Number(s): [id number] cc: Jen Ochoa MD EXAMINATION: MM SCREENING [...] in OV> 11/17/23 1539 DD/ 1610 TD/TT: Manager Cosmetics: Procedure Note Donotuseinterpreter, Image - [facility]17/[facility] [address] [place] [address] Mammography Report Signed Patient: Rashmi Loernzo#: [id number] : 1955cct:[id number] Age/Sex: 68 / FADM Date: 10/21/23 Loc: KYALA Attending Dr: Jen Kidd MD Ordering Physician: Jen Ochoa MDResults: 1Negative Date of Service: 10/21/23Follow Up: 1 Year From Orig inal Mammogram Procedure(s): MM tomosynthesis screening BI Accession Number(s): [id number] cc: Jen Ochoa MD EXAMINATION: MM SCREENING [...] in OV> 11/17/23 1539 DD/ 1610 TD/TT: Manager Cosmetics: Jen Kidd MD IMG BI PROCEDURES Fin al Result from Last 3 Months or Most Recently Relevant to Health Maintenance Insurance [facility] [employer] (O D-SNP) VERONIKA BERMEO [id number] Care Teams Toy Assembler Relationship Specialty Start Date End Date Jen Ochoa MD [address] [place] [phone] PCP - General Family Medicine 12/25/17
--- OUTSIDE RECORDS SUMMARY | 2025-02-02 15:51 | XMS_ITS | Encounter Summary ---
Author Organization [employer] Address [address] [facility] [address] [place] [address] Care Team Providers Care Avionics Systems Engineer Name Role Phone Jen Ochoa MD Primary Care Provide r Encounter Details Date Type Department Care Team (Late st Contact Info) Description 04/21/2024 Orders Only [facility] [address] [place], [place] [phone] Jen Ochoa MD [address] [place], [place] [phone] Social History Tobacco Use Types Packs/Day Years [...] documented as of this encounter Care Teams Avionics Systems Engineer Relationship Specialty Start Date End Date Jen Ochoa MD [address] [place] [address] PCP - General Family Medicine 12/25/17 documented as of this encounter
--- OUTSIDE RECORDS SUMMARY | 2025-02-02 15:51 | XMS_ITS | Encounter Summary ---
Author Organization [facility] Address [address] [place] [address] Phone Care Team Providers Care Automatic Vulcanizing Operator Name Role Phone Jen Ochoa MD Primary Care Provide r Encounter Details Date Type Department Care Team (Late st Contact Info) Description 07/27/2024 Documentation Only [facility] [address] [place] [address] Cyndee Stone [address] [place] [phone] Social History Tobacco Use Types [...] Visit [facility] [address] [place] [address] Kiko Robertson MD [address] [place] [address] [place] [address] documented as of this encounter Visit Diagnoses Not on filedocumented in this encounter Care Teams Automatic Vulcanizing Operator Relationship Specialty Start Date End Date Jen Ochoa MD [address] [place] [phone] PCP - General 02/17/19 documented as of this encounter
--- OUTSIDE RECORDS SUMMARY | 2025-02-02 15:51 | XMS_ITS | Encounter Summary ---
Demographics Address [address] [place] [address] Home Phone Preferred Language es Marital Status Unknown Lutheran Affiliation Unknown Race White Ethnic Group Unknown Author Organization [facility] Address [address] [place] [address] Phone Care Team Providers Care Helicopter Crew Chief Name Role Phone Jen Ochoa MD Primary Care Provide r Encounter Details Date Type Department Care Team (Late st Contact Info) Description 04/20/2021 Documentation Only [facility] [address] [place] [address] Kiko Robertson MD [address] [place] [address] Dr. [place] [address] Social History Tobacco Use Types [...] [facility] [address] [place] [address] Kiko Robertson MD [address] [place] [address] [place]. [place] [address] documented as of this encounter Visit Diagnoses Not on filedocumented in this encounter Care Teams Helicopter Crew Chief Relationship Specialty Start Date End Date Jen Ochoa MD [address] [place] [address] [address] [place] [address] PCP - General 02/17/19 documented as of this encounter
--- OUTSIDE RECORDS SUMMARY | 2025-02-02 15:51 | XMS_ITS | Encounter Summary ---
Author Organization [employer] Address [address] [place] [address] Care Team Providers Care Transit Mechanic Name Role Phone Jen Ochoa MD Primary Care Provide r Encounter Details Date Type Department Care Team (Late st Contact Info) Description 05/02/[address] [facility] [address] [place], [place] [phone] Erin Grace LPN Social History Tobacco Use [...] ([facility]) (05/20/2022 1:35 AM EST) IDNOW SERIAL# [id number] [facility] COVID-19 TEST Negative Negative [facility] COVID-19 NOTE See Note [facility] Comment: Results are for the identification of SARS-CoV2 RNA. TheSARS-CoV2 RNA is generally detectable in respiratory samplesduring the acute phase of infection. Positive results areindicative of the presence of SARS-CoV-2 RNA; clinicalcorrelation with patient history and other diagnosticinformation is necessary to determine patient infectionstatus. Positive results do not rule out bacterial infectionor co- infection with other viruses.Testing facilities within the [facility] and [facility] are required to report all positive results [...] 1:35 AM EST 05/20/2022 1:40 AM EST [facility] Exter nal Provider LAB MOLECULAR DIAGNOSTICS ORDERABLES Final Result [facility] [address] [place] [phone] * Influenza A B2 ID NOW ([facility]) (05/20/2022 1:35 AM EST) IDNOW SERIAL# [id number] [facility] Influenza A Negative Negative [facility] Influenza B2 Negative Negative [facility] Influenza A B2 Note See Note [facility] Comment:The Finch ID NOW In fluenza [...] 1:35 AM EST 05/20/2022 1:40 AM EST [facility] Exter nal Provider LAB MICROBIOLOGY - GENERAL ORDERABLES Final Result Performing Organization Address [facility] Co de Phone Number [facility] [address] [place] [address] [phone] * Strep A Nucleic Acid (05/20/2022 1:35 AM EST) IDNOW SERIAL# [id number] [facility] Strep A Nucleic Acid Negative Negative [facility] Comment:All test results mus t be correlated with clinical findings.This test has not been evaluated for monitoring treatment ofinfection.Additional follow-up testing using the culture method isrequired if the result is negative and clinical symptomspersist, or in the event of an acute rheumatic feveroutbreak. 05/20/2022 1:35 AM EST 05/20/2022 1:40 AM EST [facility] Exter nal Provider LAB MICROBIOLOGY - GENERAL ORDERABLES Final Result Performing Organization Address [facility] de Phone Number [facility] [address] [place] [address] [phone] documented in this encounter Visit Diagnoses Not on filedocumented in this encounter Care Teams Transit Mechanic Relationship Specialty Start Date End Date Jen Ochoa MD [address] [place] [phone] PCP - General Family Medicine 12/25/17 documented as of this encounter
--- OUTSIDE RECORDS SUMMARY | 2025-02-02 15:51 | XMS_ITS | Encounter Summary ---
Demographics Address [address] [place] [address] Home Phone Preferred Language es Marital Status Unknown Jain Affiliation Unknown Race White Ethnic Group Unknown Author Organization [facility] Address [address] [place] [address] Phone Care Team Providers Care Facility Supervisor Name Role Phone Jen Ochoa MD Primary Care Provide r Encounter Details Date Type Department Care Team (Late st Contact Info) Description 12/13/2021 Documentation Only [facility] [address] [place] [address] Kiko Robertson MD [address] [place] [address] [place] [address] Social History Tobacco Use Types [...] [facility] [address] [place] [address] Kiko Robertson MD [address] [place] [address] [place] [address] documented as of this encounter Visit Diagnoses Not on filedocumented in this encounter Care Teams Facility Supervisor Relationship Specialty Start Date End Date Jen Ochoa MD [address] [place] [address] [address] [place] [phone] PCP - General 02/17/19 documented as of this encounter
== END 2025-02-02 12:19 | disposition home or self-care (01) ==
LOC: HO.US 12:18
PROVIDERS: PCP Internal Medicine; Visit Provider Nurse Practitioner Family
DX: N28.1 Cyst of kidney, acquired (principal)
CPT/HCPCS: 76775

== ENCOUNTER → 2025-02-02 12:22 | Outpatient (BNV) | payer OTHER, SELFPAY | PROVIDERS: PCP Internal Medicine; Visit Provider Radiology Diagnostic Radiology | DX: N28.1 Cyst of kidney, acquired (principal); D17.71 Benign lipomatous neoplasm of kidney | CPT/HCPCS: 76775 ==

== ENCOUNTER 2025-02-26 10:26 | Outpatient (REF) | payer OTHER, SELFPAY ==
--- NOTE | ~2025-02-26 | US_ITS ---
EXAMINATION: US ABDOMEN LIMITED WITH LIVER ELASTOGRAPHY CLINICAL INFORMATION: Hepatitis B sclerosis COMPARISON: None available. TECHNIQUE: Real-time imaging of the abdominal viscera. Noninvasive ultrasound liver fibrosis assessment is performed using Aimee ElastPQ point quantification shear wave elastography (pSWE) with a 5 MHz transducer. Multiple elastography samples are obtained. FINDINGS: PANCREAS: The visualized pancreatic head and body are normal in appearance. The remainder of the pancreas is obscured from visualization by the overlying bowel gas. LIVER: The liver demonstrates lobulated contour. Heterogeneous borderline increased parenchymal echotexture.. No focal lesion or intrahepatic biliary duct dilatation. The right lobe measures 15.3 cm in length. The left lobe measures 10.2 cm in length. Shear wave elastography provides a median stiffness of 1.29 m/s (reference: normal median stiffness is 0.81 - 1.22 m/s). The IQR/median stiffness to assess sampling precision is 0.12 (reference: optimal IQR/median stiffness is under 0.3). GALLBLADDER: Status postcholecystectomy COMMON BILE DUCT: Normal in caliber measuring 0.4 cm in diameter. FREE FLUID: None seen in the area of examination. US/US abdomen chahal w elastography IMPRESSION: 1. Cirrhotic appearing liver. 2. Elastography: Median stiffness 1.29 m/s *Liver Stiffness equal or less than 1.3 m/s: High probability of being normal. REFERENCE: Society of Radiologists in Ultrasound Liver Stiffness Thresholds (2020): LIVER STIFFNESS THRESHOLDS: *Liver Stiffness equal or less than 1.3 m/s: High probability of being normal. *Liver Stiffness less than 1.7 m/s: In the absence of other known clinical signs, rules out compensated advanced chronic liver disease. *Liver Stiffness 1.7-2.1 m/s: Suggestive of compensated advanced chronic liver disease but need further test for confirmation. *Liver Stiffness over 2.1 m/s: Rules in compensated advanced chronic liver disease. *Liver Stiffness over 2.4 m/s: Suggestive of clinically significant portal hypertension. QUALITY OF DATA SET: *IQR/Median value equal or less than 0.15 implies a quality data set. *IQR/Median value over 0.15 implies a poor quality data set. SIGNIFICANT CHANGE FROM PRIOR EXAM: Significant change if liver stiffness measurement is 10% or greater from prior exam. OTHER CONSIDERATIONS: The stage of liver fibrosis may be overestimated in the setting of acute hepatitis, liver inflammation, elevated liver function tests, hepatic vascular congestion, obstructive cholestasis, non-fasting state, and infiltrative diseases such as amyloidosis and lymphoma. In some patients with NAFLD, the liver stiffness thresholds for compensated advanced chronic liver disease may be lower. In causes other than viral hepatitis and NAFLD, liver stiffness thresholds are not well established. Electronically signed by: Benito Fowler MD 02/26/2025 04:04 PM [facility]
[2025-02-26 11:49] LABS: MANUAL DIFF FLAG NO
[2025-02-26 12:41] LABS: Hematocrit 37.2 % (37.0-47.0); Hemoglobin 12.2 g/dl (12.0-16.0); Imm Gran Abs Auto 0.02 X10*3/uL (0.00-0.03); Imm Gran Pct Auto 0.4 % (0.0-0.4); Lymphocytes Absolute Auto 1.7 X10*3/uL (1.2-4.9); Mean Corpuscular HGB Conc 32.8 g/dl (31.0-35.0); Mean Corpuscular Hemoglobin 32.8 pg (27.0-33.0); Mean Corpuscular Volume 100.0 fL (80.0-98.0); NRBC Abs Auto 0.000 X10*3/uL (0.0-0.012); NRBC Pct Auto 0.0 /100WBC (0.0-0.2); Platelet Count 213 X10*3/uL (160-400); Red Blood Count 3.72 X10*6/uL (4.20-5.50); White Blood Count 5.3 X10*3/uL (4.8-10.8)
[2025-02-26 12:50] LABS: INTERNATIONAL NORM RATIO 1.0 (0.9-1.1); Prothrombin Time 12.3 SEC (11.2-13.5)
[2025-02-26 13:47] LABS: Alanine Aminotransferase 20 U/L (0-31); Albumin Level 4.3 g/dL (3.5-5.0); Alkaline Phosphatase 82 U/L (39-117); Aspartate Amino Transferase 32 U/L (5-31); Total Protein 7.8 g/dL (6.5-8.0)
[2025-03-05 17:47] LABS: FIB-ALT 14 U/L (6-29); FIB-Alpha-2-Macroglobulin 298 mg/dL (106-279); FIB-Apolipoprotein A1 182 mg/dL (101-198); FIB-GGT 41 U/L (3-65); FIB-Haptoglobin 123 mg/dL (43-212); FIB-Total Bilirubin 0.4 mg/dL (0.2-1.2); Liver Fibrosis Score 0.35; Liver Fibrosis Stage F1-F2; Nec Inflam Act Grade A0; Nec Inflam Act Score 0.05
== END 2025-02-26 10:27 | disposition home or self-care (01) ==
LOC: HO.US 10:26
PROVIDERS: Absent Provider Internal Medicine; PCP Internal Medicine; Visit Provider Internal Medicine
DX: K74.69 Other cirrhosis of liver (principal); B19.20 Unspecified viral hepatitis C without hepatic coma; Z86.19 Personal history of other infectious and parasitic diseases
CPT/HCPCS: 36415; 76705; 76981; 80076; 81596; 82105; 85025; 85610

== ENCOUNTER → 2025-02-26 10:52 | Outpatient (BNV) | payer OTHER, SELFPAY | PROVIDERS: Absent Provider Internal Medicine; PCP Internal Medicine; Visit Provider Radiology Diagnostic Ultrasound | DX: K74.60 Unspecified cirrhosis of liver (principal); B19.20 Unspecified viral hepatitis C without hepatic coma | CPT/HCPCS: 76705 ==

== ENCOUNTER 2025-04-05 13:39 | Outpatient (REF) | payer OTHER, SELFPAY ==
--- NOTE | ~2025-04-05 | XR_ITS ---
EXAMINATION: X-ray bilateral wrist CLINICAL INFORMATION: Atraumatic wrist pain COMPARISON: None TECHNIQUE: Left wrist 3 views. Right wrist 3 views. FINDINGS: Right wrist: No evidence of acute fracture, dislocation or suspicious bony lesion. Alignment is anatomic. Carpal row alignment is maintained. No erosions. No abnormal soft tissue calcification. Left wrist: Small corticated ossification distal to the ulna styloid, probably related to remote injury. No visible acute fracture, dislocation or suspicious bony lesion. No erosions. No abnormal soft tissue calcification. XR/XR wrist LT min 3V IMPRESSION: Right wrist: No acute findings Left wrist: Small chronic ossification distal to the ulna styloid, probably related to remote injury. Electronically signed by: Benito Fowler MD 04/05/2025 02:34 PM [facility]
--- NOTE | ~2025-04-05 | XR_ITS ---
EXAMINATION: X-ray bilateral wrist CLINICAL INFORMATION: Atraumatic wrist pain COMPARISON: None TECHNIQUE: Left wrist 3 views. Right wrist 3 views. FINDINGS: Right wrist: No evidence of acute fracture, dislocation or suspicious bony lesion. Alignment is anatomic. Carpal row alignment is maintained. No erosions. No abnormal soft tissue calcification. Left wrist: Small corticated ossification distal to the ulna styloid, probably related to remote injury. No visible acute fracture, dislocation or suspicious bony lesion. No erosions. No abnormal soft tissue calcification. XR/XR wrist RT min 3V IMPRESSION: Right wrist: No acute findings Left wrist: Small chronic ossification distal to the ulna styloid, probably related to remote injury. Electronically signed by: Benito Fowler MD 04/05/2025 02:34 PM [facility]
--- OUTSIDE RECORDS SUMMARY | 2025-04-05 13:00 | XMS_ITS | Encounter Summary ---
Author Organization [employer] Address [address] [facility] 7t [place] [address] Care Team Providers Care On Air Talent Name Role Phone Jen Ochoa MD Primary Care Provide r Reason for Referral * Consultation (Urgent) - Authorized Specialty Diagnoses / Procedures Referred By Contac t Referred To Contact Rheumatology Diagnoses Rheumatoid arthritis involving multiple sites with positive rheumatoid factor (CMS/HCC) (HCC) Wilton Méndez ANP [address] [place] [address] Phone: tel: fax: [facility] Referral ID Status Reason Start Date Expiration Date Visits Requested Visits Authorized [id number] Authorized Specialty Services Required 04/05/2026 1 1 Encounter Details Date Type Department Care Team ([facility] st Contact Info) Description 04/05/2025 1:00 PM EST Office Visit [facility] MEDICINE [address] [place] [phone] Wilton Méndez ANP [address] [place] [address] Left wrist pain (Primary Dx); Rheumatoid arthritis involving multiple sites with positive rheumatoid factor (CMS/HCC) (HCC); Bilateral wrist pain; Essential hypertension Social History Tobacco Use Types Packs/Day Years [...] Sign Reading Time Taken Comments Blood Pressure 160/90 04/05/2025 1:08 PM EST Pulse 81 04/05/2025 1:08 PM EST Temperature 36.2 C (97.1 F) 04/05/2025 1:08 PM EST Respiratory Rate 20 04/05/2025 1:08 PM EST Oxygen Saturation 97% 04/05/2025 1:08 PM EST Inhaled Oxygen Concentration - - Weight 101 kg (222 lb 6 oz) 04/05/2025 1:[address] Height 137.2 cm (4' 6 ) 04/05/2025 1:08 PM EST Body Mass Index 53.62 04/05/2025 1:08 PM EST documented in this encounter Progress Notes * Wilton Méndez, ANP - 04/05/2025 1:00 PM EST Subjective Here today for sick visit evaluation of L wrist pain. PMH incl RA, hypertension, HLD, cirrhosis, hypertension, gout, hypothyroid Per triage: The pt states that the left wrist has a notable bump that is red in color and appears swollen. Thept confirmed that this is not the same as the bony prominence that is located on the wrist connecting to the arm. The pt rates the pain around a 8/10. The pt does have full ROM intact and is able to bend and flex the wrist. The pt denies any other known lump on any other part of the body and the only symptom has been the on/off pain. Aggravating factors include bending the wrist and making a fist. Has 1 week of L wrist pain and tingling, also now a few days of R wrist pain similarly. Does have tingling rodney at night. Can't grab anything heavy. Stopped b12 supplement in July d/t b12 level was high. Taking thyroid med as directed. Taking APAPfor pain w/o effect. Taking allopurinol as directed. Hypertension: did not take BP meds yet today. Will take when she gets home. Matilde DAVALOS provided Sinhala interpretation. Non-smoker Review of Systems Constitutional: Negative for chills, fatigue and fever. Cardiovascular: Negative for chest pain and palpitations. Musculoskeletal: Positive for arthralgias and joint swelling. Negative for back pain. Neurological: Positive for weakness and numbness. Negative for dizziness. Objective Blood pressure (!) 160/90, pulse 81, temperature 97.1 ??F (36.2 ??C), temperature source Temporal, resp. rate 20, height 4' 6 (1.372 m), weight 222 lb 6 oz (101 kg), SpO2 97%. Physical Exam Constitutional: General: She is not in acute distress. Appearance: Normal appearance. She is obese. She is not ill-appearing. HENT: Head: Normocephalic and atraumatic. Eyes: General: No scleral icterus. Extraocular Movements: Extraocular movements intact. Pupils: Pupils are equal, round, and reactive to light. Cardiovascular: Rate and Rhythm: Normal rate. Pulmonary: Effort: Pulmonary effort is normal. No accessory muscle usage or respiratory distress. Musculoskeletal: Comments: No swelling on wrists noted, nor masses; unable to tolerate tinels or phalen's d/t pain in volar surface bilateral wrists; tenderness at base of bilateral thumbs w/ palpation Neurological: Mental Status: She is alert and oriented to person, place, and time. Gait: Gait normal. Comments: Urban Design Consultant strength 3/5, R > L Psychiatric: Mood and Affect: Mood normal. Behavior: Behavior normal. Diagnoses and all orders for this visit: Left wrist pain/bilateral wrist pain As below - XR Wrist 3+ Views Left; Future Bilateral wrist pain Gout vs CTS vs arthritis vs RA flare vs tendonitis vs joit pathology plus b12 def Advised ice or heat, braces, labs as below, diclofenac topical Rheum referral - XR Wrist 3+ Views Left; Future - XR Wrist 3+ Views Right; Future - Uric acid; Future - TSH W/Reflex to FT4; Future - Vitamin B12; Future - Diclofenac Sodium (Voltaren) 1 % gel; Apply up to 4x/d to affected joint(s) for pain/swelling Rheumatoid arthritis involving multiple sites with positive rheumatoid factor (CMS/HCC) (HCC) Referral to rheum renewed. Stressed to pt need to attend appts rodney d/t limited availability of local specialists. [facility] has transportation services. If she does not hear from rheum w/in 1 mo, call us to get info. Hypertension BP far above goal < 120/80. Did not take meds. She will do so upon return home. follow-up w/ PCPfor BP med adj if needed. Gave log and advised to call clinic if BP remains > 140/90. Pt w/o CP,GUO, SOB, vision changes, SCHMIDT today documented in this encounter Plan of Treatment Upcoming Encounters Date Type Department Care Team (Late st Contact Info) Description 06/08/2025 3:30 PM EST Office Visit [facility] MEDICINE [address] [place] [address] Jen Ochoa MD [address] [place] [address] Scheduled Orders Name Type Priority Associated Diagnoses Orde r Schedule Vitamin B12 Lab Routine Bilateral wrist pain Expected: 04/05/2025 (Approximate), Expires: 04/05/2026 Scheduled Referrals Name Type Priority Associated Diagnoses Order Schedule Referral to Rheumatology Outpatient Referral Urgent Rheumatoid arthritis involving multiple sites with positive rheumatoid factor ([facility]/HCC) (HCC) Expected: 04/05/2025 (Approximate), Expires: 04/05/2026 documented as of this encounter Procedures Procedure Name Priority Date/Time Associated Diagnosis Comments XR WRIST 3+ VIEWS RIGHT Routine 04/05/2025 2:10 PM EST Bilateral wrist pain XR WRIST 3+ VIEWS LEFT Routine 04/05/2025 2:08 PM EST Left wrist pain Bilateral wrist pain TSH W/REFLEX TO FT4 Routine 04/05/2025 2 :05 PM EST Bilateral wrist pain URIC ACID Routine 04/05/2025 2:05 PM EST Bilateral wrist pain documented in this encounter Results * XR Wrist 3+ Views Right (04/05/2025 2:10 PM EST) Anatomical Region Laterality Modality Upper Extremities, Wrist Right Radiogr aphic Imaging 04/05/2025 2:10 PM EST Narrative 04/05/2025 2:37 PM EST [address] [address] XRay Report Signed Patient: Hoda Lorenzo MR#: [id number] : 1955 Acct:[id number] Age/Sex: 70 / F ADM Date: 04/05/25 Loc: HO.[facility] Attending Dr: Wilton Méndez NP Ordering Physician: WILTON MÉNDEZ NP Date of Service: 04/05/25 Procedure(s): XR wrist RT min 3V Accession Number(s): [id number] cc: Jen Ochoa MD; WILTON MÉNDEZ NP Reason for Exam: atraumatic wrist pain EXAMINATION: X-ray bilateral wrist CLINICAL INFORMATION: Atraumatic wrist pain COMPARISON: None TECHNIQUE: Left wrist 3 views. Right wrist 3 views. FINDINGS: Right wrist: No evidence of acute fracture, dislocation or suspicious bony lesion. Alignment is anatomic. Carpal row alignment is maintained. No erosions. No abnormal soft tissue calcification. Left wrist: Small corticated ossification distal to the ulna styloid, probably related to remote injury. No visible acute fracture, dislocation or suspicious bony lesion. No erosions. No abnormal soft tissue calcification. XR/XR wrist RT min 3V IMPRESSION: Right wrist: No acute findings Left wrist: Small chronic ossification distal to the ulna styloid, probably related to remote injury. Electronically signed by: Benito Fowler MD 04/05/2025 02:34 PM EST Dictated By: Benito Fowler MD Signed By: <Electronically signed by Benito Fowler MD in OV> 04/05/25 1434 DD/ 1410 TD/TT: 04/05/25 1420 Knowledge Management Advisor: LISA Procedure Note Donotuseinterpreter, Image - 04/05/[address] [address] XRay Report Signed Patient: Rashmi Lorenzo#: [id number] : 1955cct:[id number] Age/Sex: 70 / FADM Date: 04/05/25 Loc: HO.[facility]X Attending Dr: Wilton Méndez NP Ordering Physician: WILTON MÉNDEZ NP Date of Service: 04/05/25 Procedure(s): XR wrist RT min 3V Accession Number(s): [id number] cc: Jen Ochoa MD; WILTON MÉNDEZ NP Reason for Exam: atraumatic wrist pain EXAMINATION: X-ray bilateral wrist CLINICAL INFORMATION: Atraumatic wrist pain COMPARISON: None TECHNIQUE: Left wrist 3 views. Right wrist 3 views. FINDINGS: Right wrist: No evidence of acute fracture, dislocation or suspicious bony lesion. Alignment is anatomic. Carpal row alignment is maintained. No erosions. No abnormal soft tissue calcification. Left wrist: Small corticated ossification distal to the ulna styloid, probably related to remote injury. No visible acute fracture, dislocation or suspicious bony lesion. No erosions. No abnormal soft tissue calcification. XR/XR wrist RT min 3V IMPRESSION: Right wrist: No acute findings Left wrist: Small chronic ossification distal to the ulna styloid, probably related to remote injury. Electronically signed by: Benito Fowler MD 04/05/2025 02:34 PM EST RP Dictated By: Benito Fowler MD Signed By: <Electronically signed by Benito Fowler MD in OV> 04/05/25 1434 DD/ 1410 TD/TT: 04/05/25 1420 Knowledge Management Advisor: LISA Wilton Méndez ANP IMG XR PROCEDURES Edited Result - Final * XR Wrist 3+ Views Left (04/05/2025 2:08 PM EST) Anatomical Region Laterality Modality Upper Extremities, Wrist Left Radiogr aphic Imaging 04/05/2025 2:08 PM EST Narrative 04/05/2025 2:37 PM EST [address] [address] XRay Report Signed Patient: Hoda Lorenzo MR#: [id number] : 1955 Acct:[id number] Age/Sex: 70 / F ADM Date: 04/05/25 Loc: HO.[facility]HCX Attending Dr: Wilton Méndez NP Ordering Physician: WILTON MÉNDEZ NP Date of Service: 04/05/25 Procedure(s): XR wrist LT min 3V Accession Number(s): [id number] cc: Jen Ochoa MD; WILTON MÉNDEZ NP Reason for Exam: atraumatic wrist pain EXAMINATION: X-ray bilateral wrist CLINICAL INFORMATION: Atraumatic wrist pain COMPARISON: None TECHNIQUE: Left wrist 3 views. Right wrist 3 views. FINDINGS: Right wrist: No evidence of acute fracture, dislocation or suspicious bony lesion. Alignment is anatomic. Carpal row alignment is maintained. No erosions. No abnormal soft tissue calcification. Left wrist: Small corticated ossification distal to the ulna styloid, probably related to remote injury. No visible acute fracture, dislocation or suspicious bony lesion. No erosions. No abnormal soft tissue calcification. XR/XR wrist LT min 3V IMPRESSION: Right wrist: No acute findings Left wrist: Small chronic ossification distal to the ulna styloid, probably related to remote injury. Electronically signed by: Benito Fowler MD 04/05/2025 02:34 PM EST RP Dictated By: Benito Fowler MD Signed By: <Electronically signed by Benito Fowler MD in OV> 04/05/25 1434 DD/ 1408 TD/TT: 04/05/25 1420 Knowledge Management Advisor: LISA Procedure Note Donotuseinterpreter, Image - 04/05/[address] [address] XRay Report Signed Patient: Rashmi Lorenzo#: [id number] : 4Acct:[id number] Age/Sex: 70 / FADM Date: 04/05/25 [facility] Attending Dr: Wilton Méndez NP Ordering Physician: WILTON MÉNDEZ NP Date of Service: 04/05/25 Procedure(s): XR wrist LT min 3V Accession Number(s): [id number] cc: Jen Ochoa MD; WILTON MÉNDEZ NP Reason for Exam: atraumatic wrist pain EXAMINATION: X-ray bilateral wrist CLINICAL INFORMATION: Atraumatic wrist pain COMPARISON: None TECHNIQUE: Left wrist 3 views. Right wrist 3 views. FINDINGS: Right wrist: No evidence of acute fracture, dislocation or suspicious bony lesion. Alignment is anatomic. Carpal row alignment is maintained. No erosions. No abnormal soft tissue calcification. Left wrist: Small corticated ossification distal to the ulna styloid, probably related to remote injury. No visible acute fracture, dislocation or suspicious bony lesion. No erosions. No abnormal soft tissue calcification. XR/XR wrist LT min 3V IMPRESSION: Right wrist: No acute findings Left wrist: Small chronic ossification distal to the ulna styloid, probably related to remote injury. Electronically signed by: Benito Fowler MD 04/05/2025 02:34 PM EST RP Dictated By: Benito Fowler MD Signed By: <Electronically signed by Benito Fowler MD in OV> 04/05/25 1434 DD/ 1408 TD/TT: 04/05/25 1420 Knowledge Management Advisor: LISA Wilton Méndez ANP IMG XR PROCEDURES Edited Result - Final * (ABNORMAL) TSH W/Reflex to FT4 (04/05/2025 2:05 PM EST) TSH reflex Free T4 8.64(H) 0.32 - 4.0 uIU/mL [facility] Blood Venous blood specimen / Unknown 04/05/2025 2:05 PM EST 04/05/2025 3:57 PM EST Wilton Méndez ANP LAB BLOOD ORDERABLES Final Resul t Performing Organization Address [facility] de Phone Number [facility] [address] [place] [phone] * (ABNORMAL) Uric acid (04/05/2025 2:05 PM EST) Uric Acid 9.6(H) 2.4 - 5.7 mg/dL [facility] Blood Venous blood specimen / Unknown 04/05/2025 2:05 PM EST 04/05/2025 3:57 PM EST Wilton Méndez [facility] LAB BLOOD ORDERABLES Final Resul t Performing Organization Address City/[facility] de Phone Number [facility] [address] [place] [phone] documented in this encounter Visit Diagnoses Diagnosis Left wrist pain- Primary Pain in joint, forearm Rheumatoid arthritis involving multiple sites with positive rheumatoid factor (CMS/HCC) (HCC) Bilateral wrist pain Essential hypertension Unspecified essential hypertension documented in this encounter Additional Health Concerns Assessment Noted Time PHQ-9 Depression Total Score: 0 02/12/20 24 3:06 PM EDT documented as of this encounter Care Teams On Air Talent Relationship Specialty Start Date End Date Jen Ochoa MD [address] [place] [address] PCP - General Family Medicine 12/25/17 documented as of this encounter
[2025-04-05 16:51] LABS: Uric Acid 9.6 mg/dL (2.4-5.7)
--- OUTSIDE RECORDS SUMMARY | 2025-04-05 17:07 | XMS_ITS | Encounter Summary ---
Author Organization [employer] Address [address] [facility] 7t [place] [address] Care Team Providers Care Plant Etiologist Name Role Phone Jen Ochoa MD Primary Care Provide r Reason for Visit * Reason Onset Date Comments status on script 05/15/2022 Encounter Details Date Type Department Care Team (Late st Contact Info) Description 05/15/2022 Telephone [facility] MEDICINE [address] [place] [address] Jen Ochoa MD [address] [place] [phone] status on script Social History Tobacco Use [...] Description 06/08/2025 3:30 PM EST Office Visit [facility] MEDICINE [address] [place] [address] Jen Ochoa MD [address] [place] [address] documented as of this encounter Visit Diagnoses Not on filedocumented in this encounter Care Teams Plant Etiologist Relationship Specialty Start Date End Date Jen Ochoa MD [address] [place] [phone] PCP - General Family Medicine 12/25/17 documented as of this encounter
--- OUTSIDE RECORDS SUMMARY | 2025-04-05 17:07 | XMS_ITS | Encounter Summary ---
Author Organization [facility], Address [address] [place] [address] Phone Care Team Providers Care Wastewater Superintendent Name Role Phone Jen Ochoa MD Primary Care Provide r Encounter Details Date Type Department Care Team (Late Contact Info) Description 12/13/2021 Documentation Only [facility] [address] [place] [address] Kiko Robertson MD [address] [place] [address] [place] [address] Social History Tobacco Use Types [...] Department Care Team (Late Contact Info) Description 08/31/2025 3:15 PM EDT Office Visit [facility] [address] [facility] [place] [address] Kiko Robetrson MD [address] [place] [address] [place] [address] documented as of this encounter Visit Diagnoses Not on filedocumented in this encounter Care Teams Wastewater Superintendent Relationship Specialty Start Date End Date Jen Ochoa MD [address] [place] [phone] PCP - General 02/17/19 documented as of this encounter
--- OUTSIDE RECORDS SUMMARY | 2025-04-05 17:07 | XMS_ITS | Encounter Summary ---
Author Organization [employer] Address [address] [facility] 7t [place] [address] Care Team Providers Care Assistant Curator Name Role Phone Jen Ochoa MD Primary Care Provide r Encounter Details Date Type Department Care Team (Latest Contact Info) Description 04/05/2025 Travel Social History Tobacco Use Types Packs/Day Years [...] Description 06/08/2025 3:30 PM EST Office Visit [facility] MEDICINE [address] [place] [phone] Jen Ochoa MD [address] [place] [phone] documented as of this encounter Visit Diagnoses Not on filedocumented in this encounter Additional Health Concerns Assessment Noted Time PHQ-9 Depression Total Score: 0 02/12/20 24 3:06 PM EDT documented as of this encounter Care Teams Assistant Curator Relationship Specialty Start Date End Date Jen Ochoa MD [address] [place] [phone] PCP - General Family Medicine 12/25/17 documented as of this encounter
--- OUTSIDE RECORDS SUMMARY | 2025-04-05 17:07 | XMS_ITS | Encounter Summary ---
Author Organization [employer] Address [address] [facility] 7t [place] [address] Care Team Providers Care Tower Supervisor Name Role Phone Jen Ochoa MD Primary Care Provide r Reason for Visit * Reason Onset Date Comments Durable Medical Equipment 04/05/2025 Encounter Details Date Type Department Care Team ([facility] st Contact Info) Description 04/05/2025 Telephone [facility] MEDICINE [address] [place] [address] Jen Ochoa MD [address] [place] [address] Durable Medical Equipment Social History Tobacco Use Types Packs/Day Years [...] encounter Miscellaneous Notes * Telephone Encounter - Shauna Stephens - 04/05/2025 4:16 PM EST RX signed and faxed to [facility]. Confirmation received and sent to [facility]. If patient calls to check status on above, please advise them to contact [facility] healthcare economics consultant . * Telephone Encounter - Shauna Stephens - 04/05/2025 4:16 PM EST ----- Message from Nelly Thompson sent at 04/05/2025 1:29 PM EST ----- Please generate Rx for bilateral wrist splints documented in this encounter Plan of Treatment Upcoming Encounters Date Type Department Care Team (Late st Contact Info) Description 06/08/2025 3:30 PM EST Office Visit [facility] MEDICINE [address] [place] [address] Jen Ochoa MD [address] [place], [place] [phone] documented as of this encounter Visit Diagnoses Not on filedocumented in this encounter Additional Health Concerns Assessment Noted Time PHQ-9 Depression Total Score: 0 02/12/20 24 3:06 PM EDT documented as of this encounter Care Teams Tower Supervisor Relationship Specialty Start Date End Date Jen Ochoa MD [address] [place] [address] PCP - General Family Medicine 12/25/17 documented as of this encounter
--- OUTSIDE RECORDS SUMMARY | 2025-04-05 17:07 | XMS_ITS | Encounter Summary ---
Author Organization [facility], Address [address] [place] [address] Phone Care Team Providers Care Neonatal Intensive Care Nurse Name Role Phone Jen Ochoa MD Primary Care Provide r Encounter Details Date Type Department Care Team (Late Contact Info) Description 07/28/2024 Documentation Only [facility] [address] [place] [address] Cyndee Stone [address] [place] [address] Social History Tobacco Use Types [...] Care Team (Late st Contact Info) Description 08/31/2025 3:15 PM EDT Office Visit [facility] [address] [facility] [place] [address] Kiko Robertson MD [address] [place] [address] [place] [address] documented as of this encounter Visit Diagnoses Not on filedocumented in this encounter Care Teams Neonatal Intensive Care Nurse Relationship Specialty Start Date End Date Jen Ochoa MD [address] [phone] PCP - General 02/17/19 documented as of this encounter
--- OUTSIDE RECORDS SUMMARY | 2025-04-05 17:07 | XMS_ITS | Patient Health Record ---
Demographics Address [address] [place] [address] Preferred Language Unknown Marital Status unmarried Protestant Affiliation Unknown Race Unknown Ethnic Group or Author Organization [facility] Address [address] [place] [address] Care Team Providers Care Seismology Teacher Name Role Phone Jen Acosta M.D. Primary Care Provider Aric Morrison Unavailable [phone] Allergies No Known Allergies Results Component Value Reference Range Flag Notes Complete Blood Count Auto Di ff (Not yet reviewed by provider) Interpretation: Performing Lab:[facility], [address], [place] [address] Notes/Report: White Blood Count 5.3 4.8-10.8 X10*3/uL N Red Blood Count 3.72 4.20-5.50 X10*6/uL L Hemoglobin 12.2 12.0-16.0 g/dl N Hematocrit 37.2 37.0-47.0 % N Mean Corpuscular Volume 100.0 80.0-98.0 fL H Mean Corpuscular Hemoglobin 32.8 27.0-33.0 pg N Mean Corpuscular HGB Conc 32.8 31.0-35.0 g/dl N Red Cell Distribution Width 13.3 11.0-16.0 % N Platelet Count 213 160-400 X10*3/uL N Mean Platelet Volume 11.8 9.4-12.3 fL N Neutrophils Percent Auto 52.9 45-73 % N Imm Gran Pct Auto 0.4 0.0-0.4 % N Lymphocytes Percent Auto 32.8 20-40 % N Monocytes Percent Auto 10.1 2-11 % N Eosinophils Percent Auto 3.4 0-4 % N Basophils Percent Auto 0.4 0-2 % N NRBC Pct Auto 0.0 0.0-0.2 /100WBC N Neutrophils Absolute Auto 2.8 2.0-8.3 x10*3/uL N Imm Gran Abs Auto 0.02 0.00-0.03 X10*3/uL N Lymphocytes Absolute Auto 1.7 1.2-4.9 X10*3/uL N Monocytes Absolute Auto 0.5 0.1-1.2 X10*3/uL N Eosinophils Absolute Auto 0.2 0.0-0.4 X10*3/uL N Basophils Absolute Auto 0.0 0.0-0.2 X10*3/uL N NRBC Abs Auto 0.000 0.0-0.012 X10*3/uL N Prothrombin Time INR (Not y et reviewed by provider) Interpretation: Performing Lab:[facility], [address] [place] [id number] Notes/Report: Prothrombin Time 12.3 11.2-13.5 SEC N INTERNATIONAL NORM RATIO 1.0 0.9-1.1 N INTERNATIONAL NORMALIZED RATIO (INR) REFERENCE RANGES Reference [...] prosthetic heart valves: 2.5 - 3.5 Liver Panel (Not yet reviewe d by provider) Interpretation: Performing Lab:[facility], [address] [place] [phone] Notes/Report: Bilirubin Total 0.5 0.0-1.0 mg/dL N Bilirubin Direct 0.2 0.0-0.5 mg/dL N Aspartate Amino Transferase 32 5-31 U/L H Alanine Aminotransferase 20 0-31 U/L N Total Protein 7.8 6.5-8.0 g/dL N Albumin Level 4.3 3.5-5.0 g/dL N Alkaline Phosphatase 82 39-117 U/L N US abdomen chahal w elastograph y (Not yet reviewed by provider) Interpretation: Performing Lab: Notes/Report: [address] [address] Ultrasound Report Signed with Yue Patient: Hoda Lorenzo MR#: [id number] : 1955 Acct:[id number] Age/Sex: 69 / F ADM Date: 02/26/25 Loc: HO.US Attending Dr: Aric Florian MD Ordering Physician: Aric Florian MD Date of Service: 02/26/25 Procedure(s): US abdomen chahal w elastography Accession Number(s): [id number] cc: Jen Ochoa MD; Aric Florian MD Reason for Exam: HEP C, cirrhosis ADDENDUM ADDENDUM #1 Addendum: Evaluation of the spleen was done. Spleen measures 9.3 cm. Small echogenic focus in the spleen, could represent vascular calcification. Electronically signed by: Benito Fowler MD 03/01/2025 04:15 PM EST Addendum Dictated By: Benito Fowler MD Addendum Signed By: <Electronically signed by Benito Fowler MD in OV> 03/01/25 1615 Addendum Cosigned By: DD/ TD/TT: 02/26/25 EXAMINATION: US ABDOMEN LIMITED WITH LIVER ELASTOGRAPHY CLINICAL INFORMATION: Hepatitis B sclerosis COMPARISON: None available. TECHNIQUE: Real-time imaging of the abdominal viscera. Noninvasive ultrasound liver fibrosis assessment is performed using Aimee ElastPQ point quantification shear wave elastography (pSWE) with a 5 MHz transducer. Multiple elastography samples are obtained. FINDINGS: PANCREAS: The visualized pancreatic head and body are normal in appearance. The remainder of the pancreas is obscured from visualization by the overlying bowel gas. LIVER: The liver demonstrates lobulated contour. Heterogeneous borderline increased parenchymal echotexture.. No focal lesion or intrahepatic biliary duct dilatation. The right lobe measures 15.3 cm in length. The left lobe measures 10.2 cm in length. Shear wave elastography provides a median stiffness of 1.29 m/s (reference: normal median stiffness is 0.81 - 1.22 m/s). The IQR/median stiffness to assess sampling precision is 0.12 (reference: optimal IQR/median stiffness is under 0.3). GALLBLADDER: Status postcholecystectomy COMMON BILE DUCT: Normal in caliber measuring 0.4 cm in diameter. FREE FLUID: None seen in the area of examination. US/US abdomen chahal w elastography IMPRESSION: 1. Cirrhotic appearing liver. 2. Elastography: Median stiffness 1.29 m/s *Liver Stiffness equal or less than 1.3 m/s: High probability of being normal. REFERENCE: Society of Radiologists in Ultrasound Liver Stiffness Thresholds (2020): LIVER STIFFNESS THRESHOLDS: *Liver Stiffness equal or [...] liver stiffness thresholds are not well established. Electronically signed by: Benito Fowler MD 02/26/2025 04:04 PM [facility] Dictated By: Benito Fowler MD Signed By: <Electronically signed by Benito Fowler MD in OV> 02/26/25 1604 DD/ 1052 TD/TT: 02/26/25 1112 Hair Spinning Machine Operator: LISA US abdomen chahal w elastograph y (Not yet reviewed by provider) Interpretation: Performing Lab: Notes/Report: [address] [address] Ultrasound Report Signed Patient: Hoda Lorenzo MR#: [id number] : 1955 Acct:[id number] Age/Sex: 69 / F ADM Date: 02/26/25 Loc: HO.US Attending Dr: Aric Florian MD Ordering Physician: Aric Florian MD Date of Service: 02/26/25 Procedure(s): US abdomen chahal w elastography Accession Number(s): [id number] cc: Jen Ochoa MD; Aric Florian MD Reason for Exam: HEP C, cirrhosis EXAMINATION: US ABDOMEN LIMITED WITH LIVER ELASTOGRAPHY CLINICAL INFORMATION: Hepatitis B sclerosis COMPARISON: None available. TECHNIQUE: Real-time imaging of the abdominal viscera. Noninvasive ultrasound liver fibrosis assessment is performed using Aimee ElastPQ point quantification shear wave elastography (pSWE) with a 5 MHz transducer. Multiple elastography samples are obtained. FINDINGS: PANCREAS: The visualized pancreatic head and body are normal in appearance. The remainder of the pancreas is obscured from visualization by the overlying bowel gas. LIVER: The liver demonstrates lobulated contour. Heterogeneous borderline increased parenchymal echotexture.. No focal lesion or intrahepatic biliary duct dilatation. The right lobe measures 15.3 cm in length. The left lobe measures 10.2 cm in length. Shear wave elastography provides a median stiffness of 1.29 m/s (reference: normal median stiffness is 0.81 - 1.22 m/s). The IQR/median stiffness to assess sampling precision is 0.12 (reference: optimal IQR/median stiffness is under 0.3). GALLBLADDER: Status postcholecystectomy COMMON BILE DUCT: Normal in caliber measuring 0.4 cm in diameter. FREE FLUID: None seen in the area of examination. US/US abdomen chahal w elastography IMPRESSION: 1. Cirrhotic appearing liver. 2. Elastography: Median stiffness 1.29 m/s *Liver Stiffness equal or less than 1.3 m/s: High probability of being normal. REFERENCE: Society of Radiologists in Ultrasound Liver Stiffness Thresholds (2020): LIVER STIFFNESS THRESHOLDS: *Liver Stiffness equal or [...] liver stiffness thresholds are not well established. Electronically signed by: Benito Fowler MD 02/26/2025 04:04 PM [facility] Dictated By: Benito Fowler MD Signed By: <Electronically signed by Benito Fowler MD in OV> 02/26/25 1604 DD/ 1052 TD/TT: 02/26/25 1112 Hair Spinning Machine Operator: LISA Reason For Referral No Information Medications Medication SIG (Take, Route, Frequency, Duration) Notes Start Date End Date Status Levothyroxine Sodium 137 MCG Tablet Oral; Duration: 30 Active Vitamin D3 50 MCG (2000 UT) Tablet TAKE 1 TABLET BY MOUTH ONCE DAILY Oral; Duration: 30 Active Albuterol Sulfate (2.5 MG/3M L) 0.083% Nebulization Solution Inhalation; Duration: 7 Active Pantoprazole Sodium 40 MG Tablet Delayed Release TAKE 1 TABLET BY MOUTH EVERY DAY Oral; Duration: 30 Active Ventolin HFA 108 (90 Base) MCG/ACT Aerosol Solution INHALE 2 PUFFS BY MOUTH EVERY 4 TO 6 HOURS NEEDED Inhalation; Duration: 17 Active Vitamin B-12 1000 MCG Tablet TAKE 1 TABL ET BY MOUTH EVERY DAY Oral; Duration: 30 Active Aspirin Low Dose 81 MG Table t Delayed Release TAKE 1 TABLET BY MOUTH EVERY DAY Oral; Duration: 30 Active Acetaminophen ER 650 MG Tabl et Extended Release Oral; Duration: 10 Activ e Triamcinolone Acetonide 0.1 % Ointment External; Duration: 30 Active Loratadine 10 MG Tablet 1 tablet Orally Once a day; Duration: 30 day(s) Active Arthritis Pain Relief 650 MG Tablet Extended Release TAKE 2 TABLETS BY MOUTH EVERY 8 HOURS NEEDED. SWALLOW WHOLE WITH WATER. DO NOT BREAK, CRUSH, DISSOLVE OR CHEW Oral; Duration: 10 Active Famotidine 20 MG Tablet 1 tablet at bedt fariba as needed Orally Twice a day Active Lisinopril 40 MG Tablet 1 tablet Orally Once a day Active Cyclobenzaprine HCl 5 MG Tablet Oral; Duration: 6 Active tiZANidine HCl 2 MG Tablet Oral; Duration: 5 Active hydroCHLOROthiazide 25mg Tablet 1 tablet Orally Once a day Active Aspir-81 81 MG Tablet Delaye d Release 1 tablet Orally Once a day Active Ambien 10 MG Tablet 1 tablet at bedtime Orally Once a day Active Metoprolol Succinate ER 50 M G Tablet Extended Release 24 Hour 1 tablet Orally Once a day Active Flovent HFA 110 MCG/ACT Aerosol 1 puff I nhalation Twice a day Active Allopurinol 300 MG Tablet 1 tablet Orall y Once a day Active buPROPion HCl ER (XL) 150 MG Tablet Extended Release 24 Hour Oral; Duration: 30 Active hydrOXYzine HCl 10 MG Tablet Oral; Duration: 30 Active Mirtazapine 30 MG Tablet Oral; Duration: 30 Active Breo Ellipta 200-25 MCG/INH Aerosol Powder Breath Activated Inhalation; Duration: 30 Active Immunizations Vaccine Route Administration Date Status Comme nts Influenza Unknown 03/07/2021 Administered Influenza Unknown 11/04/2024 Refused Social History Social History Additional Details Category Social Info Options Details Miscellaneous: Marital status: single Occupation: unemployed Section Notes: Nonsmoker; no alcohol Nonsmoker; no alcohol Nonsmoker; no alcohol Nonsmoker; no alcohol Nonsmoker; no alcohol Nonsmoker; no alcohol Nonsmoker; no alcohol Nonsmoker; no alcohol Nonsmoker; no alcohol Nonsmoker; no alcohol Problems Problem Type SNOMED Code ICD Code Onset Dates Problem Status W/U Status Risk Notes Problem Colon cancer screening (384151914) Colon cancer screening (Z12.11) Active confirmed Problem History of adenomatous polyp of colon (908226448) History of adenomatous polyp of colon (Z86.010) Active confirmed Problem Cirrhosis of liver (29708888) Other cirrhosis of liver (K74.69) Active confirmed Problem History of hepatitis C (46175829213447) History of hepatitis C (Z86.19) Active confirmed Vital Signs Temperature 97.6 degrees Fahrenheit 11/04/2024 Blood pressure diastolic 01 mm Hg 11/04/2024 Height 57.5 in 11/04/2024 Blood pressure systolic 001 mm Hg 11/04/2024 Weight 225.2 lbs 11/04/2024 BMI 47.88 kg/m2 11/04/2024 Encounters Encounter Location Date Provider Diagnosis [facility] [address] [place] [address] 11/04/2024 Aric Florian Other cirrhosis of liver [...] again for allowing me to participate in [facility]. I shall continue to keep you [...] Test Test Name Order Date LIVER PROFILE 02/01/2012 LIVER PROFILE 02/02/2016 LIVER PROFILE 05/24/2017 LIVER PROFILE 08/28/2022 LIVER PROFILE 11/15/2021 LIVER PROFILE 11/07/2023 LIVER PROFILE 11/04/2024 CBC w DIFF 11/04/2024 CBC w DIFF 08/28/2022 CBC w DIFF 11/15/2021 CBC w DIFF 02/02/2016 PROTHROMBIN TIME (PT, INR) 02/02/2016 PROTHROMBIN TIME (PT, INR) 03/25/2014 PROTHROMBIN TIME (PT, INR) 05/24/2017 PROTHROMBIN TIME (PT, INR) 08/28/2022 PROTHROMBIN TIME (PT, INR) 11/15/2021 ALPHA-FETOPROTEIN,TUMOR MARKER 2 ALPHA-FETOPROTEIN,TUMOR MARKER 4 ALPHA-FETOPROTEIN,TUMOR MARKER 5 ALPHA-FETOPROTEIN,TUMOR MARKER 3 ALPHA-FETOPROTEIN,TUMOR MARKER 8 ALPHA-FETOPROTEIN,TUMOR MARKER 4 ALPHA-FETOPROTEIN,TUMOR MARKER 2 ALPHA-FETOPROTEIN,TUMOR MARKER 3 ALPHA-FETOPROTEIN,TUMOR MARKER 6 HEPATITIS C VIRAL LOAD 02/02/2016 HEPATITIS C VIRAL LOAD 11/15/2021 HEPATITIS C VIRAL LOAD 11/07/2023 Complete Blood Count Auto Diff 5 Prothrombin Time INR 02/26/2025 Prothrombin Time INR 11/04/2024 Liver Panel 02/26/2025 Liver Fibrosis Pnl 11/04/2024 US abdomen comp w elastography 5 US abdomen comp w elastography 3 US abdomen chahal w elastography 02/26/2025 US abdomen chahal w elastography 02/26/2025 Future Test Test Name Order Date UPPER GI ENDOSCOPY 03/31/2013 COLONOSCOPY 03/31/2013 Next Appt Details Provider Name:Aric Armaan Florian , 11/05/2025 01:00:00 PM, [address], [address], [place], [address], Insurance Providers Payer Name Payer Address Payer Phone Subscriber Number Group Number Insured Name Patient Relationship to Insured Coverage Start Date Coverage End Date [facility] [address] Attn Claims [place] [id number] HODA CRUMP Self - patient is the insured Medical [...] well Previous hepatits C-Rx'd suc cessfully in [id number] Hep C RNA in 2007 Hypertension Denies ID,DM,CVA,renal disease Asthma Hypothyroid Depression In ER 02/2013 [...]
--- OUTSIDE RECORDS SUMMARY | 2025-04-05 17:07 | XMS_ITS | Encounter Summary ---
Author Organization [employer] Address [address] [place] [address] Care Team Providers Care Biofuels Plant Construction Worker Name Role Phone Jen Ochoa MD Primary Care Provide r Reason for Visit * Reason Onset Date Comments Nurse Triage 04/02/2025 Encounter Details Date Type Department Care Team ([facility] st Contact Info) Description 04/02/2025 Telephone [facility] [address] [place] [address] Jen Ochoa MD [address] [place] [address] Nurse Triage Social History Tobacco Use Types Packs/Day Years [...] encounter Miscellaneous Notes * Telephone Encounter - Noreen Mejias RN - 04/02/2025 10:52 AM EST Return call placed to the pt with [facility] rougher helper #[id number] to follow up on reported skin bump. The ptstates that the left wrist has a notable bump that is red in color and appears swollen. The pt confirmed that this is not the same as the bony prominence that is located on the wrist connecting to the arm. The pt rates the pain around a 8/10. The pt does have full ROM intact and is able to bend andflex the wrist. The pt denies any other known lump on any other part of the body and the only symptom has been the on/off pain. Aggravating factors include bending the wrist and making a fist. The pthas tried OTC NSAIDs such as Tylenol with little relief felt. The pt was advised to try elevation and ice which may help alleviate some of the pain and swelling. The pt was agreeable but still wants to come in for assessment. Pt agreeable to scheduling with Green Team provider on Thursday 04/05 for evaluation in office. Protocol Used: Skin Lump or Localized Swelling (Adult) Protocol-Based Disposition: See in Office or Video Visit within 3 Days Video visit offer not recorded Positive Triage Questions: * Small swelling or lump present > 1 week * Patient wants to be seen * Small swelling or lump present < 1 week * All higher-acuity triage questions were negative. * Telephone Encounter - Seamus Philip - 04/02/2025 10:26 AM EST Symptom: Skin Lump Outcome: Schedule an appointment to be seen within 3 days Reason: Caller denied all higher acuity questions Contact pt at [phone] documented in this encounter Plan of Treatment Upcoming Encounters Date Type Department Care Team (Late st Contact Info) Description 06/08/2025 3:30 PM EST Office Visit [facility] [address] [place] [phone] Jen Ochoa MD [address] [place] [phone] documented as of this encounter Visit Diagnoses Not on filedocumented in this encounter Additional Health Concerns Assessment Noted Time PHQ-9 Depression Total Score: 0 02/12/20 24 3:06 PM EDT documented as of this encounter Care Teams Biofuels Plant Construction Worker Relationship Specialty Start Date End Date Jen Ochoa MD [address] [place] [phone] PCP - General Family Medicine 12/25/17 documented as of this encounter
--- OUTSIDE RECORDS SUMMARY | 2025-04-05 17:07 | XMS_ITS | Encounter Summary ---
Author Organization [employer] Address [address] [place] [facility] [address] [place] [address] Care Team Providers Care Web Site Designer Name Role Phone Jen Ochoa MD Primary Care Provide r Encounter Details Date Type Department Care Team (Late st Contact Info) Description 05/02/2022 Orders Only [facility] [address] [place], [place] [phone] Erin Grace LPN Social History Tobacco Use [...] Department Care Team (Late Contact Info) Description 06/08/2025 3:30 PM EST Office Visit [facility] [address] [place] [address] Jen Ochoa MD [address] [place] [address] documented as of this encounter Procedures Procedure Name Priority Date/Time Associated Diagnosis Comments INFLUENZA A B2 ID NOW ([facility]) Routine 05/20/2022 1:35 AM EST STREP A NUCLEIC ACID Routine 05/20/2022 1:35 AM EST COVID-19 ID NOW ([facility]) Routine 05/20/2022 1:35 AM EST documented in this encounter Results * COVID-19 ID NOW ([facility]) (05/20/2022 1:35 AM EST) IDNOW SERIAL# [id number] [facility] COVID-19 TEST Negative Negative [facility] COVID-19 NOTE See Note [facility] Comment: Results are for the identification of SARS-CoV2 RNA. TheSARS-CoV2 RNA is generally detectable in respiratory samplesduring the acute phase of infection. Positive results areindicative of the presence of SARS-CoV-2 RNA; clinicalcorrelation with patient history and other diagnosticinformation is necessary to determine patient infectionstatus. Positive results do not rule out bacterial infectionor co- infection with other viruses.Testing facilities [facility] the [facility] are required to report all positive results [...] AM EST 05/20/2022 1:40 AM EST [facility] Exter nal Provider LAB MOLECULAR DIAGNOSTICS ORDERABLES Final Result [facility] [address] [place] [phone] * Influenza A B2 ID NOW ([facility]) (05/20/2022 1:35 AM EST) IDNOW SERIAL# [id number] [facility] Influenza A Negative Negative [facility] Influenza B2 Negative Negative [facility] Influenza A B2 Note See Note [facility] Comment:The Finch ID NOW In [...] 1:35 AM EST 05/20/2022 1:40 AM EST [facility] Exter nal Provider LAB MICROBIOLOGY - GENERAL ORDERABLES Final Result Performing Organization Address [facility] de Phone Number [facility] [address] [place] [phone] * Strep A Nucleic Acid (05/20/2022 1:35 AM EST) IDNOW SERIAL# [id number] [facility] Strep A Nucleic Acid Negative Negative [facility] Comment:All test results mus t be correlated with clinical findings.This test has not been evaluated for monitoring treatment ofinfection.Additional follow-up testing using the culture method isrequired if the result is negative and clinical symptomspersist, or in the event of an acute rheumatic feveroutbreak. 05/20/2022 1:35 AM EST 05/20/2022 1:40 AM EST [facility] Exter nal Provider LAB MICROBIOLOGY - GENERAL ORDERABLES Final Result Performing Organization Address [facility] Co de Phone Number [facility] [address] [place] [phone] documented in this encounter Visit Diagnoses Not on filedocumented in this encounter Care Teams Web Site Designer Relationship Specialty Start Date End Date Jen Ochoa MD [address] [place] [address] PCP - General Family Medicine 12/25/17 documented as of this encounter
--- OUTSIDE RECORDS SUMMARY | 2025-04-05 17:07 | XMS_ITS | Clinical Summary ---
Author Organization [facility], Address [address] [place] [address] [place] [address] Phone Care Team Providers Care Carburizing Furnace Operator Name Role Phone Jen Ochoa MD [...] 05/12/2020 Active Cholecalciferol (Vitamin D3) 50 MCG (1999) tablet Take 1 tablet by mouth 1 [...] evening and 2 mg before bedtime. Active hydrOXYzine (ATARAX) 10 MG tablet Oral; Duration: 30 Active atorvastatin (LIPITOR) 40 MG tablet Take 40 mg by mouth 1 (one) time each day 02/22/2025 Active mirtazapine (REMERON) 30 MG tablet Oral; Duration: 30 Active Active Problems Problem Noted Date Diagnosed Date Complex renal cyst 01/01/2023 Renal mass 01/01/2023 Stage 3a chronic kidney disease 12/19/2021 Gout 05/29/2021 Chronic kidney disease, stage 2 (mild) Essential (primary) hypertension 06/05/2019 Resolved Problems Problem Noted Date Diagnosed Date Resolved Date Flank pain 06/11/2019 05/29/2021 Prerenal azotemia 06/05/2019 05/29/2021 Hypothyroidism 06/05/2019 05/29/2021 Hypertensive disorder 06/05/20192021 Deep venous thrombosis 06/05/201905/29 Encounters Date Type Department Care Team Description 03/02/2025 3:15 PM EST Office Visit [facility], [address] [place] [address] Kiko Robertson MD Essential (primary) hypertension (Primary Dx); Renal mass from Last 3 Months Immunizations Immunization Administration [...] Visit [facility], [address] [address] Kiko Robertson MD [address] [place] [address] Health Maintenance Due Date Last Done [...] Discontinued Colorectal Cancer Screening: Sigmoidoscopy Discontinued Insurance [facility] One Care Dual SNP ([id number]) VERONIKA BERMEO [id number] Care Teams Carburizing Furnace Operator Relationship Specialty Start Date End Date Jen Ochoa MD [address] [place] [phone] PCP - General 02/17/19
--- OUTSIDE RECORDS SUMMARY | 2025-04-05 17:07 | XMS_ITS | Encounter Summary ---
Author Organization [facility], Address [address] [place] [address] Phone Care Team Providers Care Nickel Plater Name Role Phone Jen Ochoa MD Primary Care Provide r Encounter Details Date Type Department Care Team (Late Contact Info) Description 04/20/2021 Documentation Only [facility] [address] [place] [address] Kiko Robertson MD [address] [place] [address] [place] [address] Social History Tobacco Use Types [...] Visit [facility] [address] [place] [address] Kiko Robertson MD [address] [place] [address] [place] [address] documented as of this encounter Visit Diagnoses Not on filedocumented in this encounter Care Teams Nickel Plater Relationship Specialty Start Date End Date Jen Ochoa MD [address] [place] [phone] PCP - General 02/17/19 documented as of this encounter
--- OUTSIDE RECORDS SUMMARY | 2025-04-05 17:07 | XMS_ITS | Encounter Summary ---
Author Organization [facility] Address [address] [place] [address] 7t [place] [address] Care Team Providers Care Racing Secretary Name Role Phone Jen Ochoa MD Primary Care Provide r Encounter Details Date Type Department Care Team (Late st Contact Info) Description 03/12/2023 Abstract [facility] MEDICINE [address] [place] [phone] Meagan Gardner Social History Tobacco Use Types [...] Description 06/08/2025 3:30 PM EST Office Visit [facility] MEDICINE [address] [place] [phone] Jen Ochoa MD [address] [place] [address] documented as of this encounter Visit Diagnoses Not on filedocumented in this encounter Care Teams Racing Secretary Relationship Specialty Start Date End Date Jen Ochoa MD [address] [place] [phone] PCP - General Family Medicine 12/25/17 documented as of this encounter
--- OUTSIDE RECORDS SUMMARY | 2025-04-05 17:07 | XMS_ITS | Encounter Summary ---
Author Organization [facility], Address [address] [place] [address] Phone Care Team Providers Care Concrete Floor Installer Name Role Phone Jen Ochao MD Primary Care Provide r Encounter Details Date Type Department Care Team (Late Contact Info) Description 07/27/2024 Documentation Only [facility] [address] [place] [address] Cyndee Stone [address] [place] [phone] Social History Tobacco Use Types Packs/Day [...] Visit [facility] [address] [place] [address] Kiko Robertson MD [address] [place] [address] [place] [address] documented as of this encounter Visit Diagnoses Not on filedocumented in this encounter Care Teams Concrete Floor Installer Relationship Specialty Start Date End Date Jen Ochoa MD [address] [phone] PCP - General 02/17/19 documented as of this encounter
--- OUTSIDE RECORDS SUMMARY | 2025-04-05 17:07 | XMS_ITS | Encounter Summary ---
Author Organization [employer] Address [address] [place] [address] 7t [place] [address] Care Team Providers Care Legal Process Specialist Name Role Phone Jen Ochoa MD Primary Care Provide r Reason for Referral * Medications - Closed Specialty Diagnoses / Procedures Referred By Contac t Referred To Contact Diagnoses Rheumatoid arthritis, involving unspecified site, unspecified whether rheumatoid factor present (CMS/HCC) (HCC) Jen Ochoa MD [address] [place] [address] Phone: tel: fax: Referral ID Status Reason Start Date Expiration Date Visits Re quested Visits Authorized Closed 1 1 Encounter Details Date Type Department Care Team ([facility] st Contact Info) Description 07/05/2022 Orders Only [facility] MEDICINE [address] [place] [phone] Jen Ochoa MD [address] [place] [address] [phone] Rheumatoid arthritis, involving unspecified site, unspecified whether [...] 3:30 PM EST Office Visit [facility] MEDICINE [address] [place] [address] Jen Ochoa MD [address] [place] [address] documented as of this encounter Visit Diagnoses Diagnosis Rheumatoid arthritis, involving unspecified site, unspecified whether rheumatoid factor present (CMS/HCC) (HCC)- Primary documented in this encounter Care Teams Legal Process Specialist Relationship Specialty Start Date End Date Jen Ochoa MD [address] [place] [address] PCP - General Family Medicine 12/25/17 documented as of this encounter
--- OUTSIDE RECORDS SUMMARY | 2025-04-05 17:07 | XMS_ITS | Encounter Summary ---
Author Organization [employer] Address [address] 7t [place] [address] Care Team Providers Care Human Services Care Specialist Name Role Phone Jen Ochoa MD Primary Care Provide r Reason for Visit * Reason Comments Med Refill Encounter Details Date Type Department Care Team ([facility] st Contact Info) Description 07/22/2024 Refill [facility] [address] [place], [place] [phone] Amrita Olvera MD [address] [place] [address] Acute gout of left ankle, unspecified cause [...] Description 06/08/2025 3:30 PM EST Office Visit [facility] [address] [place] [address] Jen Ochoa MD [address] [place] [address] documented as of this encounter Visit Diagnoses Diagnosis Acute gout of left ankle, unspecified cause documented in this encounter Additional Health Concerns Assessment Noted Time PHQ-9 Depression Total Score: 0 02/12/20 24 3:06 PM EDT documented as of this encounter Care Teams Human Services Care Specialist Relationship Specialty Start Date End Date Jen Ochoa MD [address] [place] [phone] PCP - General Family Medicine 12/25/17 documented as of this encounter
--- OUTSIDE RECORDS SUMMARY | 2025-04-05 17:07 | XMS_ITS | Encounter Summary ---
Author Organization [employer] Address [address] [place] [address] Care Team Providers Care Reliability Manager Name Role Phone Jen Ochoa MD Primary Care Provide r Reason for Visit * Reason Onset Date Comments chart prep 04/02/2025 Encounter Details Date Type Department Care Team ([facility] st Contact Info) Description 04/02/2025 Telephone [facility] MED[facility]INE [address] [place], [place] [phone] Nelly Thompson, ANP [address] [place] [address] chart prep Social History Tobacco Use Types Packs/Day Years [...] encounter Miscellaneous Notes * Telephone Encounter - Matilde Sharp [place] - 04/02/2025 11:21 AM EST Chart Prep Labs: done Images: done Referrals: cancelled due to note were not sign Vaccines due: Covid, Flu, Tdap, Hep B, Hep A, and RSV Screenings: mammogram Overdue care gaps: Not applicable documented in this encounter Plan of Treatment Upcoming Encounters Date Type Department Care Team (Late st Contact Info) Description 06/08/2025 3:30 PM EST Office Visit [facility]INE [address] [place] [address] Jen Ochoa MD [address] [place] [address] documented as of this encounter Visit Diagnoses Not on filedocumented in this encounter Additional Health Concerns Assessment Noted Time PHQ-9 Depression Total Score: 0 02/12/20 3:06 PM EDT documented as of this encounter Care Teams Reliability Manager Relationship Specialty Start Date End Date Jen Ochoa MD [address] [place] [address] PCP - General Family Medicine 12/25/17 documented as of this encounter
--- OUTSIDE RECORDS SUMMARY | 2025-04-05 17:07 | XMS_ITS | Encounter Summary ---
Author Organization [facility] Address [address] [place] [address] 7 [place] [address] Care Team Providers Care Weapons Electrical Engineering Officer Name Role Phone Jen Ochoa MD Primary Care Provide r Reason for Visit * Reason Comments Med Refill Encounter Details Date Type Department Care Team (Late st Contact Info) Description 04/25/2023 Refill [facility] MEDICINE [address] [place] [phone] Faustino Carson MD [address] [place] [phone] Seborrheic dermatitis Social History Tobacco Use Types [...] Description 06/08/2025 3:30 PM EST Office Visit [facility] MEDICINE [address] [place] [address] [phone] Jen Ochoa MD [address] [place], [place] [phone] documented as of this encounter Visit Diagnoses Diagnosis Seborrheic dermatitis Unspecified seborrheic dermatitis documented in this encounter Care Teams Weapons Electrical Engineering Officer Relationship Specialty Start Date End Date Jen Ochoa MD [address] [place] [address] PCP - General Family Medicine 12/25/17 documented as of this encounter
--- OUTSIDE RECORDS SUMMARY | 2025-04-05 17:07 | XMS_ITS | Encounter Summary ---
Author Organization [employer] Address [address] [facility] [address] [facility] [address] [place] [address] Care Team Providers Care Home Health Outreach Coordinator Name Role Phone Jen Ochoa MD Primary Care Provide r Encounter Details Date Type Department Care Team ([facility] st Contact Info) Description 04/21/2024 Orders Only [facility] MEDICINE [address] [place], [place] [phone] Jen Ochoa MD [address] [place] [address] Social History Tobacco Use Types Packs/Day Years [...] Description 06/08/2025 3:30 PM EST Office Visit [facility] MEDICINE [address] [place] [phone] Jen Ochoa MD [address] [place] [phone] documented as of this encounter Visit Diagnoses Not on filedocumented in this encounter Additional Health Concerns Assessment Noted Time PHQ-9 Depression Total Score: 0 02/12/20 24 3:06 PM EDT documented as of this encounter Care Teams Home Health Outreach Coordinator Relationship Specialty Start Date End Date Jen Ochoa MD [address] [place] [phone] PCP - General Family Medicine 12/25/17 documented as of this encounter
--- OUTSIDE RECORDS SUMMARY | 2025-04-05 17:07 | XMS_ITS | Encounter Summary ---
Author Organization [employer] Address [address] [facility] 7t [place] [address] Care Team Providers Care Electromechanical Technician Name Role Phone Jen Ochoa MD Primary Care Provide r Reason for Visit * Reason Comments Med Refill Encounter Details Date Type Department Care Team ([facility] st Contact Info) Description 03/31/2025 Refill [facility] [address] [place], [place] [phone] Jen Ochoa MD [address] [place] [address] Essential hypertension; Chronic gout without tophus, unspecified cause, unspecified site; Gastroesophageal reflux disease without esophagitis; Vitamin D deficiency; Moderate persistent asthma without complication Social History Tobacco Use Types Packs/Day Years [...] PM EST Office Visit [facility] [address] [place] [phone] Jen Ochoa MD [address] [place] [phone] documented as of this encounter Visit Diagnoses Diagnosis Essential hypertension Unspecified essential hypertension Chronic gout without tophus, unspecified cause, unspecified site Gastroesophageal reflux disease without esophagitis Esophageal reflux Vitamin D deficiency Moderate persistent asthma without complication documented in this encounter Additional Health Concerns Assessment Noted Time PHQ-9 Depression Total Score: 0 02/12/20 24 3:06 PM EDT documented as of this encounter Care Teams Electromechanical Technician Relationship Specialty Start Date End Date Jen Ochoa MD [address] [place] [phone] PCP - General Family Medicine 12/25/17 documented as of this encounter
--- OUTSIDE RECORDS SUMMARY | 2025-04-05 17:07 | XMS_ITS | Clinical Summary ---
Author Organization [employer] Address [address] [facility] [address] [place] [address] Care Team Providers Care Event Technician Name Role Phone Jen Ochoa MD Primary Care Provide r Allergies No known active allergies Medications lidocaine (Lidoderm) 5 % patchIndication s:Rheumatoid arthritis, involving unspecified site, unspecified whether rheumatoid factor present (CMS/HCC) ([facility]) Apply 1 patch topically in the morning. Remove & discard patch within 12 hours or as directed by MD. 90 patch 1 07/06/19 23 Active Fluocinolone Acetonide Scalp 0.01 % oilIndications: Seborrheic dermatitis APPLY A THIN LAYER TOPICALLY TO SCALP DAMP, MASSAGE AND COVER POR 4 HOURS TO OVERNIGHT THEN WASH OFF 118.28 mL 1 11/15/19 24 Active betamethasone valerate (Valisone) 0.1 % ointmentIndicat ions:Psoriasis Apply topically 2 times daily. To affected areas of rash for 2 weeks 45 g 1 11/15/19 24 Active montelukast (Singulair) 10 MG tabletIndicatio ns:Moderate persistent asthma without complication Take 1 tablet (10 mg) by mouth Once per day. 30 tablet 04/21/19 25 2025 Active predniSONE (Deltasone) 20 MG tabletIndicatio ns:Acute gout of left ankle, unspecified cause 2 tabs po daily for 5 days 10 tablet 07/23/19 25 Active atorvastatin (Lipitor) 40 MG tabletIndicatio ns:Dyslipidemia Take 1 tablet (40 mg) by mouth Once per day. 30 tablet 07/30/19 25 04/16/ 2026 Active levothyroxine (Synthroid, Levoxyl) 137 MCG tablet TAKE 1 TABLET BY MOUTH EVERY DAY 90 tablet 10/20/19 25 Active lisinopril 40 MG tabletIndicatio ns:Essential hypertension Take 1 tablet (40 mg) by mouth in the morning. 90 tablet 3 02/23/20 25 Active hydroCHLOROthia zide (HYDRODiuril) 25 MG tabletIndicatio ns:Essential hypertension TAKE 1 TABLET BY MOUTH EVERY DAY IN THE MORNING 90 tablet 3 5 2:26 PM EST 04/01/20 25 Active Aspirin Low Dose 81 MG EC tabletIndicatio ns:Essential hypertension TAKE 1 TABLET BY MOUTH EVERY DAY IN THE MORNING 90 tablet 3 5 2:26 PM EST 04/01/20 25 Active metoprolol succinate XL (Toprol-XL) 50 MG 24 hr tabletIndicatio ns:Essential hypertension TAKE 1 TABLET BY MOUTH EVERY DAY IN THE MORNING 90 tablet 3 5 2:26 PM EST 04/01/20 25 Active allopurinol (Zyloprim) 300 MG tabletIndicatio ns:Chronic gout without tophus, unspecified cause, unspecified site TAKE 1 TABLET BY MOUTH EVERY DAY IN THE MORNING 90 tablet 3 5 2:26 PM EST 04/01/20 25 Active pantoprazole (ProtoNix) 40 MG EC tabletIndicatio ns:Gastroesopha geal reflux disease without esophagitis TAKE 1 TABLET BY MOUTH EVERY DAY IN THE MORNING 90 tablet 3 5 2:26 PM EST 04/01/20 25 Active cholecalciferol VITAMIN D (Vitamin D-3) 50 MCG (2000 UT) tabletIndicatio ns:Vitamin D deficiency TAKE 1 TABLET BY MOUTH EVERY DAY IN THE MORNING 90 tablet 3 5 2:26 PM EST 04/01/20 25 Active Ventolin HFA 108 (90 Base) MCG/ACT inhalerIndicati ons:Moderate persistent asthma without complication INHALE 2 PUFFS BY MOUTH EVERY 6 HOURS NEEDED FOR WHEEZING OR SHORTNESS OF BREATH 18 g 11 5 2:26 PM EST 04/01/20 25 Active albuterol (2.5 MG/3ML) 0.083% nebulizer solutionIndicat ions:Moderate persistent asthma without complication INHALE 1 AMPULE USING A NEBULIZER EVERY 6 HOURS NEEDED FOR WHEEZING 90 mL 11 5 2:26 PM EST 04/01/20 25 Active Diclofenac Sodium (Voltaren) 1 % gelIndications: Bilateral wrist pain Apply up to 4x/d to affected joint(s) for pain/swelling 100 g 2 5 2:31 PM EST 04/05/20 25 Active albuterol (2.5 MG/3ML) 0.083% nebulizer solutionIndicat ions:Moderate persistent asthma without complication Take 3 mL (2.5 mg) by nebulization every 6 (six) hours if needed for wheezing. 90 mL 3 02/12/20 24 2024 Discontinued allopurinol (Zyloprim) 300 MG tabletIndicatio ns:Chronic gout without tophus, unspecified cause, unspecified site Take 1 tablet (300 mg) by mouth in the morning. 90 tablet 3 02/12/20 24 2024 Discontinued aspirin (Aspirin Low Dose) 81 MG EC tabletIndicatio ns:Essential hypertension Take 1 tablet (81 mg) by mouth in the morning. 90 tablet 3 02/12/20 24 2024 Discontinued hydroCHLOROthia zide (HYDRODiuril) 25 MG tabletIndicatio ns:Essential hypertension Take 1 tablet (25 mg) by mouth in the morning. 90 tablet 3 02/12/20 24 2024 Discontinued cholecalciferol VITAMIN D (Vitamin D-3) 50 MCG (2000 UT) tabletIndicatio ns:Vitamin D deficiency Take 1 tablet (50 mcg) by mouth in the morning. 90 tablet 3 02/12/20 24 2024 Discontinued metoprolol succinate XL (Toprol-XL) 50 MG 24 hr tabletIndicatio ns:Essential hypertension Take 1 tablet (50 mg) by mouth in the morning. 90 tablet 3 02/12/20 24 2024 Discontinued albuterol 108 (90 Base) MCG/ACT inhalerIndicati ons:Moderate persistent asthma without complication Inhale 2 puffs every 6 (six) hours if needed for wheezing. 18 g 11 02/12/20 24 2024 Discontinued pantoprazole (ProtoNix) 40 MG EC tabletIndicatio ns:Gastroesopha geal reflux disease without esophagitis Take 1 tablet (40 mg) by mouth in the morning. 90 tablet 3 02/12/20 24 2024 Discontinued Active Problems Problem Noted Date Diagnosed Date Acute gout of left ankle 07/22/2024 Assessment & Plan (07/22/2024 3:43 PM EDT): Likely early gout attack. Exam benign, with only mild tenderness over dorsum of left foot. Has referral to Seasonal Customer Service Associate, encouraged to call. Taking allopurinol. -Prescribed short [...] ng multiple sites with positive rheumatoid factor ([facility]) 04/19/2023 04/19/2023 Assessment & Plan (08/06/2024 4:26 PM EDT): Continue to follow up with rheumatology Seronegative rheumatoid arthritis ([facility]) 08/202304/19/2023 Suprapubic abscess 04/19/2023 04/19/2023 Complex renal cyst 01/01/2023 04/19/2023 Renal mass 01/01/2023 04/19/2023 Chronic kidney disease, stage 2 (mild) 04/19/2023 Headache 12/08/2014 04/19/2023 Vitamin D deficiency 12/08/2014 04/19/2023 Hyperuricemia 06/28/2014 04/19/2023 Stage 3b chronic kidney disease ([facility]/HCC) 201304/19/2023 Tubular adenoma of colon 05/25/2013 024 [...] amlodipine 5 mg daily Cirrhosis of liver ([facility]/HCC) 01/09/201208/2023 Assessment & Plan (08/06/2024 4:25 PM EDT): Continue to follow with specialist, she will call for her f/u appointment information was provided Depressive disorder 01/09/2012 04/19/2023 Hepatitis C 01/09/2012 04/19/2023 Hyperlipidemia 01/09/2012 04/19/2023 Encounters Date Type Department Care Team Description 04/05/2025 1:00 PM EST Office Visit [facility] [address] [place] [phone] Wilton Méndez ANP Left wrist pain (Primary Dx); Rheumatoid arthritis involving multiple sites with positive rheumatoid factor (CMS/HCC) (HCC); Bilateral wrist pain; Essential hypertension 04/05/[address] [facility] [address] [place] [phone] Jen Ochoa MD Durable Medical Equipment 04/05/2025 Travel 04/02/[address] [facility] [address] [place] [phone] Wilton Méndez ANP chart prep 04/02/[address] [address] Jen Ochoa MD Nurse Triage 03/31/[address] [address] Jen Ochoa MD Essential hypertension; Chronic gout without tophus, unspecified cause, unspecified site; Gastroesophageal reflux disease without esophagitis; Vitamin D deficiency; Moderate persistent asthma without complication 02/26/2025 Orders Only [facility] External Provider, [facility] 02/22/[address] [facility] [address] [place] [address] Jen Ochoa MD Essential hypertension 01/15/2025 Orders Only [facility] External Provider, [facility] from Last 3 Months Immunizations Immunization Administration [...] Mass Index 53.62 04/05/2025 1:08 PM EST Plan of Treatment Upcoming Encounters Date Type Department Care Team (Late st Contact Info) Description 06/08/2025 3:30 PM EST Office Visit [facility] [address] [place] [phone] Jen Ochoa MD [address] [place] [address] Health Maintenance Due Date Last Done Comments CT Colonography 1955 Colonoscopy 1955 FIT 1955 Sigmoidoscopy 1955 Alcohol/Substance Use Screening 1966 Hepatitis A Vaccines (1 of 2 - Risk 2-dose series) 1973 RSV Patients and Patients Aged 60 years or older (1 - Risk 50-74 years 1-dose series) 2004 Hepatitis B Vaccines (1 of 3 - Risk 3-dose series) 2014 DTaP/Tdap/Td Vaccines (2 - Td or Tdap) 12/26/2020 12/26/2010 Mammogram 10/20/2024 10/21/2023, 01/15, 12/09/2017 FOBT 11/02/2024 11/03/2023 COVID-19 Vaccine ( season) 2024 02/14/2021, 01/24/2021 Influenza Vaccine (#1) 2024 , 03/14/2020, 01/22/2018, Additional history exists Depression Screening 02/11/2025 02/12/2024, 02/12/20 24 SDOH Screening 10/28/2025 10/28/2024 Tobacco Screening 04/05/2026 04/05/2025 Colorectal Cancer Screening 11/02/2026 FIT DNA/Cologuard 11/02/2026 11/03/2023 Lipid Panel 07/22/2029 07/22/2024, 01/24/2021 Pneumococcal Vaccine: 50+ Years Completed 02/12/2024, 05/20/2007 Zoster Vaccines Completed 12/22/2024, 07/0 11/2024, 07/29/2014 HIB Vaccines Aged Out No longer eligi [...] 04/05/2025 2:05 PM EST Bilateral wrist pain US ABDOMEN MATHEW W ELASTOGRAPHY Routine 02/26/2025 10:52 AM EST US RENAL COMPLETE Routine 02/03/2025 7:2 9 PM EDT CTA CHEST PE PROTOCAL Routine 01/15/2025 6:54 [...] Recently Relevant to Health Maintenance Results * XR Wrist 3+ Views Right (04/05/2025 2:10 PM EST) Anatomical Region Laterality Modality Upper Extremities, Wrist Right Radiogr aphic Imaging 04/05/2025 2:10 PM EST Narrative 04/05/2025 2:37 PM EST [address] [address] XRay Report Signed Patient: Hoda Lorenzo MR#: [id number] : 1955 Acct:[id number] Age/Sex: 70 / F ADM Date: 04/05/25 Loc: HO.HHCX Attending Dr: Wilton Méndez NP Ordering Physician: WILTON MÉNDEZ NP Date of Service: 04/05/25 Procedure(s): XR wrist RT min 3V Accession Number(s): [id number] cc: Jen Ochoa MD; WILTON MÉNDEZ NP [...] 04/05/25 1434 DD/ 1410 TD/TT: 04/05/25 1420 Computer Systems Information Director: LISA Procedure Note Donotuseinterpreter, Image - 04/05/2025 [place] [address] XRay Report Signed Patient: Rashmi Lorenzo#: [id number] : 1955cct:[id number] Age/Sex: 70 / FADM Date: 04/05/25 Loc: HO.HHCX Attending Dr: Wilton Méndez NP Ordering Physician: WILTON MÉNDEZ NP Date of Service: 04/05/25 Procedure(s): XR wrist RT min 3V Accession Number(s): [id number] cc: Jen Ochoa MD; WILTON MÉNDEZ NP [...] 04/05/25 1434 DD/ 1410 TD/TT: 04/05/25 1420 Computer Systems Information Director: LISA Wilton Méndez ANP IMG XR PROCEDURES Edited Result - Final * XR Wrist 3+ Views Left (04/05/2025 2:08 PM EST) Anatomical Region Laterality Modality Upper Extremities, Wrist Left Radiogr aphic Imaging 04/05/2025 2:08 PM EST Narrative 04/05/2025 2:37 [place] [address] XRay Report Signed Patient: Hoda Lorenzo MR#: [id number] : 1955 Acct:[id number] Age/Sex: 70 / F ADM Date: 04/05/25 Loc: .HHCX Attending Dr: Wilton Méndez NP Ordering Physician: WILTON MÉNDEZ NP Date of Service: 04/05/25 Procedure(s): XR wrist LT min 3V Accession Number(s): [id number] cc: Jen Ochoa MD; WILTON MÉNDEZ NP [...] 04/05/25 1434 DD/ 1408 TD/TT: 04/05/25 1420 Computer Systems Information Director: LISA Procedure Note Donotuseinterpreter, Image - 04/05/[address] [address] XRay Report Signed Patient: Rashmi Lorenzo#: [id number] : 4Acct:[id number] Age/Sex: 70 / FADM Date: 04/05/25 [facility]: Wilton Méndez NP Ordering Physician: WILTON MÉNDEZ NP Date of Service: 04/05/25 Procedure(s): XR wrist LT min 3V Accession Number(s): [id number] cc: Jen Ochoa MD; WILTON MÉNDEZ NP [...] 04/05/25 1434 DD/ 1408 TD/TT: 04/05/25 1420 Computer Systems Information Director: LISA us Wilton Méndez ANP IMG XR PROCEDURES Edited Result - Final * (ABNORMAL) TSH W/Reflex to FT4 (04/05/2025 2:05 PM EST) TSH reflex Free T4 8.64(H) 0.32 - 4.0 uIU/mL [facility] Blood Venous blood specimen / Unknown 04/05/2025 2:05 PM EST 04/05/2025 3:57 PM EST us Wilton Méndez ANP LAB BLOOD ORDERABLES Final Resul t Performing Organization Address [facility] de Phone Number [facility] [address] [place] [phone] * (ABNORMAL) Uric acid (04/05/2025 2:05 PM EST) Uric Acid 9.6(H) 2.4 - 5.7 mg/dL [facility] Blood Venous blood specimen / Unknown 04/05/2025 2:05 PM EST 04/05/2025 3:57 PM EST us Wilton BRANHAM LAB BLOOD ORDERABLES Final Resul t Performing Organization Address [facility] de Phone Number [facility] [address] [place] [address] [phone] * US ABDOMEN MATHEW W ELASTOGRAPHY (02/26/2025 10:52 AM EST) Anatomical Region Laterality Modality Abdomen Ultrasound 02/26/2025 10:5 2 AM EST Narrative 02/26/2025 4:07 PM EST [address] [address] Ultrasound Report Signed with Addenda Patient: Hoda Lorenzo MR#: [id number] : 1955 Acct:[id number] Age/Sex: 69 / F ADM Date: 02/26/25 Loc: HO.US Attending Dr: Aric Florian MD Ordering Physician: Aric Florian MD Date of Service: 02/26/25 Procedure(s): US abdomen mathew w elastography Accession Number(s): [id number] cc: Jen Ochoa MD; Aric Florian MD [...] in the area of examination. US/US abdomen mathew w elastography IMPRESSION: 1. Cirrhotic appearing liver. [...] by: Benito Fowler MD 02/26/2025 04:[address] [facility] Dictated By: Benito Fowler MD Signed By: <Electronically signed by Benito Fowler MD in OV> 02/26/25 1604 DD/ 1052 TD/TT: 02/26/25 1112 Computer Systems Information Director: LISA Procedure Note Donotuseinterpreter, Image - 03/01/[address] [address] Ultrasound Report Signed with Yue Patient: Rashmi Lorenzo#: [id number] : 4Acct:[id number] Age/Sex: 69 / FADM Date: 02/26/25 Loc: HO.US Attending Dr: Aric Florian MD Ordering Physician: Aric Florian MD Date of Service: 02/26/25 Procedure(s): US abdomen mathew w elastography Accession Number(s): [id number] cc: Jen Ochoa MD; Aric Florian MD Reason for Exam: HEP C, cirrhosis ADDENDUM ADDENDUM #1 Addendum: Evaluation of the spleen was done. Spleen measures 9.3 cm. Small echogenic focus in the spleen, could represent vascular calcification. Electronically signed by: Benito Fowler MD 03/01/2025 04:15 PM EST Addendum Dictated By: Benito Fowler MD Addendum Signed By: <Electronically signed by MD Timmy in OV> 03/01/25 1615 Addendum Cosigned By: [...] in the area of examination. US/US abdomen mathew w elastography IMPRESSION: 1. Cirrhotic appearing liver. [...] by: Benito Fowler MD 02/26/2025 04:04 PM EST Dictated By: Benito Fowler MD Signed By: <Electronically signed by Benito Fowler MD in OV> 02/26/25 1604 DD/ 1052 TD/TT: 02/26/25 1112 Computer Systems Information Director: LISA us [facility] External Provider IMG US PROCEDURES Edited Result - Final * US Renal Complete (02/03/2025 7:29 PM EDT) Anatomical Region Laterality Modality Kidney Ultrasound 02/03/2025 7:29 PM EDT Narrative 02/03/2025 7:29 PM EDT [address] [address] Ultrasound Report Signed Patient: Hoda Lorenzo MR#: [id number] : 1955 Acct:[id number] Age/Sex: 69 / F ADM Date: 02/02/25 Loc: HO.US [facility] Ordering Physician: Estephania Branch Date of Service: 02/02/25 Procedure(s): US renal BI Accession Number(s): [id number] cc: Jen Ochoa MD; [facility] Reason for Exam: N28.1 - Cyst of kidney, acquired CLINICAL HISTORY: N28.1 - Cyst of kidney, acquired US kidneys Comparison: 12/06/2022 Findings: Right kidney normal size and echotexture, 10.2 cm length. No hydronephrosis. Normal color flow. A nonshadowing interpolar echogenic lesion or focus measuring 9 x 8 x 7 mm appear stable, likely stable angiomyolipoma. Left kidney normal size and echotexture, 10.6 cm length. No hydronephrosis. Normal color flow. A lower pole cyst measuring 4.1 x 4.3 x 3.6 cm appears similar (previously 3.8 cm maximal dimension). A thin internal septation (Bosniak category 2) is noted. Impression: 1. 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 This document has been electronically signed by: Israel Kohler MD on 02/03/2025 19:29:06 Dictated By: Israel Kohler MD Signed By: <Electronically signed by Israel Kohler MD in OV> 02/03/251928 DD/ 28 TD/TT: 02/03/251928 Computer Systems Information Director: Procedure Note Donotuseinterpreter, Image - 02/03/[address] [place] [address] Ultrasound Report Signed Patient: Rashmi Lorenzo#: [id number] : 4Acct:[id number] Age/Sex: 69 / FADM Date: 02/02/25 Loc: HO.US Attending Dr: Estephania Branch [facility] Ordering Physician: Estephania Branch Date of Service: 02/02/25 Procedure(s): US renal BI Accession Number(s): [id number] cc: Jen Ochoa MD; Estephania Branch [facility] Reason for Exam: N28.1 - Cyst of kidney, acquired CLINICAL HISTORY: N28.1 - Cyst of kidney, acquired US kidneys Comparison: 12/06/2022 Findings: Right kidney normal size and echotexture, 10.2 cm length. No hydronephrosis. Normal color flow. A nonshadowing interpolar echogenic lesion or focus measuring 9 x 8 x 7 mm appear stable, likely stable angiomyolipoma. Left kidney normal size and echotexture, 10.6 cm length. No hydronephrosis. Normal color flow. A lower pole cyst measuring 4.1 x 4.3 x 3.6 cm appears similar (previously 3.8 cm maximal dimension). A thin internal septation (Bosniak category 2) is noted. Impression: 1. 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 This document has been electronically signed by: Israel Kohler MD on 02/03/2025 19:29:06 Dictated By: Israel Kohler MD Signed By: <Electronically signed by Israel Kohler MD in OV> 02/03/251928 DD/ 28 TD/TT: 02/03/251928 Computer Systems Information Director: [facility] External Provider IMG US PROCEDURES Final Result * CTA Chest PE Protocal (01/15/2025 6:54 PM EDT) Anatomical Region Laterality Modality Body, Chest Computed Tomogra phy 01/15/2025 6:54 PM EDT Narrative 01/15/2025 6:55 PM EDT [address] [address] [address] Scan Report Signed Patient: Hoda Lorenzo MR#: [id number] : 1955 Acct:[id number] Age/Sex: 69 / F ADM Date: 01/15/25 Loc: .ED Attending Dr: Ordering Physician: Urvashi Rodgers MD Date of Service: 01/15/25 Procedure(s): CT angio chest PE protocol Accession Number(s): [id number] cc: Jen Ochoa MD; Urvashi Rodgers MD Report Number: [id number]: Total DLP = 438.00 mGy-cm Reason for [...] in OV> 01/15/251854 DD/ 53 TD/TT: 01/15/251853 Computer Systems Information Director: Procedure Note Donotuseinterpreter, Image - 01/15/[address] [place] [address] CT Scan Report Signed Patient: Rashmi Lorenzo#: [id number] : 4Acct:[id number] Age/Sex: 69 / FADM Date: 01/15/25 Loc: HO.ED Attending Dr: Ordering Physician: Urvashi Rodgers MD Date of Service: 01/15/25 Procedure(s): CT angio chest PE protocol Accession Number(s): [id number] cc: Jen Ochoa MD; Urvashi Rodgers MD Report Number: [id number]: Total DLP = 438.00 mGy-cm Reason for [...] in OV> 01/15/251854 DD/ 53 TD/TT: 01/15/251853 Computer Systems Information Director: [facility] External Provider IMG CT PROCEDURES Final Result * High Sensitivity Troponin I (01/15/2025 6:53 PM EDT) Only the most recent of2 resultswithin the time period is included. TROPONIN I HIGH SENSITIVITY <2.7 <3.5 - 17.0 ng/L [facility] Comment:The Smith high sens itivity Troponin-I results should beused in conjunction with other diagnostic information suchas ECG, clinical observations and information, and patientsymptoms to aid in the diagnosis of [place]. 01/15/2025 6:53 PM EDT 01/15/2025 6:55 PM EDT us Generic External Data Provider LAB BLOOD ORDERAB LES Final Result Performing Organization Address City/[facility]/ZIP Co de Phone Number [facility] [address] [place] [phone] * SARS-CoV-2 RNA, Influenza A/B, and RSV RNA, Ql NAAT (01/15/2025 4:53 PM EDT) Pathologist [facility] Influenza A PCR NEGATIVE Negative [facility] Influenza B PCR NEGATIVE Negative [facility] Resp Syncy Virus RNA Qual PCR NEGATIVE Negative [facility] SARS COV2 PCR NEGATIVE Negative [facility] Comment:All test results mus t be [...] use by authorized laboratories.Testing performed on the [employer] GeneXpert utilizingreal-time RT-PCR.All SARS CoV2 and positive influenza A/B results arereported to [facility]. 01/15/2025 4:53 PM EDT 01/15/2025 4:56 PM EDT us Generic External Data Provider LAB MICROBIOLOGY - GENERAL ORDERABLES Final Result [facility] [address] [place] [phone] * D Dimer High Sensitivity (01/15/2025 4:44 PM EDT) D Dimer High Sensitivity 970 NG/ML [facility] Comment:D-DIMER HS REFERENCE RANGENote: Our assay reports D-Dimer Units (D- DU).The cut-off value for venous thromboembolic (VTE) disease is230 ng/mL. This value has a very high negative predictivevalue when the patient has a low to moderate clinicalprobability of VTE.The upper limit of normal is 243 ng/mL. 01/15/2025 4:44 PM EDT 01/15/2025 4:47 PM EDT us Generic External Data Provider LAB BLOOD ORDERAB LES Final Result [facility] [address] [place] [phone] * Lower Extremity Venous Duplex (01/15/2025 4:39 PM EDT) 01/15/2025 4:39 PM EDT Narrative [facility] - 01/15/2025 5:00 PM EDT [address] [address] Ultrasound Report Signed Patient: Hoda Lorenzo MR#: [id number] : 1955 Acct:[id number] Age/Sex: 69 / F ADM Date: 01/15/25 Loc: HO.ED Attending Dr: Ordering Physician: Urvashi Rodgers MD Date of Service: 01/15/25 Procedure(s): US venous duplex LE Accession Number(s): [id number] cc: Jen Ochoa MD; Urvashi Rodgers MD [...] Malvin Wetzel MD 01/15/2025 04:57 PM EDT RP Dictated By: Malvin Wetzel MD Signed By: <Electronically signed by Malvin Wetzel MD in OV> 01/15/25 1657 DD/ 1639 TD/TT: 01/15/25 165 Computer Systems Information Director: Procedure Note Donotuseinterpreter, Image - 01/15/2025 [place] [address] Ultrasound Report Signed Patient: Rashmi Lorenzo#: [id number] : 1955cct:[id number] Age/Sex: 69 / FADM Date: 01/15/25 Loc: .ED Attending Dr: Ordering Physician: Urvashi Rodgers MD Date of Service: 01/15/25 Procedure(s): US venous duplex LE LT Accession Number(s): [id number] cc: Jen Ochoa MD; Urvashi oRdgers MD Reason for Exam: leg pain EXAMINATION: [...] Malvin Wetzel MD 01/15/2025 04:57 PM EDT RP Dictated By: Malvin Wetzel MD Signed By: <Electronically signed by Malvin Wetzel MD in OV> 01/15/25 1657 DD/ 1639 TD/TT: 01/15/25 1650 Computer Systems Information Director: us [facility] External Provider CV VASC ULAR PROCEDURES Final Result Performing Organization Address City/State/[facility] Co de Phone Number [facility] [address] [place] [phone] * XR Chest 1 View (01/15/2025 4:30 PM EDT) Anatomical Region Laterality Modality Chest Radiographic Mirian ging 01/15/2025 4:30 PM EDT Narrative 01/15/2025 4:43 PM EDT [address] [address] XRay Report Signed Patient: Hoda Lorenzo MR#: [id number] : 1955 Acct:[id number] Age/Sex: 69 / F ADM Date: 01/15/25 Loc: .ED Attending Dr: Ordering Physician: Urvashi Rodgers MD Date of Service: 01/15/25 Procedure(s): XR chest 1V Accession Number(s): [id number] cc: Jen Ochoa MD; Urvashi Rodgers MD [...] OV> 01/15/25 1640 DD/ 1630 TD/TT: 01/15/25 163 Computer Systems Information Director: Procedure Note Michaelter, Image - 01/15/[address] [address] XRay Report Signed Patient: Rashmi Lorenzo#: [id number] : 4Acct:[id number] Age/Sex: 69 / FADM Date: 01/15/25 Loc: HO.ED Attending Dr: Ordering Physician: Urvashi Rodgers MD Date of Service: 01/15/25 Procedure(s): XR chest 1V Accession Number(s): [id number] cc: Jen Ochoa MD; Urvashi Rodgers MD [...] Nilson Almazan MD 01/15/2025 04:40 PM EDT Dictated By: Nilson Almazan MD Signed By: <Electronically signed by Nilson Almazan MD in OV> 01/15/25 1640 DD/ 1630 TD/TT: 01/15/25 163 Computer Systems Information Director: us [facility] External Provider IMG XR PROCEDURES Final Result * XR Shoulder 2+ Views Left (01/15/2025 4:30 PM EDT) Anatomical Region Laterality Modality Upper Extremities, Shoulder Left Radi ographic Imaging 01/15/2025 4:30 PM EDT Narrative 01/15/2025 4:46 PM EDT [address] [address] XRay Report Signed Patient: Hoda Lorenzo MR#: [id number] : 1955 Acct:[id number] Age/Sex: 69 / F ADM Date: 01/15/25 Loc: HO.ED Attending Dr: Ordering Physician: Urvashi Rodgers MD Date of Service: 01/15/25 Procedure(s): XR shoulder LT min 2V Accession Number(s): [id number] cc: Jen Ochoa MD; Urvashi Rodgers MD [...] Benito Fowler MD 01/15/2025 04:43 PM EDT Dictated By: Benito Fowler MD Signed By: <Electronically signed by Benito Fowler MD in OV> 01/15/25 1643 DD/ 1630 TD/TT: 01/15/25 1636 Computer Systems Information Director: Procedure Note Donotuseinterpreter, Image - 01/15/[address] [address] XRay Report Signed Patient: Edgard LorenzoR#: [id number] : 1955cct:[id number] Age/Sex: 69 / FADM Date: 01/15/25 Loc: HO.ED Attending Dr: Ordering Physician: Urvashi Rodgers MD Date of Service: 01/15/25 Procedure(s): XR shoulder LT min 2V Accession Number(s): [id number] cc: Jen Ochoa MD; Urvashi Rodgers MD [...] signed by Benito Fowler MD in OV> 01/15/25 1643 DD/ 1630 TD/TT: 01/15/25 1636 Computer Systems Information Director: [facility] External Provider IMG XR PROCEDURES Final Result * (ABNORMAL) Lipid Panel, Standard (07/22/2024 4:21 PM EDT) Triglycerides 171(H) <150 mg/dL [facility] Comment:Desirable Triglyceri de: less than 150 mg/dLBorderline High Triglyceride 150-199 mg/dLHigh Triglyceride: 200-499 mg/dLVery High Triglyceride: greater than or equal to 5OO mg/dL Cholesterol 216(H) <200 mg/dL [facility] Comment:Desirable Cholestero l: less than 200 mg/dLBorderline High Cholesterol: 200-239 mg/dLHigh Cholesterol: greater than 239 mg/dL LDL Cholesterol Calculated 126(H) <100 mg/dL [facility] Comment:Desirable LDL: less than 100 mg/dLNear Optimal/Above Optimal LDL: 110- 129 mg/dLBorderline High LDL: 130-159 mg/dLHigh LDL: 160-189 mg/dLVery High LDL: greater than or equal to 190 mg/dL HDL Cholesterol 56 >40 mg/dL [facility] Comment:Desirable HDL: great er than 40 mg/dL Note: This HDL assay may give artificially low results in patients with liver disease. Blood Venous blood specimen / Unknown 07/22/2024 4:21 PM EDT 07/22/2024 6:19 PM EDT Jen Kidd MD LAB BLOOD ORDERABLES Final Result [facility] [address] [place] [address] [phone] * Cologuard?? colon cancer screening (11/03/2023 6:40 PM EDT) Cologuard Result Negative Negative 11/08/19 12:54 PM EDT [facility] (CLIA #:[id number]) Comment: NEGATIVE TEST RESULT. A negative Cologuard [...] (Lucy Mcnally al, N Engl J Med 2014;370(14):7200-6218) The normal value (reference range) for this assay is negative. COLOGUARD RE-SCREENING RECOMMENDATION: Periodic colorectal cancer screening is an important part of preventive healthcare for asymptomatic individuals at average risk for colorectal cancer. Following a negative Cologuard result, the [place] [employer] and U.S. Multi-Society Task Force screening guidelines recommend a Cologuard re-screening interval of 3 years. References: [place] [employer] Guideline for Colorectal Cancer Screening: https://www.cancer.org/cancer/nwahh-kwqskp-jfpedi/amaqwetyq-afulcsfaz-dfrhngd/ac s-rec ommendations.html.; Yaron DK, Nayeli CR, Emir WuK, Colorectal Cancer Screening: Recommendations for Physicians and Patients from the U.S. Multi-Society Task Force on Colorectal Cancer Screening , Am J Gastroenterology 2017; 112:7990-4742. TEST DESCRIPTION: Composite algorithmic analysis of stool [...] (Lucy Mcnally al, N Engl J Med 2014;370(14):2794-8762.) Cologuard may produce a false negative or false positive result (no colorectal cancer or precancerous polyp present at colonoscopy follow up). A negative Cologuard test result does not guarantee the absence of CRC or advanced adenoma (pre-cancer). The current Cologuard screening interval is every 3 years. ([place] [employer] and U.S. Multi-Society Task Force). Cologuard performance data in a 10,000 patient pivotal study using colonoscopy as the reference method can be accessed at the following location: www.[employer]/results. Additional description of the Cologuard test process, warnings and precautions can be found at www.Quotations Bookrd.com. Stool specimen (specimen) 11/03/2023 6:40 PM EDT 11/05/2023 11:00 AM EDT us Jen Kidd MD LAB MOLECULAR DIAGNOS TICS ORDERABLES Final Result [facility] (CLIA #:[id number]) [place] [address], [place] [phone] * BI Mammogram Screening Tomosynthesis Bilateral (10/21/2023 4:10 PM EDT) Anatomical Region Laterality Modality Breast Bilateral Mammography 10/21/2023 4:10 PM EDT Narrative 11/17/2023 3:43 PM EDT [facility] [address] [place] [address] Mammography Report Signed Patient: Hoda Lorenzo MR#: [id number] : 1955 Acct:[id number] Age/Sex: 68 / F ADM Date: 10/21/23 Loc: HO.MAMMO Attending Dr: Jen Kidd MD Ordering Physician: Jen Ochoa MD Results: 1Negative Date of Service: 10/21/23 Follow Up: 1 Year From [facility] Mammogram Procedure(s): MM tomosynthesis screening BI Accession Number(s): [id number] cc: Jen Ochoa MD EXAMINATION: MM SCREENING [...] in OV> 11/17/23 1539 DD/ 1610 TD/TT: Computer Systems Information Director: Procedure Note Donotuseinterpreter, Image - 11/17/2023 [facility] [address] [place] [address] Mammography Report Signed Patient: Rashmi Lorenzo#: [id number] : 4Acct:[id number] Age/Sex: 68 / FADM Date: 10/21/23 Loc: KAYLA Attending Dr: Jen Kidd MD Ordering Physician: Jen Ochoa MDResults: 1Negative Date of Service: 10/21/23Follow Up: 1 Year From Orig inal Mammogram Procedure(s): MM tomosynthesis screening BI Accession Number(s): [id number] cc: Jen Ochoa MD EXAMINATION: MM SCREENING [...] in OV> 11/17/23 1539 DD/ 1610 TD/TT: Computer Systems Information Director: Jen Kidd MD IMG BI PROCEDURES Fin al Result from Last 3 Months or Most Recently Relevant to Health Maintenance Insurance [facility] [employer] [employer] (HMO D-SNP) VERONIKA BERMEO [id number] Care Teams Event Technician Relationship Specialty Start Date End Date Jen Ochoa MD [address] [place] [phone] PCP - General Family Medicine 12/25/17
[2025-04-05 17:08] LABS: Vitamin B12 497 pg/mL (200-900)
[2025-04-05 17:21] LABS: Free T4 (Free Thyroxine) 0.90 ng/dL (0.71-1.85)
== END 2025-04-05 13:40 | disposition home or self-care (01) ==
LOC: HO.HHCX 13:39
PROVIDERS: PCP Internal Medicine; Referring Provider Nurse Practitioner Primary Care; Visit Provider Nurse Practitioner Primary Care
DX: M25.531 Pain in right wrist (principal); M25.532 Pain in left wrist; Z13.29 Encounter for screening for other suspected endocrine disorder
CPT/HCPCS: 36415; 73110; 82607; 84439; 84443; 84550

== ENCOUNTER → 2025-04-05 13:45 | Outpatient (BNV) | payer OTHER, SELFPAY | PROVIDERS: PCP Internal Medicine; Referring Provider Nurse Practitioner Primary Care; Visit Provider Radiology Diagnostic Ultrasound | DX: M25.531 Pain in right wrist (principal); M61.522 Other ossification of muscle, left upper arm | CPT/HCPCS: 73110 ==